=== PATIENT | male | born 1950 | race Caucasian/White ===

== ENCOUNTER 2020-12-16 10:13 | Inpatient (IN) | payer MEDICARE, SELFPAY ==
[2020-12-16] VITALS (8 sets, daily range): BP systolic 124–157; BP diastolic 62–88; PULSE 70–89; RESP 18–22; TEMP 36.6–37.2; O2SAT 87–96; BMI 29.6
--- NOTE | ~2020-12-16 | CT_ITS ---
EXAMINATION: CT CHEST WITHOUT CONTRAST CLINICAL INFORMATION: Abnormal chest x-ray. Cough and shortness of breath. COMPARISON: None TECHNIQUE: Multidetector volumetric CT imaging of the chest was done. Axial MIP volume rendering provided. Sagittal and coronal reformatted images were obtained. This CT examination was performed using dose optimization techniques as appropriate, variously including the following: *Automated exposure control *Adjustment of mA and/or kV according to patient size (this includes techniques or standardized protocols for targeted exams where dose is matched to indication/reason for exam; i.e. extremities or head) *Use of iterative reconstruction technique DLP: 4 x 4 mGy-cm FINDINGS: LUNGS: There is dense consolidation seen in the apical posterior segment of the right upper lobe with air bronchograms. There are innumerable small calcified pulmonary nodules probably representing calcified granulomas. There is a 5 mm noncalcified right upper lobe nodule axial image 288 series 4. There are several clustered noncalcified right middle lobe nodules, largest measuring 3 7 4 mm axial image 317 series 4. There are several small noncalcified left upper lobe nodules, largest measuring 2 mm. There is increased dependent and attenuation seen in both lower lobes. There also appears to be traction bronchiolectasis and diastasis small cysts. MEDIASTINUM: There are multiple calcified mediastinal and bilateral hilar lymph nodes. There are also noncalcified mediastinal lymph nodes. Largest lymph nodes are subcarinal lymph nodes which. Slightly enlarged, largest to the right of midline measuring 2 x 3 cm axial image 34 series 3. The heart is upper normal in size. There is mild coronary artery calcification. The thoracic aorta is normal in caliber. There is no pericardial effusion. The visualized thyroid gland is unremarkable. PLEURA: There is a small right pleural effusion. There is no left pleural effusion. AXILLA: There are small bilateral axillary lymph nodes. No enlarged lymph nodes are seen. UPPER ABDOMEN: There is a gallstone in the gallbladder. There is a 2 cm cyst exophytic to the upper pole of the left kidney. There is fatty infiltration of the head of the pancreas. OSSEOUS STRUCTURES: There are degenerative changes of the spine. CT/CT chest wo con IMPRESSION: Dense consolidation in the right upper lobe. This may represent a pneumonia. If there is clinical suspicion of pneumonia, imaging follow-up following treatment would be recommended. If there is no clinical suspicion of infection or radiographic abnormality fails to resolve, pulmonary consultation and bronchoscopy would be recommended. Evidence of old granulomatous disease with innumerable calcified granulomas and calcified hilar and mediastinal lymph nodes. There are some noncalcified mediastinal lymph nodes in the subcarinal region that appear enlarged and several noncalcified right pulmonary nodules in the right upper and middle lobes. Small right pleural effusion. Coronary artery calcification.
--- NOTE | ~2020-12-16 | XR_ITS ---
EXAMINATION: XR CHEST CLINICAL INFORMATION: Shortness of breath COMPARISON: Chest x-ray on 10/13/2015 TECHNIQUE: Frontal view of the chest was obtained. FINDINGS: Bilateral hazy interstitial and alveolar opacities, most predominantly in the right upper lobe. No pleural effusions. The cardiomediastinal silhouette is normal. XR/XR chest 1V IMPRESSION: Bilateral hazy opacities with right upper lobe predominance may be secondary to pneumonia in the appropriate clinical setting.
--- NOTE | 2020-12-16 11:03 | ED_ITS ---
HPI - SOB/Dyspnea General Chief Complaint: Dyspnea Stated Complaint: DIFF BREATHING WHEEZING COUGH Time Seen by Provider: 12/16/20 10:28 Source: patient Mode of arrival: ambulatory Limitations: no limitations History of Present Illness HPI Narrative: 70-year-old male with a past medical history of high cholesterol, hypertension, pulmonary nodules being followed by pulmonology at [facility] [place], [place], prostate cancer status post removal here with complaints of cough and wheezing since . Patient is also having some shortness of breath which is worsened with lying flat and with exertion. No leg swelling or pain. No chest pain, fevers or chills. Of note the patient had a bronchoscopy 1 week ago for his pulmonary nodules. He does not know the results yet. He denies any history of asthma, COPD. However he has used an inhaler in the past for wheezing. Denies smoking history. He is fully vaccinated for COVID-19 with [employer] x2 and a booster Related Data Home Medications Medication Instructions Recorded Confirmed albuterol sulfate 90 mcg/actuation 1 puff INHALATION Q4H PRN 12/16/20 12/16/20 aerosol inhaler amlodipine 10 mg tablet 1 tab PO DAILY 12/16/20 12/16/20 atorvastatin 80 mg tablet 1 tab PO DAILY 12/16/20 12/16/20 metoprolol succinate 25 mg 1 tab PO DAILY 12/16/20 12/16/20 tablet,extended release 24 hr olmesartan 40 1 tab PO DAILY 12/16/20 12/16/20 mg-hydrochlorothiazide 25 mg tablet omeprazole 40 mg capsule,delayed 1 cap PO DAILY 12/16/20 12/16/20 release tolterodine 4 mg capsule,extended 1 cap PO DAILY 12/16/20 12/16/20 release 24 hr Allergies Allergy/AdvReac Type Severity Reaction Status Date / Time ibuprofen [Ibuprofen] Allergy Intermediate HIVES/JOINT Unverified 11/04/19 17:43 SWELLING IBU Allergy Unknown Uncoded 11/15/15 00:00 Review of Systems Review of Systems: Yes all other systems are reviewed and are negative Constitutional: Constitutional: Reports no additional constitutional complaints, Denies body ache(s), Denies chills, Denies fever(s), Denies headache(s) and Denies weakness Eyes: Eyes: Reports no additional eye complaints and Denies change in vision ENT: Reports system reviewed and no additional complaints, except as documented, Denies dizziness, Denies headache(s), Denies nasal congestion, Denies nasal discharge and Denies neck pain Cardiovascular: Cardiovascular: Reports no additional cardiovascular complaints, Denies chest pain, Denies leg edema and Reports dyspnea Respiratory: Respiratory: Reports no additional respiratory complaints, Reports cough, Reports dyspnea and Reports wheezing Gastrointestinal: Gastrointestinal: Reports no additional gastrointestinal complaints, Denies abdominal pain, Denies diarrhea, Denies nausea and Denies vomiting Genitourinary: Genitourinary: Denies urinary incontinence Musculoskeletal: Musculoskeletal: Reports no additional musculoskeletal complaints, Denies back pain, Denies arthralgias, Denies joint swelling, Denies neck pain, Denies numbness and Denies tingling Integumentary/Breasts: Skin/Breast: Reports system reviewed and no additional complaints, except as docu and Denies rash Neurologic: Reports system reviewed and no additional complaints, except as documented, Denies Abnormal speech present, Denies dizziness, Denies headache(s), Denies numbness, Denies tingling and Denies weakness Allergic/Immunologic: Allergic/Immunologic: Reports wheezing PMFSH Past Medical History Attestation statement: The following information was validated with the patient. Source: old records reviewed and nursing notes reviewed Social History Social History Alcohol intake: unknown Patient Tobacco Use Status: Tobacco use Unknown Use of substances other than those prescribed or required for medical reasons: No Advance Directives: Yes Advance Directives Information Provided: Yes Advance Directives on File: No Physical Exam Vital Signs: Vital Signs: Last Vital Signs Temp 98.9 F 12/16/20 14:14 Pulse 74 12/16/20 14:14 Resp 18 12/16/20 14:14 BP 124/71 12/16/20 14:14 Pulse Ox 93 12/16/20 14:14 Body Mass Index 29.6 Const: General: cooperative, healthy appearing, comfortable and no acute distress Orientation/consciousness: patient oriented x3 Limitations: no limitations HENMT: Head: Yes normal to inspection Ears: hearing grossly normal bilaterally General nose exam: Normal external nose present Face and sinus: Yes normal facial exam Mouth: Normal oral and palatal mucosa present Throat: Yes posterior oropharynx normal Eyes: General: appearance normal, both eyes and all related structures Pupils: Equal, round and reactive pupils present Neck: Neck: Yes normal visual inspection Chest: Chest palpation & inspection: normal inspection of the chest Resp: Other: Tachypnea with a rate of 24 Inspiratory and expiratory wheezing throughout with coarse breath sounds noted Cardio: Rate: regular rate Rhythm: regular rhythm Peripheral pulses: Peripheral pulses 2+ throughout GI: Inspection: Yes normal to inspection Palpation (GI): Soft to palpation and nontender Auscultation: normal bowel sounds Back/Spine/Pelvis: Thoracic/Lumbar Spine: thoracic and lumbar spine normal to inspection Skin: General skin exam: no rashes or lesions noted Neuro: General: patient oriented x3, no focal motor deficits and normal sensation to monofilament Cranial nerves: Yes Equal, round and reactive pupils present Cognition (Neuro): normal cognition Speech: No Abnormal speech present Gait exam (Neuro): Normal gait present Motor exam (neuro): 5/5 motor strength present throughout Extrem: General: Yes normal to inspection, Yes no pedal edema and Yes no calf tenderness Course Course Course Narrative: 70-year-old male here with complaints of shortness of breath, wheezing and cough for 3 days with no chest pain, fever, leg swelling or pain. On arrival the patient has mild tachypnea with oxygen saturation on room air 87%. He has inspiratory and expiratory wheezing throughout with coarse breath sounds. Will need labs, chest x-ray, EKG, COVID screen. Will give Solu-Medrol, albuterol and reassess. 1210-chest x-ray consistent with pneumonia. At this time infection is suspected. Blood cultures and lactic acid ordered. Antibiotics ordered. CT chest eval ordered. Anticipate admission 1445-CT chest shows dense consolidation in the right upper lobe. Will admit to medicine service. Obtain records from bronchoscopy from [facility] [place]. 1454-Spoke to Dr Dc who accepted admission. MDM - SOB/Dyspnea Differential Diagnosis Differential diagnosis: Likely congestive heart failure and pneumonia Medical Records Attestation: I reviewed the patient's medical records. Lab Data Attestation: I reviewed the patient's lab results. Result diagrams: 12/16/20 11:30 12/16/20 11:30 Labs: Lab Results 12/16/20 12/16/20 12/16/20 Range/Units 11:29 11:29 11:29 WBC (4.8-10.8) X10*3/uL RBC (4.60-5.80) X10*6/uL Hgb (14.0-18.0) g/dl Hct (42.0-52.0) % MCV (80.0-98.0) fL MCH (27.0-33.0) pg MCHC (31.0-36.0) g/dl RDW (11.0-16.0) % Plt Count (160-400) X10*3/uL MPV (9.4-12.4) fL Immature Gran % (Auto) (0.0-0.4) % Neut % (Auto) (45-73) % Lymph % (Auto) (20-40) % [place] % (Auto) (2-11) % Eos % (Auto) (0-4) % Baso % (Auto) (0-2) % Lymph # (Auto) (1.2-4.9) X10*3/uL [place] # (Auto) (0.1-1.2) X10*3/uL Eos # (Auto) (0.0-0.4) X10*3/uL Baso # (Auto) (0.0-0.2) X10*3/uL Abs Immat Gran (auto) (0.00-0.03) X10*3/uL Absolute Neuts (auto) (2.0-8.3) x10*3/uL Absolute Nucleated RBC (0.0-0.012) X10*3/uL Nucleated RBC % (auto) (0.0-0.2) /100WBC PT 14.4 H (9.9-13.0) SEC INR 1.3 H (0.9-1.1) Sodium (135-145) mmol/L Potassium (3.3-5.1) mmol/L Chloride (96-108) mmol/L Carbon Dioxide (22-29) mmol/L Anion Gap (12-20) BUN (9-16) mg/dL Creatinine (0.5-1.4) mg/dL Estim Creat Clear Calc Estimated GFR Random Glucose (60-115) mg/dL Lactic Acid (0.5-2.0) mmol/L Calcium (8.4-10.2) mg/dL Magnesium (1.6-2.6) mg/dL Total Bilirubin (0.0-1.0) mg/dL Direct Bilirubin (0.0-0.5) mg/dL AST (5-37) U/L ALT (0-40) U/L Alkaline Phosphatase (39-117) U/L Troponin I High Sens 9.4 (<3.5-35.0) ng/L B-Natriuretic Peptide 43 (<100) pg/mL Total Protein (6.5-8.0) g/dL Albumin (3.5-5.0) g/dL COVID-19 (DONALD) Negative (Negative) COVID-19 Clin Com See Note 12/16/20 12/16/20 12/16/20 Range/Units 11:30 11:30 12:18 WBC 11.3 H (4.8-10.8) X10*3/uL RBC 5.64 (4.60-5.80) X10*6/uL Hgb 15.3 (14.0-18.0) g/dl Hct 45.5 (42.0-52.0) % MCV 80.7 (80.0-98.0) fL MCH 27.1 (27.0-33.0) pg MCHC 33.6 (31.0-36.0) g/dl RDW 13.8 (11.0-16.0) % Plt Count 231 (160-400) X10*3/uL MPV 9.3 L (9.4-12.4) fL Immature Gran % (Auto) 0.6 H (0.0-0.4) % Neut % (Auto) 74.7 H (45-73) % Lymph % (Auto) 9.1 L (20-40) % [place] % (Auto) 9.5 (2-11) % Eos % (Auto) 5.7 H (0-4) % Baso % (Auto) 0.4 (0-2) % Lymph # (Auto) 1.0 L (1.2-4.9) X10*3/uL [place] # (Auto) 1.1 (0.1-1.2) X10*3/uL Eos # (Auto) 0.6 H (0.0-0.4) X10*3/uL Baso # (Auto) 0.1 (0.0-0.2) X10*3/uL Abs Immat Gran (auto) 0.07 H (0.00-0.03) X10*3/uL Absolute Neuts (auto) 8.44 H (2.0-8.3) x10*3/uL Absolute Nucleated RBC 0.000 (0.0-0.012) X10*3/uL Nucleated RBC % (auto) 0.0 (0.0-0.2) /100WBC PT (9.9-13.0) SEC INR (0.9-1.1) Sodium 136 (135-145) mmol/L Potassium 3.2 L (3.3-5.1) mmol/L Chloride 103 (96-108) mmol/L Carbon Dioxide 23 (22-29) mmol/L Anion Gap 13 (12-20) BUN 13 (9-16) mg/dL Creatinine 0.75 (0.5-1.4) mg/dL Estim Creat Clear Calc 95.8 Estimated GFR > 60 Random Glucose 106 (60-115) mg/dL Lactic Acid 1.1 (0.5-2.0) mmol/L Calcium 8.7 (8.4-10.2) mg/dL Magnesium 1.7 (1.6-2.6) mg/dL Total Bilirubin 2.0 H (0.0-1.0) mg/dL Direct Bilirubin 0.6 H (0.0-0.5) mg/dL AST 29 (5-37) U/L ALT 24 (0-40) U/L Alkaline Phosphatase 92 (39-117) U/L Troponin I High Sens (<3.5-35.0) ng/L B-Natriuretic Peptide (<100) pg/mL Total Protein 6.1 L (6.5-8.0) g/dL Albumin 3.7 (3.5-5.0) g/dL COVID-19 (DONALD) (Negative) COVID-19 Clin Com Imaging Data Chest x-ray: Attestation: I personally reviewed and interpreted this imaging study as follows: Radiologist's impression: EXAMINATION: XR CHEST CLINICAL INFORMATION: Shortness of breath COMPARISON: Chest x-ray on 10/13/2015 TECHNIQUE: Frontal view of the chest was obtained. FINDINGS: Bilateral hazy interstitial and alveolar opacities, most predominantly in the right upper lobe. No pleural effusions. The cardiomediastinal silhouette is normal. XR/XR chest 1V IMPRESSION: Bilateral hazy opacities with right upper lobe predominance may be secondary to pneumonia in the appropriate clinical setting. ? CT scan - chest: Attestation: I personally reviewed and interpreted this imaging study as follows: Radiologist's impression: Dense consolidation in the right upper lobe. This may represent a pneumonia. If there is clinical suspicion of pneumonia, imaging follow-up following treatment would be recommended. If there is no clinical suspicion of infection or radiographic abnormality fails to resolve, pulmonary consultation and bronchoscopy would be recommended. Evidence of old granulomatous disease with innumerable calcified granulomas and calcified hilar and mediastinal lymph nodes. There are some noncalcified mediastinal lymph nodes in the subcarinal region that appear enlarged and several noncalcified right pulmonary nodules in the right upper and middle lobes. Small right pleural effusion. Coronary artery calcification. ECG Data Attestation: I personally reviewed and interpreted this ECG as follows: ECG interpretation date: 12/16/20 ECG interpretation time: 11:33 Interpretation: Sinus rhythm with occasional PVCs, right bundle branch block, ST depressions V3 through V5. No previous to compare Discharge Plan Discharge Clinical Impression: Pneumonia, Hypoxia, Tachypnea Patient Disposition: Admitted As Inpatient
--- NOTE | 2020-12-16 11:12 | ECG_ITS ---
Test Reason : dyspena Blood Pressure : / mmHG Vent. Rate : 077 BPM Atrial Rate : 077 BPM P-R Int : 168 ms QRS Dur : 158 ms QT Int : 428 ms P-R-T Axes : 033 -65 010 degrees QTc Int : 484 ms Sinus rhythm with occasional Premature ventricular complexes Left anterior fascicular block Right bundle branch block Abnormal ECG T wave inversion no longer evident in Lateral leads Referred By: Monica Reilly Electronically Signed By:RAYRAY BOUDREAUX MD
[2020-12-16] MEDS: Albuterol/Iprat 2.5/0.5MG 3 ML AMPUL.NEB INHALE ×3 (11:31→22:20)
[2020-12-16] MEDS: methylPREDNISolone Sod Succ 125 MG/2 ML VIAL IVPUSH (11:31)
[2020-12-16 11:38] LABS: MANUAL DIFF FLAG NO
[2020-12-16 11:45] LABS: INTERNATIONAL NORM RATIO 1.3 (0.9-1.1); Prothrombin Time 14.4 SEC (9.9-13.0)
[2020-12-16 11:54] LABS: Basophils Absolute Auto 0.1 X10*3/uL (0.0-0.2); Basophils Percent Auto 0.4 % (0-2); Eosinophils Absolute Auto 0.6 X10*3/uL (0.0-0.4); Eosinophils Percent Auto 5.7 % (0-4); Hematocrit 45.5 % (42.0-52.0); Hemoglobin 15.3 g/dl (14.0-18.0); Imm Gran Abs Auto 0.07 X10*3/uL (0.00-0.03); Imm Gran Pct Auto 0.6 % (0.0-0.4); Lymphocytes Percent Auto 9.1 % (20-40); Mean Corpuscular HGB Conc 33.6 g/dl (31.0-36.0); Mean Corpuscular Hemoglobin 27.1 pg (27.0-33.0); Mean Corpuscular Volume 80.7 fL (80.0-98.0); Mean Platelet Volume 9.3 fL (9.4-12.4); Monocytes Absolute Auto 1.1 X10*3/uL (0.1-1.2); Monocytes Percent Auto 9.5 % (2-11); Neutrophils Absolute Auto 8.44 x10*3/uL (2.0-8.3); Neutrophils Percent Auto 74.7 % (45-73); Platelet Count 231 X10*3/uL (160-400); Red Blood Count 5.64 X10*6/uL (4.60-5.80); Red Cell Distribution Width 13.8 % (11.0-16.0); White Blood Count 11.3 X10*3/uL (4.8-10.8)
[2020-12-16 11:54] LABS: COVID-19 Test Negative (Negative); IDNOW Serial# 9DD0AD1C
[2020-12-16 12:00] LABS: Alanine Aminotransferase 24 U/L (0-40); Albumin Level 3.7 g/dL (3.5-5.0); Alkaline Phosphatase 92 U/L (39-117); Anion Gap 13 (12-20); Aspartate Amino Transferase 29 U/L (5-37); Bilirubin Direct 0.6 mg/dL (0.0-0.5); Blood Urea Nitrogen 13 mg/dL (9-16); Calcium 8.7 mg/dL (8.4-10.2); Carbon Dioxide 23 mmol/L (22-29); Chloride 103 mmol/L (96-108); Creatinine Clr Calc Pharmacy 95.8; Estimated Glomerular Filt Rate > 60; Glucose Random 106 mg/dL (60-115); Magnesium 1.7 mg/dL (1.6-2.6); Potassium 3.2 mmol/L (3.3-5.1); Sodium 136 mmol/L (135-145); Total Protein 6.1 g/dL (6.5-8.0)
[2020-12-16 12:02] LABS: B Type Natriuretic Peptide 43 pg/mL (<100); Troponin-I High Sensitivity 9.4 ng/L (<3.5-35.0)
[2020-12-16] MEDS: Piperacillin Sodium/Tazobactam 4.5 GM in 0.9 % Sodium Chloride 100 ML IV (12:29)
[2020-12-16 12:35] LABS: Lactic Acid 1.1 mmol/L (0.5-2.0)
[2020-12-16] MEDS: vancomycin HCL 1,250 MG in 0.9 % Sodium Chloride 250 ML 166.67 MG IV (13:04)
--- NOTE | 2020-12-16 15:14 | P.HPHOSP_ITS ---
History of Present Illness Date of Service: 12/16/20 Attending physician on admission: Areli Dc Chief Complaint: Shortness of breath 70-year-old male with a past medical history of high cholesterol, hypertension, pulmonary nodules being followed by pulmonology at [facility] [place], GER[place], prostate cancer status post surgery came in with symptoms of shortness of breath with exertion, cough , and wheezing since yesterday patient denied associated symptoms of chest pain, fevers chills no orthopnea no PND, patient had a bronchoscopy done on 12/08/20 with a diagnosis of interstitial lung disease, sarcoidosis versus silicosis, patient was noted to have hyper dynamic airway collapse of the left mainstem bronchus, he underwent right middle lobe BAL that was sent for cell count, culture, AFB culture as well as cytology and right upper lobe biopsies were sent for histopathology . Patient denies sick contacts, no history of recent travel. Patient is fully vaccinated for COVID-19 with pfizer x2 and a booster, status post flu vaccine In the emergency room CT chest showed right upper lobe pneumonia he was noted to be hypoxic therefore being admitted to [facility] with a diagnosis of acute on chronic hypoxic respiratory failure and pneumonia likely postobstructive Review of Systems Review of Systems: General no headache no dizziness no fever chills. CVS no chest pain, no palpitation. Respiratory cough with no sputum,sob with exertion. Gastrointestinal no nausea no vomiting, no abdominal pain Musculoskeletal no deformity Yes all other systems are reviewed and are negative PMFSH Pertinent family history: No history of premature coronary artery disease Social History Alcohol intake: unknown Patient Tobacco Use Status: Tobacco use Unknown Use of substances other than those prescribed or required for medical reasons: No Advance Directives: Yes Advance Directives Information Provided: Yes Advance Directives on File: No service: No Meds Allergies Allergy/AdvReac Type Severity Reaction Status Date / Time ibuprofen [Ibuprofen] Allergy Intermediate HIVES/JOINT Verified 12/17/20 02:29 SWELLING Active Medications: Current Medications Acetaminophen (Acetaminophen 325 Mg Tablet) 650 mg PO Q6H PRN PRN Reason: Pain, Mild (Pain Scale 1-3) Vancomycin HCl 750 mg/ Sodium (Chloride) 265 mls @ 265 mls/hr IV Q12H ARNOLDO Ondansetron HCl (Ondansetron Hcl 4 Mg/2 Ml Vial) 4 mg IVPUSH Q8H PRN PRN Reason: Nausea and Vomiting Pharmacy Consult (Consult Rx Perform Med Rec) 1 each MISCELLANE ONCE PRN PRN Reason: Consult order Pharmacy Consult (Consult Rx Vancomycin Dosing) 1 each MISCELLANE DAILY PRN PRN Reason: Consult order Sodium Chloride (0.9 % Sodium Chloride Flush 3 Ml Syringe) 3 ml IVFLUSH QSHIFT [facility] Home Medications Medication Instructions Recorded Confirmed Last Taken Type albuterol sulfate 90 mcg/actuation 1 puff INHALATION Q4H PRN 12/16/20 12/16/20 Unknown History aerosol inhaler amlodipine 10 mg tablet 1 tab PO DAILY 12/16/20 12/16/20 Unknown History ascorbic acid (vitamin C) 500 mg 500 mg PO DAILY 12/16/20 12/16/20 Unknown History tablet (Vitamin C) aspirin 81 mg tablet 81 mg PO DAILY 12/16/20 12/16/20 Unknown History atorvastatin 80 mg tablet 1 tab PO DAILY 12/16/20 12/16/20 Unknown History metoprolol succinate 25 mg 1 tab PO DAILY 12/16/20 12/16/20 Unknown History tablet,extended release 24 hr olmesartan 40 1 tab PO DAILY 12/16/20 12/16/20 Unknown History mg-hydrochlorothiazide 25 mg tablet omeprazole 40 mg capsule,delayed 1 cap PO DAILY 12/16/20 12/16/20 Unknown History release tolterodine 4 mg capsule,extended 1 cap PO DAILY 12/16/20 12/16/20 Unknown History release 24 hr Physical Exam Vital Signs and Narrative: Vital Signs: Last Vital Signs Temp 98.9 F 12/16/20 14:14 Pulse 74 12/16/20 14:14 Resp 18 12/16/20 14:14 BP 124/71 12/16/20 14:14 Pulse Ox 93 12/16/20 14:14 Body Mass Index 29.6 General awake alert, no acute distress. Neck is supple no JVD. CVS regular rate rhythm, Respiratory lungs clear bilateral coarse breath sounds, initially noted to have bilateral expiratory wheeze now resolved, no respiratory distress, Gastrointestinal abdomen soft, nontender, bowel sounds audible, no guarding , no rigidity. Extremities no pitting edema. Neuro nonfocal Skin no rash Psych appropriate affect Musculoskeletal no deformity Results Labs CBC and Chem 7: 12/16/20 11:30 12/16/20 11:30 Labs: Laboratory Results - last 24 hr 12/16/20 12/16/20 12/16/20 11:29 11:29 11:29 MCV MCH MCHC RDW Plt Count MPV Immature Gran % (Auto) Neut % (Auto) Lymph % (Auto) [place] % (Auto) Eos % (Auto) Baso % (Auto) Lymph # (Auto) [place] # (Auto) Eos # (Auto) Baso # (Auto) Abs Immat Gran (auto) Absolute Neuts (auto) Absolute Nucleated RBC Nucleated RBC % (auto) PT 14.4 H INR 1.3 H Anion Gap Estim Creat Clear Calc Estimated GFR Random Glucose Lactic Acid Calcium Magnesium Total Bilirubin Direct Bilirubin AST ALT Alkaline Phosphatase Troponin I High Sens 9.4 B-Natriuretic Peptide 43 Total Protein Albumin COVID-19 (DONALD) Negative COVID-19 Clin Com See Note 12/16/20 12/16/20 12/16/20 11:30 11:30 12:18 MCV 80.7 MCH 27.1 MCHC 33.6 RDW 13.8 Plt Count 231 MPV 9.3 L Immature Gran % (Auto) 0.6 H Neut % (Auto) 74.7 H Lymph % (Auto) 9.1 L [place] % (Auto) 9.5 Eos % (Auto) 5.7 H Baso % (Auto) 0.4 Lymph # (Auto) 1.0 L [place] # (Auto) 1.1 Eos # (Auto) 0.6 H Baso # (Auto) 0.1 Abs Immat Gran (auto) 0.07 H Absolute Neuts (auto) 8.44 H Absolute Nucleated RBC 0.000 Nucleated RBC % (auto) 0.0 PT INR Anion Gap 13 Estim Creat Clear Calc 95.8 Estimated GFR > 60 Random Glucose 106 Lactic Acid 1.1 Calcium 8.7 Magnesium 1.7 Total Bilirubin 2.0 H Direct Bilirubin 0.6 H AST 29 ALT 24 Alkaline Phosphatase 92 Troponin I High Sens B-Natriuretic Peptide Total Protein 6.1 L Albumin 3.7 COVID-19 (DONALD) COVID-19 Clin Com Imaging Radiologist's Impressions: Impressions Chest X-Ray 12/16/20 11:12 IMPRESSION: Bilateral hazy opacities with right upper lobe predominance may be secondary to pneumonia in the appropriate clinical setting. Chest CT 12/16/20 12:08 IMPRESSION: Dense consolidation in the right upper lobe. This may represent a pneumonia. If there is clinical suspicion of pneumonia, imaging follow-up following treatment would be recommended. If there is no clinical suspicion of infection or radiographic abnormality fails to resolve, pulmonary consultation and bronchoscopy would be recommended. Evidence of old granulomatous disease with innumerable calcified granulomas and calcified hilar and mediastinal lymph nodes. There are some noncalcified mediastinal lymph nodes in the subcarinal region that appear enlarged and several noncalcified right pulmonary nodules in the right upper and middle lobes. Small right pleural effusion. Coronary artery calcification. Assessment and Plan (1) Pneumonia: Status: Acute (2) Hypoxia: Status: Acute (3) Obstructive sleep apnea: Status: Acute (4) Hypokalemia: Status: Acute (5) Elevated bilirubin: Status: Acute (6) Hyperlipidemia: Status: Acute (7) Hypertension: Status: Acute (8) History of prostate cancer: Status: Acute 70-year-old gentleman with past medical history of hyperlipidemia, hypertension, pulmonary nodules, history of obstructive sleep apnea on CPAP and 2 L of oxygen at home, history of prostate cancer status post resection presented to [facility] after undergoing bronchoscopy at [facility] on December 08 presented to [facility] with couple days history of cough associated with shortness of breath and since yesterday noted to have expiratory wheeze denies chest pain orthopnea patient in the ER noted to be hypoxic in CT chest showed pneumonia therefore patient is being admitted to [facility] for continued monitoring and treatment. Acute on chronic hypoxic respiratory failure due to right upper lobe pneumonia No evidence of sepsis. Will admit to medical floor patient will treat with IV Zosyn with concern for post obstructive pneumonia hx of lung mass Patient is status post bronchoscopy 12/08 at [facility] when noted to have airway collapse left main stem bronchus, transbronchial biopsies were taken from right upper lobe, and had right middle lobe BAL Gm stain, fungal, AFB cultures as well as cytology was sent. Will place on IV steroids, scheduled updraft and continue as needed albuterol inhalers Place on oxygen and keep finger oximetry greater than 94% add cough medication and supportive care with analgesics/ antiemetics. If patient does not show any improvement will consult pulmonology. Hypertension Continue home medications amlodipine, metoprolol,hold olmesartan/hydrochlorothiazide, due to soft BP, follow blood pressure closely History of obstructive sleep apnea continue CPAP and 2 L of oxygen at night. History of pulmonary nodules recommend outpatient follow-up at [facility] pulmonology History of prostate cancer. Continue Detrol LA DVT prophylaxis with Lovenox subQ Code status full code Quality Stroke Does the patient have a stroke diagnosis?: No VTE Prior VTE?: No VTE Risk Level:: Medical - moderate - high VTE Device Contraindication: Treatment Not Indicated VTE Drug Contraindication: N/A - Med Ordered
[2020-12-16] MEDS: guaiFENesin DM 100/10/5 ML 5 ML SYRUP 10 ML PO ×2 (17:16→22:52)
[2020-12-16] MEDS: Enoxaparin Sodium 40 MG/0.4 ML SYRINGE SUBCUT (17:16)
[2020-12-16] MEDS: Piperacillin Sodium/Tazobactam 3.375 GM in 0.9 % Sodium Chloride 50 ML IV (20:03)
[2020-12-16] MEDS: Atorvastatin Calcium 80 MG TABLET PO (23:33)
[2020-12-17] VITALS (11 sets, daily range): BP systolic 136–158; BP diastolic 63–81; PULSE 70–90; RESP 16–22; TEMP 36.5; O2SAT 92–96
[2020-12-17] MEDS: Piperacillin Sodium/Tazobactam 3.375 GM in 0.9 % Sodium Chloride 50 ML IV ×4 (02:01→20:48)
[2020-12-17] MEDS: vancomycin HCL 750 MG in 0.9 % Sodium Chloride 250 ML 265 MG IV ×2 (02:02→14:12)
[2020-12-17] MEDS: Melatonin 3 MG TABLET 6 MG PO ×2 (02:29→22:46)
[2020-12-17] MEDS: guaiFENesin DM 100/10/5 ML 5 ML SYRUP 10 ML PO ×4 (02:30→20:50)
[2020-12-17] MEDS: 0.9 % Sodium Chloride Flush 3 ML SYRINGE IVFLUSH (07:37)
[2020-12-17] MEDS: Albuterol/Iprat 2.5/0.5MG 3 ML AMPUL.NEB INHALE ×3 (08:09→16:17)
[2020-12-17] MEDS: Metoprolol Succinate ER 25 MG TAB.ER.24H PO (09:00)
[2020-12-17] MEDS: Aspirin Enteric Coated 81 MG TABLET.DR PO (09:00)
[2020-12-17] MEDS: Potassium Chloride ER 20 MEQ TAB.ER.PRT 40 MEQ PO (09:00)
[2020-12-17] MEDS: Ascorbic Acid 500 MG TABLET PO (09:02)
[2020-12-17] MEDS: amLODIPine Besylate 10 MG TABLET PO (09:02)
[2020-12-17] MEDS: Omeprazole 40 MG CAPSULE.DR PO (09:02)
[2020-12-17] MEDS: methylPREDNISolone Sod Succ 40 MG/ML VIAL IVPUSH ×2 (09:03→16:31)
[2020-12-17] MEDS: Tolterodine Tartrate LA 4 MG CAP.ER.24H PO (10:42)
--- NOTE | 2020-12-17 11:29 | MHC.CM.PN ---
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
--- NOTE | 2020-12-17 14:05 | P.PNIM_ITS ---
Subjective Subjective Date of Service: 12/17/20 Interval History: Being followed for right upper lobe pneumonia, complaining of shortness of breath when lying on right-sided, was up most of the night since state in the emergency room, feels better when lying on back used CPAP at night denies worsening shortness of breath or cough. Review of Systems General no headache, no dizziness, no fever chills. CVS no chest pain, no palpitation. Respiratory shortness of breath when lying on right side, cough Gastrointestinal no nausea, no vomiting, no abdominal pain Review of Systems: Yes all other systems are reviewed and are negative Physical Exam Vital Signs: Vital Signs: Last Vital Signs Temp 98.9 F 12/16/20 17:14 Pulse 87 12/17/20 11:15 Resp 20 12/17/20 09:03 BP 138/78 12/17/20 09:03 Pulse Ox 94 12/17/20 09:03 Body Mass Index 29.6 General awake alert, no acute distress.? Neck is supple no JVD. CVS? regular rate rhythm, Respiratory lungs bilateral coarse breath sounds, no wheeze, no rhonchi , no respiratory distress, Gastrointestinal abdomen soft, nontender, bowel sounds audible, no guarding , no rigidity. Extremities no pitting edema. Neuro nonfocal Skin no rash Psych appropriate affect Musculoskeletal no deformity Objective Data Active Medications Acetaminophen (Acetaminophen 325 Mg Tablet) 650 mg PO Q6H PRN PRN Reason: Pain, Mild (Pain Scale 1-3) Albuterol Sulfate (Albuterol Sulfate 90 Mcg 8 Gm Inhaler) 1 puff INHALE Q4H PRN PRN Reason: Shortness Of Breath Albuterol/Ipratropium (Albuterol/Iprat 2.5/0.5mg 3 Ml Ampul.Neb) 3 ml INHALE QID [facility] Last Admin: 12/17/20 11:14 Dose: 3 ml Documented by: KATIANA Amlodipine Besylate (Amlodipine Besylate 10 Mg Tablet) 10 mg PO DAILY [facility]; Protocol Last Admin: 12/17/20 09:02 Dose: 10 mg Documented by: BRIANNA Ascorbic Acid (Ascorbic Acid 500 Mg Tablet) 500 mg PO DAILY [facility] Last Admin: 12/17/20 09:02 Dose: 500 mg Documented by: BRIANNA Aspirin (Aspirin Enteric Coated 81 Mg Tablet.) 81 mg PO DAILY [facility] Last Admin: 12/17/20 09:00 Dose: 81 mg Documented by: BRIANNA Atorvastatin Calcium (Atorvastatin Calcium 80 Mg Tablet) 80 mg PO BEDTIME [facility] Last Admin: 12/16/20 23:33 Dose: 80 mg Documented by: LEVI Enoxaparin Sodium (Enoxaparin Sodium 40 Mg/0.4 Ml Syringe) 40 mg SUBCUT Q24H [facility] Last Admin: 12/16/20 17:16 Dose: 40 mg Documented by: GLORIA Guaifenesin/Dextromethorphan (Guaifenesin Dm 100/10/5 Ml 5 Ml Syrup) 10 ml PO Q6H [facility] Last Admin: 12/17/20 09:00 Dose: 10 ml Documented by: BRIANNA Vancomycin HCl 750 mg/ Sodium (Chloride) 265 mls @ 265 mls/hr IV Q12H [facility] Last Infusion: 12/17/20 03:11 Dose: 0 mls/hr Documented by: LEVI Piperacillin Sod/Tazobactam (Sod 3.375 gm/ Sodium Chloride) 50 mls @ 100 mls/hr IV Q6H [facility] Last Admin: 12/17/20 12:59 Dose: 100 mls/hr Documented by: WATSON Methylprednisolone Sodium Succinate (Methylprednisolone Sod Succ 40 Mg/Ml Vial) 40 mg IVPUSH Q8H [facility] Last Admin: 12/17/20 09:03 Dose: 40 mg Documented by: BRIANNA Metoprolol Succinate (Metoprolol Succinate Er 25 Mg Tab.Er.24h) 25 mg PO DAILY [facility]; Protocol Last Admin: 12/17/20 09:00 Dose: 25 mg Documented by: BRIANNA Omeprazole (Omeprazole 40 Mg Capsule.Dr) 40 mg PO DAILY [facility] Last Admin: 12/17/20 09:02 Dose: 40 mg Documented by: BRIANNA Ondansetron HCl (Ondansetron Hcl 4 Mg/2 Ml Vial) 4 mg IVPUSH Q8H PRN PRN Reason: Nausea and Vomiting Pharmacy Consult (Consult Rx Perform Med Rec) 1 each MISCELLANE ONCE PRN PRN Reason: Consult order Pharmacy Consult (Consult Rx Vancomycin Dosing) 1 each MISCELLANE DAILY PRN PRN Reason: Consult order Sodium Chloride (0.9 % Sodium Chloride Flush 3 Ml Syringe) 3 ml IVFLUSH QSHIFT [facility] Last Admin: 12/17/20 07:37 Dose: 3 ml Documented by: BRIANNA Tolterodine Tartrate (Tolterodine Tartrate La 4 Mg Cap.Er.24h) 4 mg PO DAILY [facility] Last Admin: 12/17/20 10:42 Dose: 4 mg Documented by: BRIANNA Labs CBC & Chem 7: 12/16/20 11:30 12/16/20 11:30 Assessment and Plan (1) History of prostate cancer: Status: Acute (2) Hypertension: Status: Acute (3) Hyperlipidemia: Status: Acute (4) Elevated bilirubin: Status: Acute (5) Hypokalemia: Status: Acute (6) Obstructive sleep apnea: Status: Acute (7) Hypoxia: Status: Acute (8) Pneumonia: Status: Acute (9) Tachypnea: Status: Acute Assessment and Plan: 70-year-old gentleman with past medical history of hyperlipidemia, hypertension, pulmonary nodules, history of obstructive sleep apnea on CPAP and 2 L of oxygen at home, history of prostate cancer status post resection presented to [facility] after undergoing bronchoscopy at [facility] on December 08 presented to [facility] with couple days history of cough associated with shortness of breath and since yesterday noted to have expiratory wheeze denies chest pain orthopnea patient in the ER noted to be hypoxic ,CT chest showed right upper lobe pneumonia therefore patient is being admitted to [facility] for continued monitoring and treatment. Acute on chronic hypoxic respiratory failure due to right upper lobe pneumonia No evidence of sepsis. Patient gets short of breath when lying on right side likely due to right lung mass and obstruction. Patient use 2 L of oxygen at night with CPAP, currently 2 L of oxygen with finger oximetry 94% will gradually wean oxygen Continue IV Zosyn day 2 ,with concern for post obstructive pneumonia hx of lung mass Patient is status post bronchoscopy 12/08 at [facility] noted to have airway collapse left main stem bronchus, transbronchial biopsies were taken from right upper lobe, and had right middle lobe BAL Gm stain, fungal, AFB cultures as well as cytology was sent. Continue IV steroids, scheduled updraft and continue as needed albuterol inhalers Continue cough medication and supportive care with analgesics/ antiemetics. Blood cultures x2 pending Patient making progress with above treatment will transition to by mouth steroids and antibiotics in next 24 hours if remains stable and recommend outpatient follow-up with [facility] [place] pulmonology. If patient does not show improvement will consult pulmonology. Hypertension BP stable Continue home medications amlodipine, and metoprolol, hold olmesartan/hydrochlorothiazide, for now and resume if blood pressure allows History of obstructive sleep apnea continue CPAP and 2 L of oxygen at night. History of pulmonary nodules recommend outpatient follow-up at [facility] pulmonology Elevated bilirubin will follow patient asymptomatic. History of prostate cancer.? Continue Detrol LA DVT prophylaxis with Lovenox subQ Code status full code Quality Stroke Does the patient have a stroke diagnosis?: No VTE Prior VTE?: No VTE Risk Level:: Medical - moderate - high VTE Device Contraindication: Treatment Not Indicated VTE Drug Contraindication: N/A - Med Ordered
[2020-12-17] MEDS: Enoxaparin Sodium 40 MG/0.4 ML SYRINGE SUBCUT (16:33)
--- NOTE | 2020-12-17 19:39 | PC.NURSE ---
this nurse resuming care for pt. pt is alert and oriented x4. pt denies pain at this time. pt on 2L NC, denies any SOB at this time. respirations even and unlabored on 2L NC. Vanco still infusing, will start next abx when vanco finished infusing. pt aware of plan for admission, has no questions or concerns at this time. call gracia in reach.
[2020-12-17] MEDS: Atorvastatin Calcium 80 MG TABLET PO (20:50)
--- NOTE | 2020-12-17 20:54 | PC.NURSE ---
500ml emptied from bedside urinal
--- NOTE | 2020-12-17 20:55 | PC.NURSE ---
pt states that when he receives nebulizer tx he feels anxious and his heart races, this nurse informed pt that this can sometimes be a side effect of albuterol. pt states that he looked up alternative medications to see if there was one with less of these effects and stated he would like to try xopenex. per RT, this medication is available. this nurse contacting hospitalist to see if medication can be switched to xopenex.
--- NOTE | 2020-12-17 23:55 | PC.NURSE ---
nurse to nurse report given to Alvarez MURRELL
[2020-12-18] VITALS (12 sets, daily range): BP systolic 141–170; BP diastolic 68–78; PULSE 56–87; RESP 16–20; TEMP 36–37.1; O2SAT 89–98
[2020-12-18 00:42] LABS: Vancomycin Trough 8.7 mcg/mL (10.0-20.0)
[2020-12-18] MEDS: methylPREDNISolone Sod Succ 40 MG/ML VIAL IVPUSH ×3 (00:42→16:41)
[2020-12-18] MEDS: Piperacillin Sodium/Tazobactam 3.375 GM in 0.9 % Sodium Chloride 50 ML IV ×4 (00:42→19:30)
[2020-12-18] MEDS: guaiFENesin DM 100/10/5 ML 5 ML SYRUP 10 ML PO ×4 (04:07→20:26)
[2020-12-18 05:30] LABS: Alanine Aminotransferase 21 U/L (0-40); Albumin Level 3.4 g/dL (3.5-5.0); Alkaline Phosphatase 76 U/L (39-117); Aspartate Amino Transferase 20 U/L (5-37); Bilirubin Direct 0.4 mg/dL (0.0-0.5); Bilirubin Total 0.8 mg/dL (0.0-1.0); Potassium 3.9 mmol/L (3.3-5.1); Total Protein 5.7 g/dL (6.5-8.0)
[2020-12-18] MEDS: Omeprazole 40 MG CAPSULE.DR PO (08:35)
[2020-12-18] MEDS: Tolterodine Tartrate LA 4 MG CAP.ER.24H PO (08:35)
[2020-12-18] MEDS: amLODIPine Besylate 10 MG TABLET PO (08:37)
[2020-12-18] MEDS: Metoprolol Succinate ER 25 MG TAB.ER.24H PO (08:38)
[2020-12-18] MEDS: Aspirin Enteric Coated 81 MG TABLET.DR PO (08:39)
[2020-12-18] MEDS: Ascorbic Acid 500 MG TABLET PO (08:39)
[2020-12-18] MEDS: 0.9 % Sodium Chloride Flush 3 ML SYRINGE IVFLUSH ×2 (08:39→16:42)
--- NOTE | 2020-12-18 11:20 | MHC.CM.PN ---
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 . initial discharge plan -home no services , manager case management to continue to follow for change in discharge needs,
--- NOTE | 2020-12-18 13:38 | PC.NURSE ---
Skin assessment completed. Patient has no skin issues noted at this time.
--- NOTE | 2020-12-18 13:45 | P.PNIM_ITS ---
Subjective Subjective Date of Service: 12/18/20 Interval History: Cough still bothersome; cough syrup and effective Review of Systems Denies chest pain Denies shortness of breath Denies nausea vomiting diarrhea Physical Exam Vital Signs: Vital Signs: Last Vital Signs Temp 97.8 F 12/18/20 12:00 Pulse 58 12/18/20 12:00 Resp 20 12/18/20 12:00 BP 149/70 H 12/18/20 12:00 Pulse Ox 94 12/18/20 12:00 Body Mass Index 29.6 Const: Other: No acute distress HENMT: Other: Oropharynx clear; membranes otitis Resp: Other: Diminished at bases; diffuse expiratory wheezes Cardio: Other: No S4; positive S1-S2; no S3 murmurs rubs gallops GI: Other: Soft nontender nondistended with normoactive bowel sounds all 4 quadrants Neuro: Other: Cranial nerves 2-12 grossly intact as tested motor is 5/5 all extremities sensation intact cognition appropriate Extrem: Other: No edema bilateral Objective Data Active Medications Acetaminophen (Acetaminophen 325 Mg Tablet) 650 mg PO Q6H PRN PRN Reason: Pain, Mild (Pain Scale 1-3) Amlodipine Besylate (Amlodipine Besylate 10 Mg Tablet) 10 mg PO DAILY [facility]; Protocol Last Admin: 12/18/20 08:37 Dose: 10 mg Documented by: KIRT Ascorbic Acid (Ascorbic Acid 500 Mg Tablet) 500 mg PO DAILY [facility] Last Admin: 12/18/20 08:39 Dose: 500 mg Documented by: KIRT Aspirin (Aspirin Enteric Coated 81 Mg Tablet.Dr) 81 mg PO DAILY [facility] Last Admin: 12/18/20 08:39 Dose: 81 mg Documented by: KIRT Atorvastatin Calcium (Atorvastatin Calcium 80 Mg Tablet) 80 mg PO BEDTIME [facility] Last Admin: 12/17/20 20:50 Dose: 80 mg Documented by: AURORA Enoxaparin Sodium (Enoxaparin Sodium 40 Mg/0.4 Ml Syringe) 40 mg SUBCUT Q24H [facility] Last Admin: 12/17/20 16:33 Dose: 40 mg Documented by: WATSON Guaifenesin/Dextromethorphan (Guaifenesin Dm 100/10/5 Ml 5 Ml Syrup) 10 ml PO Q6H [facility] Last Admin: 12/18/20 08:34 Dose: 10 ml Documented by: KIRT Piperacillin Sod/Tazobactam (Sod 3.375 gm/ Sodium Chloride) 50 mls @ 100 mls/hr IV Q6H [facility] Last Admin: 12/18/20 13:27 Dose: 100 mls/hr Documented by: TIMA Levalbuterol HCl (Levalbuterol Hcl 1.25 Mg/0.5 Ml Vial.Neb) 1.25 mg INHALE Q3H PRN PRN Reason: Shortness of Breath/Wheezing Last Admin: 12/17/20 21:25 Dose: 1.25 mg Documented by: CARRIE Levalbuterol HCl (Levalbuterol Hcl 1.25 Mg/0.5 Ml Vial.Neb) 1.25 mg INHALE RQ4H WHILE AWAKE [facility] Last Admin: 12/18/20 11:18 Dose: 1.25 mg Documented by: ABIGAIL Melatonin (Melatonin 3 Mg Tablet) 6 mg PO BEDTIME PRN PRN Reason: Insomnia Last Admin: 12/17/20 22:46 Dose: 6 mg Documented by: AURORA Methylprednisolone Sodium Succinate (Methylprednisolone Sod Succ 40 Mg/Ml Vial) 40 mg IVPUSH Q8H [facility] Last Admin: 12/18/20 08:35 Dose: 40 mg Documented by: KRIT Metoprolol Succinate (Metoprolol Succinate Er 25 Mg Tab.Er.24h) 25 mg PO DAILY [facility]; Protocol Last Admin: 12/18/20 08:38 Dose: 25 mg Documented by: KIRT Omeprazole (Omeprazole 40 Mg Capsule.Dr) 40 mg PO DAILY [facility] Last Admin: 12/18/20 08:35 Dose: 40 mg Documented by: KIRT Ondansetron HCl (Ondansetron Hcl 4 Mg/2 Ml Vial) 4 mg IVPUSH Q8H PRN PRN Reason: Nausea and Vomiting Pharmacy Consult (Consult Rx Perform Med Rec) 1 each MISCELLANE ONCE PRN PRN Reason: Consult order Pharmacy Consult (Consult Rx Vancomycin Dosing) 1 each MISCELLANE DAILY PRN PRN Reason: Consult order Sodium Chloride (0.9 % Sodium Chloride Flush 3 Ml Syringe) 3 ml IVFLUSH QSHIFT [facility] Last Admin: 12/18/20 08:39 Dose: 3 ml Documented by: KIRT Tolterodine Tartrate (Tolterodine Tartrate La 4 Mg Cap.Er.24h) 4 mg PO DAILY [facility] Last Admin: 12/18/20 08:35 Dose: 4 mg Documented by: KIRT Labs CBC & Chem 7: 12/16/20 11:30 12/18/20 04:57 Labs: Laboratory Results - last 24 hr 12/18/20 12/18/20 00:14 04:57 Total Bilirubin 0.8 Direct Bilirubin 0.4 AST 20 ALT 21 Alkaline Phosphatase 76 Total Protein 5.7 L Albumin 3.4 L Vancomycin Trough 8.7 L Microbiology Microbiology Results: Microbiology 12/16/20 12:18 Blood Culture - Preliminary Blood - Venous No growth after 24 hours. 12/16/20 11:57 Blood Culture - Preliminary Blood - Venous No growth after 24 hours. Assessment and Plan (1) Pneumonia: Status: Acute (2) Hypoxia: Status: Acute (3) Obstructive sleep apnea: Status: Acute (4) Hypertension: Status: Acute Assessment and Plan: 70-year-old gentleman with past medical history of hyperlipidemia, hypertension, pulmonary nodules, history of obstructive sleep apnea on CPAP and 2 L of oxygen at home, history of prostate cancer status post resection presented to [facility] after undergoing bronchoscopy at [facility] on December 08 presented to [place] [facility] with couple days history of cough associated with shortness of breath;CT chest showed right upper lobe pneumonia 1. RUL Infiltrate Bronchoscopy done on 12/08/20 with a diagnosis of interstitial lung disease, sarcoidosis versus silicosis, patient was noted to have hyper dynamic airway collapse of the left mainstem bronchus, underwent right middle lobe BAL that was sent for cell count, culture, AFB culture as well as cytology and right upper lobe biopsies were sent for histopat hology. On day2 Zosyn along with pulse dose IV steroids. Continue to attempt to titrate O2 2.HTN Continue amlodipine metoprolol follow pressure in add back other regimen as indicated 3. ESTELLA CPAP as per home 4. Hyperlipidemia Continue statin DVT: Lovenox Full code Quality Stroke Does the patient have a stroke diagnosis?: No VTE Prior VTE?: No VTE Risk Level:: Medical - moderate - high VTE Device Contraindication: Treatment Not Indicated VTE Drug Contraindication: N/A - Med Ordered
[2020-12-18] MEDS: Enoxaparin Sodium 40 MG/0.4 ML SYRINGE SUBCUT (16:41)
[2020-12-18] MEDS: Atorvastatin Calcium 80 MG TABLET PO (20:25)
[2020-12-19] MEDS: methylPREDNISolone Sod Succ 40 MG/ML VIAL IVPUSH ×2 (00:57→08:58)
[2020-12-19] MEDS: Piperacillin Sodium/Tazobactam 3.375 GM in 0.9 % Sodium Chloride 50 ML IV ×2 (00:57→07:10)
[2020-12-19] MEDS: 0.9 % Sodium Chloride Flush 3 ML SYRINGE IVFLUSH ×2 (00:57→09:03)
[2020-12-19 03:13] VITALS: BP 145/75; PULSE 55; RESP 17; TEMP 36.8; O2SAT 94
[2020-12-19 06:22] LABS: MANUAL DIFF FLAG NO
[2020-12-19 06:34] LABS: Basophils Percent Auto 0.1 % (0-2); Eosinophils Percent Auto 0.1 % (0-4); Hematocrit 42.9 % (42.0-52.0); Hemoglobin 14.2 g/dl (14.0-18.0); Imm Gran Abs Auto 0.19 X10*3/uL (0.00-0.03); Imm Gran Pct Auto 1.1 % (0.0-0.4); Lymphocytes Absolute Auto 1.6 X10*3/uL (1.2-4.9); Mean Corpuscular HGB Conc 33.1 g/dl (31.0-36.0); Mean Corpuscular Hemoglobin 27.3 pg (27.0-33.0); Mean Corpuscular Volume 82.3 fL (80.0-98.0); Mean Platelet Volume 9.6 fL (9.4-12.4); Monocytes Absolute Auto 0.6 X10*3/uL (0.1-1.2); Monocytes Percent Auto 3.5 % (2-11); Neutrophils Absolute Auto 15.43 x10*3/uL (2.0-8.3); Neutrophils Percent Auto 86.2 % (45-73); Platelet Count 344 X10*3/uL (160-400); Red Blood Count 5.21 X10*6/uL (4.60-5.80); Red Cell Distribution Width 13.9 % (11.0-16.0); White Blood Count 17.9 X10*3/uL (4.8-10.8)
[2020-12-19 06:45] LABS: Alanine Aminotransferase 27 U/L (0-40); Albumin Level 3.2 g/dL (3.5-5.0); Alkaline Phosphatase 69 U/L (39-117); Anion Gap 13 (12-20); Aspartate Amino Transferase 24 U/L (5-37); Bilirubin Total 0.6 mg/dL (0.0-1.0); Blood Urea Nitrogen 18 mg/dL (9-16); Calcium 9.2 mg/dL (8.4-10.2); Carbon Dioxide 27 mmol/L (22-29); Chloride 107 mmol/L (96-108); Creatinine Clr Calc Pharmacy 83.6; Estimated Glomerular Filt Rate > 60; Glucose Fasting 158 mg/dL (60-99); Potassium 4.6 mmol/L (3.3-5.1); Sodium 142 mmol/L (135-145); Total Protein 5.3 g/dL (6.5-8.0)
[2020-12-19 07:15] VITALS: PULSE 60; RESP 17; TEMP 36.6; O2SAT 97
[2020-12-19 07:35] VITALS: PULSE 60; O2SAT 97
[2020-12-19 07:36] VITALS: BP 136/86
[2020-12-19] MEDS: Aspirin Enteric Coated 81 MG TABLET.DR PO (08:58)
[2020-12-19] MEDS: guaiFENesin DM 100/10/5 ML 5 ML SYRUP 10 ML PO (08:58)
[2020-12-19] MEDS: Omeprazole 40 MG CAPSULE.DR PO (08:58)
[2020-12-19] MEDS: amLODIPine Besylate 10 MG TABLET PO (08:58)
[2020-12-19] MEDS: Ascorbic Acid 500 MG TABLET PO (08:59)
[2020-12-19] MEDS: Metoprolol Succinate ER 25 MG TAB.ER.24H PO (08:59)
[2020-12-19] MEDS: Tolterodine Tartrate LA 4 MG CAP.ER.24H PO (08:59)
[2020-12-19 11:18] VITALS: PULSE 59; O2SAT 94
--- NOTE | 2020-12-19 11:41 | MHC.CM.PN ---
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
--- NOTE | 2020-12-19 14:33 | PM.DS ---
DS: Providers Provider Date of Service: 12/19/20 Date of admission: 12/16/20 15:07 Primary care physician: Deisi Oakley MD DS: Diagnosis Discharge Diagnosis (1) Pneumonia: Status: Acute (2) Hypoxia: Status: Acute (3) Obstructive sleep apnea: Status: Acute (4) Hypertension: Status: Acute DS: Summary Hospital Course Hospital Course: 89-year-old gentleman with past medical history of hyperlipidemia, hypertension, pulmonary nodules, history of obstructive sleep apnea on CPAP and 2 L of oxygen at home, history of prostate cancer status post resection presented to [facility] after undergoing bronchoscopy at [facility] on December 08 presented to [facility] [facility] with couple days history of cough associated with shortness of breath;CT chest showed right upper lobe pneumonia Hospital course Admitted; started on IV Zosyn pulse dose steroids. Over the course next 72 hours patient improved and ultimately was able to ambulate without supplemental O2. At this point in time he is medically stable to be discharged home and complete a prednisone taper and 7 days of Augmentin. He has follow-up with his decision support manager, Dr. Chin, which she intends to keep. Time Spent with Patient Time attestation: Total time spent providing and/or coordinating discharge services: Discharge coordination time: Greater than 30 minutes Quality: Stroke Does the patient have a stroke diagnosis?: No Physical Exam Vital Signs: Vital Signs: Last Vital Signs Temp 97.8 F 12/19/20 07:15 Pulse 59 12/19/20 11:18 Resp 17 12/19/20 07:15 BP 136/86 12/19/20 07:36 Pulse Ox 97 12/19/20 07:15 Body Mass Index 29.6 Const: Other: No acute distress HENMT: Other: Oropharynx clear; membranes otitis Resp: Other: Diminished at bases; diffuse expiratory wheezes Cardio: Other: No S4; positive S1-S2; no S3 murmurs rubs gallops GI: Other: Soft nontender nondistended with normoactive bowel sounds all 4 quadrants Neuro: Other: Cranial nerves 2-12 grossly intact as tested motor is 5/5 all extremities sensation intact cognition appropriate Extrem: Other: No edema bilateral DS: Data Data Completed and Pending Labs on day of discharge: Laboratory Results - last 24 hr 11/02/21 11/02/21 05:59 05:59 WBC 17.9 H RBC 5.21 Hgb 14.2 Hct 42.9 MCV 82.3 MCH 27.3 MCHC 33.1 RDW 13.9 Plt Count 344 D MPV 9.6 Immature Gran % (Auto) 1.1 H Neut % (Auto) 86.2 H Lymph % (Auto) 9.0 L Stephenson % (Auto) 3.5 Eos % (Auto) 0.1 Baso % (Auto) 0.1 Lymph # (Auto) 1.6 Stephenson # (Auto) 0.6 Eos # (Auto) 0.0 Baso # (Auto) 0.0 Abs Immat Gran (auto) 0.19 H Absolute Neuts (auto) 15.43 H Absolute Nucleated RBC 0.000 Nucleated RBC % (auto) 0.0 Sodium 142 Potassium 4.6 Chloride 107 Carbon Dioxide 27 Anion Gap 13 BUN 18 H Creatinine 0.86 Estim Creat Clear Calc 83.6 Estimated GFR > 60 Fasting Glucose 158 H Calcium 9.2 Total Bilirubin 0.6 AST 24 ALT 27 Alkaline Phosphatase 69 Total Protein 5.3 L Albumin 3.2 L Preliminary micro results at discharge 12/16/20 12:18 Blood Culture - Preliminary Blood - Venous No growth after 48 hours. 12/16/20 11:57 Blood Culture - Preliminary Blood - Venous No growth after 48 hours. Discharge Plan Discharge Patient Disposition: Home, Self-Care Discharge Diagnosis: Right upper lobe pneumonia Referrals: Montrell Oakley MD [Primary Care Provider] - 1 Week Discharge Medications: New prednisone 10 mg tablet See Rx Instructions .Route .COMPLEX Qty: 45 RF: 0 amoxicillin-pot clavulanate [Augmentin] 875-125 mg tablet 1 tab PO BID Qty: 14 RF: 0 Continued atorvastatin 80 mg tablet 1 tab PO DAILY RF: 0 tolterodine 4 mg capsule,extended release 24hr 1 cap PO DAILY RF: 0 omeprazole 40 mg capsule,delayed release(DR/EC) 1 cap PO DAILY RF: 0 amlodipine 10 mg tablet 1 tab PO DAILY RF: 0 metoprolol succinate 25 mg tablet extended release 24 hr 1 tab PO DAILY RF: 0 albuterol sulfate 90 mcg/actuation HFA aerosol inhaler 1 puff inhalation Q4H PRN (Reason: Shortness Of Breath) RF: 0 olmesartan-hydrochlorothiazide 40-25 mg tablet 1 tab PO DAILY RF: 0 aspirin 81 mg Tablet 81 mg PO DAILY RF: 0 ascorbic acid (vitamin C) [Vitamin C] 500 mg Tablet 500 mg PO DAILY RF: 0 Discharge Orders: Discharge Order (Routine); Ordered 12/19/20 Ordered By: Dony Lebron Diet: advance to usual diet Activity on Discharge: As tolerated Stand Alone Forms: Patient Portal Discharge page Care Plan Goals: Follow-up with pulmonology Health Concerns: Maintain respiratory status Plan of Treatment: Complete antibiotic therapy along with prednisone taper Assessment: Improved, follow-up with pulmonology as scheduled
== END 2020-12-19 15:40 | disposition home or self-care (01) | DRG 193 ==
LOC: HO.ED 14:47 → HO.EDOVER 15:15 → HO.S3 12-17 23:27
PROVIDERS: Nurse Practitioner Family; Admitting Provider Hospitalist; Emergency Provider Emergency Medicine; PCP Internal Medicine; Visit Provider Hospitalist
DX: J18.9 Pneumonia, unspecified organism (principal); J96.21 Acute and chronic respiratory failure with hypoxia; K21.9 Gastro-esophageal reflux disease without esophagitis; Z99.81 Dependence on supplemental oxygen; I10 Essential (primary) hypertension; G47.33 Obstructive sleep apnea (adult) (pediatric); E87.6 Hypokalemia; R91.8 Other nonspecific abnormal finding of lung field; Z20.822 Contact with and (suspected) exposure to COVID-19; Z88.6 Allergy status to analgesic agent; Z79.82 Long term (current) use of aspirin; Z79.899 Other long term (current) drug therapy
CPT/HCPCS: 36415; 71045; 71250; 80048; 80053; 80076; 80202; 83605; 83735; 83880; 84132; 84484; 85025; 85610; 87040; 87635; 93005; 99285; J1650; J2543; J2920; J2930; J3370

== ENCOUNTER 2020-12-27 18:49 | Inpatient (IN) | payer MEDICARE, SELFPAY ==
--- NOTE | ~2020-12-27 | CT_ITS ---
EXAMINATION: CT ANGIOGRAM OF THE CHEST WITH AND WITHOUT CONTRAST (CT PULMONARY ANGIOGRAM FOR PE) CLINICAL INFORMATION: Reason for Exam SOB, recent dx of PNA COMPARISON: Noncontrast CT of the chest done on 12/16/2020. TECHNIQUE: Prior to contrast administration, noncontrast localization images were obtained. Subsequently, multidetector volumetric imaging was performed from the thoracic inlet to below the diaphragms following the administration of 70 mL Omnipaque 350 intravenous contrast. No contrast reaction reported Sagittal, coronal, and MIP oblique sagittal reformatted images were obtained on the CT workstation, uploaded to PACS, and reviewed. This CT examination was performed using dose optimization techniques as appropriate, variously including the following: *Automated exposure control *Adjustment of mA and/or kV according to patient size (this includes techniques or standardized protocols for targeted exams where dose is matched to indication/reason for exam; i.e. extremities or head) *Use of iterative reconstruction technique Total exam dose-length product 389 mGy-cm FINDINGS: QUALITY OF STUDY/CONTRAST BOLUS: Satisfactory. PULMONARY ARTERIES: Intraluminal filling defects are identified within the right lower lobar pulmonary arterial branches (264:7), consistent with pulmonary thromboembolism. THORACIC AORTA: No aneurysm or dissection. LUNG: Previously documented dense airspace consolidation involving the right upper lobe shows interval improvement without resolution. Mild diffuse interlobular septal thickening is present predominantly involving both upper lobes, nonspecific in appearance, may represent interstitial edema, interstitial infiltrate, interstitial fibrosis, interstitial spread of neoplasm, or combination thereof, appear similar to prior study. Multifocal bilateral sub-5 mm scattered calcified lung parenchymal nodules as well as peripheral and subpleural nodules appear stable. No evidence of any lung parenchymal abnormalities since the prior study. The tracheobronchial tree is patent. PLEURA: No pleural effusion or pneumothorax. MEDIASTINUM: Normal heart size. No pericardial effusion. Multiple calcified mediastinal and hilar lymph nodes are present, similar to prior study. Few shotty noncalcified lymph nodes are also present, unchanged. No evidence of septal bowing or right heart strain. CHEST WALL/AXILLA: No axillary or internal mammary lymphadenopathy. OSSEOUS STRUCTURES: No acute or suspicious osseous abnormality. UPPER ABDOMEN: Diffuse hepatic hypodensity, solitary calcified gallstone an exophytic hypodensity at the superior pole of the left kidney with Hounsfield value of 12, consistent with exophytic cyst. No reflux of contrast into the hepatic veins to suggest elevated right heart pressures. CT/CT angio chest PE protocol IMPRESSION: 1. Abnormal contrast enhanced CT scan of the chest showing evidence of pulmonary thromboembolism involving right lower lobe pulmonary arterial branches. 2. Previously documented dense airspace consolidation involving right upper lobe of the lung shows interval improvement without resolution. 3. No other significant change since the prior study dated 12/16/2020. This critical result was discussed with JERMAIN Alvarado at 9:41 PM on 12/27/2020 and it was ascertained that the content and urgency of the report was understood at the time of direct communication. VTE: Positive.
--- NOTE | 2020-12-27 19:00 | ED.GENADULT ---
HPI - General Adult General Chief complaint: Arrhythmia/Palpitations <JERMAIN Forbes Last Filed: 12/28/20 00:16> Stated complaint: bradycardia <JERMAIN Forbes Last Filed: 12/28/20 00:16> Time Seen by Provider: 12/27/20 18:51 <JERMAIN Forbes Last Filed: 12/28/20 00:16> Source: patient <JERMAIN Forbes Last Filed: 12/28/20 00:16> Mode of arrival: EMS <JERMAIN Forbes Last Filed: 12/28/20 00:16> Limitations: no limitations <JERMAIN Forbes Last Filed: 12/28/20 00:16> History of Present Illness HPI narrative: 70-year-old male past medical history significant for ESTELLA, prostate cancer, hypertension, hyperlipidemia and recent hospital admission for pneumonia presents to the emergency department form home he states his visiting nurse came to the house took his vitals and stated that his heart rate was low in the high 40's low 50's X1 hour. Patient states that he has also been feeling short of breath with exertion, and fatigue since he got discharged from the hospital about a week ago. He states he just finished amoxclauv and prednisone. He was hospitalized for pneumonia. He states he has been feeling much better since his discharge. He denies chest pain, fevers, chills, cough, nausea, vomiting, abdominal pain, weakness, dizzines <JERMAIN Forbes Last Filed: 12/28/20 00:16> MD complaint: Bradycardia, SOB <JERMAIN Forbes Last Filed: 12/28/20 00:16> Onset (ago): hour(s) (1 hour of bradycardia ) <JERMAIN Forbes Last Filed: 12/28/20 00:16> Radiation: non-radiation <JERMAIN Forbes Last Filed: 12/28/20 00:16> Relieving factors: none <JERMAIN Forbes Last Filed: 12/28/20 00:16> Exacerbating factors: none <JERMAIN Forbes Last Filed: 12/28/20 00:16> Associated symptoms: shortness of breath <JERMAIN Forbes Last Filed: 12/28/20 00:16> Treatments prior to arrival: other (amoxicillin and prednisone ) <JERMAIN Forbes Last Filed: 12/28/20 00:16> Related Data Home medications: Home Medications Medication Instructions Recorded Confirmed albuterol sulfate 90 mcg/actuation 1 puff INHALATION Q4H PRN 12/16/20 12/27/20 aerosol inhaler amlodipine 10 mg tablet 1 tab PO DAILY 12/16/20 12/27/20 ascorbic acid (vitamin C) 500 mg 500 mg PO DAILY 12/16/20 12/27/20 tablet (Vitamin C) atorvastatin 80 mg tablet 1 tab PO DAILY 12/16/20 12/27/20 metoprolol succinate 25 mg 1 tab PO DAILY 12/16/20 12/27/20 tablet,extended release 24 hr olmesartan 40 1 tab PO DAILY 12/16/20 12/27/20 mg-hydrochlorothiazide 25 mg tablet omeprazole 40 mg capsule,delayed 1 cap PO DAILY 12/16/20 12/27/20 release tolterodine 4 mg capsule,extended 1 cap PO DAILY 12/16/20 12/27/20 release 24 hr aspirin 81 mg tablet,delayed 81 mg PO DAILY 12/27/20 12/27/20 release cholecalciferol (vitamin D3) 50 50 mcg PO BEDTIME 12/27/20 12/27/20 mcg (2,000 unit) tablet (Vitamin D3) Previous Rx's Medication Instructions Recorded prednisone 10 mg tablet See Rx Instructions .ROUTE 12/19/20 .COMPLEX #45 tab <JERMAIN Forbes - Last Filed: 12/28/20 00:16> Allergies/adverse reactions: Allergies Allergy/AdvReac Type Severity Reaction Status Date / Time ibuprofen [Ibuprofen] Allergy Intermediate HIVES/JOINT Verified 12/27/20 19:28 SWELLING <JERMAIN Forbes Last Filed: 12/28/20 00:16> Review of Systems Review of Systems: Constitutional : No Weight loss, No Fever, No Chills, + Fatigue, No Malaise ENT/Mouth : No sore throat, No Rhinorrhea Eyes: No Eye Pain, No Swelling, No Redness Cardiovascular : No Chest Pain, + SOB, + Dyspnea on Exertion, + Orthopnea, No Edema, No Palpitations Respiratory : No Cough, No Sputum, No Wheezing Gastrointestinal : No Nausea, No Vomiting, No Diarrhea, No Constipation, No abdominal Pain, No Hematochezia, No Melena Genitourinary : No Dysuria, No Urinary Frequency, No Hematuria, Musculoskeletal : No joint pain, No Myalgias, No Joint Swelling Skin : No Skin Lesions, No rash Neuro : No Weakness, No Numbness, No Dizziness, No Headache All other systems reviewed and are negative <JERMAIN Forbes - Last Filed: 12/28/20 00:16> [facility] Past Medical History Attestation statement: The following information was validated with the patient. <JERMAIN Forbes - Last Filed: 12/28/20 00:16> Source: old records reviewed and nursing notes reviewed <JERMAIN Forbes - Last Filed: 12/28/20 00:16> Social History Social History: Social History Household Members: Spouse Housing: House Unable to assess alcohol history related to: Unknown Alcohol intake: unknown Patient Tobacco Use Status: Tobacco use Unknown Advance Directives: Yes Advance Directives Information Provided: No Advance Directives on File: No Advance Directives Date on File: 12/17/20 service: No <JERMAIN Forbes - Last Filed: 12/28/20 00:16> Physical Exam Vital Signs: Vital Signs: Last Vital Signs Temp 98.0 F 12/27/20 23:21 Pulse 50 12/27/20 23:21 Resp 14 12/27/20 23:21 BP 143/79 H 12/27/20 23:21 Pulse Ox 97 12/27/20 23:21 Body Mass Index 30.5 Upon physical examination vital signs are stable, patient noted to be slightly hypertensive. History of hypertension. <JERMAIN Forbes - Last Filed: 12/28/20 00:16> Vital Signs: Last Vital Signs Temp 98.0 F 12/27/20 23:21 Pulse 50 12/27/20 23:21 Resp 14 12/27/20 23:21 BP 143/79 H 12/27/20 23:21 Pulse Ox 97 12/27/20 23:21 Body Mass Index 30.5 <JERMAIN Choudhary Last Filed: 12/27/20 22:17> Appearance: Alert.? Oriented X3.? No acute distress.? Eyes: Pupils equal, round and reactive to light.? ENT: Pharynx normal.? Neck: Normal inspection.? Neck supple.? CVS: Normal heart rate and rhythm.? Pulses normal.? Respiratory: No respiratory distress.? + crackles to bilateral lower lobes ? Abdomen: Soft and nontender.? Skin: Skin warm and dry.? Normal skin color.? Normal skin turgor.? Extremities: No lower extremity edema.? No calf ttp, - Homans sign Neuro: Oriented X 3.? No motor deficit.? No sensory deficit. <JERMAIN Forbes Last Filed: 12/28/20 00:16> Course Course Course Narrative: I agree with Lindsey Calle PA-C history/review of systems/physical exam/order/diagnostic/evaluation treatment plan <JERMAIN Choudhary - Last Filed: 12/27/20 22:17> Reevaluation(s) Reevaluation #1: Patient is noted to have leukocytosis. At this time infection is suspected (1944) blood cultures and lactate were ordered upon arrival, 1 g of Rocephin will be given, and fluids will be administered <JERMAIN Forbes - Last Filed: 12/28/20 00:16> Time: 19:44 <JERMAIN Forbes - Last Filed: 12/28/20 00:16> Reevaluation #2: On continuous cardiac monitoring patient is noted to have bigeminies and triplets. Ddimer 1,019 CTA pending. Trop 13.4 second troponin ordered for 2219. Transaminases elevated. Lactic 1.6. <JERMAIN Forbes Last Filed: 12/28/20 00:16> Time: 19:49 <JERMAIN Forbes Last Filed: 12/28/20 00:16> Reevaluation #3: Spoke to Dr. Monteiro who states patient has a PE. Dense consolidation seen on previous CT is improving. Will anticoagulated patient and will admit to the hospital. Patient will be given 10mg PO of eliquis. <JERMAIN Forbes - Last Filed: 12/28/20 00:16> Time: 21:42 <JERMAIN Forbes - Last Filed: 12/28/20 00:16> Additional Reevaluation(s): [address] Phelps, patient will be admitted <JERMAIN Forbes - Last Filed: 12/28/20 00:16> Medical Decision Making MDM Narrative Medical decision making narrative: 1909 70-year-old male past medical history significant for prostate cancer, hypertension, ESTELLA and recent discharge from the hospital for pneumonia presents to the emergency department with concerns of bradycardia noted by his home visiting nurse, and shortness of breath has been progressively worsening. Patient fully vaccinated against COVID-19 with booster. And patient has his COVID shot. Denies CP, vission changes, weakness, dizziness. Patient takes 81 mg ASA daily. Also on metoprolol for BP control. No recent medication changes. Upon physical examination bilateral lower lobes with crackles, S1 and S2 are appreciated free murmurs. Abdomen is soft nontender nondistended. No lower extremity edema noted. Negative Homans sign bilaterally. 5/5 strength upper and lower extremities. Sensory and motor intact. No focal neuro deficits. Based off patient's history, and physical examination the plan is to obtain a full workup including basic labs, blood cultures, lactic, BNP, magnesium, troponin, D-dimer, chest x-ray, CT angiogram with PE protocol, orthostatic vital signs, continuous cardiac monitoring. VSS he is slightly hypertensive (145/62), but no fevers or tachypnea. Will rule out PNA, COVID, ACS and PE To note, patient was in the hospital from December 16 2 December 19, 2020. He initially presented with shortness of breath with exertion, cough and wheezing for a day. 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 silicosis, and he was noted to have a hyperdynamic airway collapse of the left mainstem bronchus <JERMAIN Forbes Last Filed: 12/28/20 00:16> Lab Data Result diagrams: : 12/27/20 19:18 12/27/20 19:18 <JERMAIN Forbes - Last Filed: 12/28/20 00:16> Labs: Lab Results 12/27/20 12/27/20 12/27/20 Range/Units 19:18 19:18 19:18 WBC 21.5 H (4.8-10.8) X10*3/uL RBC 5.59 (4.60-5.80) X10*6/uL Hgb 15.6 (14.0-18.0) g/dl Hct 45.3 (42.0-52.0) % MCV 81.0 (80.0-98.0) fL MCH 27.9 (27.0-33.0) pg MCHC 34.4 (31.0-36.0) g/dl RDW 14.3 (11.0-16.0) % Plt Count 280 (160-400) X10*3/uL MPV 9.4 (9.4-12.4) fL Immature Gran % (Auto) 1.3 H (0.0-0.4) % Neut % (Auto) 88.8 H (45-73) % Lymph % (Auto) 5.3 L (20-40) % [place] % (Auto) 4.1 (2-11) % Eos % (Auto) 0.3 (0-4) % Baso % (Auto) 0.2 (0-2) % Lymph # (Auto) 1.1 L (1.2-4.9) X10*3/uL [place] # (Auto) 0.9 (0.1-1.2) X10*3/uL Eos # (Auto) 0.1 (0.0-0.4) X10*3/uL Baso # (Auto) 0.0 (0.0-0.2) X10*3/uL Abs Immat Gran (auto) 0.27 H (0.00-0.03) X10*3/uL Absolute Neuts (auto) 19.1 H (2.0-8.3) x10*3/uL Absolute Nucleated RBC 0.000 (0.0-0.012) X10*3/uL Nucleated RBC % (auto) 0.0 (0.0-0.2) /100WBC PT 12.0 (9.9-13.0) SEC INR 1.1 (0.9-1.1) APTT 27.1 (24.1-38.0) SEC D-Dimer 1019 NG/ML Sodium 141 (135-145) mmol/L Potassium 3.6 D (3.3-5.1) mmol/L Chloride 106 (96-108) mmol/L Carbon Dioxide 26 (22-29) mmol/L Anion Gap 13 (12-20) BUN 21 H (9-16) mg/dL Creatinine 0.80 (0.5-1.4) mg/dL Estim Creat Clear Calc 91.1 Estimated GFR > 60 Random Glucose 128 H (60-115) mg/dL Lactic Acid (0.5-2.0) mmol/L Calcium 9.0 (8.4-10.2) mg/dL Magnesium 2.1 (1.6-2.6) mg/dL Total Bilirubin 0.9 (0.0-1.0) mg/dL AST 50 H D (5-37) U/L ALT 111 H (0-40) U/L Alkaline Phosphatase 98 D (39-117) U/L Troponin I High Sens (<3.5-35.0) ng/L B-Natriuretic Peptide (<100) pg/mL Total Protein 6.1 L (6.5-8.0) g/dL Albumin 3.6 (3.5-5.0) g/dL Urine Color Urine Appearance Urine pH (5.0-8.0) Ur Specific [place] (1.005-1.025) Urine Protein (NEG-TRACE) MG/DL Urine Glucose (UA) (NEG) MG/DL Urine Ketones (NEG) MG/DL Urine Blood (NEG) Urine Nitrite (NEG) Ur Leukocyte Esterase (NEG) COVID-19 (DONALD) (Negative) COVID-19 Clin Com 12/27/20 12/27/20 12/27/20 Range/Units 19:18 19:18 19:18 WBC (4.8-10.8) X10*3/uL RBC (4.60-5.80) X10*6/uL Hgb (14.0-18.0) g/dl Hct (42.0-52.0) % MCV (80.0-98.0) fL MCH (27.0-33.0) pg MCHC (31.0-36.0) g/dl RDW (11.0-16.0) % Plt Count (160-400) X10*3/uL MPV (9.4-12.4) fL Immature Gran % (Auto) (0.0-0.4) % Neut % (Auto) (45-73) % Lymph % (Auto) (20-40) % [place] % (Auto) (2-11) % Eos % (Auto) (0-4) % Baso % (Auto) (0-2) % Lymph # (Auto) (1.2-4.9) X10*3/uL [place] # (Auto) (0.1-1.2) X10*3/uL Eos # (Auto) (0.0-0.4) X10*3/uL Baso # (Auto) (0.0-0.2) X10*3/uL Abs Immat Gran (auto) (0.00-0.03) X10*3/uL Absolute Neuts (auto) (2.0-8.3) x10*3/uL Absolute Nucleated RBC (0.0-0.012) X10*3/uL Nucleated RBC % (auto) (0.0-0.2) /100WBC PT (9.9-13.0) SEC INR (0.9-1.1) APTT (24.1-38.0) SEC D-Dimer NG/ML Sodium (135-145) mmol/L Potassium (3.3-5.1) mmol/L Chloride (96-108) mmol/L Carbon Dioxide (22-29) mmol/L Anion Gap (12-20) BUN (9-16) mg/dL Creatinine (0.5-1.4) mg/dL Estim Creat Clear Calc Estimated GFR Random Glucose (60-115) mg/dL Lactic Acid (0.5-2.0) mmol/L Calcium (8.4-10.2) mg/dL Magnesium (1.6-2.6) mg/dL Total Bilirubin (0.0-1.0) mg/dL AST (5-37) U/L ALT (0-40) U/L Alkaline Phosphatase (39-117) U/L Troponin I High Sens 13.4 (<3.5-35.0) ng/L B-Natriuretic Peptide 113 H (<100) pg/mL Total Protein (6.5-8.0) g/dL Albumin (3.5-5.0) g/dL Urine Color Urine Appearance Urine pH (5.0-8.0) Ur Specific [place] (1.005-1.025) Urine Protein (NEG-TRACE) MG/DL Urine Glucose (UA) (NEG) MG/DL Urine Ketones (NEG) MG/DL Urine Blood (NEG) Urine Nitrite (NEG) Ur Leukocyte Esterase (NEG) COVID-19 (DONALD) Negative (Negative) COVID-19 Clin Com See Note 12/27/20 12/27/20 Range/Units 19:18 19:51 WBC (4.8-10.8) X10*3/uL RBC (4.60-5.80) X10*6/uL Hgb (14.0-18.0) g/dl Hct (42.0-52.0) % MCV (80.0-98.0) fL MCH (27.0-33.0) pg MCHC (31.0-36.0) g/dl RDW (11.0-16.0) % Plt Count (160-400) X10*3/uL MPV (9.4-12.4) fL Immature Gran % (Auto) (0.0-0.4) % Neut % (Auto) (45-73) % Lymph % (Auto) (20-40) % [place] % (Auto) (2-11) % Eos % (Auto) (0-4) % Baso % (Auto) (0-2) % Lymph # (Auto) (1.2-4.9) X10*3/uL [place] # (Auto) (0.1-1.2) X10*3/uL Eos # (Auto) (0.0-0.4) X10*3/uL Baso # (Auto) (0.0-0.2) X10*3/uL Abs Immat Gran (auto) (0.00-0.03) X10*3/uL Absolute Neuts (auto) (2.0-8.3) x10*3/uL Absolute Nucleated RBC (0.0-0.012) X10*3/uL Nucleated RBC % (auto) (0.0-0.2) /100WBC PT (9.9-13.0) SEC INR (0.9-1.1) APTT (24.1-38.0) SEC D-Dimer NG/ML Sodium (135-145) mmol/L Potassium (3.3-5.1) mmol/L Chloride (96-108) mmol/L Carbon Dioxide (22-29) mmol/L Anion Gap (12-20) BUN (9-16) mg/dL Creatinine (0.5-1.4) mg/dL Estim Creat Clear Calc Estimated GFR Random Glucose (60-115) mg/dL Lactic Acid 1.6 (0.5-2.0) mmol/L Calcium (8.4-10.2) mg/dL Magnesium (1.6-2.6) mg/dL Total Bilirubin (0.0-1.0) mg/dL AST (5-37) U/L ALT (0-40) U/L Alkaline Phosphatase (39-117) U/L Troponin I High Sens (<3.5-35.0) ng/L B-Natriuretic Peptide (<100) pg/mL Total Protein (6.5-8.0) g/dL Albumin (3.5-5.0) g/dL Urine Color YELLOW Urine Appearance CLEAR Urine pH 6.5 (5.0-8.0) Ur Specific [place] 1.015 (1.005-1.025) Urine Protein NEG (NEG-TRACE) MG/DL Urine Glucose (UA) NEG (NEG) MG/DL Urine Ketones NEG (NEG) MG/DL Urine Blood NEG (NEG) Urine Nitrite NEG (NEG) Ur Leukocyte Esterase NEG (NEG) COVID-19 (DONALD) (Negative) COVID-19 Clin Com <JERMAIN Forbes - Last Filed: 12/28/20 00:16> Lab Results 12/27/20 12/27/20 12/27/20 Range/Units 19:18 19:18 19:18 WBC 21.5 H (4.8-10.8) X10*3/uL RBC 5.59 (4.60-5.80) X10*6/uL Hgb 15.6 (14.0-18.0) g/dl Hct 45.3 (42.0-52.0) % MCV 81.0 (80.0-98.0) fL MCH 27.9 (27.0-33.0) pg MCHC 34.4 (31.0-36.0) g/dl RDW 14.3 (11.0-16.0) % Plt Count 280 (160-400) X10*3/uL MPV 9.4 (9.4-12.4) fL Immature Gran % (Auto) 1.3 H (0.0-0.4) % Neut % (Auto) 88.8 H (45-73) % Lymph % (Auto) 5.3 L (20-40) % [place] % (Auto) 4.1 (2-11) % Eos % (Auto) 0.3 (0-4) % Baso % (Auto) 0.2 (0-2) % Lymph # (Auto) 1.1 L (1.2-4.9) X10*3/uL [place] # (Auto) 0.9 (0.1-1.2) X10*3/uL Eos # (Auto) 0.1 (0.0-0.4) X10*3/uL Baso # (Auto) 0.0 (0.0-0.2) X10*3/uL Abs Immat Gran (auto) 0.27 H (0.00-0.03) X10*3/uL Absolute Neuts (auto) 19.1 H (2.0-8.3) x10*3/uL Absolute Nucleated RBC 0.000 (0.0-0.012) X10*3/uL Nucleated RBC % (auto) 0.0 (0.0-0.2) /100WBC PT 12.0 (9.9-13.0) SEC INR 1.1 (0.9-1.1) APTT 27.1 (24.1-38.0) SEC D-Dimer 1019 NG/ML Sodium 141 (135-145) mmol/L Potassium 3.6 D (3.3-5.1) mmol/L Chloride 106 (96-108) mmol/L Carbon Dioxide 26 (22-29) mmol/L Anion Gap 13 (12-20) BUN 21 H (9-16) mg/dL Creatinine 0.80 (0.5-1.4) mg/dL Estim Creat Clear Calc 91.1 Estimated GFR > 60 Random Glucose 128 H (60-115) mg/dL Lactic Acid (0.5-2.0) mmol/L Calcium 9.0 (8.4-10.2) mg/dL Magnesium 2.1 (1.6-2.6) mg/dL Total Bilirubin 0.9 (0.0-1.0) mg/dL AST 50 H D (5-37) U/L ALT 111 H (0-40) U/L Alkaline Phosphatase 98 D (39-117) U/L Troponin I High Sens (<3.5-35.0) ng/L B-Natriuretic Peptide (<100) pg/mL Total Protein 6.1 L (6.5-8.0) g/dL Albumin 3.6 (3.5-5.0) g/dL Urine Color Urine Appearance Urine pH (5.0-8.0) Ur Specific [place] (1.005-1.025) Urine Protein (NEG-TRACE) MG/DL Urine Glucose (UA) (NEG) MG/DL Urine Ketones (NEG) MG/DL Urine Blood (NEG) Urine Nitrite (NEG) Ur Leukocyte Esterase (NEG) COVID-19 (DONALD) (Negative) COVID-19 Clin Com 12/27/20 12/27/20 12/27/20 Range/Units 19:18 19:18 19:18 WBC (4.8-10.8) X10*3/uL RBC (4.60-5.80) X10*6/uL Hgb (14.0-18.0) g/dl Hct (42.0-52.0) % MCV (80.0-98.0) fL MCH (27.0-33.0) pg MCHC (31.0-36.0) g/dl RDW (11.0-16.0) % Plt Count (160-400) X10*3/uL MPV (9.4-12.4) fL Immature Gran % (Auto) (0.0-0.4) % Neut % (Auto) (45-73) % Lymph % (Auto) (20-40) % [place] % (Auto) (2-11) % Eos % (Auto) (0-4) % Baso % (Auto) (0-2) % Lymph # (Auto) (1.2-4.9) X10*3/uL [place] # (Auto) (0.1-1.2) X10*3/uL Eos # (Auto) (0.0-0.4) X10*3/uL Baso # (Auto) (0.0-0.2) X10*3/uL Abs Immat Gran (auto) (0.00-0.03) X10*3/uL Absolute Neuts (auto) (2.0-8.3) x10*3/uL Absolute Nucleated RBC (0.0-0.012) X10*3/uL Nucleated RBC % (auto) (0.0-0.2) /100WBC PT (9.9-13.0) SEC INR (0.9-1.1) APTT (24.1-38.0) SEC D-Dimer NG/ML Sodium (135-145) mmol/L Potassium (3.3-5.1) mmol/L Chloride (96-108) mmol/L Carbon Dioxide (22-29) mmol/L Anion Gap (12-20) BUN (9-16) mg/dL Creatinine (0.5-1.4) mg/dL Estim Creat Clear Calc Estimated GFR Random Glucose (60-115) mg/dL Lactic Acid (0.5-2.0) mmol/L Calcium (8.4-10.2) mg/dL Magnesium (1.6-2.6) mg/dL Total Bilirubin (0.0-1.0) mg/dL AST (5-37) U/L ALT (0-40) U/L Alkaline Phosphatase (39-117) U/L Troponin I High Sens 13.4 (<3.5-35.0) ng/L B-Natriuretic Peptide 113 H (<100) pg/mL Total Protein (6.5-8.0) g/dL Albumin (3.5-5.0) g/dL Urine Color Urine Appearance Urine pH (5.0-8.0) Ur Specific [place] (1.005-1.025) Urine Protein (NEG-TRACE) MG/DL Urine Glucose (UA) (NEG) MG/DL Urine Ketones (NEG) MG/DL Urine Blood (NEG) Urine Nitrite (NEG) Ur Leukocyte Esterase (NEG) COVID-19 (DONALD) Negative (Negative) COVID-19 Clin Com See Note 12/27/20 12/27/20 Range/Units 19:18 19:51 WBC (4.8-10.8) X10*3/uL RBC (4.60-5.80) X10*6/uL Hgb (14.0-18.0) g/dl Hct (42.0-52.0) % MCV (80.0-98.0) fL MCH (27.0-33.0) pg MCHC (31.0-36.0) g/dl RDW (11.0-16.0) % Plt Count (160-400) X10*3/uL MPV (9.4-12.4) fL Immature Gran % (Auto) (0.0-0.4) % Neut % (Auto) (45-73) % Lymph % (Auto) (20-40) % [place] % (Auto) (2-11) % Eos % (Auto) (0-4) % Baso % (Auto) (0-2) % Lymph # (Auto) (1.2-4.9) X10*3/uL [place] # (Auto) (0.1-1.2) X10*3/uL Eos # (Auto) (0.0-0.4) X10*3/uL Baso # (Auto) (0.0-0.2) X10*3/uL Abs Immat Gran (auto) (0.00-0.03) X10*3/uL Absolute Neuts (auto) (2.0-8.3) x10*3/uL Absolute Nucleated RBC (0.0-0.012) X10*3/uL Nucleated RBC % (auto) (0.0-0.2) /100WBC PT (9.9-13.0) SEC INR (0.9-1.1) APTT (24.1-38.0) SEC D-Dimer NG/ML Sodium (135-145) mmol/L Potassium (3.3-5.1) mmol/L Chloride (96-108) mmol/L Carbon Dioxide (22-29) mmol/L Anion Gap (12-20) BUN (9-16) mg/dL Creatinine (0.5-1.4) mg/dL Estim Creat Clear Calc Estimated GFR Random Glucose (60-115) mg/dL Lactic Acid 1.6 (0.5-2.0) mmol/L Calcium (8.4-10.2) mg/dL Magnesium (1.6-2.6) mg/dL Total Bilirubin (0.0-1.0) mg/dL AST (5-37) U/L ALT (0-40) U/L Alkaline Phosphatase (39-117) U/L Troponin I High Sens (<3.5-35.0) ng/L B-Natriuretic Peptide (<100) pg/mL Total Protein (6.5-8.0) g/dL Albumin (3.5-5.0) g/dL Urine Color YELLOW Urine Appearance CLEAR Urine pH 6.5 (5.0-8.0) Ur Specific [place] 1.015 (1.005-1.025) Urine Protein NEG (NEG-TRACE) MG/DL Urine Glucose (UA) NEG (NEG) MG/DL Urine Ketones NEG (NEG) MG/DL Urine Blood NEG (NEG) Urine Nitrite NEG (NEG) Ur Leukocyte Esterase NEG (NEG) COVID-19 (DONALD) (Negative) COVID-19 Clin Com <JERMAIN Choudhary - Last Filed: 12/27/20 22:17> Imaging Data CTA chest : Attestation: I personally reviewed and interpreted this imaging study as follows: <JERMAIN Forbes - Last Filed: 12/28/20 00:16> Radiologist's impression: CT/CT angio chest PE protocol IMPRESSION: ? 1. Abnormal contrast enhanced CT scan of the chest showing evidence of pulmonary thromboembolism involving right lower lobe pulmonary arterial branches. 2. Previously documented dense airspace consolidation involving right upper lobe of the lung shows interval improvement without resolution. 3. No other significant change since the prior study dated 12/16/2020. ? This critical result was discussed with JERMAIN Alvarado at 9:41 PM on 12/27/2020 and it was ascertained that the content and urgency of the report was understood at the time of direct communication. ? VTE: Positive. <JERMAIN Forbes - Last Filed: 12/28/20 00:16> ECG Data Attestation: I personally reviewed and interpreted this ECG as follows: <JERMAIN Forbes - Last Filed: 12/28/20 00:16> Prior ECG tracings: available for review <JERMAIN Forbes - Last Filed: 12/28/20 00:16> Interpretation: Ventricular rate of 72. GA normal QRS normal QTC/QTC normal. EKG shows right bundle branch block, with a left anterior fascicular block. No acute ischemia. No acute changes when compared to EKG from December 16, 2020. <JERMAIN Forbes - Last Filed: 12/28/20 00:16> Critical Care Time Critical Care Time Critical Care Time: Yes <JERMAIN Forbes - Last Filed: 12/28/20 00:16> Total Critical Care Time: 45 <JERMAIN Forbes - Last Filed: 12/28/20 00:16> Attestation: I attest to this time spent taking care of the patient and speaking to specialist. <JERMAIN Forbes - Last Filed: 12/28/20 00:16> Discharge Plan Discharge Clinical Impression: Pneumonia, Pulmonary embolism, Shortness of breath <JERMAIN Forbes - Last Filed: 12/28/20 00:16> Patient Disposition: Admitted As Inpatient <JERMAIN Forbes - Last Filed: 12/28/20 00:16>
--- NOTE | 2020-12-27 19:02 | ECG_ITS ---
Test Reason : cp Blood Pressure : / mmHG Vent. Rate : 072 BPM Atrial Rate : 041 BPM P-R Int : 156 ms QRS Dur : 144 ms QT Int : 444 ms P-R-T Axes : 053 -64 -02 degrees QTc Int : 486 ms Normal sinus rhythm with frequent Premature ventricular complexes Right bundle branch block Left anterior fascicular block Bifascicular block Abnormal ECG When compared with ECG of 16-DEC-2020 11:33, ST less depressed in Anterior leads Premature ventricular complexes are now more frequent and consecutive Referred By: Lindsey Calle Electronically Signed By:RAYRAY BOUDREAUX MD
[2020-12-27 19:04] VITALS: BP 145/62; BP 148/66; PULSE 52; PULSE 56; RESP 18; TEMP 36.8; O2SAT 92; O2SAT 96; BMI 30.5
[2020-12-27 19:27] LABS: MANUAL DIFF FLAG NO
[2020-12-27 19:31] LABS: Basophils Percent Auto 0.2 % (0-2); Eosinophils Absolute Auto 0.1 X10*3/uL (0.0-0.4); Eosinophils Percent Auto 0.3 % (0-4); Hematocrit 45.3 % (42.0-52.0); Hemoglobin 15.6 g/dl (14.0-18.0); Imm Gran Abs Auto 0.27 X10*3/uL (0.00-0.03); Imm Gran Pct Auto 1.3 % (0.0-0.4); Lymphocytes Absolute Auto 1.1 X10*3/uL (1.2-4.9); Lymphocytes Percent Auto 5.3 % (20-40); Mean Corpuscular HGB Conc 34.4 g/dl (31.0-36.0); Mean Corpuscular Hemoglobin 27.9 pg (27.0-33.0); Mean Platelet Volume 9.4 fL (9.4-12.4); Monocytes Absolute Auto 0.9 X10*3/uL (0.1-1.2); Monocytes Percent Auto 4.1 % (2-11); Neutrophils Absolute Auto 19.1 x10*3/uL (2.0-8.3); Neutrophils Percent Auto 88.8 % (45-73); Platelet Count 280 X10*3/uL (160-400); Red Blood Count 5.59 X10*6/uL (4.60-5.80); Red Cell Distribution Width 14.3 % (11.0-16.0); White Blood Count 21.5 X10*3/uL (4.8-10.8)
[2020-12-27 19:39] VITALS: BP 146/59; BP 149/101; PULSE 72; PULSE 77
[2020-12-27 19:39] LABS: D Dimer 1019 NG/ML
[2020-12-27 19:42] VITALS: BP 152/59; PULSE 77
--- NOTE | 2020-12-27 19:43 | PC.NURSE ---
While this RN and Paulino MURRELL at bedside performing lab work and orthostatic VS, pt with short episodes of bigeminy, couplets, and triplets on bedside pvc monitor. Pt denies palpitations at this time but reports that earlier in day, [employer], pt was experiencing some mild chest pain that felt like pressure. JERMAIN Reynoso is aware of pt's rhythm. Stretcher in lowest locked position, rails raised, call gracia within reach.
[2020-12-27 19:45] LABS: COVID-19 Test Negative (Negative); Lactic Acid 1.6 mmol/L (0.5-2.0)
[2020-12-27 19:48] LABS: Alanine Aminotransferase 111 U/L (0-40); Albumin Level 3.6 g/dL (3.5-5.0); Alkaline Phosphatase 98 U/L (39-117); Anion Gap 13 (12-20); Aspartate Amino Transferase 50 U/L (5-37); Bilirubin Total 0.9 mg/dL (0.0-1.0); Blood Urea Nitrogen 21 mg/dL (9-16); Carbon Dioxide 26 mmol/L (22-29); Chloride 106 mmol/L (96-108); Creatinine Clr Calc Pharmacy 91.1; Estimated Glomerular Filt Rate > 60; Glucose Random 128 mg/dL (60-115); Magnesium 2.1 mg/dL (1.6-2.6); Potassium 3.6 mmol/L (3.3-5.1); Sodium 141 mmol/L (135-145); Total Protein 6.1 g/dL (6.5-8.0)
[2020-12-27 19:49] LABS: B Type Natriuretic Peptide 113 pg/mL (<100); Troponin-I High Sensitivity 13.4 ng/L (<3.5-35.0)
[2020-12-27] MEDS: 0.9 % Sodium Chloride 1,000 ML 999 ML IV (19:54)
[2020-12-27] MEDS: cefTRIAXone sodium 1 GM in 0.9 % Sodium Chloride 50 ML IV (19:54)
--- NOTE | 2020-12-27 19:55 | PC.NURSE ---
Urine obtained. PT is waiting to have CT scan completed.
[2020-12-27 20:08] LABS: Appearance Urine CLEAR; Color Urine YELLOW; Glucose Urine UA NEG (NEG); Leukocyte Esterase Urine NEG (NEG); Nitrite Urine NEG (NEG); PH 6.5 (5.0-8.0); Specific Gravity - Urine 1.015 (1.005-1.025); Urine Blood NEG (NEG); Urine Ketones NEG (NEG); Urine Protein NEG (NEG-TRACE)
--- NOTE | 2020-12-27 20:12 | PHA.MEDREC ---
Pharmacy Consult ? Medication Reconciliation Pharmacy has completed the medication reconciliation.
[2020-12-27 20:16] LABS: INTERNATIONAL NORM RATIO 1.1 (0.9-1.1)
[2020-12-27 20:19] LABS: Partial Thromboplastin Time 27.1 SEC (24.1-38.0)
[2020-12-27] MEDS: iohexoL 350 MG/ML 100 ML INFUS..BTL IV (20:48)
[2020-12-27 21:38] VITALS: BP 135/63; PULSE 53; RESP 18; O2SAT 92
--- NOTE | 2020-12-27 21:40 | PC.NURSE ---
PT assessed for pain. Reports slight chest tightness that comes and goes. Denies SOB. PT's VSS at this time. PT is waiting for disposition.
[2020-12-27] MEDS: Apixaban 5 MG TABLET 10 MG PO (21:56)
--- NOTE | 2020-12-27 22:43 | PM.IMHP ---
History of Present Illness Date of Service: 12/27/20 Chief Complaint: SOB 70-year-old male with a past medical history of hypertension, hyperlipidemia, prostate cancer, obstructive sleep apnea, recent admission to the hospital pneumonia; presented to the hospital today with a chief complaint of shortness of breath/dyspnea on exertion. Patient reports that since that discharge is continues to have shortness of breath and dyspnea on exertion; his been continued to take his prednisone taper that was given; as symptoms were not improving decided to come to the hospital for further evaluation. Patient mentioned that after came to the hospital here chest discomfort which is currently improved. Denies any cough and sputum production. Denies any chest pain palpitations lightheadedness or dizziness at the time of my interview Mentioned that he has dyspnea with minimal exertion. Denies any numbness tingling or focal weakness. Today [facility] has went to see the patient and patient was noted to have a heart rate in 40s; subsequently EMS was called in an EMS noted his oxygen saturation 89-90%; placed on supplemental oxygen; Review of all other systems is negative except mentioned above ER course: Per ER team patient on presentation was saturating at 92%; placed on supplemental oxygen; not in respiratory distress; D-dimer was positive; the CT chest showed pulmonary embolism; EKG was nonischemic:: ProBNP slightly elevated and [id number]; Admitted to the hospital for further management patient was given Eliquis in the ER. [facility] Medical History (Updated 01/08/21 @ 00:02 by Inder Walsh) Atherosclerotic cardiovascular disease Bifascicular block Essential hypertension Pneumonia PVC (premature ventricular contraction) Family History (Updated 12/28/20 @ 10:06 by Daryl Gutierres MD) Mother No problems noted. Father No problems noted. Pertinent family history: as above Social History Household Members: Spouse Housing: House Do you presently have visiting nurse or other home services: No Unable to assess alcohol history related to: Unknown Alcohol intake: unknown Patient Tobacco Use Status: Never used Tobacco Advance Directives: Yes Advance Directives on File: Yes Advance Directives Date on File: 12/28/20 service: Yes Current occupational status: retired Meds Allergies Allergy/AdvReac Type Severity Reaction Status Date / Time ibuprofen [Ibuprofen] Allergy Intermediate HIVES/JOINT Verified 12/27/20 19:28 SWELLING Active Medications: Current Medications Albuterol/Ipratropium (Albuterol/Iprat 2.5/0.5mg 3 Ml Ampul.Neb) 3 ml INHALE RQ4H PRN PRN Reason: Shortness of Breath/Wheezing Apixaban (Apixaban 5 Mg Tablet) 10 mg PO BID [facility] Stop: 01/03/21 21:01 Ceftriaxone Sodium 1 gm/ (Sodium Chloride) 50 mls @ 100 mls/hr IV Q24H [facility] Pharmacy Consult (Consult Rx Perform Med Rec) 1 each MISCELLANE ONCE PRN PRN Reason: Consult order Home Medications Medication Instructions Recorded Confirmed Last Taken Type amlodipine 10 mg tablet 1 tab PO DAILY 12/16/20 01/04/21 01/04/21 History ascorbic acid (vitamin C) 500 mg 500 mg PO DAILY 12/16/20 01/04/21 01/04/21 History tablet (Vitamin C) atorvastatin 80 mg tablet 1 tab PO BEDTIME 12/16/20 01/04/21 01/04/21 History metoprolol succinate 25 mg 1 tab PO DAILY 12/16/20 01/04/21 01/04/21 History tablet,extended release 24 hr olmesartan 40 1 tab PO DAILY 12/16/20 01/04/21 01/04/21 History mg-hydrochlorothiazide 25 mg tablet omeprazole 40 mg capsule,delayed 1 cap PO DAILY 12/16/20 01/04/21 01/04/21 History release tolterodine 4 mg capsule,extended 1 cap PO DAILY 12/16/20 01/04/21 01/04/21 History release 24 hr aspirin 81 mg tablet,delayed 81 mg PO DAILY 12/27/20 01/04/21 01/04/21 History release cholecalciferol (vitamin D3) 50 50 mcg PO BEDTIME 12/27/20 01/04/21 01/04/21 History mcg (2,000 unit) tablet (Vitamin D3) apixaban 5 mg tablet (Eliquis) 5 mg PO BID 01/04/21 01/04/21 01/04/21 History prednisone 10 mg tablet 10 mg PO DAILY 01/04/21 01/04/21 01/04/21 History Physical Exam Vital Signs and Narrative: Vital Signs: Last Vital Signs Temp 98.2 F 12/27/20 19:04 Pulse 53 12/27/20 21:38 Resp 18 12/27/20 21:38 BP 135/63 12/27/20 21:38 Pulse Ox 92 12/27/20 21:38 Body Mass Index 30.5 Gen: Appears be in no acute distress HEENT: NCAT, Moist mucosa. Pulmonary: Vesicular breath sounds, fair air entry CVS: Normal S1-S2 Abdomen: BS+, Soft, Nontender Extremities: Warm well perfused Neuro: Alert and awake. Results Labs CBC and Chem 7: 12/31/20 06:11 12/31/20 06:11 Labs: Laboratory Results - last 24 hr 12/27/20 12/27/20 12/27/20 19:18 19:18 19:18 MCV 81.0 MCH 27.9 MCHC 34.4 RDW 14.3 Plt Count 280 MPV 9.4 Immature Gran % (Auto) 1.3 H Neut % (Auto) 88.8 H Lymph % (Auto) 5.3 L [place] % (Auto) 4.1 Eos % (Auto) 0.3 Baso % (Auto) 0.2 Lymph # (Auto) 1.1 L [place] # (Auto) 0.9 Eos # (Auto) 0.1 Baso # (Auto) 0.0 Abs Immat Gran (auto) 0.27 H Absolute Neuts (auto) 19.1 H Absolute Nucleated RBC 0.000 Nucleated RBC % (auto) 0.0 PT 12.0 INR 1.1 APTT 27.1 D-Dimer 1019 Anion Gap 13 Estim Creat Clear Calc 91.1 Estimated GFR > 60 Random Glucose 128 H Lactic Acid Calcium 9.0 Magnesium 2.1 Total Bilirubin 0.9 AST 50 H D ALT 111 H Alkaline Phosphatase 98 D Troponin I High Sens B-Natriuretic Peptide Total Protein 6.1 L Albumin 3.6 Urine Color Urine Appearance Urine pH Ur Specific [place] Urine Protein Urine Glucose (UA) Urine Ketones Urine Blood Urine Nitrite Ur Leukocyte Esterase COVID-19 ([facility]) COVID-19 Clin Com 12/27/20 12/27/20 12/27/20 19:18 19:18 19:18 MCV MCH MCHC RDW Plt Count MPV Immature Gran % (Auto) Neut % (Auto) Lymph % (Auto) [place] % (Auto) Eos % (Auto) Baso % (Auto) Lymph # (Auto) [place] # (Auto) Eos # (Auto) Baso # (Auto) Abs Immat Gran (auto) Absolute Neuts (auto) Absolute Nucleated RBC Nucleated RBC % (auto) PT INR APTT D-Dimer Anion Gap Estim Creat Clear Calc Estimated GFR Random Glucose Lactic Acid Calcium Magnesium Total Bilirubin AST ALT Alkaline Phosphatase Troponin I High Sens 13.4 B-Natriuretic Peptide 113 H Total Protein Albumin Urine Color Urine Appearance Urine pH Ur Specific [place] Urine Protein Urine Glucose (UA) Urine Ketones Urine Blood Urine Nitrite Ur Leukocyte Esterase COVID-19 ([facility]) Negative COVID-19 Clin Com See Note 12/27/20 12/27/20 19:18 19:51 MCV MCH MCHC RDW Plt Count MPV Immature Gran % (Auto) Neut % (Auto) Lymph % (Auto) [place] % (Auto) Eos % (Auto) Baso % (Auto) Lymph # (Auto) [place] # (Auto) Eos # (Auto) Baso # (Auto) Abs Immat Gran (auto) Absolute Neuts (auto) Absolute Nucleated RBC Nucleated RBC % (auto) PT INR APTT D-Dimer Anion Gap Estim Creat Clear Calc Estimated GFR Random Glucose Lactic Acid 1.6 Calcium Magnesium Total Bilirubin AST ALT Alkaline Phosphatase Troponin I High Sens B-Natriuretic Peptide Total Protein Albumin Urine Color YELLOW Urine Appearance CLEAR Urine pH 6.5 Ur Specific [place] 1.015 Urine Protein NEG Urine Glucose (UA) NEG Urine Ketones NEG Urine Blood NEG Urine Nitrite NEG Ur Leukocyte Esterase NEG COVID-19 ([facility]) COVID-19 Clin Com Imaging Radiologist's Impressions: Impressions Chest CTA 12/27/20 19:14 IMPRESSION: 1. Abnormal contrast enhanced CT scan of the chest showing evidence of pulmonary thromboembolism involving right lower lobe pulmonary arterial branches. 2. Previously documented dense airspace consolidation involving right upper lobe of the lung shows interval improvement without resolution. 3. No other significant change since the prior study dated 12/16/2020. This critical result was discussed with JERMAIN Alvarado at 9:41 PM on 12/27/2020 and it was ascertained that the content and urgency of the report was understood at the time of direct communication. VTE: Positive. Assessment and Plan (1) Pulmonary embolism: Status: Acute (2) Shortness of breath: Status: Resolved 70-year-old male with a past medical history of hypertension, hyperlipidemia, prostate cancer, obstructive sleep apnea, recent admission to the hospital pneumonia; presented to the hospital today with a chief complaint of shortness of breath/dyspnea on exertion. Noted to have pulmonary embolism. Admitted for further management. Pulmonary embolism: Continue Eliquis 10 mg twice daily for 7 days followed by 5 mg b.i.d.. Echocardiogram. Telemetry. Cycle cardiac enzymes. Hx Pulm Nodules: s/p Biopsy; pt has Follow up appointment with Dr Lamar at [facility]. Recent pneumonia/worsening leukocytosis: Likely in the setting of steroid use. On CT chest showed improving pneumonia. Patient was empirically given ceftriaxone in the ER. Will continue for now. pt on steroid taper- will constinue. Bradycardia: Drops while sleeping; pt asymptomatic. Cardiology follow up. Mild tranaminitis: monitor Liver enzymes. History of hypertension/hyperlipidemia: Continue home medications. DVT prophylaxis: Patient on systemic anticoagulation Code status: Full code Quality Stroke Does the patient have a stroke diagnosis?: No VTE Prior VTE?: No VTE Risk Level:: Medical - low VTE Device Contraindication: N/A - Device Ordered VTE Drug Contraindication: Treatment Not Indicated
[2020-12-27 23:21] VITALS: BP 143/79; PULSE 50; RESP 14; TEMP 36.7; O2SAT 97
[2020-12-28] VITALS (10 sets, daily range): BP systolic 122–147; BP diastolic 56–72; PULSE 50–67; RESP 13–20; TEMP 37–37.2; O2SAT 93–98
--- NOTE | 2020-12-28 | ECG_ITS ---
Test Reason : CHEST PAIN Blood Pressure : / mmHG Vent. Rate : 064 BPM Atrial Rate : 064 BPM P-R Int : 152 ms QRS Dur : 148 ms QT Int : 462 ms P-R-T Axes : 030 -69 006 degrees QTc Int : 476 ms Sinus rhythm with occasional Premature ventricular complexes Right bundle branch block Nonspecific T wave abnormality Left anterior fascicular block Bifascicular block Abnormal ECG Premature ventricular complexes are now less frequent Referred By: Michele Phelps Electronically Signed By:RAYRAY BOUDREAUX MD
[2020-12-28 02:31] LABS: Troponin-I High Sensitivity 17.3 ng/L (<3.5-35.0)
--- NOTE | 2020-12-28 04:25 | PC.NURSE ---
This RN went into PT room to check on the PT as HR on the monitor reading 40 BPM. When this RN reached the bed side, PT awoke and HR immediately increased to 60 BPM. PT is resting comfortably in bed, denies SOB or CP. Pt is awaiting for a bed to become avaiable.
--- NOTE | 2020-12-28 04:34 | PC.NURSE ---
Paulino MURRELL TT Dr Phelps regarding pt's HR while asleep. Pauilno attempted to call Lenin x 2, unsuccessful. aPulino awaiting reply at this time.
--- NOTE | 2020-12-28 05:26 | PC.NURSE ---
Dr. Pinzon alerted of asymptomatic decreased HR. Provider advised to monitor PT. Provider will put in consult for cardiology later this morning.
[2020-12-28] MEDS: Omeprazole 40 MG CAPSULE.DR PO (06:02)
[2020-12-28 07:15] LABS: MANUAL DIFF FLAG NO
[2020-12-28 07:24] LABS: Basophils Percent Auto 0.2 % (0-2); Eosinophils Absolute Auto 0.2 X10*3/uL (0.0-0.4); Hematocrit 41.9 % (42.0-52.0); Hemoglobin 14.1 g/dl (14.0-18.0); Imm Gran Abs Auto 0.21 X10*3/uL (0.00-0.03); Imm Gran Pct Auto 1.1 % (0.0-0.4); Mean Corpuscular HGB Conc 33.7 g/dl (31.0-36.0); Mean Corpuscular Hemoglobin 27.5 pg (27.0-33.0); Mean Corpuscular Volume 81.7 fL (80.0-98.0); Mean Platelet Volume 9.6 fL (9.4-12.4); Monocytes Absolute Auto 1.2 X10*3/uL (0.1-1.2); Monocytes Percent Auto 6.5 % (2-11); Neutrophils Absolute Auto 14.2 x10*3/uL (2.0-8.3); Neutrophils Percent Auto 75.2 % (45-73); Platelet Count 255 X10*3/uL (160-400); Red Blood Count 5.13 X10*6/uL (4.60-5.80); Red Cell Distribution Width 14.2 % (11.0-16.0); White Blood Count 18.8 X10*3/uL (4.8-10.8)
[2020-12-28 07:49] LABS: Anion Gap 13 (12-20); Blood Urea Nitrogen 16 mg/dL (9-16); Calcium 8.6 mg/dL (8.4-10.2); Carbon Dioxide 28 mmol/L (22-29); Chloride 104 mmol/L (96-108); Creatinine Clr Calc Pharmacy 95.9; Estimated Glomerular Filt Rate > 60; Glucose Random 83 mg/dL (60-115); Potassium 4.2 mmol/L (3.3-5.1); Sodium 141 mmol/L (135-145)
[2020-12-28] MEDS: amLODIPine Besylate 10 MG TABLET PO (08:48)
[2020-12-28] MEDS: Apixaban 5 MG TABLET 10 MG PO ×2 (08:48→21:17)
[2020-12-28] MEDS: predniSONE 10 MG TABLET 20 MG PO (08:48)
[2020-12-28] MEDS: Ascorbic Acid 500 MG TABLET PO (08:48)
[2020-12-28] MEDS: Metoprolol Succinate ER 25 MG TAB.ER.24H PO (08:49)
[2020-12-28] MEDS: Tolterodine Tartrate LA 4 MG CAP.ER.24H PO (08:49)
--- NOTE | 2020-12-28 10:02 | PM.CNCAR ---
History of Present Illness History of Present Illness Date of Service: 12/28/20 Chief complaint: SOB/MERRITT Narrative: Physical consultation for concern of bradycardia. Patient apparently had a lung biopsy recently. This was because of concern for possible cancer but he was told that it is not malignant. This was apparently followed by admission for pneumonia. Current admission is for generalized weakness and shortness of breath in the context workup at shown pulmonary embolism. From a cardiac standpoint, there was a concern for bradycardia leading to this consultation. Patient himself does not have any specific complaints like angina or palpitations. In the past, he has seen Dr. chung several years ago. At that time, cardiac catheterization was performed-2015 but showed no significant disease. He states that he has been doing okay from cardiac standpoint since. No specific concerns at this time. Review of Systems Review of Systems: Yes all other systems are reviewed and are negative Cardiovascular: Cardiovascular: Reports as per HPI, Reports no additional cardiovascular complaints, Denies acrocyanosis, Denies cool extremities, Denies painful fingertips, Denies chest pain, Denies chest pain at rest, Denies diaphoresis, Denies syncope, Denies irregular heart rhythm, Denies claudication, Denies leg edema, Denies lightheadedness, Denies palpitations and Reports dyspnea Respiratory: Respiratory: Reports dyspnea Neurologic: Denies syncope Endocrine: Endocrine: Denies palpitations PMF Family History Family History Mother No problems noted. Father No problems noted. Social History Social History Household Members: Spouse Housing: House Unable to assess alcohol history related to: Unknown Alcohol intake: unknown Patient Tobacco Use Status: Tobacco use Unknown Advance Directives: Yes Advance Directives on File: Yes Advance Directives Date on File: 12/28/20 service: No Meds Allergies Allergy/AdvReac Type Severity Reaction Status Date / Time ibuprofen [Ibuprofen] Allergy Intermediate HIVES/JOINT Verified 12/27/20 19:28 SWELLING Active Medications: Current Medications Acetaminophen (Acetaminophen 325 Mg Tablet) 650 mg PO Q6H PRN PRN Reason: Pain, Mild (Pain Scale 1-3) Albuterol Sulfate (Albuterol Sulfate 90 Mcg 8 Gm Inhaler) 1 puff INHALE Q4H PRN PRN Reason: Shortness Of Breath Albuterol/Ipratropium (Albuterol/Iprat 2.5/0.5mg 3 Ml Ampul.Neb) 3 ml INHALE RQ4H PRN PRN Reason: Shortness of Breath/Wheezing Amlodipine Besylate (Amlodipine Besylate 10 Mg Tablet) 10 mg PO DAILY [facility]; Protocol Last Admin: 12/28/20 08:48 Dose: 10 mg Documented by: Apixaban (Apixaban 5 Mg Tablet) 10 mg PO BID [facility] Stop: 01/03/21 21:01 Last Admin: 12/28/20 08:48 Dose: 10 mg Documented by: Ascorbic Acid (Ascorbic Acid 500 Mg Tablet) 500 mg PO DAILY [facility] Last Admin: 12/28/20 08:48 Dose: 500 mg Documented by: Atorvastatin Calcium (Atorvastatin Calcium 80 Mg Tablet) 80 mg PO BEDTIME [facility] Ceftriaxone Sodium 1 gm/ (Sodium Chloride) 50 mls @ 100 mls/hr IV Q24H [facility] Melatonin (Melatonin 3 Mg Tablet) 6 mg PO BEDTIME PRN PRN Reason: Insomnia Metoprolol Succinate (Metoprolol Succinate Er 25 Mg Tab.Er.24h) 25 mg PO DAILY [facility]; Protocol Last Admin: 12/28/20 08:49 Dose: 25 mg Documented by: Omeprazole (Omeprazole 40 Mg Capsule.Dr) 40 mg PO DAILY@0630 [facility] Last Admin: 12/28/20 06:02 Dose: 40 mg Documented by: Pharmacy Consult (Consult Rx Perform Med Rec) 1 each MISCELLANE ONCE PRN PRN Reason: Consult order Prednisone (Prednisone 10 Mg Tablet) 30 mg PO DAILY [facility]; Taper Stop: 01/06/21 08:59 Last Admin: 12/28/20 08:48 Dose: 30 mg Documented by: Senna (Sennosides 8.6 Mg Tablet) 17.2 mg PO BEDTIME PRN PRN Reason: Constipation Sodium Chloride (0.9 % Sodium Chloride Flush 3 Ml Syringe) 3 ml IVFLUSH QSHIFT [facility] Tolterodine Tartrate (Tolterodine Tartrate La 4 Mg Cap.Er.24h) 4 mg PO DAILY [facility] Last Admin: 12/28/20 08:49 Dose: 4 mg Documented by: Vitamin D (Cholecalciferol (Vitamin D3) 25 Mcg Tablet) 50 mcg PO BEDTIME [facility] Home Medications Medication Instructions Recorded Confirmed Last Taken Type albuterol sulfate 90 mcg/actuation 1 puff INHALATION Q4H PRN 12/16/20 12/27/20 Unknown History aerosol inhaler amlodipine 10 mg tablet 1 tab PO DAILY 12/16/20 12/27/20 12/27/20 History ascorbic acid (vitamin C) 500 mg 500 mg PO DAILY 12/16/20 12/27/20 Unknown History tablet (Vitamin C) atorvastatin 80 mg tablet 1 tab PO DAILY 12/16/20 12/27/20 12/27/20 History metoprolol succinate 25 mg 1 tab PO DAILY 12/16/20 12/27/20 12/27/20 History tablet,extended release 24 hr olmesartan 40 1 tab PO DAILY 12/16/20 12/27/20 12/27/20 History mg-hydrochlorothiazide 25 mg tablet omeprazole 40 mg capsule,delayed 1 cap PO DAILY 12/16/20 12/27/20 12/27/20 History release tolterodine 4 mg capsule,extended 1 cap PO DAILY 12/16/20 12/27/20 12/27/20 History release 24 hr aspirin 81 mg tablet,delayed 81 mg PO DAILY 12/27/20 12/27/20 12/27/20 History release cholecalciferol (vitamin D3) 50 50 mcg PO BEDTIME 12/27/20 12/27/20 12/26/20 History mcg (2,000 unit) tablet (Vitamin D3) Physical Exam Vital Signs: Vital Signs: Last Vital Signs Temp 98.0 F 12/27/20 23:21 Pulse 50 12/28/20 08:49 Resp 13 12/28/20 07:59 BP 147/70 H 12/28/20 08:49 Pulse Ox 98 12/28/20 07:59 Body Mass Index 30.5 Const: General: cooperative and no acute distress HENMT: Other: Unremarkable Neck: Neck: Yes normal visual inspection Chest: Chest palpation & inspection: normal inspection of the chest Resp: Auscultation: clear to auscultation bilaterally, no crackles and no wheezes Cardio: Jugular venous distension: no JVD Palpation: normal PMI Heart sounds: S1 normal heart sound present, S2 normal heart sound present, no gallops, no murmurs and no rubs GI: Palpation (GI): Soft to palpation Back/Spine/Pelvis: Other: unremarkable Skin: General skin exam: no rashes or lesions noted Neuro: Cranial nerves: Yes Other cranial nerve findings present Extrem: General: Yes no clubbing, cyanosis or edema Psych: Mental Status: other Results Labs and Meds Result diagrams: 12/28/20 06:50 12/28/20 06:50 Lab results: Laboratory Results - last 24 hr 12/27/20 12/27/20 12/27/20 19:18 19:18 19:18 WBC 21.5 H RBC 5.59 Hgb 15.6 Hct 45.3 MCV 81.0 MCH 27.9 MCHC 34.4 RDW 14.3 Plt Count 280 MPV 9.4 Immature Gran % (Auto) 1.3 H Neut % (Auto) 88.8 H Lymph % (Auto) 5.3 L Mclennan % (Auto) 4.1 Eos % (Auto) 0.3 Baso % (Auto) 0.2 Lymph # (Auto) 1.1 L Mclennan # (Auto) 0.9 Eos # (Auto) 0.1 Baso # (Auto) 0.0 Abs Immat Gran (auto) 0.27 H Absolute Neuts (auto) 19.1 H Absolute Nucleated RBC 0.000 Nucleated RBC % (auto) 0.0 PT 12.0 INR 1.1 APTT 27.1 D-Dimer 1019 Sodium 141 Potassium 3.6 D Chloride 106 Carbon Dioxide 26 Anion Gap 13 BUN 21 H Creatinine 0.80 Estim Creat Clear Calc 91.1 Estimated GFR > 60 Random Glucose 128 H Lactic Acid Calcium 9.0 Magnesium 2.1 Total Bilirubin 0.9 AST 50 H D ALT 111 H Alkaline Phosphatase 98 D Troponin I High Sens B-Natriuretic Peptide Total Protein 6.1 L Albumin 3.6 Urine Color Urine Appearance Urine pH Ur Specific [place] Urine Protein Urine Glucose (UA) Urine Ketones Urine Blood Urine Nitrite Ur Leukocyte Esterase COVID-19 (DONALD) COVID-19 Clin Com 12/27/20 12/27/20 12/27/20 19:18 19:18 19:18 WBC RBC Hgb Hct MCV MCH MCHC RDW Plt Count MPV Immature Gran % (Auto) Neut % (Auto) Lymph % (Auto) Mclennan % (Auto) Eos % (Auto) Baso % (Auto) Lymph # (Auto) Mclennan # (Auto) Eos # (Auto) Baso # (Auto) Abs Immat Gran (auto) Absolute Neuts (auto) Absolute Nucleated RBC Nucleated RBC % (auto) PT INR APTT D-Dimer Sodium Potassium Chloride Carbon Dioxide Anion Gap BUN Creatinine Estim Creat Clear Calc Estimated GFR Random Glucose Lactic Acid Calcium Magnesium Total Bilirubin AST ALT Alkaline Phosphatase Troponin I High Sens 13.4 B-Natriuretic Peptide 113 H Total Protein Albumin Urine Color Urine Appearance Urine pH Ur Specific [place] Urine Protein Urine Glucose (UA) Urine Ketones Urine Blood Urine Nitrite Ur Leukocyte Esterase COVID-19 (DONALD) Negative COVID-19 Clin Com See Note 12/27/20 12/27/20 12/28/20 19:18 19:51 01:42 WBC RBC Hgb Hct MCV MCH MCHC RDW Plt Count MPV Immature Gran % (Auto) Neut % (Auto) Lymph % (Auto) Mclennan % (Auto) Eos % (Auto) Baso % (Auto) Lymph # (Auto) Mclennan # (Auto) Eos # (Auto) Baso # (Auto) Abs Immat Gran (auto) Absolute Neuts (auto) Absolute Nucleated RBC Nucleated RBC % (auto) PT INR APTT D-Dimer Sodium Potassium Chloride Carbon Dioxide Anion Gap BUN Creatinine Estim Creat Clear Calc Estimated GFR Random Glucose Lactic Acid 1.6 Calcium Magnesium Total Bilirubin AST ALT Alkaline Phosphatase Troponin I High Sens 17.3 B-Natriuretic Peptide Total Protein Albumin Urine Color YELLOW Urine Appearance CLEAR Urine pH 6.5 Ur Specific [place] 1.015 Urine Protein NEG Urine Glucose (UA) NEG Urine Ketones NEG Urine Blood NEG Urine Nitrite NEG Ur Leukocyte Esterase NEG COVID-19 (DONALD) COVID-19 Clin Com 12/28/20 12/28/20 06:50 06:50 WBC 18.8 H RBC 5.13 Hgb 14.1 Hct 41.9 L MCV 81.7 MCH 27.5 MCHC 33.7 RDW 14.2 Plt Count 255 MPV 9.6 Immature Gran % (Auto) 1.1 H Neut % (Auto) 75.2 H Lymph % (Auto) 16.0 L Mclennan % (Auto) 6.5 Eos % (Auto) 1.0 Baso % (Auto) 0.2 Lymph # (Auto) 3.0 Mclennan # (Auto) 1.2 Eos # (Auto) 0.2 Baso # (Auto) 0.0 Abs Immat Gran (auto) 0.21 H Absolute Neuts (auto) 14.2 H Absolute Nucleated RBC 0.000 Nucleated RBC % (auto) 0.0 PT INR APTT D-Dimer Sodium 141 Potassium 4.2 Chloride 104 Carbon Dioxide 28 Anion Gap 13 BUN 16 Creatinine 0.76 Estim Creat Clear Calc 95.9 Estimated GFR > 60 Random Glucose 83 D Lactic Acid Calcium 8.6 Magnesium Total Bilirubin AST ALT Alkaline Phosphatase Troponin I High Sens B-Natriuretic Peptide Total Protein Albumin Urine Color Urine Appearance Urine pH Ur Specific [place] Urine Protein Urine Glucose (UA) Urine Ketones Urine Blood Urine Nitrite Ur Leukocyte Esterase COVID-19 (DONALD) COVID-19 Clin Com ECG Interpretation: EKG with sinus rhythm and right bundle-branch block, left anterior fascicular block and frequent PVCs. Rate 72/Min. Imaging Radiologist's impression: Impressions Chest CTA 12/27/20 19:14 IMPRESSION: 1. Abnormal contrast enhanced CT scan of the chest showing evidence of pulmonary thromboembolism involving right lower lobe pulmonary arterial branches. 2. Previously documented dense airspace consolidation involving right upper lobe of the lung shows interval improvement without resolution. 3. No other significant change since the prior study dated 12/16/2020. This critical result was discussed with JERMAIN Alvarado at 9:41 PM on 12/27/2020 and it was ascertained that the content and urgency of the report was understood at the time of direct communication. VTE: Positive. Assessment and Plan (1) Pulmonary embolism: Status: Acute (2) PVC (premature ventricular contraction): Status: Acute (3) Bifascicular block: Status: Acute (4) Essential hypertension: Status: Acute (5) Atherosclerotic cardiovascular disease: Status: Acute But in cardiac data reviewed. Cardiac catheterization from 2016 shows nonobstructive disease only. Nothing hemodynamically significant. Last echocardiogram from [facility] from May this year shows LVEF 55-60% no clear wall motion abnormalities apart from abdominal septal motion suspected to be from frequent ectopy. Telemetry self today does not show any clear bradycardia. Based on the last consult note from Dr. Aiken, EKG findings seem chronic including the ectopy as mentioned in the echocardiographic report. Hence, no specific cardiac management for these at this time. With regard to the pulmonary embolism itself, we can get echocardiogram to assess for right ventricular strain/pulmonary hypertension. He is already on anticoagulation with Eliquis which can be continued. High sensitive troponins 13.4 and 17.3. CTA chest-right lower lobe pulmonary embolism. Interval improvement of right upper lobe consolidation. No description of right heart strain. Procedures Date of Service Date of Service: 12/28/20
--- NOTE | 2020-12-28 11:57 | MHC.CM.PN ---
PT REPORTS HE LIVES AT HOME WITH HIS AND IS INDEPENDENT WITH CARE PT DENIES USE OF DME OR HOME SERVICES PT CONFIRMS HIS PCP IS BALDOMERO HERNANDEZ PT STATES HE HAS A HCP COMPLETED NAMING HIS , FRANK, HIS AGENT PT REPORTS HE IS A AND VISITS THEM FOR YEARLY CHECKUPS AND HEARING AIDS CURRENT DC PLAN IS HOME WITH NO SERVICES TO TRANSPORT
--- NOTE | 2020-12-28 12:30 | HO.PM.IMPN ---
Subjective Subjective Date of Service: 12/28/20 Interval History: seen and examined this morning Follow-up for PE Reports shortness of breath with exertion Review of Systems Review of Systems: Yes all other systems are reviewed and are negative Constitutional Constitutional: Denies chills and Denies fever(s) Cardiovascular Cardiovascular: Denies chest pain Respiratory Respiratory: Denies cough Gastrointestinal Gastrointestinal: Denies abdominal pain Physical Exam Vital Signs: Vital Signs: Last Vital Signs Temp 98.0 F 12/27/20 23:21 Pulse 58 12/28/20 11:58 Resp 18 12/28/20 11:58 BP 124/62 12/28/20 11:58 Pulse Ox 95 12/28/20 11:58 Body Mass Index 30.5 Const: Nutritional Appearance: well nourished Orientation/consciousness: patient oriented x3 HENMT: Head: Yes normocephalic and Yes atraumatic Eyes: Sclerae: sclerae normal Resp: Effort & Inspection: normal respiratory effort and no respiratory distress Cardio: Rate: regular rate Rhythm: regular rhythm GI: Palpation (GI): Soft to palpation and nontender Neuro: General: patient oriented x3 Cranial nerves: Yes CN's II-XII intact bilaterally and Yes Bilaterally intact EOM present Objective Data Active Medications Acetaminophen (Acetaminophen 325 Mg Tablet) 650 mg PO Q6H PRN PRN Reason: Pain, Mild (Pain Scale 1-3) Albuterol Sulfate (Albuterol Sulfate 90 Mcg 8 Gm Inhaler) 1 puff INHALE Q4H PRN PRN Reason: Shortness Of Breath Albuterol/Ipratropium (Albuterol/Iprat 2.5/0.5mg 3 Ml Ampul.Neb) 3 ml INHALE RQ4H PRN PRN Reason: Shortness of Breath/Wheezing Amlodipine Besylate (Amlodipine Besylate 10 Mg Tablet) 10 mg PO DAILY [facility]; Protocol Last Admin: 12/28/20 08:48 Dose: 10 mg Documented by: RENEE Apixaban (Apixaban 5 Mg Tablet) 10 mg PO BID [facility] Stop: 01/03/21 21:01 Last Admin: 12/28/20 08:48 Dose: 10 mg Documented by: RENEE Ascorbic Acid (Ascorbic Acid 500 Mg Tablet) 500 mg PO DAILY [facility] Last Admin: 12/28/20 08:48 Dose: 500 mg Documented by: RENEE Atorvastatin Calcium (Atorvastatin Calcium 80 Mg Tablet) 80 mg PO BEDTIME [facility] Ceftriaxone Sodium 1 gm/ (Sodium Chloride) 50 mls @ 100 mls/hr IV Q24H [facility] Melatonin (Melatonin 3 Mg Tablet) 6 mg PO BEDTIME PRN PRN Reason: Insomnia Metoprolol Succinate (Metoprolol Succinate Er 25 Mg Tab.Er.24h) 25 mg PO DAILY [facility]; Protocol Last Admin: 12/28/20 08:49 Dose: 25 mg Documented by: RENEE Comments: held for HR <50 Omeprazole (Omeprazole 40 Mg Capsule.Dr) 40 mg PO DAILY@0630 [facility] Last Admin: 12/28/20 06:02 Dose: 40 mg Documented by: DOMENIC Pharmacy Consult (Consult Rx Perform Med Rec) 1 each MISCELLANE ONCE PRN PRN Reason: Consult order Prednisone (Prednisone 10 Mg Tablet) 30 mg PO DAILY [facility]; Taper Stop: 01/06/21 08:59 Last Admin: 12/28/20 08:48 Dose: 30 mg Documented by: RENEE Senna (Sennosides 8.6 Mg Tablet) 17.2 mg PO BEDTIME PRN PRN Reason: Constipation Sodium Chloride (0.9 % Sodium Chloride Flush 3 Ml Syringe) 3 ml IVFLUSH QSHIFT [facility] Last Admin: 12/28/20 11:17 Dose: Not Given Documented by: GLORIA Non-Admin Reason: Med Not Available Tolterodine Tartrate (Tolterodine Tartrate La 4 Mg Cap.Er.24h) 4 mg PO DAILY [facility] Last Admin: 12/28/20 08:49 Dose: 4 mg Documented by: RENEE Vitamin D (Cholecalciferol (Vitamin D3) 25 Mcg Tablet) 50 mcg PO BEDTIME [facility] Labs CBC & Chem 7: 12/28/20 06:50 12/28/20 06:50 Labs: Laboratory Results - last 24 hr 12/27/20 12/27/20 12/27/20 19:18 19:18 19:18 MCV 81.0 MCH 27.9 MCHC 34.4 RDW 14.3 Plt Count 280 MPV 9.4 Immature Gran % (Auto) 1.3 H Neut % (Auto) 88.8 H Lymph % (Auto) 5.3 L [place] % (Auto) 4.1 Eos % (Auto) 0.3 Baso % (Auto) 0.2 Lymph # (Auto) 1.1 L [place] # (Auto) 0.9 Eos # (Auto) 0.1 Baso # (Auto) 0.0 Abs Immat Gran (auto) 0.27 H Absolute Neuts (auto) 19.1 H Absolute Nucleated RBC 0.000 Nucleated RBC % (auto) 0.0 PT 12.0 INR 1.1 APTT 27.1 D-Dimer 1019 Anion Gap 13 Estim Creat Clear Calc 91.1 Estimated GFR > 60 Random Glucose 128 H Lactic Acid Calcium 9.0 Magnesium 2.1 Total Bilirubin 0.9 AST 50 H D ALT 111 H Alkaline Phosphatase 98 D Troponin I High Sens B-Natriuretic Peptide Total Protein 6.1 L Albumin 3.6 Urine Color Urine Appearance Urine pH Ur Specific [place] Urine Protein Urine Glucose (UA) Urine Ketones Urine Blood Urine Nitrite Ur Leukocyte Esterase COVID-19 ([facility]) COVID-19 [employer] [employer] 12/27/20 12/27/20 12/27/20 19:18 19:18 19:18 MCV MCH MCHC RDW Plt Count MPV Immature Gran % (Auto) Neut % (Auto) Lymph % (Auto) Kim[place] % (Auto) Eos % (Auto) Baso % (Auto) Lymph # (Auto) [place] # (Auto) Eos # (Auto) Baso # (Auto) Abs Immat Gran (auto) Absolute Neuts (auto) Absolute Nucleated RBC Nucleated RBC % (auto) PT INR APTT D-Dimer Anion Gap Estim Creat Clear Calc Estimated GFR Random Glucose Lactic Acid Calcium Magnesium Total Bilirubin AST ALT Alkaline Phosphatase Troponin I High Sens 13.4 B-Natriuretic Peptide 113 H Total Protein Albumin Urine Color Urine Appearance Urine pH Ur Specific [place] Urine Protein Urine Glucose (UA) Urine Ketones Urine Blood Urine Nitrite Ur Leukocyte Esterase COVID-19 (DONALD) Negative COVID-19 [employer] [employer] See Note 12/27/20 12/27/20 12/28/20 19:18 19:51 01:42 MCV MCH MCHC RDW Plt Count MPV Immature Gran % (Auto) Neut % (Auto) Lymph % (Auto) [place] % (Auto) Eos % (Auto) Baso % (Auto) Lymph # (Auto) [place] # (Auto) Eos # (Auto) Baso # (Auto) Abs Immat Gran (auto) Absolute Neuts (auto) Absolute Nucleated RBC Nucleated RBC % (auto) PT INR APTT D-Dimer Anion Gap Estim Creat Clear Calc Estimated GFR Random Glucose Lactic Acid 1.6 Calcium Magnesium Total Bilirubin AST ALT Alkaline Phosphatase Troponin I High Sens 17.3 B-Natriuretic Peptide Total Protein Albumin Urine Color YELLOW Urine Appearance CLEAR Urine pH 6.5 Ur Specific [place] 1.015 Urine Protein NEG Urine Glucose (UA) NEG Urine Ketones NEG Urine Blood NEG Urine Nitrite NEG Ur Leukocyte Esterase NEG COVID-19 ([facility]) COVID-19 Clin Com 12/28/20 12/28/20 06:50 06:50 MCV 81.7 MCH 27.5 MCHC 33.7 RDW 14.2 Plt Count 255 MPV 9.6 Immature Gran % (Auto) 1.1 H Neut % (Auto) 75.2 H Lymph % (Auto) 16.0 L Kim[place] % (Auto) 6.5 Eos % (Auto) 1.0 Baso % (Auto) 0.2 Lymph # (Auto) 3.0 Kimble # (Auto) 1.2 Eos # (Auto) 0.2 Baso # (Auto) 0.0 Abs Immat Gran (auto) 0.21 H Absolute Neuts (auto) 14.2 H Absolute Nucleated RBC 0.000 Nucleated RBC % (auto) 0.0 PT INR APTT D-Dimer Anion Gap 13 Estim Creat Clear Calc 95.9 Estimated GFR > 60 Random Glucose 83 D Lactic Acid Calcium 8.6 Magnesium Total Bilirubin AST ALT Alkaline Phosphatase Troponin I High Sens B-Natriuretic Peptide Total Protein Albumin Urine Color Urine Appearance Urine pH Ur Specific [place] Urine Protein Urine Glucose (UA) Urine Ketones Urine Blood Urine Nitrite Ur Leukocyte Esterase COVID-19 (DONALD) COVID-19 Clin Com Microbiology Microbiology Results: Microbiology 12/27/20 19:18 Blood Culture - Preliminary Blood - Venous Assessment and Plan (1) Respiratory failure with hypoxia: Status: Acute (2) Pulmonary embolism: Status: Acute Assessment and Plan: This is a 70 year male with a history of hypertension, hyperlipidemia prostate cancer, ESTELLA on recent admission presented with shortness of breath and dyspnea acute Acute respiratory with hypoxia Secondary to underlying pulmonary embolism Continue supplemental oxygen, wean as tolerated Pulmonary embolism Continue Eliquis 10 mg b.i.d. x7 days, followed by 5 mg b.i.d. Echocardiogram pending Pneumonia Recent hospitalization for. CTA shows improvement of pneumonia No further antibiotics indicated at this time Bradycardia Asymptomatic Seen by Cardiology, no further workup required at this time Leukocytosis Reactive versus related to recent steroid use Trend CBC Pulmonary nodule s/p biopsy Continue outpatient follow-up HTn BP controlled Continue amlodipine, metoprolol Olmesartan-hydrochlorothiazide on hold HLD Continue statin DVT prophylaxis-Devin Attending-dr paris Quality Stroke Does the patient have a stroke diagnosis?: No VTE Prior VTE?: No VTE Risk Level:: Medical - moderate - high VTE Device Contraindication: Treatment Not Indicated VTE Drug Contraindication: N/A - Med Ordered
[2020-12-28] MEDS: Atorvastatin Calcium 80 MG TABLET PO (21:17)
[2020-12-28] MEDS: Cholecalciferol (Vitamin D3) 25 MCG TABLET 50 MCG PO (21:17)
[2020-12-28] MEDS: Melatonin 3 MG TABLET 6 MG PO (21:17)
[2020-12-28] MEDS: 0.9 % Sodium Chloride Flush 3 ML SYRINGE IVFLUSH (21:19)
[2020-12-28 22:34] LABS: Troponin-I High Sensitivity 10.3 ng/L (<3.5-35.0)
[2020-12-29] VITALS (10 sets, daily range): BP systolic 135–150; BP diastolic 65–75; PULSE 50–78; RESP 16–20; TEMP 36.5–36.8; O2SAT 94–97
[2020-12-29] MEDS: Omeprazole 40 MG CAPSULE.DR PO (06:22)
[2020-12-29 06:53] LABS: Hematocrit 42.3 % (42.0-52.0); Hemoglobin 13.9 g/dl (14.0-18.0); Mean Corpuscular HGB Conc 32.9 g/dl (31.0-36.0); Mean Corpuscular Hemoglobin 26.9 pg (27.0-33.0); Mean Platelet Volume 9.9 fL (9.4-12.4); Platelet Count 277 X10*3/uL (160-400); Red Blood Count 5.16 X10*6/uL (4.60-5.80); Red Cell Distribution Width 14.1 % (11.0-16.0); White Blood Count 15.8 X10*3/uL (4.8-10.8)
[2020-12-29 07:20] LABS: Alanine Aminotransferase 82 U/L (0-40); Alkaline Phosphatase 85 U/L (39-117); Anion Gap 13 (12-20); Aspartate Amino Transferase 29 U/L (5-37); Bilirubin Direct 0.3 mg/dL (0.0-0.5); Bilirubin Total 0.6 mg/dL (0.0-1.0); Blood Urea Nitrogen 21 mg/dL (9-16); Calcium 8.4 mg/dL (8.4-10.2); Carbon Dioxide 31 mmol/L (22-29); Chloride 103 mmol/L (96-108); Creatinine Clr Calc Pharmacy 88.9; Estimated Glomerular Filt Rate > 60; Glucose Random 100 mg/dL (60-115); Potassium 3.5 mmol/L (3.3-5.1); Sodium 140 mmol/L (135-145)
[2020-12-29 07:56] LABS: HBS Num1 1.65 mIU/mL (0-7.99); HBsAGNum1 0.16 S/CO (0.00-0.99); Hepatitis B Surface Antigen Negative (Negative); ~HepC Num1 0.06 S/CO (0.00-0.79); ~Hepatitis A Antibody IgM Nonreactive (Nonreactive); ~Hepatitis B Surface Antibody NONREACTIVE (Nonreactive); ~Hepatitis C Antibody Nonreactive (Nonreactive)
[2020-12-29 08:18] LABS: HBc Num1 0.14 S/CO (0.00-0.79); Hepatitis B Core Antibody Nonreactive (Nonreactive)
[2020-12-29 08:48] LABS: INTERNATIONAL NORM RATIO 1.3 (0.9-1.1); Prothrombin Time 14.4 SEC (9.9-13.0)
[2020-12-29 08:50] LABS: Partial Thromboplastin Time 28.1 SEC (24.1-38.0)
[2020-12-29] MEDS: predniSONE 10 MG TABLET 20 MG PO (09:01)
[2020-12-29] MEDS: Ascorbic Acid 500 MG TABLET PO (09:02)
[2020-12-29] MEDS: amLODIPine Besylate 10 MG TABLET PO (09:02)
[2020-12-29] MEDS: Metoprolol Succinate ER 25 MG TAB.ER.24H PO (09:03)
[2020-12-29] MEDS: Apixaban 5 MG TABLET 10 MG PO ×2 (09:03→19:52)
[2020-12-29] MEDS: 0.9 % Sodium Chloride Flush 3 ML SYRINGE IVFLUSH ×3 (09:03→19:53)
[2020-12-29] MEDS: Tolterodine Tartrate LA 4 MG CAP.ER.24H PO (09:06)
--- NOTE | 2020-12-29 10:30 | CA_ITS ---
Transthoracic Echocardiogram Patient (Last, First, Middle): Jesús Feliciano, Gender: Male Date of : 1950 Age: 70 Procedure Date: 12/29/2020 Procedure Type: Transthoracic Echocardiogram Location: [facility] [place] Height: 170.18 cm Weight: 88.45 kg BSA: 2.00 m2 Heart Rate: bpm BP: 138 / 72 mmHg Outer Diameter Grinder: TIMMY Palma MD: Michele Phelps MD Symptoms: PE Study Quality: Fair ECG Rhythm: Sinus with PVCs Conclusions: - The left ventricular systolic function is normal. The calculated ejection fraction is 65% by biplane method. - Mildly increased right ventricular cavity size. - There is mild mitral annular calcification. Findings Left Ventricle Normal left ventricular cavity size. There is mildly increased left ventricular wall thickness. The left ventricular systolic function is normal. The calculated ejection fraction is 65% by biplane method. There is no evidence of regional wall motion abnormalities. Right Ventricle Mildly increased right ventricular cavity size. There is normal right ventricular systolic function. Atria The left atrium is mildly dilated. The right atrium is normal in size. Aortic Valve There is a normal trileaflet aortic valve. There is no aortic valve stenosis. There is trace (trivial) aortic valve regurgitation. Mitral Valve There is mild mitral annular calcification. There is trace mitral valve regurgitation. There is no mitral valve stenosis. Pulmonic Valve The pulmonic valve was not well visualized. Tricuspid Valve Normal tricuspid valve structure. There is trace tricuspid valve regurgitation. The pulmonary artery systolic pressure is normal. Great Vessels The asc aorta is normal in size. Venous The inferior vena cava was not well visualized. The inferior vena cava is normal in size. Pericardium/Pleural There is no evidence of pericardial effusion. Prior Study Comparison No significant change compared to prior study dated: 10/25/2015. Measurements 2D Linear Measurements IVSd: 1.27 0.6-0.9/0.6-1.0 cm LVIDd: 5.09 3.9-5.3/4.2-5.9 cm LVIDd Index: 2.55 2.4-3.2/2.2-3.1 cm/m2 LVIDs: 3.21 2.0-3.6 cm LVPWd: 1.15 0.7-1.1 cm Ao Root: 3.40 2.1-3.5 cm LA Diam: 4.50 2.7-3.8/3.0-4.0 cm LAIDs Index: 2.25 1.5-2.3 cm/m2 LV Mass: 303.36 67-162/88-224 g LV Mass Index: 151.68 43-95/49-115 g/m2 LVOT Diam: 2.20 3.0+(-)1.3 cm 2D Systolic Function EF 4C: 69.70 >55% EF 2C: 61.10 >55% EF BiP: 64.90 >55% Mitral Valve MV Pk E: 0.92 MV PK A: 0.60 MV Decel Time: 237.00 E/A: 1.50 E'Lateral: 3.48 E'Medial: 6.85 E/E' Med: 13.40 E/E' Lat: 26.30 PHT: 70.00 MVA PHT: 3.14 Decel Stonewall: 3.85 Aortic Valve AoV Pk Damon: 1.46 AoV Mn Damon: 1.03 AoV VTI: 0.36 AoV Pk Grad: 9.00 Aov Mn Grad: 5.00 FACUNDO Cont.VTI: 2.70 LVOT LVOT Pk Damon: 1.06 LVOT Mn Damon: 0.65 LVOT VTI: 0.25 LVOT Pk Grad: 4.00 LVOT Mn Grad: 2.00 LVOT Diam: 2.20 LVOT Area: 3.80 Diastolic Function MV Pk E: 0.92 MV Pk A: 0.60 E/A: 1.50 E'Medial: 6.85 E/E' Med: 13.40 E' Laterial: 3.48 E/E' Lat: 26.30 Right Ventricle TAPSE (mm): 2.40 TVS' Damon: 13.10 Tricuspid Valve TR Pk Damon: 2.57 TR Pk Grad: 26.00 RA Press: 3.00 RVSP: 29.00 Great Vessels Aorta Ao Root-2D: 3.40 2.0-3.7 cm Ao Asc: 3.50 2.1-3.4 cm Updated in Other Vendor System with Status of Final Daryl Gutierres MD electronically signed on 12/29/2020 3:19:13 PM with status of Final
--- NOTE | 2020-12-29 12:53 | P.PNIM_ITS ---
Subjective Subjective Date of Service: 12/29/20 <JERMAIN Jewell - Last Filed: 12/29/20 12:58> 01/01/21 <Linden Paris MD - Last Filed: 01/01/21 07:33> Interval History: seen and examined this morning follow up for PE episode of chest pain overnight breathing inproving <JERMAIN Jewell - Last Filed: 12/29/20 12:58> Review of Systems Review of Systems: Yes all other systems are reviewed and are negative <JERMAIN Jewell - Last Filed: 12/29/20 12:58> Constitutional Constitutional: Denies chills and Denies fever(s) <JERMAIN Jewell - Last Filed: 12/29/20 12:58> Cardiovascular Cardiovascular: Denies chest pain <JERMAIN Jewell - Last Filed: 12/29/20 12:58> Respiratory Respiratory: Denies cough <JERMAIN Jewell - Last Filed: 12/29/20 12:58> Gastrointestinal Gastrointestinal: Denies abdominal pain <JERMAIN Jewell - Last Filed: 12/29/20 12:58> Physical Exam Vital Signs: Vital Signs: Last Vital Signs Temp 98.2 F 12/29/20 11:41 Pulse 53 12/29/20 11:41 Resp 18 12/29/20 11:41 BP 142/71 H 12/29/20 11:41 Pulse Ox 97 12/29/20 11:41 Body Mass Index 30.5 <JERMAIN Jewell - Last Filed: 12/29/20 12:58> Const: Nutritional Appearance: well nourished <JERMAIN Jewell - Last Filed: 12/29/20 12:58> Orientation/consciousness: patient oriented x3 <JERMAIN Jewell - Last Filed: 12/29/20 12:58> HENMT: Head: Yes normocephalic and Yes atraumatic <JERMAIN Jewell - Last Filed: 12/29/20 12:58> Eyes: Sclerae: sclerae normal <JERMAIN Jewell - Last Filed: 12/29/20 12:58> Resp: Effort & Inspection: normal respiratory effort and no respiratory distress <JERMAIN Jewell - Last Filed: 12/29/20 12:58> Cardio: Rate: regular rate <JERMAIN Jewell Last Filed: 12/29/20 12:58> Rhythm: regular rhythm <JERMAIN Jewell Last Filed: 12/29/20 12:58> GI: Palpation (GI): Soft to palpation and nontender <JERMAIN Jewell - Last Filed: 12/29/20 12:58> Neuro: General: patient oriented x3 <JERMAIN Jewell Last Filed: 12/29/20 12:58> Cranial nerves: Yes CN's II-XII intact bilaterally and Yes Bilaterally intact EOM present <JERMAIN Jewell Last Filed: 12/29/20 12:58> Objective Data Active Medications Acetaminophen (Acetaminophen 325 Mg Tablet) 650 mg PO Q6H PRN PRN Reason: Pain, Mild (Pain Scale 1-3) Albuterol Sulfate (Albuterol Sulfate 90 Mcg 8 Gm Inhaler) 1 puff INHALE Q4H PRN PRN Reason: Shortness Of Breath Albuterol/Ipratropium (Albuterol/Iprat 2.5/0.5mg 3 Ml Ampul.Neb) 3 ml INHALE RQ4H PRN PRN Reason: Shortness of Breath/Wheezing Amlodipine Besylate (Amlodipine Besylate 10 Mg Tablet) 10 mg PO DAILY [facility]; Protocol Last Admin: 12/29/20 09:02 Dose: 10 mg Documented by: TALIA Apixaban (Apixaban 5 Mg Tablet) 10 mg PO BID [facility] Stop: 01/03/21 21:01 Last Admin: 12/29/20 09:03 Dose: 10 mg Documented by: TALIA Ascorbic Acid (Ascorbic Acid 500 Mg Tablet) 500 mg PO DAILY [facility] Last Admin: 12/29/20 09:02 Dose: 500 mg Documented by: TALIA Atorvastatin Calcium (Atorvastatin Calcium 80 Mg Tablet) 80 mg PO BEDTIME [facility] Last Admin: 12/28/20 21:17 Dose: 80 mg Documented by: CHANI Melatonin (Melatonin 3 Mg Tablet) 6 mg PO BEDTIME PRN PRN Reason: Insomnia Last Admin: 12/28/20 21:17 Dose: 6 mg Documented by: CHANI Metoprolol Succinate (Metoprolol Succinate Er 25 Mg Tab.Er.24h) 25 mg PO DAILY [facility]; Protocol Last Admin: 12/29/20 09:03 Dose: 25 mg Documented by: TALIA Omeprazole (Omeprazole 40 Mg Capsule.Dr) 40 mg PO DAILY@0630 [facility] Last Admin: 12/29/20 06:22 Dose: 40 mg Documented by: CHANI Pharmacy Consult (Consult Rx Perform Med Rec) 1 each MISCELLANE ONCE PRN PRN Reason: Consult order Prednisone (Prednisone 10 Mg Tablet) 30 mg PO DAILY [facility]; Taper Stop: 01/06/21 08:59 Last Admin: 12/29/20 09:01 Dose: 30 mg Documented by: TALIA Senna (Sennosides 8.6 Mg Tablet) 17.2 mg PO BEDTIME PRN PRN Reason: Constipation Sodium Chloride (0.9 % Sodium Chloride Flush 3 Ml Syringe) 3 ml IVFLUSH QSHIFT [facility] Last Admin: 12/29/20 09:03 Dose: 3 ml Documented by: TALIA Tolterodine Tartrate (Tolterodine Tartrate La 4 Mg Cap.Er.24h) 4 mg PO DAILY [facility] Last Admin: 12/29/20 09:06 Dose: 4 mg Documented by: TALIA Vitamin D (Cholecalciferol (Vitamin D3) 25 Mcg Tablet) 50 mcg PO BEDTIME [facility] Last Admin: 12/28/20 21:17 Dose: 50 mcg Documented by: CHANI <JERMAIN Jewell - Last Filed: 12/29/20 12:58> Labs CBC & Chem 7: : 12/31/20 06:11 12/31/20 06:11 <JERMAIN Jewell - Last Filed: 12/29/20 12:58> Labs: Laboratory Results - last 24 hr 12/28/20 12/28/20 12/29/20 06:50 22:08 05:47 MCV 82.0 MCH 26.9 L MCHC 32.9 RDW 14.1 Plt Count 277 MPV 9.9 Absolute Nucleated RBC 0.000 Nucleated RBC % (auto) 0.0 PT INR APTT Anion Gap Estim Creat Clear Calc Estimated GFR Random Glucose Calcium Total Bilirubin Direct Bilirubin AST ALT Alkaline Phosphatase Troponin I High Sens 10.3 Total Protein Albumin Hepatitis A IgM Ab Nonreactive Hep Bs Antigen Negative Hep Bs Antibody NONREACTIVE Hep B Core Total Ab Nonreactive Hepatitis C Ab (EIA) Nonreactive 12/29/20 12/29/20 05:47 08:30 MCV MCH MCHC RDW Plt Count MPV Absolute Nucleated RBC Nucleated RBC % (auto) PT 14.4 H INR 1.3 H APTT 28.1 Anion Gap 13 Estim Creat Clear Calc 88.9 Estimated GFR > 60 Random Glucose 100 Calcium 8.4 Total Bilirubin 0.6 Direct Bilirubin 0.3 AST 29 D ALT 82 H Alkaline Phosphatase 85 Troponin I High Sens Total Protein 5.0 L Albumin 3.0 L Hepatitis A IgM Ab Hep Bs Antigen Hep Bs Antibody Hep B Core Total Ab Hepatitis C Ab (EIA) <JERMAIN Jewell - Last Filed: 12/29/20 12:58> Microbiology Microbiology Results: Microbiology 12/27/20 19:18 Blood Culture - Preliminary Blood - Venous No growth after 24 hours. 12/27/20 19:18 Blood Culture - Preliminary Blood - Venous No growth after 24 hours. <JERMAIN Jewell - Last Filed: 12/29/20 12:58> Assessment and Plan (1) Respiratory failure with hypoxia: Status: Acute <JERMAIN Jewell - Last Filed: 12/29/20 12:58> (2) Pulmonary embolism: Status: Acute <JERMAIN Jewell - Last Filed: 12/29/20 12:58> Assessment and Plan: This is a 70 year male with a history of hypertension, hyperlipidemia prostate cancer, ESTELLA on recent admission presented with shortness of breath and dyspnea acute Acute respiratory failure with hypoxia Secondary to underlying pulmonary embolism Continue supplemental oxygen, wean as tolerated Pulmonary embolism Continue Eliquis 10 mg b.i.d. x7 days, followed by 5 mg b.i.d. Echocardiogram pending chest pain episode of chest pain overnight trops flat Bradycardia HR 40s-50s overnight Seen by Cardiology Pneumonia Recent hospitalization for. CTA shows improvement of pneumonia No further antibiotics indicated at this time Leukocytosis Reactive versus related to recent steroid use Trend CBC Pulmonary nodule s/p biopsy Continue outpatient follow-up HTn BP controlled Continue amlodipine, metoprolol resume formulary equivalent for Olmesartan-hydrochlorothiazide HLD Continue statin DVT prophylaxis-Devin Attending-dr paris <JERMAIN Jewell - Last Filed: 12/29/20 12:58> This is a 70 year male with a history of hypertension, hyperlipidemia prostate cancer, ESTELLA on recent admission presented with shortness of breath and dyspnea acute Acute respiratory failure with hypoxia Secondary to underlying pulmonary embolism Continue supplemental oxygen, wean as tolerated Pulmonary embolism Continue Eliquis 10 mg b.i.d. x7 days, followed by 5 mg b.i.d. Echocardiogram pending chest pain episode of chest pain overnight trops flat Bradycardia HR 40s-50s overnight Seen by Cardiology Pneumonia Recent hospitalization for. CTA shows improvement of pneumonia No further antibiotics indicated at this time Leukocytosis Reactive versus related to recent steroid use Trend CBC Pulmonary nodule s/p biopsy Continue outpatient follow-up HTn BP controlled Continue amlodipine, metoprolol resume formulary equivalent for Olmesartan-hydrochlorothiazide HLD Continue statin DVT prophylaxis-Devin Attending-dr paris Attending Attestation: Late Entry 12/29/20 I have personally seen and examined the patient independently, reviewed the NPP history, exam and?MDM and agree with the assessment and plan as?written. <Linden Paris MD - Last Filed: 01/01/21 07:33> Quality Stroke Does the patient have a stroke diagnosis?: No <JERMAIN Jewell - Last Filed: 12/29/20 12:58> VTE Prior VTE?: No <JERMAIN Jewell - Last Filed: 12/29/20 12:58> VTE Risk Level:: Medical - moderate - high <JERMAIN Jewell - Last Filed: 12/29/20 12:58> VTE Device Contraindication: Treatment Not Indicated <JERMAIN Jewell - Last Filed: 12/29/20 12:58> VTE Drug Contraindication: N/A - Med Ordered <JERMAIN Jewell - Last Filed: 12/29/20 12:58>
--- NOTE | 2020-12-29 14:12 | ECG_ITS ---
Test Reason : CHEST PAIN Blood Pressure : / mmHG Vent. Rate : 061 BPM Atrial Rate : 061 BPM P-R Int : 154 ms QRS Dur : 148 ms QT Int : 450 ms P-R-T Axes : 033 -67 -09 degrees QTc Int : 453 ms Normal sinus rhythm Right bundle branch block Left anterior fascicular block Bifascicular block Abnormal ECG When compared with ECG of 28-DEC-2020 22:29, Premature ventricular complexes are no longer Present Referred By: Trinh Lin Electronically Signed By:RAYRAY BOUDREAUX MD
[2020-12-29] MEDS: Morphine Sulfate 2 MG/ML CARTRIDGE IVPUSH (14:28)
[2020-12-29 15:38] LABS: Troponin-I High Sensitivity 11.3 ng/L (<3.5-35.0)
--- NOTE | 2020-12-29 18:38 | PC.NURSE ---
~1400 Pt was complaining of 1-2/10 chest pressure/pain -Patient assessed and PA notified VSS at this time. HR 50-60s Pt states comes and goes, at first stating nothing really making it better or worse - later stating that more on exhale. Trop 11.3 EKG obtained PT states will notify RN if any changes to any signs or symtoms
[2020-12-29] MEDS: Cholecalciferol (Vitamin D3) 25 MCG TABLET 50 MCG PO (19:52)
[2020-12-29] MEDS: Atorvastatin Calcium 80 MG TABLET PO (19:52)
[2020-12-29] MEDS: Melatonin 3 MG TABLET 6 MG PO (22:20)
[2020-12-30] VITALS (9 sets, daily range): BP systolic 125–176; BP diastolic 63–88; PULSE 52–64; RESP 16–18; TEMP 36.4–37; O2SAT 93–98
[2020-12-30] MEDS: Omeprazole 40 MG CAPSULE.DR PO (05:54)
[2020-12-30 06:26] LABS: MANUAL DIFF FLAG NO
[2020-12-30 06:32] LABS: Basophils Percent Auto 0.2 % (0-2); Eosinophils Absolute Auto 0.5 X10*3/uL (0.0-0.4); Hematocrit 39.2 % (42.0-52.0); Imm Gran Abs Auto 0.27 X10*3/uL (0.00-0.03); Imm Gran Pct Auto 1.8 % (0.0-0.4); Lymphocytes Absolute Auto 2.8 X10*3/uL (1.2-4.9); Lymphocytes Percent Auto 18.6 % (20-40); Mean Corpuscular HGB Conc 33.2 g/dl (31.0-36.0); Mean Corpuscular Hemoglobin 27.3 pg (27.0-33.0); Mean Corpuscular Volume 82.2 fL (80.0-98.0); Mean Platelet Volume 9.6 fL (9.4-12.4); Monocytes Absolute Auto 1.1 X10*3/uL (0.1-1.2); Neutrophils Absolute Auto 10.3 x10*3/uL (2.0-8.3); Neutrophils Percent Auto 69.4 % (45-73); Platelet Count 262 X10*3/uL (160-400); Red Blood Count 4.77 X10*6/uL (4.60-5.80); White Blood Count 14.9 X10*3/uL (4.8-10.8)
[2020-12-30] MEDS: Metoprolol Succinate ER 25 MG TAB.ER.24H PO (09:07)
[2020-12-30] MEDS: predniSONE 10 MG TABLET 20 MG PO (09:07)
[2020-12-30] MEDS: Ascorbic Acid 500 MG TABLET PO (09:07)
[2020-12-30] MEDS: Apixaban 5 MG TABLET 10 MG PO ×2 (09:08→20:02)
[2020-12-30] MEDS: Tolterodine Tartrate LA 4 MG CAP.ER.24H PO (09:08)
[2020-12-30] MEDS: 0.9 % Sodium Chloride Flush 3 ML SYRINGE IVFLUSH ×2 (09:09→20:04)
[2020-12-30] MEDS: Valsartan 160 MG TABLET PO (09:09)
[2020-12-30] MEDS: hydroCHLOROthiazide 25 MG TABLET PO (09:09)
[2020-12-30] MEDS: amLODIPine Besylate 10 MG TABLET PO (09:10)
--- NOTE | 2020-12-30 10:30 | HO.PM.IMPN ---
Subjective Subjective Date of Service: 12/30/20 Interval History: Still feels ?out of sorts . Denies shortness of breath however has pain when lays on the right side Review of Systems Denies chest pain Denies shortness of breath Denies nausea vomiting diarrhea Physical Exam Vital Signs: Vital Signs: Last Vital Signs Temp 97.8 F 12/30/20 07:33 Pulse 60 12/30/20 09:10 Resp 18 12/30/20 07:33 BP 131/70 12/30/20 09:10 Pulse Ox 95 12/30/20 07:33 Body Mass Index 30.5 Const: Other: Awake alert no acute distress HENMT: Other: Membranes moist. Oropharynx clear Resp: Other: Clear to auscultation bilaterally; no rales rhonchi or wheeze Cardio: Other: No S4; positive S1-S2 ; no S3s murmurs or gallops GI: Other: Soft nontender nondistended with normoactive bowel sounds. No peritoneal signs appreciated Neuro: Other: Cranial nerves 2-12 grossly intact as tested. Motor is 5/5 all extremities. Sensation is intact. Cognition is appropriate Extrem: Other: No edema bilaterally Objective Data Active Medications Acetaminophen (Acetaminophen 325 Mg Tablet) 650 mg PO Q6H PRN PRN Reason: Pain, Mild (Pain Scale 1-3) Albuterol Sulfate (Albuterol Sulfate 90 Mcg 8 Gm Inhaler) 1 puff INHALE Q4H PRN PRN Reason: Shortness Of Breath Albuterol/Ipratropium (Albuterol/Iprat 2.5/0.5mg 3 Ml Ampul.Neb) 3 ml INHALE RQ4H PRN PRN Reason: Shortness of Breath/Wheezing Amlodipine Besylate (Amlodipine Besylate 10 Mg Tablet) 10 mg PO DAILY [facility]; Protocol Last Admin: 12/30/20 09:10 Dose: 10 mg Documented by: DANIEL Apixaban (Apixaban 5 Mg Tablet) 10 mg PO BID [facility] Stop: 01/03/21 21:01 Last Admin: 12/30/20 09:08 Dose: 10 mg Documented by: DANIEL Ascorbic Acid (Ascorbic Acid 500 Mg Tablet) 500 mg PO DAILY [facility] Last Admin: 12/30/20 09:07 Dose: 500 mg Documented by: DANIEL Atorvastatin Calcium (Atorvastatin Calcium 80 Mg Tablet) 80 mg PO BEDTIME [facility] Last Admin: 12/29/20 19:52 Dose: 80 mg Documented by: COLIN Hydrochlorothiazide (Hydrochlorothiazide 25 Mg Tablet) 25 mg PO DAILY [facility] Last Admin: 12/30/20 09:09 Dose: 25 mg Documented by: DANIEL Melatonin (Melatonin 3 Mg Tablet) 6 mg PO BEDTIME PRN PRN Reason: Insomnia Last Admin: 12/29/20 22:20 Dose: 6 mg Documented by: COLIN Metoprolol Succinate (Metoprolol Succinate Er 25 Mg Tab.Er.24h) 25 mg PO DAILY [facility]; Protocol Last Admin: 12/30/20 09:07 Dose: 25 mg Documented by: DANIEL Omeprazole (Omeprazole 40 Mg Capsule.Dr) 40 mg PO DAILY@0630 [facility] Last Admin: 12/30/20 05:54 Dose: 40 mg Documented by: COLIN Pharmacy Consult (Consult Rx Perform Med Rec) 1 each MISCELLANE ONCE PRN PRN Reason: Consult order Prednisone (Prednisone 10 Mg Tablet) 30 mg PO DAILY [facility]; Taper Stop: 01/06/21 08:59 Last Admin: 12/30/20 09:07 Dose: 30 mg Documented by: DANIEL Senna (Sennosides 8.6 Mg Tablet) 17.2 mg PO BEDTIME PRN PRN Reason: Constipation Sodium Chloride (0.9 % Sodium Chloride Flush 3 Ml Syringe) 3 ml IVFLUSH QSHIFT [facility] Last Admin: 12/30/20 09:09 Dose: 3 ml Documented by: DANIEL Tolterodine Tartrate (Tolterodine Tartrate La 4 Mg Cap.Er.24h) 4 mg PO DAILY [facility] [place] Last Admin: 12/30/20 09:08 Dose: 4 mg Documented by: DANIEL Valsartan (Valsartan 160 Mg Tablet) 160 mg PO DAILY [facility] [place] Last Admin: 12/30/20 09:09 Dose: 160 mg Documented by: DANIEL Vitamin D (Cholecalciferol (Vitamin D3) 25 Mcg Tablet) 50 mcg PO BEDTIME [facility] Last Admin: 12/29/20 19:52 Dose: 50 mcg Documented by: COLIN Labs CBC & Chem 7: 12/30/20 05:53 12/29/20 05:47 Labs: Laboratory Results - last 24 hr 12/27/20 12/28/20 12/29/20 19:18 06:50 05:47 WBC 21.5 H 18.8 H 15.8 H MCV MCH MCHC RDW Plt Count MPV Immature Gran % (Auto) Neut % (Auto) Lymph % (Auto) [place] % (Auto) Eos % (Auto) Baso % (Auto) Lymph # (Auto) [place] # (Auto) Eos # (Auto) Baso # (Auto) Abs Immat Gran (auto) Absolute Neuts (auto) Absolute Nucleated RBC Nucleated RBC % (auto) Troponin I High Sens 12/29/20 12/30/20 15:08 05:53 WBC 14.9 H MCV 82.2 MCH 27.3 MCHC 33.2 RDW 14.0 Plt Count 262 MPV 9.6 Immature Gran % (Auto) 1.8 H Neut % (Auto) 69.4 Lymph % (Auto) 18.6 L [place] % (Auto) 7.0 Eos % (Auto) 3.0 Baso % (Auto) 0.2 Lymph # (Auto) 2.8 [place] # (Auto) 1.1 Eos # (Auto) 0.5 H Baso # (Auto) 0.0 Abs Immat Gran (auto) 0.27 H Absolute Neuts (auto) 10.3 H Absolute Nucleated RBC 0.000 Nucleated RBC % (auto) 0.0 Troponin I High Sens 11.3 Microbiology Microbiology Results: Microbiology 12/27/20 19:18 Blood Culture - Preliminary Blood - Venous 12/27/20 19:18 Blood Culture - Preliminary Blood - Venous No growth after 48 hours. Assessment and Plan (1) Respiratory failure with hypoxia: Status: Acute (2) Pulmonary embolism: Status: Acute (3) Pneumonia: Status: Acute (4) Essential hypertension: Status: Acute Assessment and Plan: 70 -year-old gentleman with past medical history of hyperlipidemia, hypertension, pulmonary nodules, history of obstructive sleep apnea on CPAP and 2 L of oxygen at home, history of prostate cancer status post resection recently admitted to [facility] 12/16/20 after undergoing bronchoscopy at [facility] on December 08 presented to [facility] with couple days history of cough associated with shortness of breath;CT chest showed right upper lobe pneumonia. Treated with IV Zosyn followed by a course of Augmentin p.o. and sent home with prednisone taper. On 12/27, he developed worsening shortness of breath and some chest pain and was told to be evaluated the emergency room. CT at that time demonstrates right lower lobe pulmonary emboli 1. Right lower lobe pulmonary emboli with hypoxic respiratory failure Started on Eliquis 10 mg p.o. b.i.d. for 7 days to be followed by 5 mg b.i.d.. Transthoracic echo failed to demonstrate right ventricular strain pattern/pulmonary hypertension. Patient will be weaned to room air and if successful like to be discharged in am 2.Pulmonary embolism Continue Eliquis 10 mg b.i.d. x7 days, followed by 5 mg b.i.d. Echocardiogram pending 3. Asymptomatic bradycardia overnight Seen by cardiology; no acute issues 4. RUL Pneumonia Improved by CT. Complete prednisone taper. No further antibiotics 5.HTN BP well controlled Continue amlodipine, metoprolol;resume formulary equivalent for Olmesartan-hydrochlorothiazide DVT prophylaxis-Eliquis Full code Quality Stroke Does the patient have a stroke diagnosis?: No VTE Prior VTE?: No VTE Risk Level:: Medical - moderate - high VTE Device Contraindication: Treatment Not Indicated VTE Drug Contraindication: N/A - Med Ordered
[2020-12-30] MEDS: Cholecalciferol (Vitamin D3) 25 MCG TABLET 50 MCG PO (20:02)
[2020-12-30] MEDS: Atorvastatin Calcium 80 MG TABLET PO (20:02)
[2020-12-30] MEDS: Acetaminophen 325 MG TABLET 650 MG PO (20:02)
[2020-12-30] MEDS: Melatonin 3 MG TABLET 6 MG PO (23:09)
[2020-12-31 03:12] VITALS: BP 139/65; PULSE 50; RESP 19; TEMP 36.4; O2SAT 97
[2020-12-31] MEDS: Omeprazole 40 MG CAPSULE.DR PO (06:27)
[2020-12-31 06:46] LABS: MANUAL DIFF FLAG NO
[2020-12-31 07:11] LABS: Basophils Percent Auto 0.2 % (0-2); Eosinophils Absolute Auto 0.3 X10*3/uL (0.0-0.4); Eosinophils Percent Auto 1.9 % (0-4); Hematocrit 39.5 % (42.0-52.0); Hemoglobin 13.6 g/dl (14.0-18.0); Imm Gran Abs Auto 0.22 X10*3/uL (0.00-0.03); Imm Gran Pct Auto 1.4 % (0.0-0.4); Lymphocytes Absolute Auto 2.7 X10*3/uL (1.2-4.9); Mean Corpuscular HGB Conc 34.4 g/dl (31.0-36.0); Mean Corpuscular Volume 81.3 fL (80.0-98.0); Mean Platelet Volume 9.5 fL (9.4-12.4); Monocytes Percent Auto 6.3 % (2-11); Neutrophils Absolute Auto 11.6 x10*3/uL (2.0-8.3); Neutrophils Percent Auto 73.2 % (45-73); Platelet Count 253 X10*3/uL (160-400); Red Blood Count 4.86 X10*6/uL (4.60-5.80); Red Cell Distribution Width 14.1 % (11.0-16.0); White Blood Count 15.8 X10*3/uL (4.8-10.8)
[2020-12-31 07:44] VITALS: BP 140/74; PULSE 55; RESP 18; TEMP 36.7; O2SAT 96
[2020-12-31 08:31] LABS: Alanine Aminotransferase 75 U/L (0-40); Albumin Level 2.9 g/dL (3.5-5.0); Alkaline Phosphatase 76 U/L (39-117); Anion Gap 12 (12-20); Aspartate Amino Transferase 23 U/L (5-37); Bilirubin Total 0.8 mg/dL (0.0-1.0); Blood Urea Nitrogen 17 mg/dL (9-16); Calcium 8.2 mg/dL (8.4-10.2); Carbon Dioxide 28 mmol/L (22-29); Chloride 103 mmol/L (96-108); Creatinine Clr Calc Pharmacy 98.5; Estimated Glomerular Filt Rate > 60; Glucose Fasting 95 mg/dL (60-99); Potassium 3.3 mmol/L (3.3-5.1); Sodium 140 mmol/L (135-145); Total Protein 4.8 g/dL (6.5-8.0)
[2020-12-31 09:48] VITALS: BP 140/74; PULSE 75
[2020-12-31] MEDS: Ascorbic Acid 500 MG TABLET PO (09:48)
[2020-12-31] MEDS: Valsartan 160 MG TABLET PO (09:48)
[2020-12-31] MEDS: Apixaban 5 MG TABLET 10 MG PO (09:48)
[2020-12-31] MEDS: predniSONE 10 MG TABLET 20 MG PO (09:50)
[2020-12-31 09:51] VITALS: BP 140/74; PULSE 75
[2020-12-31] MEDS: hydroCHLOROthiazide 25 MG TABLET PO (09:51)
[2020-12-31] MEDS: Metoprolol Succinate ER 25 MG TAB.ER.24H PO (09:51)
[2020-12-31] MEDS: 0.9 % Sodium Chloride Flush 3 ML SYRINGE IVFLUSH (09:51)
[2020-12-31] MEDS: Tolterodine Tartrate LA 4 MG CAP.ER.24H PO (09:51)
[2020-12-31] MEDS: amLODIPine Besylate 10 MG TABLET PO (09:51)
[2020-12-31 11:14] VITALS: BP 126/68; PULSE 60; RESP 18; TEMP 36.9; O2SAT 94
--- NOTE | 2020-12-31 12:58 | P.F2F_ITS ---
Service Date Service Date: 12/31/20 Encounter Date of encounter: 12/31/20 Reasons for Services Reason for nursing home: medication management, medication treatment and teach disease management Reason for physical therapy: home safety and mobility, therapeutic exercises, gait/transfer training, assess need for DME, ADL training and energy conservation MD Overseeing Care: Montrell Oakley Homebound: Leaving the home is medically contraindicated at this time without the asist of a device and/or another person due th the listed conditions above and below. Reason homebound: shortness of breath with minimal effort and weakness related to hospital stay Certification: Based on the above findings, I certify that this patient is confined to the home and needs intermittent nursing home care, physical therapy and/or speech therapy, or continues to need occupational therapy. The patient is under my care, and I have initiated the establishment of the plan of care. The patient will be followed by a physician who will periodically review the plan of care.
--- NOTE | 2020-12-31 13:11 | P.DS_ITS ---
DS: Providers Provider Date of Service: 12/31/20 Date of admission: 12/27/20 23:30 Date of discharge: 12/31/20 Primary care physician: Deisi Oakley MD Consults: 12/28/20 05:25 Consult to Cardiology Routine Consulting Provider: Daryl Gutierres Reason for consultation: Bradycardia DS: Diagnosis Discharge Diagnosis (1) Respiratory failure with hypoxia: Status: Acute (2) Pulmonary embolism: Status: Acute (3) Pneumonia: Status: Acute (4) ILD (interstitial lung disease): Status: Acute DS: Summary Hospital Course Hospital Course: from admission history and physical by hospitalist Michele Phelps, 12/27/20: 70-year-old male with a past medical history of hypertension, hyperlipidemia, prostate cancer, obstructive sleep apnea, recent admission to the hospital pneumonia; presented to the hospital today with a chief complaint of shortness of breath/dyspnea on exertion. Patient reports that since that discharge is continues to have shortness of breath and dyspnea on exertion; his been continued to take his prednisone taper that was given; as symptoms were not improving decided to come to the hospital for further evaluation.? Patient mentioned that after came to the hospital here chest discomfort which is currently improved. Denies any cough and sputum production. Denies any chest pain palpitations lightheadedness or dizziness at the time of my interview Mentioned that he has dyspnea with minimal exertion. Denies any numbness tingling or focal weakness. Today [facility] has went to see the patient and patient was noted to have a heart rate in 40s; subsequently EMS was called in an EMS noted his oxygen saturation 89- 90%; placed on supplemental oxygen; Review of all other systems is negative except mentioned above ER course:? Per ER team patient on presentation was saturating at 92%; placed on supplemental oxygen; not in respiratory distress; D-dimer was positive; the CT chest showed pulmonary embolism; EKG was nonischemic::? ProBNP slightly elevated and [id number]; Admitted to the hospital for further management patient was given Eliquis in the ER. This 70 -year-old gentleman with past medical history of hyperlipidemia, hypertension, pulmonary nodules, history of obstructive sleep apnea on CPAP and 2 L of oxygen at home, history of prostate cancer status post resection was recently admitted to [facility] 12/16/20 after undergoing bronchoscopy at [facility] on 12/08/20. He had presented to [facility] with couple days history of cough associated with shortness of breath;CT chest showed right upper lobe pneumonia.? He was treated with IV Zosyn followed by a course of Augmentin p.o. and sent home with prednisone taper on 12/19/20.? On 12/1020, he developed worsening shortness of breath and some chest pain and was told to be evaluated the emergency room.? CT at that time demonstrates right lower lobe pulmonary emboli and he was admitted to the [facility]. He was started on apixaban. TTE did not demonstrate right ventricular strain or pulmonary hypertension. He was weaned off oxygen to room air and was discharged home with VNA services. He will complete the previously prescribed prednisone taper; 6 more days remain. He has already completed antibiotics. He should follow up with his primary care doctor in 1 week and with his drug abuse social worker in 1-2 weeks. [facility] services will be arranged for medication management, respiratory assessment, and physical therapy. Time Spent with Patient Time attestation: Total time spent providing and/or coordinating discharge services: 40 Discharge coordination time: Greater than 30 minutes Quality: Stroke Does the patient have a stroke diagnosis?: No Physical Exam Vital Signs: Vital Signs: Last Vital Signs Temp 98.5 F 12/31/20 11:14 Pulse 60 12/31/20 11:14 Resp 18 12/31/20 11:14 BP 126/68 12/31/20 11:14 Pulse Ox 94 12/31/20 11:14 Body Mass Index 30.5 DS: Data Data Completed and Pending Labs on day of discharge: Laboratory Results - last 24 hr 12/31/20 12/31/20 06:11 06:11 WBC 15.8 H RBC 4.86 Hgb 13.6 L Hct 39.5 L MCV 81.3 MCH 28.0 MCHC 34.4 RDW 14.1 Plt Count 253 MPV 9.5 Immature Gran % (Auto) 1.4 H Neut % (Auto) 73.2 H Lymph % (Auto) 17.0 L Woods % (Auto) 6.3 Eos % (Auto) 1.9 Baso % (Auto) 0.2 Lymph # (Auto) 2.7 Woods # (Auto) 1.0 Eos # (Auto) 0.3 Baso # (Auto) 0.0 Abs Immat Gran (auto) 0.22 H Absolute Neuts (auto) 11.6 H Absolute Nucleated RBC 0.000 Nucleated RBC % (auto) 0.0 Sodium 140 Potassium 3.3 Chloride 103 Carbon Dioxide 28 Anion Gap 12 BUN 17 H Creatinine 0.74 Estim Creat Clear Calc 98.5 Estimated GFR > 60 Fasting Glucose 95 D Calcium 8.2 L Total Bilirubin 0.8 AST 23 ALT 75 H Alkaline Phosphatase 76 Total Protein 4.8 L Albumin 2.9 L Preliminary micro results at discharge 12/27/20 19:18 Blood Culture - Preliminary Blood - Venous 12/27/20 19:18 Blood Culture - Preliminary Blood - Venous No growth after 48 hours. Discharge Plan Discharge Patient Disposition: Home Health Service Discharge Diagnosis: pulmonary embolism Referrals: Montrell Oakley MD [Primary Care Provider] - 1 Week Rojas Goode MD [Physician] - 1 Week Discharge Medications: New Eliquis 5 mg tablet See Rx Instructions .ROUTE .COMPLEX Qty: 68 RF: 2 Continued atorvastatin 80 mg tablet 1 tab PO DAILY RF: 0 tolterodine 4 mg capsule,extended release 24hr 1 cap PO DAILY RF: 0 omeprazole 40 mg capsule,delayed release(DR/EC) 1 cap PO DAILY RF: 0 amlodipine 10 mg tablet 1 tab PO DAILY RF: 0 metoprolol succinate 25 mg tablet extended release 24 hr 1 tab PO DAILY RF: 0 albuterol sulfate 90 mcg/actuation HFA aerosol inhaler 1 puff inhalation Q4H PRN (Reason: Shortness Of Breath) RF: 0 olmesartan-hydrochlorothiazide 40-25 mg tablet 1 tab PO DAILY RF: 0 ascorbic acid (vitamin C) [Vitamin C] 500 mg Tablet 500 mg PO DAILY RF: 0 prednisone 10 mg tablet See Rx Instructions .Route .COMPLEX Qty: 45 RF: 0 aspirin 81 mg Tablet,Delayed Release (Dr/Ec) 81 mg PO DAILY RF: 0 cholecalciferol (vitamin D3) [Vitamin D3] 50 mcg (2,000 unit) Tablet 50 mcg PO BEDTIME RF: 0 Discharge Orders: Discharge Order (Routine); Ordered 12/31/20 Ordered By: Maura Reyes Diet: advance to usual diet Activity on Discharge: As tolerated Stand Alone Forms: Patient Portal Discharge page Care Plan Goals: relief of respiratory symptoms treatment of lung clot Health Concerns: pulmonary embolism interstitial lung disease Plan of Treatment: take apixaban 10 mg twice daily [two 5 mg tabs] for the next 4 days, then change to 5 mg twice daily complete steroid taper as previously prescribed- 20 mg daily x 3 days, then 10 mg daily x 3 days see your primary care doctor in 1 week and your drug abuse social worker in 1-2 weeks Assessment: See Discharge Summary Patient Instructions: Pulmonary Embolism (DC)
--- NOTE | 2020-12-31 14:19 | MHC.CM.PN ---
Addendum entered by Coreen Cuba 12/31/20 15:53: [facility] ACCEPTING REFERRAL AND WILL CONTACT PT TOMORROW WITH SOC DATE DC PAPERWORK AND FACE TO FACE FAXED TO [facility] AT [phone] Original Note: CM met with pt and who was at bedside to discuss DC plans. Pt made aware VNA services were recommended, he is agreeable. Referrals made and [facility] now reviewing. Pt is aware he will go on new Eliquis. An Eliquis coupon was provided and pt was informed this would be a tier 2 medication. Pt will [facility] home today with [facility]
[2020-12-31 20:21] LABS: Protein C Activity 159 % (70-180); Protein S Activity rflx Tot&Fr 61 % (70-150)
[2021-01-01 13:26] LABS: Protein S Free Antigen 68 % normal (57-171); Protein S Total (Antigenic) 113 % normal (70-140)
[2021-01-01 14:02] LABS: DRVVT Confirmation NEGATIVE (NEGATIVE); PTT (LAC) Screen 37 sec (< OR = 40)
[2021-01-01 21:27] LABS: Anti-Thrombin III Antigen 92 % (80-120)
[2021-01-01 23:17] LABS: Factor V Leiden NEGATIVE
[2021-01-03 23:12] LABS: Prothrombin 20210A NEGATIVE
[2021-01-05 07:57] LABS: Cardiolipin IgG Ab <2.0 GPL-U/mL; Cardiolipin IgM Ab <2.0 MPL-U/mL
== END 2020-12-31 15:15 | disposition home health service (06) | DRG 175 ==
LOC: HO.ED 22:26 → HO.EDOVER 12-28 01:24 → HO.IMC 12-28 17:10
PROVIDERS: Hospitalist; Physician Assistant; Physician Assistant Medical; Admitting Provider Hospitalist; Emergency Provider Internal Medicine; PCP Internal Medicine; Visit Provider Family Medicine
DX: I26.99 Other pulmonary embolism without acute cor pulmonale (principal); J18.9 Pneumonia, unspecified organism; J96.01 Acute respiratory failure with hypoxia; I45.2 Bifascicular block; I49.3 Ventricular premature depolarization; I25.10 Atherosclerotic heart disease of native coronary artery without angina pectoris; R91.1 Solitary pulmonary nodule; D72.829 Elevated white blood cell count, unspecified; I10 Essential (primary) hypertension; G47.33 Obstructive sleep apnea (adult) (pediatric); Z99.89 Dependence on other enabling machines and devices; Z99.81 Dependence on supplemental oxygen; Z20.822 Contact with and (suspected) exposure to COVID-19; Z85.46 Personal history of malignant neoplasm of prostate; Z88.6 Allergy status to analgesic agent; Z79.01 Long term (current) use of anticoagulants; Z79.82 Long term (current) use of aspirin; Z79.899 Other long term (current) drug therapy
CPT/HCPCS: 36415; 71275; 80048; 80053; 80076; 81003; 81240; 81241; 83090; 83605; 83735; 83880; 84484; 85025; 85027; 85301; 85302; 85303; 85305; 85306; 85379; 85597; 85610; 85613; 85730; 86147; 86704; 86706; 86709; 86803; 87040; 87340; 87635; 93005; 93306; 96365; 99285; 99291; J0696; J2270; Q9967

== ENCOUNTER 2021-01-04 12:39 | Emergency (ER) | payer MEDICARE, SELFPAY ==
--- NOTE | 2021-01-04 | ECG_ITS ---
Test Reason : CP Blood Pressure : / mmHG Vent. Rate : 068 BPM Atrial Rate : 068 BPM P-R Int : 156 ms QRS Dur : 144 ms QT Int : 426 ms P-R-T Axes : 039 -65 010 degrees QTc Int : 452 ms Sinus rhythm with occasional Premature ventricular complexes Right bundle branch block Left anterior fascicular block Bifascicular block Abnormal ECG When compared with ECG of 29-DEC-2020 15:27, Premature ventricular complexes are now Present Referred By: Generic ED Physician Electronically Signed By:RAYRAY BOUDREAUX MD
--- NOTE | ~2021-01-04 | CT_ITS ---
EXAMINATION: CT ANGIOGRAM OF THE CHEST WITH AND WITHOUT CONTRAST (CT PULMONARY ANGIOGRAM FOR PE) CLINICAL INFORMATION: Reason for Exam Known PE. Worsening SOB/dyspnea on exertion. COMPARISON: CTA chest 12/27/2020. TECHNIQUE: Prior to contrast administration, noncontrast localization images were obtained. Subsequently, multidetector volumetric imaging was performed from the thoracic inlet to below the diaphragms following the administration of 80 mL Omnipaque 350 intravenous contrast. No contrast reaction reported Sagittal, coronal, and MIP oblique sagittal reformatted images were obtained on the CT workstation, uploaded to PACS, and reviewed. This CT examination was performed using dose optimization techniques as appropriate, variously including the following: *Automated exposure control *Adjustment of mA and/or kV according to patient size (this includes techniques or standardized protocols for targeted exams where dose is matched to indication/reason for exam; i.e. extremities or head) *Use of iterative reconstruction technique Total exam dose-length product 336 mGy-cm FINDINGS: QUALITY OF STUDY/CONTRAST BOLUS: Satisfactory. PULMONARY ARTERIES: Filling defects visualized in the right lower lobe pulmonary artery branches show improvement with no filling defects seen on the present exam. THORACIC AORTA: No aneurysm or dissection. LUNG: The lungs are well-expanded with patchy infiltrative process involving both lung apices and right upper lobe. Mild interstitial thickening involving both upper lobes and superior segment lower lobes is noted. There is dependent atelectatic changes in both lower lobes. Few scattered small pulmonary nodules in the right upper lobe PLEURA: No pleural effusion or pneumothorax. MEDIASTINUM: The heart size and the great vessels are normal caliber. There are coronary artery calcifications present. The several para-aortic and subcarinal lymph nodes with calcification in some of the mediastinal and bilateral hilar lymph nodes.. The largest subcarinal lymph node measures 3.2 x 1.8 cm on the axial image 29/5. Largest calcified lymph node measures 1.7 seen image 17/5. No evidence of septal bowing or right heart strain. CHEST WALL/AXILLA: No axillary or internal mammary lymphadenopathy. OSSEOUS STRUCTURES: No lytic or sclerotic process seen. There is moderate ventral spondylosis. UPPER ABDOMEN: Visualized liver and spleen is unremarkable. There is solitary mobile gallstone. Bilateral adrenal glands unremarkable. No reflux of contrast into the hepatic veins to suggest elevated right heart pressures. CT/CT angio chest PE protocol IMPRESSION: No evidence of PE or aortic dissection. Bilateral upper lobe infiltrates. The right upper lobe infiltrate is stable and unchanged. There is bilateral dependent atelectasis in both lower lobes. Abnormal mediastinal adenopathy with some of the lymph nodes in the mediastinum and bilateral hilar regions containing calcification. These can be seen with treated TB, pneumoconiosis. The largest calcified lymph node measures 1.7 cm. Largest noncalcified lymph node measures 3.2 cm. Scattered pulmonary small nodules in the right upper lobe and right middle lobe with interstitial thickening in both upper lobes likely interstitial pneumonitis, lymphangitic spread of neoplasm or interstitial infiltrate. VTE: Resolved filling defects in the right lower lobe pulmonary artery branches. No acute PE seen at this time.
--- NOTE | ~2021-01-04 | US_ITS ---
EXAMINATION: US VENOUS ULTRASOUND WITH DOPPLER LOWER EXTREMITY, BILATERAL CLINICAL INFORMATION: Lower extremity pain. Recent history PE. Assess for lower extremity DVT. COMPARISON: CTA chest 11/27/2020 TECHNIQUE: Ultrasound of the deep veins is performed from the hip to the calf with compression sonography and color and pulse Doppler assessment. Spectral analysis with color-flow imaging is performed. FINDINGS: RIGHT: There is normal venous compression and respiratory variation and augmented flow. The visualized common femoral vein, superficial femoral vein, profunda femoral vein, popliteal vein, and the trifurcation region shows no evidence of deep venous thrombosis. There is no significant popliteal fossa cyst. LEFT: There is normal venous compression and respiratory variation and augmented flow. The visualized common femoral vein, superficial femoral vein, profunda femoral vein, popliteal vein, and the trifurcation region shows no evidence of deep venous thrombosis. There is no significant popliteal fossa cyst. US/US venous duplex LE BI IMPRESSION: No DVT demonstrated in the bilateral lower extremity.
--- NOTE | ~2021-01-04 | XR_ITS ---
EXAMINATION: XR CHEST CLINICAL INFORMATION: Shortness of breath, chest pain COMPARISON: Chest radiographs 12/16/2020, 10/09/2015, CT chest noncontrast 12/16/2020. TECHNIQUE: Portable upright AP view of the chest was obtained. FINDINGS: Airspace opacity apical right upper lobe has largely resolved since prior exam 12/16/2020. There are reticulonodular densities bilateral upper zones similar to remote exam 2016. There is no lobar or segmental airspace consolidation or groundglass opacity or effusion. No pneumothorax or pleural reaction. Heart size normal. There are degenerative changes thoracic spine. XR/XR chest 1V IMPRESSION: Interval clearing right upper lobe infiltrate since 12/16/2020. No pneumothorax, infiltrate, or effusion.
[2021-01-04 12:46] VITALS: BP 125/59; PULSE 56; RESP 20; TEMP 36.3; O2SAT 93; BMI 30.8
[2021-01-04 12:55] VITALS: BP 121/83; PULSE 71; O2SAT 95
[2021-01-04 14:15] VITALS: BP 140/72; PULSE 53; RESP 18; O2SAT 93
[2021-01-04 14:30] LABS: MANUAL DIFF FLAG NO
[2021-01-04 14:34] LABS: Basophils Percent Auto 0.3 % (0-2); Eosinophils Absolute Auto 0.1 X10*3/uL (0.0-0.4); Eosinophils Percent Auto 0.4 % (0-4); Hematocrit 46.7 % (42.0-52.0); Hemoglobin 15.3 g/dl (14.0-18.0); Imm Gran Pct Auto 1.5 % (0.0-0.4); Lymphocytes Absolute Auto 0.8 X10*3/uL (1.2-4.9); Lymphocytes Percent Auto 5.7 % (20-40); Mean Corpuscular HGB Conc 32.8 g/dl (31.0-36.0); Mean Corpuscular Volume 82.4 fL (80.0-98.0); Mean Platelet Volume 9.1 fL (9.4-12.4); Monocytes Absolute Auto 0.4 X10*3/uL (0.1-1.2); Monocytes Percent Auto 3.1 % (2-11); Neutrophils Absolute Auto 12.2 x10*3/uL (2.0-8.3); Platelet Count 262 X10*3/uL (160-400); Red Blood Count 5.67 X10*6/uL (4.60-5.80); Red Cell Distribution Width 14.6 % (11.0-16.0); White Blood Count 13.8 X10*3/uL (4.8-10.8)
[2021-01-04 14:50] LABS: Alanine Aminotransferase 76 U/L (0-40); Albumin Level 3.7 g/dL (3.5-5.0); Alkaline Phosphatase 94 U/L (39-117); Anion Gap 11 (12-20); Aspartate Amino Transferase 29 U/L (5-37); Bilirubin Direct 0.4 mg/dL (0.0-0.5); Bilirubin Total 1.1 mg/dL (0.0-1.0); Blood Urea Nitrogen 15 mg/dL (9-16); Calcium 9.2 mg/dL (8.4-10.2); Carbon Dioxide 32 mmol/L (22-29); Chloride 102 mmol/L (96-108); Creatinine Clr Calc Pharmacy 88.3; Estimated Glomerular Filt Rate > 60; Glucose Random 106 mg/dL (60-115); Magnesium 2.2 mg/dL (1.6-2.6); Potassium 4.1 mmol/L (3.3-5.1); Sodium 141 mmol/L (135-145); Total Protein 5.9 g/dL (6.5-8.0)
[2021-01-04 14:52] LABS: COVID-19 Test Negative (Negative); IDNOW Serial# 9DD0AD1C
[2021-01-04 14:55] LABS: B Type Natriuretic Peptide 29 pg/mL (<100); Troponin-I High Sensitivity 11.8 ng/L (<3.5-35.0)
--- NOTE | 2021-01-04 15:19 | ED_ITS ---
HPI - Chest Pain General Chief Complaint: Chest Pain <JERMAIN Hannon - Last Filed: 01/04/21 18:15> Stated Complaint: CP <JERMAIN Hannon - Last Filed: 01/04/21 18:15> Time Seen by Provider: 01/04/21 14:02 <JERMAIN Hannon - Last Filed: 01/04/21 18:15> Source: patient <JERMAIN Hannon - Last Filed: 01/04/21 18:15> Mode of arrival: ambulatory <JERMAIN Hannon - Last Filed: 01/04/21 18:15> History of Present Illness HPI narrative: 70-year-old male with PMHx HTN, HLD, prostate CA, ESTELLA, on CPAP and 2L O2 at night, recent pneumonia, and recent admission for PE started on Eliquis, discharged on 12/31, presenting back to ED complaining of chest discomfort/tightness x a couple days with worsening SOB and exertional dyspnea. Also reports LE edema >LLE. Reports compliance with Eliquis. Denies fever, chills, cough, abdominal pain, nausea/vomiting <JERMAIN Hannon - Last Filed: 01/04/21 18:15> MD complaint: chest discomfort <JERMAIN Hannon - Last Filed: 01/04/21 18:15> Related Data Home Medications: Home Medications Medication Instructions Recorded Confirmed amlodipine 10 mg tablet 1 tab PO DAILY 12/16/20 01/04/21 ascorbic acid (vitamin C) 500 mg 500 mg PO DAILY 12/16/20 01/04/21 tablet (Vitamin C) atorvastatin 80 mg tablet 1 tab PO BEDTIME 12/16/20 01/04/21 metoprolol succinate 25 mg 1 tab PO DAILY 12/16/20 01/04/21 tablet,extended release 24 hr olmesartan 40 1 tab PO DAILY 12/16/20 01/04/21 mg-hydrochlorothiazide 25 mg tablet omeprazole 40 mg capsule,delayed 1 cap PO DAILY 12/16/20 01/04/21 release tolterodine 4 mg capsule,extended 1 cap PO DAILY 12/16/20 01/04/21 release 24 hr aspirin 81 mg tablet,delayed 81 mg PO DAILY 12/27/20 01/04/21 release cholecalciferol (vitamin D3) 50 50 mcg PO BEDTIME 12/27/20 01/04/21 mcg (2,000 unit) tablet (Vitamin D3) apixaban 5 mg tablet (Eliquis) 5 mg PO BID 01/04/21 01/04/21 prednisone 10 mg tablet 10 mg PO DAILY 01/04/21 01/04/21 <JERMAIN Hannon - Last Filed: 01/04/21 18:15> Allergies/Adverse Reactions: Allergies Allergy/AdvReac Type Severity Reaction Status Date / Time ibuprofen [Ibuprofen] Allergy Intermediate HIVES/JOINT Verified 12/27/20 19:28 SWELLING <JERMAIN Hannon Last Filed: 01/04/21 18:15> Review of Systems Review of Systems: Constitutional:No Fever, No Chills, No Fatigue, No Malaise ENT/Mouth: No Ear Pain, No Nasal Congestion, No sore throat, No Rhinorrhea, No Swallowing Difficulty Eyes: No Eye Pain, No Swelling, No Redness, No Discharge Cardiovascular: + Chest Pain, + SOB, + Dyspnea on Exertion, No Orthopnea, + Edema, No Palpitations Respiratory: No Cough, No Sputum, No Wheezing, + Dyspnea Gastrointestinal: No Nausea, No Vomiting, No Diarrhea, No Constipation, No Abdominal pain Genitourinary: No Dysuria, No Urinary Frequency, No Urgency, No Flank Pain, No Urinary Flow Changes, No Hesitancy Musculoskeletal: No joint pain, No Myalgias, No Joint Swelling Skin: No Skin Lesions, No rash Neuro: No Weakness, No Numbness, No Paresthesias, No Dizziness, No Headache <JERMAIN Hannon Last Filed: 01/04/21 18:15> Yes all other systems are reviewed and are negative <JERMAIN Hannon Last Filed: 01/04/21 18:15> FOR[facility], LATER [facility] Past Medical History Attestation statement: The following information was validated with the patient. <JERMAIN Hannon Last Filed: 01/04/21 18:15> Family History Family History: Family History (Updated 12/28/20 @ 10:06 by Daryl Gutierres MD) Mother No problems noted. Father No problems noted. <JERMAIN Hannon Last Filed: 01/04/21 18:15> Social History Social History: Social History Household Members: Spouse Housing: House Do you presently have visiting nurse or other home services: No Unable to assess alcohol history related to: Unknown Alcohol intake: unknown Patient Tobacco Use Status: Never used Tobacco Advance Directives: Yes Advance Directives on File: Yes Advance Directives Date on File: 12/28/20 service: Yes Current occupational status: retired <JERMAIN Hannon - Last Filed: 01/04/21 18:15> Physical Exam 2 Vital Signs: Vital Signs: Last Vital Signs Temp 97.3 F 01/04/21 12:46 Pulse 53 01/04/21 14:15 Resp 18 01/04/21 14:15 BP 140/72 H 01/04/21 14:15 Pulse Ox 93 01/04/21 14:15 Body Mass Index 30.8 <JERMAIN Hannon - Last Filed: 01/04/21 18:15> Vital Signs: Last Vital Signs Temp 97.3 F 01/04/21 12:46 Pulse 53 01/04/21 14:15 Resp 18 01/04/21 14:15 BP 140/72 H 01/04/21 14:15 Pulse Ox 93 01/04/21 14:15 Body Mass Index 30.8 <JERMAIN Martin - Last Filed: 01/04/21 20:02> Const: General: cooperative, healthy appearing and no acute distress <JERMAIN Hannon - Last Filed: 01/04/21 18:15> Orientation/consciousness: patient oriented x3 <JERMAIN Hannon - Last Filed: 01/04/21 18:15> Limitations: no limitations <JERMAIN Hannon - Last Filed: 01/04/21 18:15> HENMT: Head: Yes normal to inspection <JERMAIN Hannon - Last Filed: 01/04/21 18:15> Ears: hearing grossly normal bilaterally <JERMAIN Hannon - Last Filed: 01/04/21 18:15> General nose exam: Normal external nose present <JERMAIN Hannon - Last Filed: 01/04/21 18:15> Face and sinus: Yes normal facial exam <JERMAIN Hannon - Last Filed: 01/04/21 18:15> Eyes: General: appearance normal, both eyes and all related structures <Keyana Moody [place] - Last Filed: 01/04/21 18:15> EOM: EOMs intact bilaterally <Keyana Moody [place] - Last Filed: 01/04/21 18:15> Neck: Neck: Yes normal visual inspection and Yes no meningeal signs <Keyana Moody [place] - Last Filed: 01/04/21 18:15> Resp: Effort & Inspection: normal respiratory effort <Keyana Moody [place] - Last Filed: 01/04/21 18:15> Auscultation: clear to auscultation bilaterally, no rales, no rhonchi and no wheezes <Keyana Moody [place] - Last Filed: 01/04/21 18:15> Cardio: Rate: regular rate <Keyana Moody [place] - Last Filed: 01/04/21 18:15> Heart sounds: S1 normal heart sound present and S2 normal heart sound present <Keyana Moody [place] - Last Filed: 01/04/21 18:15> GI: Inspection: Yes normal to inspection <Keyana Moody [place] - Last Filed: 01/04/21 18:15> Palpation (GI): Soft to palpation, nontender, no guarding and not rigid <Keyana Moody [place] - Last Filed: 01/04/21 18:15> Skin: Rashes: no rashes <Keyana Moody [place] - Last Filed: 01/04/21 18:15> Wounds: no wounds <Keyana Moody [place] - Last Filed: 01/04/21 18:15> Neuro: General: patient oriented x3 and no meningeal signs <Keyana Moody [place] - Last Filed: 01/04/21 18:15> Gait exam (Neuro): Normal gait present <Keyana Moody [place] - Last Filed: 01/04/21 18:15> Extrem: Other: 1+ bilateral LE edema >L <Keyana Moody [place] - Last Filed: 01/04/21 18:15> Course Course Course Narrative: -1721--leukocytosis of 13.8 (appears chronic), labs otherwise unremarkable, Initial troponin 11.8 > will obtain 3hr repeat XR chest 1V IMPRESSION: Interval clearing right upper lobe infiltrate since 12/16/2020. No pneumothorax, infiltrate, or effusion. US venous duplex LE BI IMPRESSION: No DVT demonstrated in the bilateral lower extremity. 1721--CT angio chest PE protocol IMPRESSION: No evidence of PE or aortic dissection. ? Bilateral upper lobe infiltrates. The right upper lobe infiltrate is stable and unchanged. There is bilateral dependent atelectasis in both lower lobes. ? Abnormal mediastinal adenopathy with some of the lymph nodes in the mediastinum and bilateral hilar regions containing calcification. These can be seen with treated TB, pneumoconiosis. The largest calcified lymph node measures 1.7 cm. Largest noncalcified lymph node measures 3.2 cm. ? Scattered pulmonary small nodules in the right upper lobe and right middle lobe with interstitial thickening in both upper lobes likely interstitial pneumonitis, lymphangitic spread of neoplasm or interstitial infiltrate. ? VTE: Resolved filling defects in the right lower lobe pulmonary artery branches. No acute PE? seen at this time. >> spoke to [facility] radiologist about CT findings for clarification, reports PE looks improved, nodules look similar to prior CT on 12/27, and prior pneumonia appears improved from CT on December 16 --1800--ED care transferred to JERMAIN Serrato pending repeat troponin and ambulation trial with pulse ox <JERMAIN Hannon - Last Filed: 01/04/21 18:15> Reevaluation(s) Reevaluation #1: Repeat troponin shows no delta change. Patient did not desaturate with ambulation <JERMAIN Martin - Last Filed: 01/04/21 20:02> MDM - Chest Pain MDM Narrative Medical decision making narrative: 70-year-old male with PMHx HTN, HLD, prostate CA, ESTELLA, on CPAP and 2L O2 at night, recent pneumonia, and recent admission for PE started on Eliquis, discharged on 12/31, presenting back to ED complaining of chest discomfort/tightness x a couple days with worsening SOB and exertional dyspnea. Also reports LE edema >LLE. On exam vital signs stable, satting 93% on RA, lungs CTA, bilateral 1+ LE edema greater on the left. Concern for ACS vs worsening clot burden or right heart strain vs new DVT/PE vs ? CHF. Plan: EKG, labs, COVID-19 testing, CTA, Venous duplex ultrasound, re-evaluate <JERMAIN Hannon - Last Filed: 01/04/21 18:15> Medical Records Data Attestation: I reviewed the patient's medical records. <JERMAIN Hannon - Last Filed: 01/04/21 18:15> Lab Data Attestation: I reviewed the patient's lab results. <JERMAIN Hannon - Last Filed: 01/04/21 18:15> Result diagrams: : 01/04/21 14:26 01/04/21 14:26 <JERMAIN Hannon - Last Filed: 01/04/21 18:15> Labs: Lab Results 01/04/21 01/04/21 01/04/21 Range/Units 14:26 14:26 14:26 WBC 13.8 H (4.8-10.8) X10*3/uL RBC 5.67 (4.60-5.80) X10*6/uL Hgb 15.3 (14.0-18.0) g/dl Hct 46.7 (42.0-52.0) % MCV 82.4 (80.0-98.0) fL MCH 27.0 (27.0-33.0) pg MCHC 32.8 (31.0-36.0) g/dl RDW 14.6 (11.0-16.0) % Plt Count 262 (160-400) X10*3/uL MPV 9.1 L (9.4-12.4) fL Immature Gran % (Auto) 1.5 H (0.0-0.4) % Neut % (Auto) 89.0 H (45-73) % Lymph % (Auto) 5.7 L (20-40) % Towns % (Auto) 3.1 (2-11) % Eos % (Auto) 0.4 (0-4) % Baso % (Auto) 0.3 (0-2) % Lymph # (Auto) 0.8 L (1.2-4.9) X10*3/uL Towns # (Auto) 0.4 (0.1-1.2) X10*3/uL Eos # (Auto) 0.1 (0.0-0.4) X10*3/uL Baso # (Auto) 0.0 (0.0-0.2) X10*3/uL Abs Immat Gran (auto) 0.20 H (0.00-0.03) X10*3/uL Absolute Neuts (auto) 12.2 H (2.0-8.3) x10*3/uL Absolute Nucleated RBC 0.000 (0.0-0.012) X10*3/uL Nucleated RBC % (auto) 0.0 (0.0-0.2) /100WBC Sodium 141 (135-145) mmol/L Potassium 4.1 D (3.3-5.1) mmol/L Chloride 102 (96-108) mmol/L Carbon Dioxide 32 H (22-29) mmol/L Anion Gap 11 L (12-20) BUN 15 (9-16) mg/dL Creatinine 0.83 (0.5-1.4) mg/dL Estim Creat Clear Calc 88.3 Estimated GFR > 60 Random Glucose 106 (60-115) mg/dL Calcium 9.2 D (8.4-10.2) mg/dL Magnesium 2.2 (1.6-2.6) mg/dL Total Bilirubin 1.1 H (0.0-1.0) mg/dL Direct Bilirubin 0.4 (0.0-0.5) mg/dL AST 29 (5-37) U/L ALT 76 H (0-40) U/L Alkaline Phosphatase 94 D (39-117) U/L Troponin I High Sens 11.8 (<3.5-35.0) ng/L B-Natriuretic Peptide 29 (<100) pg/mL Total Protein 5.9 L D (6.5-8.0) g/dL Albumin 3.7 D (3.5-5.0) g/dL COVID-19 (DONALD) (Negative) COVID-19 Clin Com 01/04/21 01/04/21 Range/Units 14:26 18:45 WBC (4.8-10.8) X10*3/uL RBC (4.60-5.80) X10*6/uL Hgb (14.0-18.0) g/dl Hct (42.0-52.0) % MCV (80.0-98.0) fL MCH (27.0-33.0) pg MCHC (31.0-36.0) g/dl RDW (11.0-16.0) % Plt Count (160-400) X10*3/uL MPV (9.4-12.4) fL Immature Gran % (Auto) (0.0-0.4) % Neut % (Auto) (45-73) % Lymph % (Auto) (20-40) % Towns % (Auto) (2-11) % Eos % (Auto) (0-4) % Baso % (Auto) (0-2) % Lymph # (Auto) (1.2-4.9) X10*3/uL Towns # (Auto) (0.1-1.2) X10*3/uL Eos # (Auto) (0.0-0.4) X10*3/uL Baso # (Auto) (0.0-0.2) X10*3/uL Abs Immat Gran (auto) (0.00-0.03) X10*3/uL Absolute Neuts (auto) (2.0-8.3) x10*3/uL Absolute Nucleated RBC (0.0-0.012) X10*3/uL Nucleated RBC % (auto) (0.0-0.2) /100WBC Sodium (135-145) mmol/L Potassium (3.3-5.1) mmol/L Chloride (96-108) mmol/L Carbon Dioxide (22-29) mmol/L Anion Gap (12-20) BUN (9-16) mg/dL Creatinine (0.5-1.4) mg/dL Estim Creat Clear Calc Estimated GFR Random Glucose (60-115) mg/dL Calcium (8.4-10.2) mg/dL Magnesium (1.6-2.6) mg/dL Total Bilirubin (0.0-1.0) mg/dL Direct Bilirubin (0.0-0.5) mg/dL AST (5-37) U/L ALT (0-40) U/L Alkaline Phosphatase (39-117) U/L Troponin I High Sens 11.0 (<3.5-35.0) ng/L B-Natriuretic Peptide (<100) pg/mL Total Protein (6.5-8.0) g/dL Albumin (3.5-5.0) g/dL COVID-19 (DONALD) Negative (Negative) COVID-19 Clin Com See Note <Keyana Moody PA - Last Filed: 01/04/21 18:15> Lab Results 01/04/21 01/04/21 01/04/21 Range/Units 14:26 14:26 14:26 WBC 13.8 H (4.8-10.8) X10*3/uL RBC 5.67 (4.60-5.80) X10*6/uL Hgb 15.3 (14.0-18.0) g/dl Hct 46.7 (42.0-52.0) % MCV 82.4 (80.0-98.0) fL MCH 27.0 (27.0-33.0) pg MCHC 32.8 (31.0-36.0) g/dl RDW 14.6 (11.0-16.0) % Plt Count 262 (160-400) X10*3/uL MPV 9.1 L (9.4-12.4) fL Immature Gran % (Auto) 1.5 H (0.0-0.4) % Neut % (Auto) 89.0 H (45-73) % Lymph % (Auto) 5.7 L (20-40) % Towns % (Auto) 3.1 (2-11) % Eos % (Auto) 0.4 (0-4) % Baso % (Auto) 0.3 (0-2) % Lymph # (Auto) 0.8 L (1.2-4.9) X10*3/uL Towns # (Auto) 0.4 (0.1-1.2) X10*3/uL Eos # (Auto) 0.1 (0.0-0.4) X10*3/uL Baso # (Auto) 0.0 (0.0-0.2) X10*3/uL Abs Immat Gran (auto) 0.20 H (0.00-0.03) X10*3/uL Absolute Neuts (auto) 12.2 H (2.0-8.3) x10*3/uL Absolute Nucleated RBC 0.000 (0.0-0.012) X10*3/uL Nucleated RBC % (auto) 0.0 (0.0-0.2) /100WBC Sodium 141 (135-145) mmol/L Potassium 4.1 D (3.3-5.1) mmol/L Chloride 102 (96-108) mmol/L Carbon Dioxide 32 H (22-29) mmol/L Anion Gap 11 L (12-20) BUN 15 (9-16) mg/dL Creatinine 0.83 (0.5-1.4) mg/dL Estim Creat Clear Calc 88.3 Estimated GFR > 60 Random Glucose 106 (60-115) mg/dL Calcium 9.2 D (8.4-10.2) mg/dL Magnesium 2.2 (1.6-2.6) mg/dL Total Bilirubin 1.1 H (0.0-1.0) mg/dL Direct Bilirubin 0.4 (0.0-0.5) mg/dL AST 29 (5-37) U/L ALT 76 H (0-40) U/L Alkaline Phosphatase 94 D (39-117) U/L Troponin I High Sens 11.8 (<3.5-35.0) ng/L B-Natriuretic Peptide 29 (<100) pg/mL Total Protein 5.9 L D (6.5-8.0) g/dL Albumin 3.7 D (3.5-5.0) g/dL COVID-19 (DONALD) (Negative) COVID-19 Clin Com 01/04/21 01/04/21 Range/Units 14:26 18:45 WBC (4.8-10.8) X10*3/uL RBC (4.60-5.80) X10*6/uL Hgb (14.0-18.0) g/dl Hct (42.0-52.0) % MCV (80.0-98.0) fL MCH (27.0-33.0) pg MCHC (31.0-36.0) g/dl RDW (11.0-16.0) % Plt Count (160-400) X10*3/uL MPV (9.4-12.4) fL Immature Gran % (Auto) (0.0-0.4) % Neut % (Auto) (45-73) % Lymph % (Auto) (20-40) % Towns % (Auto) (2-11) % Eos % (Auto) (0-4) % Baso % (Auto) (0-2) % Lymph # (Auto) (1.2-4.9) X10*3/uL Towns # (Auto) (0.1-1.2) X10*3/uL Eos # (Auto) (0.0-0.4) X10*3/uL Baso # (Auto) (0.0-0.2) X10*3/uL Abs Immat Gran (auto) (0.00-0.03) X10*3/uL Absolute Neuts (auto) (2.0-8.3) x10*3/uL Absolute Nucleated RBC (0.0-0.012) X10*3/uL Nucleated RBC % (auto) (0.0-0.2) /100WBC Sodium (135-145) mmol/L Potassium (3.3-5.1) mmol/L Chloride (96-108) mmol/L Carbon Dioxide (22-29) mmol/L Anion Gap (12-20) BUN (9-16) mg/dL Creatinine (0.5-1.4) mg/dL Estim Creat Clear Calc Estimated GFR Random Glucose (60-115) mg/dL Calcium (8.4-10.2) mg/dL Magnesium (1.6-2.6) mg/dL Total Bilirubin (0.0-1.0) mg/dL Direct Bilirubin (0.0-0.5) mg/dL AST (5-37) U/L ALT (0-40) U/L Alkaline Phosphatase (39-117) U/L Troponin I High Sens 11.0 (<3.5-35.0) ng/L B-Natriuretic Peptide (<100) pg/mL Total Protein (6.5-8.0) g/dL Albumin (3.5-5.0) g/dL COVID-19 (DONALD) Negative (Negative) COVID-19 Clin Com See Note <JERMAIN Martin - Last Filed: 01/04/21 20:02> Discharge Plan Discharge Clinical Impression: Chest pain, Shortness of breath <JERMAIN Hannon - Last Filed: 01/04/21 18:15> Patient Disposition: Still a Patient <JERMAIN Hannon - Last Filed: 01/04/21 18:15> Instructions: Chest Pain (ED) <JERMAIN Hannon - Last Filed: 01/04/21 18:15> Additional Instructions: Your blood work was reassuring Your CT scan shows that your blood clot in the lungs is improved, you do have multiple pulmonary nodules however they look unchanged, you need to follow-up with her primary care doctor for further testing If her symptoms persist/worsen, if constant worsening shortness of breath or chest pain please return to the ED <JERMAIN Hannon - Last Filed: 01/04/21 18:15> Prescriptions: No Action atorvastatin 80 mg tablet 1 tab PO BEDTIME RF: 0 tolterodine 4 mg capsule,extended release 24hr 1 cap PO DAILY RF: 0 omeprazole 40 mg capsule,delayed release(DR/EC) 1 cap PO DAILY RF: 0 amlodipine 10 mg tablet 1 tab PO DAILY RF: 0 metoprolol succinate 25 mg tablet extended release 24 hr 1 tab PO DAILY RF: 0 olmesartan-hydrochlorothiazide 40-25 mg tablet 1 tab PO DAILY RF: 0 ascorbic acid (vitamin C) [Vitamin C] 500 mg Tablet 500 mg PO DAILY RF: 0 prednisone 10 mg tablet 10 mg PO DAILY RF: 0 Eliquis 5 mg tablet 5 mg PO BID RF: 0 aspirin 81 mg Tablet,Delayed Release (Dr/Ec) 81 mg PO DAILY RF: 0 cholecalciferol (vitamin D3) [Vitamin D3] 50 mcg (2,000 unit) Tablet 50 mcg PO BEDTIME RF: 0 <JERMAIN Hannon - Last Filed: 01/04/21 18:15> Referrals: Montrell Oakley MD [Primary Care Provider] - 2 days <JERMAIN Hannon - Last Filed: 01/04/21 18:15>
[2021-01-04] MEDS: iohexoL 350 MG/ML 100 ML INFUS..BTL IV (16:17)
--- NOTE | 2021-01-04 16:34 | PHA.MEDREC ---
Pharmacy Consult ? Medication Reconciliation Pharmacy has completed the medication reconciliation. Patient has 3 days of prednisone 10mg left
[2021-01-04 20:35] VITALS: BP 118/73; PULSE 62; RESP 21; TEMP 36.7; O2SAT 93
[2021-01-04 20:41] VITALS: BP 118/73; PULSE 59; RESP 16; O2SAT 94
== END 2021-01-04 20:54 | disposition home or self-care (01) ==
PROVIDERS: Physician Assistant; Emergency Provider Emergency Medicine; PCP Internal Medicine
DX: R07.9 Chest pain, unspecified (principal); R06.02 Shortness of breath; R60.0 Localized edema; D72.829 Elevated white blood cell count, unspecified; I10 Essential (primary) hypertension; E78.5 Hyperlipidemia, unspecified; Z20.822 Contact with and (suspected) exposure to COVID-19; Z86.711 Personal history of pulmonary embolism; Z79.01 Long term (current) use of anticoagulants; Z79.82 Long term (current) use of aspirin; Z79.899 Other long term (current) drug therapy; Z79.02 Long term (current) use of antithrombotics/antiplatelets; Z85.46 Personal history of malignant neoplasm of prostate
CPT/HCPCS: 36415; 71045; 71275; 80048; 80076; 83735; 83880; 84484; 85025; 87635; 93005; 93970; 99284; Q9967

== ENCOUNTER 2021-01-12 11:06 | Inpatient (IN) | payer MEDICARE, SELFPAY ==
[2021-01-12] VITALS (7 sets, daily range): BP systolic 117–150; BP diastolic 55–68; PULSE 66–96; RESP 17–23; TEMP 37.1–37.2; O2SAT 88–97; BMI 30.8
--- NOTE | ~2021-01-12 | XR_ITS ---
EXAMINATION: XR CHEST CLINICAL INFORMATION: Shortness of breath COMPARISON: Chest radiographs 01/04/2021, 12/16/2020, 10/09/2015; CT chest 01/04/2021 TECHNIQUE: 2 views of the chest were obtained. FINDINGS: There are fine reticulonodular opacities in bilateral upper zones, greater on right similar to prior exams. Airspace consolidation central medial right upper lobe is decreased since 12/16/2020. There is no interval new airspace consolidation or effusion. The vascularity is normal. The heart is normal in size. The costophrenic sulci are well-defined. XR/XR chest 2V IMPRESSION: Chronic bilateral upper zone reticulonodular changes. Airspace opacity apical right upper lobe decreased since 12/16/2020.
--- NOTE | ~2021-01-12 | CT_ITS ---
EXAMINATION: CT CHEST WITHOUT CONTRAST CLINICAL INFORMATION: Shortness of breath and fever. History of pneumonia. COMPARISON: Chest x-ray earlier today and CTA chest 01/04/2021 TECHNIQUE: Multidetector volumetric CT imaging of the chest was done. Axial MIP volume rendering provided. Sagittal and coronal reformatted images were obtained. This CT examination was performed using dose optimization techniques as appropriate, variously including the following: *Automated exposure control *Adjustment of mA and/or kV according to patient size (this includes techniques or standardized protocols for targeted exams where dose is matched to indication/reason for exam; i.e. extremities or head) *Use of iterative reconstruction technique DLP: 345 mGy-cm FINDINGS: The heart is mildly enlarged. Coronary artery calcifications are present. There is no pericardial effusion. Several calcified and noncalcified dominant/enlarged mediastinal and hilar lymph nodes are again demonstrated. Normal caliber thoracic aorta. Central airways are patent although some peripheral mucous plugging is noted. Patchy bilateral airspace disease appears similar in prominence. Interstitial thickening again noted, predominantly within the right upper lobe. There are numerous scattered small calcified and noncalcified pulmonary nodules, however, evaluation is very nodules is suboptimal given background of airspace disease. Dependent atelectasis is again noted. No gross lobar consolidation identified. No pleural effusion or pneumothorax. Visualized portion of the upper abdomen demonstrate a gallstone within an otherwise unremarkable appearing gallbladder. A left renal cyst is partially visualized. Moderate diffuse degenerative changes of the spine. CT/CT chest wo con IMPRESSION: Diffuse bilateral airspace disease is relatively similar in prominence. Fleischner guidelines were followed.
[2021-01-12 12:16] LABS: COVID-19 Test Negative (Negative); IDNOW Serial# 9DD0AD1C
--- NOTE | 2021-01-12 15:14 | ED_ITS ---
HPI - General Adult General Chief complaint: Dyspnea Stated complaint: fever, sob, cough Time Seen by Provider: 01/12/21 11:57 Source: patient Mode of arrival: ambulatory Limitations: no limitations History of Present Illness HPI narrative: 70-year-old male with past medical history of hypercholesteremia, hypertension, pulmonary nodules removal and followed by pulmonology at [facility], GERD, prostate CA status post surgical removal, PE currently on Eliquis is here today for shortness of breath and tachypnea and low-grade fever. Patient seen at [facility] for lung nodules and removal. Patient had bronchoscopy, history of pneumonia right upper lobe. Admitted on the in found to have PE was started on Eliquis. Patient returns to ED on the for complaints of chest pain and shortness of breath. Sent home with negative CT of the chest for PE. Patient reports that he has been doing well until this morning when his home health aide came in and was checking on him. Patient had increased respiratory rate low-grade fever and short of breath when he was walking from the kitchen to the bathroom. Patient does use CPAP with oxygen during the night. Reports that he woke up during the night coughing with no productive sputum. Onset (ago): hour(s) Location: chest Radiation: non-radiation Severity: mild Related Data Home Medications Medication Instructions Recorded Confirmed amlodipine 10 mg tablet 1 tab PO DAILY 12/16/20 01/04/21 ascorbic acid (vitamin C) 500 mg 500 mg PO DAILY 12/16/20 01/04/21 tablet (Vitamin C) atorvastatin 80 mg tablet 1 tab PO BEDTIME 12/16/20 01/04/21 metoprolol succinate 25 mg 1 tab PO DAILY 12/16/20 01/04/21 tablet,extended release 24 hr olmesartan 40 1 tab PO DAILY 12/16/20 01/04/21 mg-hydrochlorothiazide 25 mg tablet omeprazole 40 mg capsule,delayed 1 cap PO DAILY 12/16/20 01/04/21 release tolterodine 4 mg capsule,extended 1 cap PO DAILY 12/16/20 01/04/21 release 24 hr aspirin 81 mg tablet,delayed 81 mg PO DAILY 12/27/20 01/04/21 release cholecalciferol (vitamin D3) 50 50 mcg PO BEDTIME 12/27/20 01/04/21 mcg (2,000 unit) tablet (Vitamin D3) apixaban 5 mg tablet (Eliquis) 5 mg PO BID 01/04/21 01/04/21 prednisone 10 mg tablet 10 mg PO DAILY 01/04/21 01/04/21 Previous Rx's Medication Instructions Recorded amoxicillin 875 mg-potassium 1 tab PO BID 10 Days #20 tab 01/12/21 clavulanate 125 mg tablet (Augmentin) prednisone 20 mg tablet 40 mg PO DAILY 5 Days #10 tab 01/12/21 Allergies Allergy/AdvReac Type Severity Reaction Status Date / Time ibuprofen [Ibuprofen] Allergy Intermediate HIVES/JOINT Verified 01/12/21 11:32 SWELLING Review of Systems Review of Systems: Constitutional : No Weight loss, No Fever, No Chills, No Night Sweats, No Fatigue, No Malaise ENT/Mouth : No Hearing loss, No Ear Pain, No Nasal Congestion, No Sinus Pain, No Hoarseness, No sore throat, No Rhinorrhea, No Swallowing Difficulty Eyes: No Eye Pain, No Swelling, No Redness, No Foreign Body, No Discharge, No Vision Changes Cardiovascular : No Chest Pain, SOB, Dyspnea on Exertion, No Orthopnea, No Edema, No Palpitations Respiratory : Cough, No Sputum, No Wheezing, No Smoke Exposure, Dyspnea Gastrointestinal : No Nausea, No Vomiting, No Diarrhea, No Constipation, No abdominal Pain, No Hematochezia, No Melena Genitourinary : no irregular bleeding, No Dysuria, No Urinary Frequency, No Hematuria, No Urinary Incontinence, No Urgency, No Flank Pain, No Urinary Flow Changes, No Hesitancy Musculoskeletal : No joint pain, No Myalgias, No Joint Swelling Skin : No Skin Lesions, No rash Neuro : No Weakness, No Numbness, No Paresthesias, No Loss of Consciousness, No Dizziness, No Headache Psych : No Anxiety/Panic, No Depression, No SI/HI/AH/VH, No Social Issues, Yes all other systems are reviewed and are negative [facility] Past Medical History Medical History (Updated 01/12/21 @ 21:33 by [facility] Atherosclerotic cardiovascular disease Bifascicular block Essential hypertension Pneumonia PVC (premature ventricular contraction) Family History Family History (Updated 12/28/20 @ 10:06 by Daryl Gutierres MD) Mother No problems noted. Father No problems noted. Social History Social History Household Members: Spouse Housing: House Do you presently have visiting nurse or other home services: No Unable to assess alcohol history related to: Unknown Alcohol intake: unknown Patient Tobacco Use Status: Never used Tobacco Use of substances other than those prescribed or required for medical reasons: No Advance Directives: No Advance Directives Date on File: 12/28/20 service: Yes Current occupational status: retired Physical Exam Vital Signs: Vital Signs: Last Vital Signs Temp 98.7 F 01/12/21 16:17 Pulse 96 01/12/21 21:40 Resp 23 H 01/12/21 16:17 BP 150/68 H 01/12/21 21:40 Pulse Ox 90 L 01/12/21 18:30 Body Mass Index 30.8 Const: General: healthy appearing, no acute distress and well developed Nutritional Appearance: well nourished Orientation/consciousness: patient oriented x3 HENMT: Head: Yes normal to inspection, Yes normocephalic and Yes atraumatic Face and sinus: Yes normal facial exam Mouth: Normal oral and palatal mucosa present Throat: Yes posterior oropharynx normal, Yes tonsils normal and Yes uvula midline Eyes: General: appearance normal, both eyes and all related structures Neck: Neck: Yes normal visual inspection, Yes full ROM and Yes trachea midline Thyroid: Thyroid normal Resp: Effort & Inspection: normal respiratory effort, able to speak in complete sentences, no tracheal deviation and symmetric chest movement Auscultation: clear to auscultation bilaterally Cardio: Jugular venous distension: no JVD Rate: regular rate Rhythm: regular rhythm Heart sounds: S1 normal heart sound present, S2 normal heart sound present, no gallops and no murmurs GI: Inspection: Yes normal to inspection and No distended Palpation (GI): Soft to palpation, not firm, nontender and No hepatosplenomegaly present Auscultation: normal bowel sounds : General: Yes no CVA tenderness Back/Spine/Pelvis: Back: no CVA tenderness Skin: General skin exam: elasticity normal, turgor normal and dry skin Neuro: General: patient oriented x3 Psych: Appearance: grossly normal Mental Status: mental status grossly normal Speech and movement: Normal speech and movement present Affect: normal affect Attitude: cooperative Thought process: Normal thought process present Thought content: Normal thought content present Insight: Good insight present (Psych) Judgement: Good judgement present (Psych) Course Course Course Narrative: 70 y.o. male with past medical history of ILD, PE, prostate CA, hyperlipidemia, ESTELLA, hypertension here today for symptoms of shortness of breath, low-grade fever, we will order chest x-ray two view, CBC, BMP, EKG, troponin patient had pneumonia post bronchoscopy right upper lobe, most likely from aspiration. Reevaluation(s) Reevaluation #1: Chest x-rays does not show any acute processes, clinically barney ent is short of breath his O2 sat is 93 on room air dry cough. We will do CT scan without contrast. I do not believe that this is PE as patient is been taking Eliquis twice a day and his last CT a on the showed no PE Reevaluation #2: Patient is all to set continues to be 95, lung sounds are clear, I will give him Augmentin and prednisone. Ambulation trial without oxygen and his O2 sat is 91 after ambulation. Lung sounds reassessed, right u pper lungs wheezing, will order albuterol updraft and reassess Reevaluation #3: Lung sounds clear, his oxygen level up to 94% on room air. Patient reports that he is coughing more no sputum. Will give him Tessalon Perles Additional Reevaluation(s): Heart rate 90-144 after treatment. His 2nd troponin is 17.8 down from 18.1. Will medicate patient with metoprolol IV, patient continues to be hypoxic O2 sat 94 with oxygen. Will try to admit patient. Report given to Dr. Rodriguez who will admit patient Medical Decision Making Lab Data Result diagrams: 01/12/21 16:27 01/12/21 16:27 Labs: Lab Results 01/12/21 01/12/21 01/12/21 Range/Units 11:44 16:27 16:27 WBC 8.5 (4.8-10.8) X10*3/uL RBC 5.06 (4.60-5.80) X10*6/uL Hgb 13.8 L (14.0-18.0) g/dl Hct 40.9 L (42.0-52.0) % MCV 80.8 (80.0-98.0) fL MCH 27.3 (27.0-33.0) pg MCHC 33.7 (31.0-36.0) g/dl RDW 14.7 (11.0-16.0) % Plt Count 222 (160-400) X10*3/uL MPV 9.3 L (9.4-12.4) fL Immature Gran % (Auto) 0.7 H (0.0-0.4) % Neut % (Auto) 66.1 (45-73) % Lymph % (Auto) 13.9 L (20-40) % Mayes % (Auto) 10.4 (2-11) % Eos % (Auto) 8.4 H (0-4) % Baso % (Auto) 0.5 (0-2) % Lymph # (Auto) 1.2 (1.2-4.9) X10*3/uL Mayes # (Auto) 0.9 (0.1-1.2) X10*3/uL Eos # (Auto) 0.7 H (0.0-0.4) X10*3/uL Baso # (Auto) 0.0 (0.0-0.2) X10*3/uL Abs Immat Gran (auto) 0.06 H (0.00-0.03) X10*3/uL Absolute Neuts (auto) 5.6 (2.0-8.3) x10*3/uL Absolute Nucleated RBC 0.000 (0.0-0.012) X10*3/uL Nucleated RBC % (auto) 0.0 (0.0-0.2) /100WBC Sodium 138 (135-145) mmol/L Potassium 3.8 (3.3-5.1) mmol/L Chloride 102 (96-108) mmol/L Carbon Dioxide 24 (22-29) mmol/L Anion Gap 16 (12-20) BUN 14 (9-16) mg/dL Creatinine 0.77 (0.5-1.4) mg/dL Estim Creat Clear Calc 95.2 Estimated GFR > 60 Random Glucose 84 (60-115) mg/dL Calcium 8.8 (8.4-10.2) mg/dL Troponin I High Sens (<3.5-35.0) ng/L COVID-19 (DONALD) Negative (Negative) COVID-19 Clin Com See Note 01/12/21 01/12/21 Range/Units 16:27 20:00 WBC (4.8-10.8) X10*3/uL RBC (4.60-5.80) X10*6/uL Hgb (14.0-18.0) g/dl Hct (42.0-52.0) % MCV (80.0-98.0) fL MCH (27.0-33.0) pg MCHC (31.0-36.0) g/dl RDW (11.0-16.0) % Plt Count (160-400) X10*3/uL MPV (9.4-12.4) fL Immature Gran % (Auto) (0.0-0.4) % Neut % (Auto) (45-73) % Lymph % (Auto) (20-40) % Mayes % (Auto) (2-11) % Eos % (Auto) (0-4) % Baso % (Auto) (0-2) % Lymph # (Auto) (1.2-4.9) X10*3/uL Mayes # (Auto) (0.1-1.2) X10*3/uL Eos # (Auto) (0.0-0.4) X10*3/uL Baso # (Auto) (0.0-0.2) X10*3/uL Abs Immat Gran (auto) (0.00-0.03) X10*3/uL Absolute Neuts (auto) (2.0-8.3) x10*3/uL Absolute Nucleated RBC (0.0-0.012) X10*3/uL Nucleated RBC % (auto) (0.0-0.2) /100WBC Sodium (135-145) mmol/L Potassium (3.3-5.1) mmol/L Chloride (96-108) mmol/L Carbon Dioxide (22-29) mmol/L Anion Gap (12-20) BUN (9-16) mg/dL Creatinine (0.5-1.4) mg/dL Estim Creat Clear Calc Estimated GFR Random Glucose (60-115) mg/dL Calcium (8.4-10.2) mg/dL Troponin I High Sens 18.1 D 17.8 (<3.5-35.0) ng/L COVID-19 (DONALD) (Negative) COVID-19 Clin Com Discharge Plan Discharge Instructions: Pneumonia (ED), Tachycardia (ED) Additional Instructions: You were seen here today for shortness of breath, increased rate of breathing and low-grade fever. Your x-ray shows no change from the last studies. You do have interstitial lung disease and you might need to be on long-term steroid therapy. Please follow-up with your radiographer cardiac catheterization Dr. Goode for possible pulmonary functions test. You were given updraft treatment for right upper lung wheeze and your heart rate increased to 144. You were given lorazepam to help with the anxiety as well as metoprolol IV to help to decrease the rate. Please follow-up with your chemical weigher Dr Leyva. You will be sent home with antibiotic and prednisone Prescriptions: New amoxicillin-pot clavulanate [Augmentin] 875-125 mg tablet 1 tab PO BID 10 Days Qty: 20 RF: 0 prednisone 20 mg tablet 40 mg PO DAILY 5 Days Qty: 10 RF: 0 No Action atorvastatin 80 mg tablet 1 tab PO BEDTIME RF: 0 tolterodine 4 mg capsule,extended release 24hr 1 cap PO DAILY RF: 0 omeprazole 40 mg capsule,delayed release(DR/EC) 1 cap PO DAILY RF: 0 amlodipine 10 mg tablet 1 tab PO DAILY RF: 0 metoprolol succinate 25 mg tablet extended release 24 hr 1 tab PO DAILY RF: 0 olmesartan-hydrochlorothiazide 40-25 mg tablet 1 tab PO DAILY RF: 0 ascorbic acid (vitamin C) [Vitamin C] 500 mg Tablet 500 mg PO DAILY RF: 0 prednisone 10 mg tablet 10 mg PO DAILY RF: 0 Eliquis 5 mg tablet 5 mg PO BID RF: 0 aspirin 81 mg Tablet,Delayed Release (Dr/Ec) 81 mg PO DAILY RF: 0 cholecalciferol (vitamin D3) [Vitamin D3] 50 mcg (2,000 unit) Tablet 50 mcg PO BEDTIME RF: 0 Referrals: Montrell Oakley MD [Primary Care Provider] - 2 days Mica Aiken MD [Physician] - 5 days (Tachycardia, RBBB, PVC, Pac) Rojas Goode MD [Physician] - 5 days (Low O2 sats, dyspnea ILD)
--- NOTE | 2021-01-12 15:39 | ECG_ITS ---
Test Reason : Dyspnea Blood Pressure : / mmHG Vent. Rate : 070 BPM Atrial Rate : 070 BPM P-R Int : 160 ms QRS Dur : 156 ms QT Int : 448 ms P-R-T Axes : 026 -44 003 degrees QTc Int : 483 ms Sinus rhythm with marked sinus arrhythmia with frequent Premature ventricular complexes Left axis deviation Right bundle branch block Abnormal ECG When compared with ECG of 04-JAN-2021 12:45, No significant change was found Referred By: Cherry Cuevas Electronically Signed By:RAYRAY BOUDREAUX MD
[2021-01-12 16:31] LABS: Basophils Percent Auto 0.5 % (0-2); Eosinophils Absolute Auto 0.7 X10*3/uL (0.0-0.4); Eosinophils Percent Auto 8.4 % (0-4); Hematocrit 40.9 % (42.0-52.0); Hemoglobin 13.8 g/dl (14.0-18.0); Imm Gran Abs Auto 0.06 X10*3/uL (0.00-0.03); Imm Gran Pct Auto 0.7 % (0.0-0.4); Lymphocytes Absolute Auto 1.2 X10*3/uL (1.2-4.9); Lymphocytes Percent Auto 13.9 % (20-40); MANUAL DIFF FLAG NO; Mean Corpuscular HGB Conc 33.7 g/dl (31.0-36.0); Mean Corpuscular Hemoglobin 27.3 pg (27.0-33.0); Mean Corpuscular Volume 80.8 fL (80.0-98.0); Mean Platelet Volume 9.3 fL (9.4-12.4); Monocytes Absolute Auto 0.9 X10*3/uL (0.1-1.2); Monocytes Percent Auto 10.4 % (2-11); Neutrophils Absolute Auto 5.6 x10*3/uL (2.0-8.3); Neutrophils Percent Auto 66.1 % (45-73); Platelet Count 222 X10*3/uL (160-400); Red Blood Count 5.06 X10*6/uL (4.60-5.80); Red Cell Distribution Width 14.7 % (11.0-16.0); White Blood Count 8.5 X10*3/uL (4.8-10.8)
[2021-01-12 16:44] LABS: Anion Gap 16 (12-20); Blood Urea Nitrogen 14 mg/dL (9-16); Calcium 8.8 mg/dL (8.4-10.2); Carbon Dioxide 24 mmol/L (22-29); Chloride 102 mmol/L (96-108); Creatinine Clr Calc Pharmacy 95.2; Estimated Glomerular Filt Rate > 60; Glucose Random 84 mg/dL (60-115); Potassium 3.8 mmol/L (3.3-5.1); Sodium 138 mmol/L (135-145)
[2021-01-12 16:51] LABS: Troponin-I High Sensitivity 18.1 ng/L (<3.5-35.0)
[2021-01-12] MEDS: predniSONE 20 MG TABLET 60 MG PO (18:03)
[2021-01-12] MEDS: Amoxicillin/Potassium Clav 875 MG TABLET PO (18:03)
[2021-01-12] MEDS: Albuterol Sulfate (0.083%) 2.5 MG/3 ML VIAL.NEB 5 MG INHALE (19:06)
[2021-01-12] MEDS: Benzonatate 100 MG CAPSULE PO (19:50)
[2021-01-12 20:26] LABS: Troponin-I High Sensitivity 17.8 ng/L (<3.5-35.0)
[2021-01-12] MEDS: LORazepam 1 MG TABLET PO (20:28)
[2021-01-12] MEDS: Apixaban 5 MG TABLET PO (21:40)
[2021-01-12] MEDS: Metoprolol Tartrate 5 MG/5 ML VIAL IVPUSH (21:40)
--- NOTE | 2021-01-12 22:54 | P.HPHOSP_ITS ---
History of Present Illness Date of Service: 01/12/21 Chief Complaint: Shortness of breath 70-year-old male with a past medical history of hypertension, hyperlipidemia, interstitial lung disease, AFib on Eliquis, chronic respiratory failure on home oxygen at night, ESTELLA on CPAP; recently discharged from the hospital for acute on chronic respiratory failure, currently on prednisone taper presented to the hospital today with a chief complaint of shortness of breath/hypoxia. Patient reported that he continued to have shortness of breath after the discharge; denied any cough or shortness of breath; mentions dyspnea on exertion with desaturation to 87% on room air; denies any chest pain palpitations lightheadedness or dizziness. Denies any GI or symptoms. Review of all other systems is negative except mentioned above ER course: Per ER team patient noted to be hypoxic to 88% on room air, placed on mendieta pplemental oxygen at 2 L saturating to 92%; EKG was nonischemic, troponin negative, CT chest showed chronic lung findings similar to prior CT scans; given prednisone. Admitted to the hospital for further management. [facility] Medical History (Updated 01/12/21 @ 22:45 by Cherry Cuevas [facility]) Atherosclerotic cardiovascular disease Bifascicular block Essential hypertension Pneumonia PVC (premature ventricular contraction) Family History (Updated 12/28/20 @ 10:06 by Daryl Gutierres MD) Mother No problems noted. Father No problems noted. Social History Household Members: Spouse Housing: House Do you presently have visiting nurse or other home services: No Unable to assess alcohol history related to: Unknown Alcohol intake: unknown Patient Tobacco Use Status: Never used Tobacco Use of substances other than those prescribed or required for medical reasons: No Advance Directives: No Advance Directives Date on File: 12/28/20 service: Yes Current occupational status: retired Meds Allergies Allergy/AdvReac Type Severity Reaction Status Date / Time ibuprofen [Ibuprofen] Allergy Intermediate HIVES/JOINT Verified 01/12/21 11:32 SWELLING Home Medications Medication Instructions Recorded Confirmed Last Taken Type amlodipine 10 mg tablet 1 tab PO DAILY 12/16/20 01/04/21 01/04/21 History ascorbic acid (vitamin C) 500 mg 500 mg PO DAILY 12/16/20 01/04/21 01/04/21 History tablet (Vitamin C) atorvastatin 80 mg tablet 1 tab PO BEDTIME 12/16/20 01/04/21 01/04/21 History metoprolol succinate 25 mg 1 tab PO DAILY 12/16/20 01/04/21 01/04/21 History tablet,extended release 24 hr olmesartan 40 1 tab PO DAILY 12/16/20 01/04/21 01/04/21 History mg-hydrochlorothiazide 25 mg tablet omeprazole 40 mg capsule,delayed 1 cap PO DAILY 12/16/20 01/04/21 01/04/21 History release tolterodine 4 mg capsule,extended 1 cap PO DAILY 12/16/20 01/04/21 01/04/21 History release 24 hr aspirin 81 mg tablet,delayed 81 mg PO DAILY 12/27/20 01/04/21 01/04/21 History release cholecalciferol (vitamin D3) 50 50 mcg PO BEDTIME 12/27/20 01/04/21 01/04/21 History mcg (2,000 unit) tablet (Vitamin D3) apixaban 5 mg tablet (Eliquis) 5 mg PO BID 01/04/21 01/04/21 01/04/21 History prednisone 10 mg tablet 10 mg PO DAILY 01/04/21 01/04/21 01/04/21 History Physical Exam Vital Signs and Narrative: Vital Signs: Last Vital Signs Temp 98.7 F 01/12/21 16:17 Pulse 96 01/12/21 21:40 Resp 23 H 01/12/21 16:17 BP 150/68 H 01/12/21 21:40 Pulse Ox 90 L 01/12/21 18:30 Body Mass Index 30.8 Gen: Appears be in no acute distress. On supplemental oxygen. Speaks in full sentences. HEENT: NCAT, Moist mucosa. Pulmonary: Coarse breath sounds, fair air entry CVS: Normal S1-S2 Abdomen: BS+, Soft, Nontender Extremities: Warm well perfused Neuro: Alert and awake. Results Labs CBC and Chem 7: 01/12/21 16:27 01/12/21 16:27 Labs: Laboratory Results - last 24 hr 01/12/21 01/12/21 01/12/21 11:44 16:27 16:27 MCV 80.8 MCH 27.3 MCHC 33.7 RDW 14.7 Plt Count 222 MPV 9.3 L Immature Gran % (Auto) 0.7 H Neut % (Auto) 66.1 Lymph % (Auto) 13.9 L Towns % (Auto) 10.4 Eos % (Auto) 8.4 H Baso % (Auto) 0.5 Lymph # (Auto) 1.2 Towns # (Auto) 0.9 Eos # (Auto) 0.7 H Baso # (Auto) 0.0 Abs Immat Gran (auto) 0.06 H Absolute Neuts (auto) 5.6 Absolute Nucleated RBC 0.000 Nucleated RBC % (auto) 0.0 Anion Gap 16 Estim Creat Clear Calc 95.2 Estimated GFR > 60 Random Glucose 84 Calcium 8.8 Troponin I High Sens COVID-19 (DONALD) Negative COVID-19 Clin Com See Note 01/12/21 01/12/21 16:27 20:00 MCV MCH MCHC RDW Plt Count MPV Immature Gran % (Auto) Neut % (Auto) Lymph % (Auto) Towns % (Auto) Eos % (Auto) Baso % (Auto) Lymph # (Auto) Towns # (Auto) Eos # (Auto) Baso # (Auto) Abs Immat Gran (auto) Absolute Neuts (auto) Absolute Nucleated RBC Nucleated RBC % (auto) Anion Gap Estim Creat Clear Calc Estimated GFR Random Glucose Calcium Troponin I High Sens 18.1 D 17.8 COVID-19 (DONALD) COVID-19 Clin Com Imaging Radiologist's Impressions: Impressions Chest X-Ray 01/12/21 15:41 IMPRESSION: Chronic bilateral upper zone reticulonodular changes. Airspace opacity apical right upper lobe decreased since 12/16/2020. Chest CT 01/12/21 16:17 IMPRESSION: Diffuse bilateral airspace disease is relatively similar in prominence. Fleischner guidelines were followed. Assessment and Plan (1) Hypoxia: Status: Acute (2) ILD (interstitial lung disease): Status: Acute 70-year-old male with a past medical history of hypertension, hyperlipidemia, interstitial lung disease, AFib on Eliquis, chronic respiratory failure on home oxygen at night, ESTELLA on CPAP; recently discharged from the hospital for acute on chronic respiratory failure, currently on prednisone taper presented to the hospital today with a chief complaint of shortness of breath/hypoxia. Acute on chronic respiratory failure: Patient has known history of interstitial lung disease. On prednisone taper. Patient currently requiring increased oxygen supplementation. Likely needs it24/7. Will keep the patient on Solu-Medrol IV. Nebulizations standing and p.r.n. Pulmonology consult given recurrent admissions. Patient would probably benefit pulmonary rehab Azithromycin History of AFib: Patient on Eliquis. Rate controlled. History of hypertension/hyperlipidemia: Continue home amlodipine/statin. DVT prophylaxis: Patient on Eliquis Code status: Full code Quality Stroke Does the patient have a stroke diagnosis?: No VTE Prior VTE?: No VTE Risk Level:: Medical - moderate - high VTE Device Contraindication: Treatment Not Indicated VTE Drug Contraindication: N/A - Med Ordered
[2021-01-12 23:31] LABS: Lactic Acid 3.1 mmol/L (0.5-2.0)
[2021-01-12] MEDS: methylPREDNISolone Sod Succ 40 MG/ML VIAL IVPUSH (23:54)
[2021-01-12] MEDS: Azithromycin 500 MG TABLET PO (23:54)
[2021-01-12] MEDS: Piperacillin Sodium/Tazobactam 3.375 GM in 0.9 % Sodium Chloride 50 ML IV (23:54)
[2021-01-12] MEDS: 0.9 % Sodium Chloride Flush 3 ML SYRINGE IVFLUSH (23:55)
[2021-01-13] VITALS (9 sets, daily range): BP systolic 134–162; BP diastolic 64–78; PULSE 60–84; RESP 18–21; TEMP 36.4–36.9; O2SAT 95–98
--- NOTE | 2021-01-13 00:13 | PC.NURSE ---
Pt alert and oriented x4, calm and cooperative. Pt denies pain. Pt states SOB has improved, remains on nasal canula O2 sat at 97%. Pt lactic acid 3.1, MD Phelps made aware and stated encourage PO fluids .
[2021-01-13 00:14] LABS: Appearance Urine CLEAR; Color Urine YELLOW; Glucose Urine UA NEG (NEG); Leukocyte Esterase Urine NEG (NEG); Nitrite Urine NEG (NEG); Urine Blood NEG (NEG); Urine Ketones NEG (NEG); Urine Protein NEG (NEG-TRACE)
[2021-01-13 01:19] LABS: Reflex Lactate? Lactic Acid Added
[2021-01-13 01:57] LABS: ~Lactic Acid-LAB USE ONLY 4.5 mmol/L (0.5-2.0)
[2021-01-13 03:34] LABS: Reflex Lactate? 2 Y
[2021-01-13 03:55] LABS: Basophils Percent Auto 0.2 % (0-2); Eosinophils Percent Auto 0.2 % (0-4); Hematocrit 38.1 % (42.0-52.0); Hemoglobin 13.1 g/dl (14.0-18.0); Imm Gran Abs Auto 0.05 X10*3/uL (0.00-0.03); Imm Gran Pct Auto 0.8 % (0.0-0.4); Lymphocytes Absolute Auto 0.4 X10*3/uL (1.2-4.9); Lymphocytes Percent Auto 6.2 % (20-40); MANUAL DIFF FLAG SCAN; Mean Corpuscular HGB Conc 34.4 g/dl (31.0-36.0); Mean Corpuscular Hemoglobin 27.8 pg (27.0-33.0); Mean Corpuscular Volume 80.9 fL (80.0-98.0); Mean Platelet Volume 8.9 fL (9.4-12.4); Monocytes Absolute Auto 0.1 X10*3/uL (0.1-1.2); Monocytes Percent Auto 1.6 % (2-11); Neutrophils Absolute Auto 5.6 x10*3/uL (2.0-8.3); Platelet Count 237 X10*3/uL (160-400); Red Blood Count 4.71 X10*6/uL (4.60-5.80); Red Cell Distribution Width 14.2 % (11.0-16.0); SCAN SMEAR FLAG 1; White Blood Count 6.2 X10*3/uL (4.8-10.8)
[2021-01-13 04:05] LABS: SLIDE REVIEW VERIFIED
[2021-01-13 04:13] LABS: Anion Gap 17 (12-20); Blood Urea Nitrogen 14 mg/dL (9-16); Calcium 8.6 mg/dL (8.4-10.2); Carbon Dioxide 21 mmol/L (22-29); Chloride 101 mmol/L (96-108); Creatinine Clr Calc Pharmacy 78.8; Estimated Glomerular Filt Rate > 60; Glucose Random 226 mg/dL (60-115); Potassium 3.2 mmol/L (3.3-5.1); Sodium 136 mmol/L (135-145)
[2021-01-13 04:14] LABS: ~Lactic Acid-LAB USE ONLY 4.1 mmol/L (0.5-2.0)
[2021-01-13] MEDS: 0.9 % Sodium Chloride Flush 3 ML SYRINGE IVFLUSH ×2 (07:45→20:57)
[2021-01-13] MEDS: methylPREDNISolone Sod Succ 40 MG/ML VIAL IVPUSH ×3 (07:45→22:50)
[2021-01-13] MEDS: Tolterodine Tartrate LA 4 MG CAP.ER.24H PO (09:55)
[2021-01-13] MEDS: Omeprazole 40 MG CAPSULE.DR PO (09:55)
[2021-01-13] MEDS: amLODIPine Besylate 10 MG TABLET PO (09:55)
[2021-01-13] MEDS: Metoprolol Succinate ER 25 MG TAB.ER.24H PO (09:55)
[2021-01-13] MEDS: Apixaban 5 MG TABLET PO ×2 (09:56→20:57)
[2021-01-13] MEDS: Aspirin Enteric Coated 81 MG TABLET.DR PO (09:56)
--- NOTE | 2021-01-13 11:06 | P.PNIM_ITS ---
Subjective Subjective Date of Service: 01/13/21 Interval History: F/u on hypoxia, feels better Review of Systems +Sob, +cough no fever Physical Exam Vital Signs: Vital Signs: Last Vital Signs Temp 97.6 F 01/13/21 09:26 Pulse 73 01/13/21 09:55 Resp 20 01/13/21 09:26 BP 151/73 H 01/13/21 09:55 Pulse Ox 95 01/13/21 09:26 Body Mass Index 30.8 Const: Other: General: AO X 3, no acute distress Resp: scattered rales CVS: S1,S2,RRR GI: +BS, NT, no distention Skin: No rash Neuro: motor grossly intact Psych: appropriate affect Objective Data Active Medications Acetaminophen (Acetaminophen 325 Mg Tablet) 650 mg PO Q6H PRN PRN Reason: Pain, Mild (Pain Scale 1-3) Amlodipine Besylate (Amlodipine Besylate 10 Mg Tablet) 10 mg PO DAILY [facility]; Protocol Last Admin: 01/13/21 09:55 Dose: 10 mg Documented by: ZEE Apixaban (Apixaban 5 Mg Tablet) 5 mg PO BID [facility] Last Admin: 01/13/21 09:56 Dose: 5 mg Documented by: ZEE Aspirin (Aspirin Enteric Coated 81 Mg Tablet.) 81 mg PO DAILY [facility] Last Admin: 01/13/21 09:56 Dose: 81 mg Documented by: ZEE Atorvastatin Calcium (Atorvastatin Calcium 80 Mg Tablet) 80 mg PO BEDTIME [facility] Azithromycin (Azithromycin 500 Mg Tablet) 500 mg PO Q24H [facility] Last Admin: 01/12/21 23:54 Dose: 500 mg Documented by: FREDY Melatonin (Melatonin 3 Mg Tablet) 6 mg PO BEDTIME PRN PRN Reason: Insomnia Methylprednisolone Sodium Succinate (Methylprednisolone Sod Succ 40 Mg/Ml Vial) 40 mg IVPUSH Q8H [facility] Last Admin: 01/13/21 07:45 Dose: 40 mg Documented by: ZEE Metoprolol Succinate (Metoprolol Succinate Er 25 Mg Tab.Er.24h) 25 mg PO DAILY [facility]; Protocol Last Admin: 01/13/21 09:55 Dose: 25 mg Documented by: ZEE Omeprazole (Omeprazole 40 Mg Capsule.) 40 mg PO DAILY [facility] Last Admin: 01/13/21 09:55 Dose: 40 mg Documented by: ZEE Senna (Sennosides 8.6 Mg Tablet) 17.2 mg PO BEDTIME PRN PRN Reason: Constipation Sodium Chloride (0.9 % Sodium Chloride Flush 3 Ml Syringe) 3 ml IVFLUSH QSHIFT [facility] Last Admin: 01/13/21 07:45 Dose: 3 ml Documented by: ZEE Tolterodine Tartrate (Tolterodine Tartrate La 4 Mg Cap.Er.24h) 4 mg PO DAILY [facility] Last Admin: 01/13/21 09:55 Dose: 4 mg Documented by: ZEE Vitamin D (Cholecalciferol (Vitamin D3) 25 Mcg Tablet) 50 mcg PO BEDTIME [facility] Labs CBC & Chem 7: 01/13/21 03:48 01/13/21 03:48 Labs: Laboratory Results - last 24 hr 01/12/21 01/12/21 01/12/21 11:44 16:27 16:27 MCV 80.8 MCH 27.3 MCHC 33.7 RDW 14.7 Plt Count 222 MPV 9.3 L Immature Gran % (Auto) 0.7 H Neut % (Auto) 66.1 Lymph % (Auto) 13.9 L Burke % (Auto) 10.4 Eos % (Auto) 8.4 H Baso % (Auto) 0.5 Lymph # (Auto) 1.2 Burke # (Auto) 0.9 Eos # (Auto) 0.7 H Baso # (Auto) 0.0 Abs Immat Gran (auto) 0.06 H Absolute Neuts (auto) 5.6 Absolute Nucleated RBC 0.000 Nucleated RBC % (auto) 0.0 Smear Tech's Comments Anion Gap 16 Estim Creat Clear Calc 95.2 Estimated GFR > 60 Random Glucose 84 Lactic Acid Lactic Acid Fup @ 2Hr Lactic Acid Fup @ 4Hr Calcium 8.8 Troponin I High Sens Urine Color Urine Appearance Urine pH Ur Specific Fleming Urine Protein Urine Glucose (UA) Urine Ketones Urine Blood Urine Nitrite Ur Leukocyte Esterase COVID-19 (DONALD) Negative COVID-19 Clin Com See Note 01/12/21 01/12/21 01/12/21 16:27 20:00 23:11 MCV MCH MCHC RDW Plt Count MPV Immature Gran % (Auto) Neut % (Auto) Lymph % (Auto) Burke % (Auto) Eos % (Auto) Baso % (Auto) Lymph # (Auto) Burke # (Auto) Eos # (Auto) Baso # (Auto) Abs Immat Gran (auto) Absolute Neuts (auto) Absolute Nucleated RBC Nucleated RBC % (auto) Smear Tech's Comments Anion Gap Estim Creat Clear Calc Estimated GFR Random Glucose Lactic Acid 3.1 H* Lactic Acid Fup @ 2Hr Lactic Acid Fup @ 4Hr Calcium Troponin I High Sens 18.1 D 17.8 Urine Color Urine Appearance Urine pH Ur Specific Fleming Urine Protein Urine Glucose (UA) Urine Ketones Urine Blood Urine Nitrite Ur Leukocyte Esterase COVID-19 (DONALD) COVID-19 [employer] 01/12/21 01/13/21 01/13/21 23:53 01:31 03:48 MCV 80.9 MCH 27.8 MCHC 34.4 RDW 14.2 Plt Count 237 MPV 8.9 L Immature Gran % (Auto) 0.8 H Neut % (Auto) 91.0 H Lymph % (Auto) 6.2 L Burke % (Auto) 1.6 L Eos % (Auto) 0.2 Baso % (Auto) 0.2 Lymph # (Auto) 0.4 L Burke # (Auto) 0.1 Eos # (Auto) 0.0 Baso # (Auto) 0.0 Abs Immat Gran (auto) 0.05 H Absolute Neuts (auto) 5.6 Absolute Nucleated RBC 0.000 Nucleated RBC % (auto) 0.0 Smear Tech's Comments VERIFIED Anion Gap Estim Creat Clear Calc Estimated GFR Random Glucose Lactic Acid Lactic Acid Fup @ 2Hr 4.5 H* Lactic Acid Fup @ 4Hr Calcium Troponin I High Sens Urine Color YELLOW Urine Appearance CLEAR Urine pH 6.0 Ur Specific Fleming 1.010 Urine Protein NEG Urine Glucose (UA) NEG Urine Ketones NEG Urine Blood NEG Urine Nitrite NEG Ur Leukocyte Esterase NEG COVID-19 (DONALD) COVID-19 [employer] Com 01/13/21 01/13/21 03:48 03:48 MCV MCH MCHC RDW Plt Count MPV Immature Gran % (Auto) Neut % (Auto) Lymph % (Auto) Burke % (Auto) Eos % (Auto) Baso % (Auto) Lymph # (Auto) Burke # (Auto) Eos # (Auto) Baso # (Auto) Abs Immat Gran (auto) Absolute Neuts (auto) Absolute Nucleated RBC Nucleated RBC % (auto) Smear Tech's Comments Anion Gap 17 Estim Creat Clear Calc 78.8 Estimated GFR > 60 Random Glucose 226 H D Lactic Acid Lactic Acid Fup @ 2Hr Lactic Acid Fup @ 4Hr 4.1 H* Calcium 8.6 Troponin I High Sens Urine Color Urine Appearance Urine pH Ur Specific Fleming Urine Protein Urine Glucose (UA) Urine Ketones Urine Blood Urine Nitrite Ur Leukocyte Esterase COVID-19 (DONALD) COVID-19 Clin Com Assessment and Plan (1) Pneumonia: Status: Acute Assessment and Plan: ? 70-year-old male with a past medical history of hypertension, hyperlipidemia, interstitial lung disease, AFib on Eliquis, chronic respiratory failure on home oxygen at night, ESTELLA on CPAP; recently discharged from the hospital for acute on chronic respiratory failure, currently on prednisone taper presented to the hospital with shortness of breath/hypoxia--likely exacerbstion of ILD Acute on chronic respiratory failure d/t interstitial lung disease -Continue IV steroid -Bronchodilators by NEB -Will assess for home O2 during day at discharge, presently on O2 at night -Pulmonology evaluation -[facility] for possible bronchtisis Chronic afib--rate controlled, Eliquis HTN--continue Metoprolol and Norvasdc HLD--Statin Quality Stroke Does the patient have a stroke diagnosis?: No VTE Prior VTE?: No VTE Risk Level:: Medical - moderate - high VTE Device Contraindication: Treatment Not Indicated VTE Drug Contraindication: N/A - Med Ordered
--- NOTE | 2021-01-13 13:26 | MHC.CM.PN ---
Met with pt to discuss d/c planning: Demographic info verified: COVID booster recently: HCP on file pt resides with spouse, has [facility] skilled RN visits and uses [employer] for O2/CPAP equipment. No other barriers to care identified: pt is requesting a return to home with existing services: spouse to transport. Referral made to [place] [facility] to follow for changes in d/c plan
--- NOTE | 2021-01-13 16:03 | PC.NURSE ---
REPORT GIVEN TO NYASIA MCCABE FOR ADMISSION TO [facility]
[2021-01-13] MEDS: Atorvastatin Calcium 80 MG TABLET PO (20:58)
[2021-01-13] MEDS: Cholecalciferol (Vitamin D3) 25 MCG TABLET 50 MCG PO (20:59)
[2021-01-13] MEDS: Azithromycin 500 MG TABLET PO (22:50)
[2021-01-13] MEDS: Melatonin 3 MG TABLET 6 MG PO (22:50)
[2021-01-14] VITALS (11 sets, daily range): BP systolic 109–142; BP diastolic 62–93; PULSE 53–81; RESP 18–20; TEMP 36.1–36.4; O2SAT 92–98; BMI 32.5
[2021-01-14] MEDS: amLODIPine Besylate 10 MG TABLET PO (08:38)
[2021-01-14] MEDS: Aspirin Enteric Coated 81 MG TABLET.DR PO (08:38)
[2021-01-14] MEDS: Tolterodine Tartrate LA 4 MG CAP.ER.24H PO (08:38)
[2021-01-14] MEDS: Apixaban 5 MG TABLET PO ×2 (08:38→19:52)
[2021-01-14] MEDS: Metoprolol Succinate ER 25 MG TAB.ER.24H PO (08:39)
[2021-01-14] MEDS: Omeprazole 40 MG CAPSULE.DR PO (08:39)
[2021-01-14] MEDS: methylPREDNISolone Sod Succ 40 MG/ML VIAL IVPUSH ×3 (08:42→22:53)
--- NOTE | 2021-01-14 10:54 | P.PNIM_ITS ---
Subjective Subjective Date of Service: 01/14/21 Interval History: F/u on hypoxia, he says he feels very sob with minimal activity or effort, oxygenation is better, clear lungs Review of Systems +Sob, -cough no fever Physical Exam Vital Signs: Vital Signs: Last Vital Signs Temp 97.5 F 01/14/21 08:00 Pulse 63 01/14/21 08:39 Resp 18 01/14/21 08:17 BP 127/64 01/14/21 08:39 Pulse Ox 95 01/14/21 08:00 Body Mass Index 32.5 Const: Other: General: AO X 3, no acute distress Resp: clear lungs, no wheeze, no rales CVS: S1,S2,RRR GI: +BS, NT, no distention Skin: No rash Neuro: motor grossly intact Psych: appropriate affect Objective Data Active Medications Acetaminophen (Acetaminophen 325 Mg Tablet) 650 mg PO Q6H PRN PRN Reason: Pain, Mild (Pain Scale 1-3) Amlodipine Besylate (Amlodipine Besylate 10 Mg Tablet) 10 mg PO DAILY [facility]; Protocol Last Admin: 01/14/21 08:38 Dose: 10 mg Documented by: DANIEL Apixaban (Apixaban 5 Mg Tablet) 5 mg PO BID [facility] Last Admin: 01/14/21 08:38 Dose: 5 mg Documented by: DANIEL Aspirin (Aspirin Enteric Coated 81 Mg Tablet.) 81 mg PO DAILY [facility] Last Admin: 01/14/21 08:38 Dose: 81 mg Documented by: DANIEL Atorvastatin Calcium (Atorvastatin Calcium 80 Mg Tablet) 80 mg PO BEDTIME [facility] Last Admin: 01/13/21 20:58 Dose: 80 mg Documented by: JOSEMANUEL Azithromycin (Azithromycin 500 Mg Tablet) 500 mg PO Q24H [facility] Last Admin: 01/13/21 22:50 Dose: 500 mg Documented by: JOSEMANUEL Melatonin (Melatonin 3 Mg Tablet) 6 mg PO BEDTIME PRN PRN Reason: Insomnia Last Admin: 01/13/21 22:50 Dose: 6 mg Documented by: JOSEMANUEL Methylprednisolone Sodium Succinate (Methylprednisolone Sod Succ 40 Mg/Ml Vial) 40 mg IVPUSH Q8H [facility] Last Admin: 01/14/21 08:42 Dose: 40 mg Documented by: DANIEL Metoprolol Succinate (Metoprolol Succinate Er 25 Mg Tab.Er.24h) 25 mg PO DAILY [facility]; Protocol Last Admin: 01/14/21 08:39 Dose: 25 mg Documented by: DANIEL Omeprazole (Omeprazole 40 Mg Capsule.Dr) 40 mg PO DAILY [facility] Last Admin: 01/14/21 08:39 Dose: 40 mg Documented by: DANIEL Senna (Sennosides 8.6 Mg Tablet) 17.2 mg PO BEDTIME PRN PRN Reason: Constipation Sodium Chloride (0.9 % Sodium Chloride Flush 3 Ml Syringe) 3 ml IVFLUSH QSHIFT [facility] Last Admin: 01/13/21 20:57 Dose: 3 ml Documented by: JOSEMANUEL Tolterodine Tartrate (Tolterodine Tartrate La 4 Mg Cap.Er.24h) 4 mg PO DAILY [facility] Last Admin: 01/14/21 08:38 Dose: 4 mg Documented by: DANIEL Vitamin D (Cholecalciferol (Vitamin D3) 25 Mcg Tablet) 50 mcg PO BEDTIME [facility] Last Admin: 01/13/21 20:59 Dose: 50 mcg Documented by: JOSEMANUEL Labs CBC & Chem 7: 01/13/21 03:48 01/13/21 03:48 Microbiology Microbiology Results: Microbiology 01/12/21 23:11 Blood Culture - Preliminary Blood - Venous No growth after 24 hours. 01/12/21 23:10 Blood Culture - Preliminary Blood - Venous No growth after 24 hours. Assessment and Plan (1) ILD (interstitial lung disease): Status: Acute (2) Hypoxia: Status: Acute Assessment and Plan: ? 70-year-old male with a past medical history of hypertension, hyperlipidemia, interstitial lung disease, AFib on Eliquis, chronic respiratory failure on home oxygen at night, ESTELLA on CPAP; recently discharged from the hospital for acute on chronic respiratory failure, currently on prednisone taper presented to the hospital with shortness of breath/hypoxia--likely exacerbstion of ILD Acute on chronic respiratory failure d/t interstitial lung disease -Continue IV steroid for 1 more day then change to oral Prednisone -Bronchodilators by NEB -Will assess for home O2 during day at discharge, presently on O2 at night -Pulmonology evaluation -[facility] for possible bronchtisis Chronic afib--rate controlled, Eliquis HTN--continue Metoprolol and Norvasc HLD--Statin (Lipitor) DVT--Eliquis Quality Stroke Does the patient have a stroke diagnosis?: No VTE Prior VTE?: No VTE Risk Level:: Medical - moderate - high VTE Device Contraindication: Treatment Not Indicated VTE Drug Contraindication: N/A - Med Ordered
--- NOTE | 2021-01-14 14:16 | PM.CNPUL ---
History of Present Illness History of Present Illness Consult date: 01/14/21 Chief complaint: SOB Narrative: This is an inpatient pulmonary consultation. The patient is a 70-year-old male with a past medical history of hypertension, hyperlipidemia, interstitial lung disease, AFib on Eliquis, chronic respiratory failure on home oxygen at night, ESTELLA on CPAP; recently discharged from the hospital for acute on chronic respiratory failure, currently on prednisone taper presented to the hospital today with a chief complaint of shortness of breath/hypoxia. The patient reported that he continued to have shortness of breath after the discharge; denied any cough or shortness of breath; mentions dyspnea on exertion with desaturation to 87% on room air; denies any chest pain palpitations lightheadedness or dizziness.? In the ED the patient noted to be hypoxic to 88% on room air, placed on supplemental oxygen at 2 L saturating to 92%; EKG was nonischemic, troponin negative. I personally reviewed the CT scan of the chest demonstrating areas of ground-glass opacities and interstitial changes primarily in the upper lung zones. The picture is more consistent with pneumonitis picture. Hypersensitivity pneumonitis should be in differential. Review of Systems Review of Systems: Constitutional : No Weight loss, No Fever, No Chills, No Night Sweats, No Fatigue, No Malaise ENT/Mouth : No Hearing loss, No Ear Pain, No Nasal Congestion, No Sinus Pain, No Hoarseness, No sore throat, No Rhinorrhea, No Swallowing Difficulty Eyes: No Eye Pain, No Swelling, No Redness, No Foreign Body, No Discharge, No Vision Changes Cardiovascular : No Chest Pain, SOB, Dyspnea on Exertion, No Orthopnea, No Edema, No Palpitations Respiratory : Cough, No Sputum, No Wheezing, No Smoke Exposure, Dyspnea Gastrointestinal : No Nausea, No Vomiting, No Diarrhea, No Constipation, No abdominal Pain, No Hematochezia, No Melena Genitourinary : no irregular bleeding, No Dysuria, No Urinary Frequency, No Hematuria, No Urinary Incontinence, No Urgency, No Flank Pain, No Urinary Flow Changes, No Hesitancy Musculoskeletal : No joint pain, No Myalgias, No Joint Swelling Skin : No Skin Lesions, No rash Neuro : No Weakness, No Numbness, No Paresthesias, No Loss of Consciousness, No Dizziness, No Headache Psych : No Anxiety/Panic, No Depression, No SI/HI/AH/VH, No Social Issues, Yes all other systems are reviewed and are negative [facility] Past Medical History Medical History (Updated 01/14/21 @ 14:18 by Chan Vasquez MD) Atherosclerotic cardiovascular disease Bifascicular block Essential hypertension Pneumonia PVC (premature ventricular contraction) Family History Family History (Updated 12/28/20 @ 10:06 by Daryl Gutierres MD) Mother No problems noted. Father No problems noted. Social History Social History Household Members: Spouse Housing: House Do you presently have visiting nurse or other home services: Yes ([facility], physical therapist) Unable to assess alcohol history related to: Unknown Alcohol intake: unknown Patient Tobacco Use Status: Never used Tobacco Advance Directives Date on File: 12/28/20 service: No Current occupational status: retired [employer] Allergies Allergy/AdvReac Type Severity Reaction Status Date / Time ibuprofen [Ibuprofen] Allergy Intermediate HIVES/JOINT Verified 01/12/21 11:32 SWELLING Active Medications: Current Medications Acetaminophen (Acetaminophen 325 Mg Tablet) 650 mg PO Q6H PRN PRN Reason: Pain, Mild (Pain Scale 1-3) Amlodipine Besylate (Amlodipine Besylate 10 Mg Tablet) 10 mg PO DAILY [facility]; Protocol Last Admin: 01/14/21 08:38 Dose: 10 mg Documented by: Apixaban (Apixaban 5 Mg Tablet) 5 mg PO BID [facility] Last Admin: 01/14/21 08:38 Dose: 5 mg Documented by: Aspirin (Aspirin Enteric Coated 81 Mg Tablet.) 81 mg PO DAILY [facility] Last Admin: 01/14/21 08:38 Dose: 81 mg Documented by: Atorvastatin Calcium (Atorvastatin Calcium 80 Mg Tablet) 80 mg PO BEDTIME [facility] Last Admin: 01/13/21 20:58 Dose: 80 mg Documented by: Azithromycin (Azithromycin 500 Mg Tablet) 500 mg PO Q24H [facility] Last Admin: 01/13/21 22:50 Dose: 500 mg Documented by: Melatonin (Melatonin 3 Mg Tablet) 6 mg PO BEDTIME PRN PRN Reason: Insomnia Last Admin: 01/13/21 22:50 Dose: 6 mg Documented by: Methylprednisolone Sodium Succinate (Methylprednisolone Sod Succ 40 Mg/Ml Vial) 40 mg IVPUSH Q8H [facility] Last Admin: 01/14/21 08:42 Dose: 40 mg Documented by: Metoprolol Succinate (Metoprolol Succinate Er 25 Mg Tab.Er.24h) 25 mg PO DAILY [facility]; Protocol Last Admin: 01/14/21 08:39 Dose: 25 mg Documented by: Omeprazole (Omeprazole 40 Mg Capsule.Dr) 40 mg PO DAILY [facility] Last Admin: 01/14/21 08:39 Dose: 40 mg Documented by: Senna (Sennosides 8.6 Mg Tablet) 17.2 mg PO BEDTIME PRN PRN Reason: Constipation Sodium Chloride (0.9 % Sodium Chloride Flush 3 Ml Syringe) 3 ml IVFLUSH QSHIFT [facility] Last Admin: 01/13/21 20:57 Dose: 3 ml Documented by: Tolterodine Tartrate (Tolterodine Tartrate La 4 Mg Cap.Er.24h) 4 mg PO DAILY [facility] Last Admin: 01/14/21 08:38 Dose: 4 mg Documented by: Vitamin D (Cholecalciferol (Vitamin D3) 25 Mcg Tablet) 50 mcg PO BEDTIME [facility] Last Admin: 01/13/21 20:59 Dose: 50 mcg Documented by: Home Medications Medication Instructions Recorded Confirmed Last Taken Type amlodipine 10 mg tablet 1 tab PO DAILY 12/16/20 01/13/21 01/12/21 09:00 History ascorbic acid (vitamin C) 500 mg 500 mg PO DAILY 12/16/20 01/13/21 01/12/21 09:00 History tablet (Vitamin C) atorvastatin 80 mg tablet 1 tab PO BEDTIME 12/16/20 01/13/21 01/11/21 21:00 History metoprolol succinate 25 mg 1 tab PO DAILY 12/16/20 01/13/21 01/12/21 21:00 History tablet,extended release 24 hr olmesartan 40 1 tab PO DAILY 12/16/20 01/13/21 01/12/21 09:00 History mg-hydrochlorothiazide 25 mg tablet omeprazole 40 mg capsule,delayed 1 cap PO DAILY 12/16/20 01/13/21 01/12/21 09:00 History release tolterodine 4 mg capsule,extended 1 cap PO DAILY 12/16/20 01/13/21 01/12/21 09:00 History release 24 hr aspirin 81 mg tablet,delayed 81 mg PO DAILY 12/27/20 01/13/21 01/12/21 09:00 History release cholecalciferol (vitamin D3) 50 50 mcg PO BEDTIME 12/27/20 01/13/21 01/11/21 21:00 History mcg (2,000 unit) tablet (Vitamin D3) apixaban 5 mg tablet (Eliquis) 5 mg PO BID 01/04/21 01/13/21 01/12/21 18:00 History prednisone 10 mg tablet 10 mg PO DAILY 01/04/21 01/13/21 01/04/21 History Physical Exam Vital Signs: Vital Signs: Last Vital Signs Temp 97.2 F 01/14/21 12:00 Pulse 61 01/14/21 12:00 Resp 18 01/14/21 12:00 BP 136/62 01/14/21 12:00 Pulse Ox 97 01/14/21 12:00 Body Mass Index 32.5 Const: General: alert Neck: Neck: Yes normal visual inspection, Yes full ROM and Yes no lymphadenopathy Chest: Chest palpation & inspection: normal inspection of the chest Resp: Auscultation: diminished lung sounds Cardio: Rate: regular rate Rhythm: regular rhythm Heart sounds: S1 normal heart sound present and S2 normal heart sound present GI: Palpation (GI): Soft to palpation and nontender Auscultation: normal bowel sounds Skin: General skin exam: rashes and/or lesions noted Results Laboratory Findings CBC and BMP: 01/13/21 03:48 01/13/21 03:48 Abnormal lab findings: Abnormal Labs 01/12/21 01/12/21 01/13/21 16:27 23:11 01:31 Hgb 13.8 L Hct 40.9 L MPV 9.3 L Immature Gran % (Auto) 0.7 H Neut % (Auto) Lymph % (Auto) 13.9 L Cl[place] % (Auto) Eos % (Auto) 8.4 H Lymph # (Auto) Eos # (Auto) 0.7 H Abs Immat Gran (auto) 0.06 H Potassium Carbon Dioxide Random Glucose Lactic Acid 3.1 H* Lactic Acid Fup @ 2Hr 4.5 H* Lactic Acid Fup @ 4Hr 01/13/21 01/13/21 01/13/21 03:48 03:48 03:48 Hgb 13.1 L Hct 38.1 L MPV 8.9 L Immature Gran % (Auto) 0.8 H Neut % (Auto) 91.0 H Lymph % (Auto) 6.2 L Clinch % (Auto) 1.6 L Eos % (Auto) Lymph # (Auto) 0.4 L Eos # (Auto) Abs Immat Gran (auto) 0.05 H Potassium 3.2 L Carbon Dioxide 21 L Random Glucose 226 H D Lactic Acid Lactic Acid Fup @ 2Hr Lactic Acid Fup @ 4Hr 4.1 H* Microbiology: Microbiology 01/12/21 23:11 Blood - Venous Blood Culture - Preliminary No growth after 24 hours. 01/12/21 23:10 Blood - Venous Blood Culture - Preliminary No growth after 24 hours. Assessment and Plan (1) ILD (interstitial lung disease): Status: Acute (2) Pulmonary embolism: Status: Acute (3) Hypersensitivity pneumonitis: Status: Acute Continue Solumedrol IV Bloodwork requested Oxygen to keep pox >90% Will need outpt follow up in our pulmonary clinic Procedures Date of Service Date of Service: 01/14/21
[2021-01-14] MEDS: 0.9 % Sodium Chloride Flush 3 ML SYRINGE IVFLUSH ×2 (15:44→16:09)
[2021-01-14 15:46] LABS: Erythrocyte Sedimentation Rate 12 MM/HR (0-15)
[2021-01-14] MEDS: Atorvastatin Calcium 80 MG TABLET PO (19:51)
[2021-01-14] MEDS: Cholecalciferol (Vitamin D3) 25 MCG TABLET 50 MCG PO (19:51)
[2021-01-14] MEDS: Azithromycin 500 MG TABLET PO (22:53)
[2021-01-14] MEDS: Melatonin 3 MG TABLET 6 MG PO (22:53)
[2021-01-15] MEDS: 0.9 % Sodium Chloride Flush 3 ML SYRINGE IVFLUSH ×2 (00:17→08:54)
[2021-01-15 04:00] VITALS: BP 116/65; PULSE 54; RESP 20; TEMP 35.9; O2SAT 94
[2021-01-15] MEDS: methylPREDNISolone Sod Succ 40 MG/ML VIAL IVPUSH (06:00)
[2021-01-15 06:53] VITALS: BP 154/77; PULSE 58; RESP 20; TEMP 36.1; O2SAT 98
[2021-01-15] MEDS: Metoprolol Succinate ER 25 MG TAB.ER.24H PO (08:53)
[2021-01-15] MEDS: Aspirin Enteric Coated 81 MG TABLET.DR PO (08:53)
[2021-01-15] MEDS: Omeprazole 40 MG CAPSULE.DR PO (08:53)
[2021-01-15] MEDS: Apixaban 5 MG TABLET PO (08:53)
[2021-01-15] MEDS: Tolterodine Tartrate LA 4 MG CAP.ER.24H PO (08:53)
[2021-01-15] MEDS: amLODIPine Besylate 10 MG TABLET PO (08:53)
[2021-01-15 10:53] VITALS: BP 129/74; PULSE 63; RESP 19; TEMP 36; O2SAT 98
--- NOTE | 2021-01-15 12:19 | MHC.CM.PN ---
Patient has been medically cleared for dc to home today, no services.
--- NOTE | 2021-01-15 12:21 | PM.DS ---
DS: Providers Provider Date of Service: 01/15/21 Date of admission: 01/12/21 22:52 Primary care physician: Deisi Oakley MD Consults: 01/12/21 22:14 Consult to Pulmonology Routine Consulting Provider: Kati Castillo Reason for consultation: Hypoxia; rec admissions; hx ILD DS: Diagnosis Discharge Diagnosis (1) ILD (interstitial lung disease): Status: Acute (2) Pulmonary embolism: Status: Acute (3) Hypersensitivity pneumonitis: Status: Acute DS: Summary Hospital Course Hospital Course: Chief Complaint: Shortness of breath 70-year-old male with a past medical history of hypertension, hyperlipidemia, interstitial lung disease, AFib on Eliquis, chronic respiratory failure on home oxygen at night, ESTELLA on CPAP; recently discharged from the hospital for acute on chronic respiratory failure, currently on prednisone taper presented to the hospital today with a chief complaint of shortness of breath/hypoxia. Patient reported that he continued to have shortness of breath after the discharge; denied any cough or shortness of breath; mentions dyspnea on exertion with desaturation to 87% on room air; denies any chest pain palpitations lightheadedness or dizziness.? Denies any GI or symptoms.? Review of all other systems is negative except mentioned above ER course: Per ER team patient noted to be hypoxic to 88% on room air, placed on supplemental oxygen at 2 L saturating to 92%; EKG was nonischemic, troponin negative, CT chest showed chronic lung findings similar to prior CT scans; given prednisone.? Admitted to the hospital for further management. Hospital course: Acute on chronic respiratory failure d/t interstitial lung disease and probably interstitial pneumonitis. Treated with IV steroid, bronchodilators by Neb and is doing much better now, breathing is now easy, she was evaluated by Dr. Chan Crespo and given high eosinophil count that patient likely has hypersensitivity pneumonitis which is steroid responsive. He uses oxygen at night and was assess for home O2 durign the day and didn't qualify for this. He was treated empirically with Azithromycin but don't think he needs it at this point. He should follow up with Dr. Vasquez Chronic afib--rate controlled, Eliquis HTN--continue Metoprolol and Norvasc HLD--Statin (Lipitor) DVT--Eliquis Time Spent with Patient Time attestation: Total time spent providing and/or coordinating discharge services: Discharge coordination time: Greater than 30 minutes Quality: Stroke Does the patient have a stroke diagnosis?: No Physical Exam Vital Signs: Vital Signs: Last Vital Signs Temp 96.8 F 01/15/21 10:53 Pulse 63 01/15/21 10:53 Resp 19 01/15/21 10:53 BP 129/74 01/15/21 10:53 Pulse Ox 98 01/15/21 10:53 Body Mass Index 32.5 DS: Data Data Completed and Pending Completed studies during hospitalization [Text1]: Procedures Assistance with Respiratory Ventilation, Less than 24 Consecutive Hours, Continuous Positive Airway Pressure (12/27/20) Labs on day of discharge: Laboratory Results - last 24 hr 01/14/21 14:03 ESR 12 Preliminary micro results at discharge 01/12/21 23:11 Blood Culture - Preliminary Blood - Venous No growth after 48 hours. 01/12/21 23:10 Blood Culture - Preliminary Blood - Venous No growth after 48 hours. Discharge Plan Discharge Anticipated Discharge Date/Time: 01/15/21 12:13 Patient Disposition: Home, Self-Care Discharge Diagnosis: Hypersensitivity pneumonitis Referrals: [facility] [Outside] - 1 Week Montrell Oakley MD [Primary Care Provider] - 2 days (Your doctor's office should call you to schedule a follow up appointment. ) Mica Aiken MD [Physician] - 5 days (Tachycardia, RBBB, PVC, Pac) Rojas Goode MD [Physician] - 5 days (Low O2 sats, dyspnea ILD) Discharge Medications: No Action atorvastatin 80 mg tablet 1 tab PO BEDTIME RF: 0 tolterodine 4 mg capsule,extended release 24hr 1 cap PO DAILY RF: 0 omeprazole 40 mg capsule,delayed release(DR/EC) 1 cap PO DAILY RF: 0 amlodipine 10 mg tablet 1 tab PO DAILY RF: 0 metoprolol succinate 25 mg tablet extended release 24 hr 1 tab PO DAILY RF: 0 olmesartan-hydrochlorothiazide 40-25 mg tablet 1 tab PO DAILY RF: 0 ascorbic acid (vitamin C) [Vitamin C] 500 mg Tablet 500 mg PO DAILY RF: 0 prednisone 10 mg tablet 10 mg PO DAILY RF: 0 Eliquis 5 mg tablet 5 mg PO BID RF: 0 aspirin 81 mg Tablet,Delayed Release (Dr/Ec) 81 mg PO DAILY RF: 0 cholecalciferol (vitamin D3) [Vitamin D3] 50 mcg (2,000 unit) Tablet 50 mcg PO BEDTIME RF: 0 Discharge Orders: Discharge Order (Routine); Ordered 01/15/21 Ordered By: Patricio Wilson Diet: advance to usual diet Activity on Discharge: As tolerated Stand Alone Forms: Patient Portal Discharge page Care Plan Goals: Full recovery from penumonia Health Concerns: Hypersensititivty pneumonitis Plan of Treatment: Take Prednisone as recommended and follow up with Dr. Chan Vasquez, emergency communications dispatcher Assessment: As above Patient Instructions: Pneumonia (ED), Tachycardia (ED)
--- NOTE | 2021-01-15 14:45 | MHC.CM.PN ---
CORRECTION- Patient was active with [facility], who has been notified of today's dc.
[2021-01-15 15:16] LABS: Cyclic Citrullinated Peptide <16 UNITS
[2021-01-15 18:37] LABS: Anti Nuclear Antibody Screen NEGATIVE (NEGATIVE)
[2021-01-15 21:56] LABS: Immunoglobulin G Subclass 1 365 mg/dL (382-929); Immunoglobulin G Subclass 2 211 mg/dL (241-700); Immunoglobulin G Subclass 3 14 mg/dL (22-178); Immunoglobulin G Subclass 4 37.4 mg/dL (4-86); Immunoglobulin G Total 728 mg/dL (600-1540)
[2021-01-16 08:52] LABS: Immunoglobulin E 5 kU/L (<OR=114)
[2021-01-19 15:41] LABS: Asperg fumigatus Precip Abs NEGATIVE (NEGATIVE); Micropoly faeni Abs NEGATIVE (NEGATIVE); Pigeon serum Abs NEGATIVE (NEGATIVE); Saccharo pora viridis Abs NEGATIVE (NEGATIVE); Thermo candidus Abs NEGATIVE (NEGATIVE); Thermoa vulgaris #1 NEGATIVE (NEGATIVE)
== END 2021-01-15 15:21 | disposition home health service (06) | DRG 197 ==
LOC: HO.ED 22:45 → HO.EDOVER 22:58 → HO.IMC 01-13 15:50
PROVIDERS: Hospitalist; Internal Medicine; Nurse Practitioner Family; Admitting Provider Hospitalist; Emergency Provider Emergency Medicine; PCP Internal Medicine; Visit Provider Internal Medicine
DX: J67.9 Hypersensitivity pneumonitis due to unspecified organic dust (principal); I48.20 Chronic atrial fibrillation, unspecified; I10 Essential (primary) hypertension; I25.10 Atherosclerotic heart disease of native coronary artery without angina pectoris; Z20.822 Contact with and (suspected) exposure to COVID-19; E78.5 Hyperlipidemia, unspecified; Z99.81 Dependence on supplemental oxygen; Z88.6 Allergy status to analgesic agent; Z79.01 Long term (current) use of anticoagulants; Z79.82 Long term (current) use of aspirin; Z79.899 Other long term (current) drug therapy
CPT/HCPCS: 36415; 71046; 71250; 80048; 81003; 82784; 82785; 83605; 84484; 85025; 85652; 86038; 86039; 86200; 86331; 86606; 86609; 87040; 87635; 93005; 94640; 99285; J2543; J2920

== ENCOUNTER 2021-01-26 12:07 | Emergency (ER) | payer MEDICARE, SELFPAY ==
--- NOTE | ~2021-01-26 | XR_ITS ---
EXAMINATION: XR CHEST CLINICAL INFORMATION: Chest pain. COMPARISON: Chest 01/12/2021 TECHNIQUE: 2 views of the chest were obtained. FINDINGS: The lungs are well-expanded without acute consolidation. There is bilateral reticular nodular opacities seen in both lungs similar to previous study likely chronic changes. The heart size and pulmonary vascularity is normal. No gross bony abnormality. XR/XR chest 2V IMPRESSION: Prominent bilateral reticular nodular changes likely chronic and unchanged to 01/12/2021
[2021-01-26 12:16] VITALS: BP 131/64; PULSE 67; RESP 16; TEMP 36.5; O2SAT 95; BMI 31.1
--- NOTE | 2021-01-26 15:35 | ECG_ITS ---
Test Reason : chest pain Blood Pressure : / mmHG Vent. Rate : 068 BPM Atrial Rate : 068 BPM P-R Int : 156 ms QRS Dur : 156 ms QT Int : 444 ms P-R-T Axes : 016 -50 -06 degrees QTc Int : 472 ms Sinus rhythm with frequent Premature ventricular complexes Right bundle branch block Left anterior fascicular block Bifascicular block Abnormal ECG When compared with ECG of 12-JAN-2021 16:35, No significant change was found Referred By: Keyana Moody Electronically Signed By:Suraj Alva
[2021-01-26 15:58] VITALS: BP 115/61; PULSE 69; RESP 16; O2SAT 95
[2021-01-26 16:12] LABS: MANUAL DIFF FLAG NO
[2021-01-26 16:14] LABS: Basophils Absolute Auto 0.1 X10*3/uL (0.0-0.2); Basophils Percent Auto 0.3 % (0-2); Eosinophils Absolute Auto 0.2 X10*3/uL (0.0-0.4); Eosinophils Percent Auto 1.2 % (0-4); Hematocrit 40.6 % (42.0-52.0); Hemoglobin 13.7 g/dl (14.0-18.0); Imm Gran Abs Auto 0.16 X10*3/uL (0.00-0.03); Imm Gran Pct Auto 1.1 % (0.0-0.4); Lymphocytes Absolute Auto 1.8 X10*3/uL (1.2-4.9); Lymphocytes Percent Auto 12.5 % (20-40); Mean Corpuscular HGB Conc 33.7 g/dl (31.0-36.0); Mean Corpuscular Hemoglobin 27.6 pg (27.0-33.0); Mean Corpuscular Volume 81.9 fL (80.0-98.0); Mean Platelet Volume 9.6 fL (9.4-12.4); Monocytes Absolute Auto 1.5 X10*3/uL (0.1-1.2); Monocytes Percent Auto 9.9 % (2-11); Neutrophils Absolute Auto 11.1 x10*3/uL (2.0-8.3); Platelet Count 224 X10*3/uL (160-400); Red Blood Count 4.96 X10*6/uL (4.60-5.80); Red Cell Distribution Width 15.5 % (11.0-16.0); White Blood Count 14.8 X10*3/uL (4.8-10.8)
[2021-01-26 16:28] LABS: COVID-19 Test Negative (Negative)
[2021-01-26 16:33] LABS: Alanine Aminotransferase 32 U/L (0-40); Albumin Level 3.1 g/dL (3.5-5.0); Alkaline Phosphatase 82 U/L (39-117); Anion Gap 13 (12-20); Aspartate Amino Transferase 29 U/L (5-37); Bilirubin Direct 0.5 mg/dL (0.0-0.5); Bilirubin Total 1.9 mg/dL (0.0-1.0); Blood Urea Nitrogen 15 mg/dL (9-16); Calcium 8.8 mg/dL (8.4-10.2); Carbon Dioxide 25 mmol/L (22-29); Chloride 104 mmol/L (96-108); Creatinine Clr Calc Pharmacy 93.2; Estimated Glomerular Filt Rate > 60; Glucose Random 76 mg/dL (60-115); Potassium 3.7 mmol/L (3.3-5.1); Sodium 138 mmol/L (135-145); Total Protein 5.4 g/dL (6.5-8.0)
[2021-01-26 16:38] LABS: B Type Natriuretic Peptide 38 pg/mL (<100); Troponin-I High Sensitivity 11.8 ng/L (<3.5-35.0)
--- NOTE | 2021-01-26 17:03 | ED.CHESTPAIN ---
HPI - Chest Pain General Chief Complaint: Chest Pain <JERMAIN Hannon - Last Filed: 01/26/21 17:51> Stated Complaint: Coughing, chest wall pain <JERMAIN Hannon - Last Filed: 01/26/21 17:51> Time Seen by Provider: 01/26/21 14:58 <JERMAIN Hannon - Last Filed: 01/26/21 17:51> Source: patient <JERMAIN Hannon - Last Filed: 01/26/21 17:51> History of Present Illness HPI narrative: 70-year-old male with a past medical history of HTN, HLD, interstitial lung disease, AFib on Eliquis, chronic respiratory failure on home oxygen at night, ESTELLA on CPAP, recently discharged from our facility on 01/15/21 for acute on chronic respiratory failure due to interstitial lung disease and likely hypersensitivity pneumonitis treated with IV steroids presenting to the ED complaining of left upper chest wall pain beginning last night worse with deep breathing coughing. Reports nonproductive cough, chills, mild SOB, and chronic LE edema. Admits to similar symptoms in the past. Denies fever, abdominal pain, nausea/vomiting, recent travel Reports compliance with Eliquis, denies missing doses <JERMAIN Hannon - Last Filed: 01/26/21 17:51> MD complaint: chest pain <JERMAIN Hannon - Last Filed: 01/26/21 17:51> Related Data Home Medications: Home Medications Medication Instructions Recorded Confirmed amlodipine 10 mg tablet 1 tab PO DAILY 12/16/20 01/13/21 ascorbic acid (vitamin C) 500 mg 500 mg PO DAILY 12/16/20 01/13/21 tablet (Vitamin C) atorvastatin 80 mg tablet 1 tab PO BEDTIME 12/16/20 01/13/21 metoprolol succinate 25 mg 1 tab PO DAILY 12/16/20 01/13/21 tablet,extended release 24 hr olmesartan 40 1 tab PO DAILY 12/16/20 01/13/21 mg-hydrochlorothiazide 25 mg tablet omeprazole 40 mg capsule,delayed 1 cap PO DAILY 12/16/20 01/13/21 release tolterodine 4 mg capsule,extended 1 cap PO DAILY 12/16/20 01/13/21 release 24 hr aspirin 81 mg tablet,delayed 81 mg PO DAILY 12/27/20 01/13/21 release cholecalciferol (vitamin D3) 50 50 mcg PO BEDTIME 12/27/20 01/13/21 mcg (2,000 unit) tablet (Vitamin D3) apixaban 5 mg tablet (Eliquis) 5 mg PO BID 01/04/21 01/13/21 prednisone 10 mg tablet 10 mg PO DAILY 01/04/21 01/13/21 Previous Rx's Medication Instructions Recorded prednisone 10 mg tablet See Taper PO DAILY #30 tab 01/15/21 dexamethasone 6 mg tablet 6 mg PO DAILY #7 tab 01/26/21 (Decadron) <JERMAIN Hannon - Last Filed: 01/26/21 17:51> Allergies/Adverse Reactions: Allergies Allergy/AdvReac Type Severity Reaction Status Date / Time ibuprofen [Ibuprofen] Allergy Intermediate HIVES/JOINT Verified 01/12/21 11:32 SWELLING <JERMAIN Hannon - Last Filed: 01/26/21 17:51> Review of Systems Review of Systems: Constitutional: No Fever, No Chills, No Fatigue, No Malaise ENT/Mouth: No Ear Pain, No Nasal Congestion, No Hoarseness, No sore throat, No Rhinorrhea, No Swallowing Difficulty Eyes: No Eye Pain, No Swelling, No Redness, No Discharge Cardiovascular: + Chest Pain, + SOB, No Dyspnea on Exertion, No Orthopnea, + Edema, No Palpitations Respiratory: + Cough, No Sputum, No Wheezing, No Smoke Exposure, No Dyspnea Gastrointestinal: No Nausea, No Vomiting, No Diarrhea, No Constipation, No Abdominal pain Genitourinary: No Dysuria, No Urinary Frequency, No Flank Pain Musculoskeletal: No joint pain, No Myalgias, No Joint Swelling Skin: No Skin Lesions, No rash Neuro: No Weakness, NNo Dizziness, No Headache <JERMAIN Hannon - Last Filed: 01/26/21 17:51> Yes all other systems are reviewed and are negative <JERMAIN Hannon - Last Filed: 01/26/21 17:51> PMFSH Past Medical History Attestation statement: The following information was validated with the patient. <JERMAIN Hannon Last Filed: 01/26/21 17:51> Medical History: Medical History Atherosclerotic cardiovascular disease Bifascicular block Essential hypertension ILD (interstitial lung disease) Pneumonia Pulmonary embolism PVC (premature ventricular contraction) <JERMAIN Hannon - Last Filed: 01/26/21 17:51> Family History Family History: Family History Mother No problems noted. Father No problems noted. <JERMAIN Hannon - Last Filed: 01/26/21 17:51> Social History Social History: Social History Household Members: Spouse Housing: House Do you presently have visiting nurse or other home services: Yes ([facility], physical therapist) Unable to assess alcohol history related to: Unknown Alcohol intake: unknown Patient Tobacco Use Status: Never used Tobacco Use of substances other than those prescribed or required for medical reasons: No Advance Directives: Yes Advance Directives on File: Yes Advance Directives Date on File: 12/28/20 service: No Current occupational status: retired <JERMAIN Hannon - Last Filed: 01/26/21 17:51> Physical Exam Vital Signs: Vital Signs: Last Vital Signs Temp 97.7 F 01/26/21 12:16 Pulse 67 01/26/21 19:12 Resp 20 01/26/21 19:12 BP 118/59 L 01/26/21 19:12 Pulse Ox 94 01/26/21 19:12 BMI result Body Mass Index 31.1 <JERMAIN Hannon - Last Filed: 01/26/21 17:51> Vital Signs: Last Vital Signs Temp 97.7 F 01/26/21 12:16 Pulse 67 01/26/21 19:12 Resp 20 01/26/21 19:12 BP 118/59 L 01/26/21 19:12 Pulse Ox 94 01/26/21 19:12 BMI result Body Mass Index 31.1 <Tomy Jay MD - Last Filed: 01/26/21 20:38> Const: General: cooperative, healthy appearing and no acute distress <JERMAIN Hannon - Last Filed: 01/26/21 17:51> Orientation/consciousness: patient oriented x3 <JERMAIN Hannon - Last Filed: 01/26/21 17:51> Limitations: no limitations <Keyana Moody [facility] Last Filed: 01/26/21 17:51> HENMT: Head: Yes normal to inspection <Keyana Moody [facility] Last Filed: 01/26/21 17:51> Ears: hearing grossly normal bilaterally <Keyana Moody [facility] Last Filed: 01/26/21 17:51> General nose exam: Normal external nose present <Keyana Moody [facility] Last Filed: 01/26/21 17:51> Face and sinus: Yes normal facial exam <Keyana Moody [facility] Last Filed: 01/26/21 17:51> Eyes: General: appearance normal, both eyes and all related structures <Keyana Moody [facility] Last Filed: 01/26/21 17:51> EOM: EOMs intact bilaterally <Keyana Moody [facility] Last Filed: 01/26/21 17:51> Neck: Neck: Yes normal visual inspection, Yes no meningeal signs and Yes supple <Keyana Moody [place] - Last Filed: 01/26/21 17:51> Chest: Chest palpation & inspection: normal inspection of the chest, no crepitus and no tenderness <Keyana Moody [facility] Last Filed: 01/26/21 17:51> Resp: Effort & Inspection: normal respiratory effort and no respiratory distress <Keyana Moody [facility] Last Filed: 01/26/21 17:51> Auscultation: clear to auscultation bilaterally, no crackles, no rales, no rhonchi and no wheezes <Keyana Moody [facility] Last Filed: 01/26/21 17:51> Cardio: Rate: regular rate <Keyana Moody [facility] Last Filed: 01/26/21 17:51> Heart sounds: S1 normal heart sound present and S2 normal heart sound present <Keyana Moody [facility] Last Filed: 01/26/21 17:51> GI: Inspection: Yes normal to inspection <Keyana Moody [facility] Last Filed: 01/26/21 17:51> Palpation (GI): Soft to palpation, nontender, no guarding and not rigid <Keyana Moody [facility] Last Filed: 01/26/21 17:51> Skin: Rashes: no rashes <JERMAIN Hannon - Last Filed: 01/26/21 17:51> Wounds: no wounds <JERMAIN Hannon - Last Filed: 01/26/21 17:51> Neuro: General: patient oriented x3 and no meningeal signs <JERMAIN Hannon - Last Filed: 01/26/21 17:51> Gait exam (Neuro): Normal gait present <JERMAIN Hannon - Last Filed: 01/26/21 17:51> Extrem: Other: 1+ bilateral LE pitting edema <JERMAIN Hannon - Last Filed: 01/26/21 17:51> Course Course Course Narrative: -1718--leukocytosis of 14.8 likely from recent prednisone which was completed yesterday. H&H at patient's baseline -initial troponin 11.8 > will obtain 3 hour repeat. -COVID-19 negative XR chest 2V IMPRESSION: Prominent bilateral reticular nodular changes likely chronic and unchanged to 01/12/2021 -patient maintain O2 sat 95% during ambulation on RA -1800--ED care transferred to Dr. Jay pending repeat troponin at 7:00 p.m. <JERMAIN Hannon - Last Filed: 01/26/21 17:51> Reevaluation(s) Reevaluation #1: Be saturating 92% at room air has oxygen at home chest x-ray negative repeat troponin negative patient just admitted with eosinophilic pneumonitis was on prednisone will restart him on Decadron for 7 days Radha continue albuterol treatment and continue oxygen as needed during daytime also <Tomy Jay MD - Last Filed: 01/26/21 20:38> Time: 20:27 <Tomy Jay MD - Last Filed: 01/26/21 20:38> MDM - Chest Pain MDM Narrative Medical decision making narrative: 70-year-old male with a past medical history of HTN, HLD, interstitial lung disease, AFib on Eliquis, chronic respiratory failure on home oxygen at night, ESTELLA on CPAP, recently discharged from our facility on 01/15/21 for acute on chronic respiratory failure due to interstitial lung disease and likely hypersensitivity pneumonitis treated with IV steroids presenting to the ED complaining of left upper chest wall pain beginning last night worse with deep breathing coughing. Reports nonproductive cough, chills, mild SOB, and chronic LE edema. On exam vital signs stable, NAD, nontoxic, lungs CTA, 1+ bilateral pitting edema. Low concern for PE as patient is anticoagulated and compliant with meds. R/o Covid-19/viral syndrome vs pneumonia vs hypersensitivity pneumonitis Plan: EKG, labs, CXR, COVID-19 testing <JERMAIN Hannon - Last Filed: 01/26/21 17:51> 70-year-old male with a past medical history of HTN, HLD, interstitial lung disease, AFib on Eliquis, chronic respiratory failure on home oxygen at night, ESTELLA on CPAP, recently discharged from our facility on 01/15/21 for acute on chronic respiratory failure due to interstitial lung disease and likely hypersensitivity pneumonitis treated with IV steroids presenting to the ED complaining of left upper chest wall pain beginning last night worse with deep breathing coughing. Reports nonproductive cough, chills, mild SOB, and chronic LE edema. On exam vital signs stable, NAD, nontoxic, lungs CTA, 1+ bilateral pitting edema. Low concern for PE as patient is anticoagulated and compliant with meds. R/o Covid-19/viral syndrome vs pneumonia vs hypersensitivity pneumonitis Plan: EKG, labs, CXR, COVID-19 testing <Tomy Jay MD - Last Filed: 01/26/21 20:38> Medical Records Data Attestation: I reviewed the patient's medical records. <JERMAIN Hannon - Last Filed: 01/26/21 17:51> Lab Data Attestation: I reviewed the patient's lab results. <JERMAIN Hannon - Last Filed: 01/26/21 17:51> Result diagrams: : 01/26/21 16:09 01/26/21 16:09 <JERMAIN Hannon - Last Filed: 01/26/21 17:51> Labs: Lab Results 01/26/21 01/26/21 01/26/21 Range/Units 16:04 16:09 16:09 WBC 14.8 H (4.8-10.8) X10*3/uL RBC 4.96 (4.60-5.80) X10*6/uL Hgb 13.7 L (14.0-18.0) g/dl Hct 40.6 L (42.0-52.0) % MCV 81.9 (80.0-98.0) fL MCH 27.6 (27.0-33.0) pg MCHC 33.7 (31.0-36.0) g/dl RDW 15.5 (11.0-16.0) % Plt Count 224 (160-400) X10*3/uL MPV 9.6 (9.4-12.4) fL Immature Gran % (Auto) 1.1 H (0.0-0.4) % Neut % (Auto) 75.0 H (45-73) % Lymph % (Auto) 12.5 L (20-40) % [place] % (Auto) 9.9 (2-11) % Eos % (Auto) 1.2 (0-4) % Baso % (Auto) 0.3 (0-2) % Lymph # (Auto) 1.8 (1.2-4.9) X10*3/uL [place] # (Auto) 1.5 H (0.1-1.2) X10*3/uL Eos # (Auto) 0.2 (0.0-0.4) X10*3/uL Baso # (Auto) 0.1 (0.0-0.2) X10*3/uL Abs Immat Gran (auto) 0.16 H (0.00-0.03) X10*3/uL Absolute Neuts (auto) 11.1 H (2.0-8.3) x10*3/uL Absolute Nucleated RBC 0.000 (0.0-0.012) X10*3/uL Nucleated RBC % (auto) 0.0 (0.0-0.2) /100WBC Sodium 138 (135-145) mmol/L Potassium 3.7 (3.3-5.1) mmol/L Chloride 104 (96-108) mmol/L Carbon Dioxide 25 (22-29) mmol/L Anion Gap 13 (12-20) BUN 15 (9-16) mg/dL Creatinine 0.79 (0.5-1.4) mg/dL Estim Creat Clear Calc 93.2 Estimated GFR > 60 Random Glucose 76 D (60-115) mg/dL Calcium 8.8 (8.4-10.2) mg/dL Magnesium 2.0 (1.6-2.6) mg/dL Total Bilirubin 1.9 H (0.0-1.0) mg/dL Direct Bilirubin 0.5 (0.0-0.5) mg/dL AST 29 (5-37) U/L ALT 32 (0-40) U/L Alkaline Phosphatase 82 (39-117) U/L Troponin I High Sens (<3.5-35.0) ng/L B-Natriuretic Peptide (<100) pg/mL Total Protein 5.4 L (6.5-8.0) g/dL Albumin 3.1 L (3.5-5.0) g/dL COVID-19 (DONALD) Negative (Negative) COVID-19 Clin Com See Note 01/26/21 01/26/21 Range/Units 16:09 19:16 WBC (4.8-10.8) X10*3/uL RBC (4.60-5.80) X10*6/uL Hgb (14.0-18.0) g/dl Hct (42.0-52.0) % MCV (80.0-98.0) fL MCH (27.0-33.0) pg MCHC (31.0-36.0) g/dl RDW (11.0-16.0) % Plt Count (160-400) X10*3/uL MPV (9.4-12.4) fL Immature Gran % (Auto) (0.0-0.4) % Neut % (Auto) (45-73) % Lymph % (Auto) (20-40) % [place] % (Auto) (2-11) % Eos % (Auto) (0-4) % Baso % (Auto) (0-2) % Lymph # (Auto) (1.2-4.9) X10*3/uL [place] # (Auto) (0.1-1.2) X10*3/uL Eos # (Auto) (0.0-0.4) X10*3/uL Baso # (Auto) (0.0-0.2) X10*3/uL Abs Immat Gran (auto) (0.00-0.03) X10*3/uL Absolute Neuts (auto) (2.0-8.3) x10*3/uL Absolute Nucleated RBC (0.0-0.012) X10*3/uL Nucleated RBC % (auto) (0.0-0.2) /100WBC Sodium (135-145) mmol/L Potassium (3.3-5.1) mmol/L Chloride (96-108) mmol/L Carbon Dioxide (22-29) mmol/L Anion Gap (12-20) BUN (9-16) mg/dL Creatinine (0.5-1.4) mg/dL Estim Creat Clear Calc Estimated GFR Random Glucose (60-115) mg/dL Calcium (8.4-10.2) mg/dL Magnesium (1.6-2.6) mg/dL Total Bilirubin (0.0-1.0) mg/dL Direct Bilirubin (0.0-0.5) mg/dL AST (5-37) U/L ALT (0-40) U/L Alkaline Phosphatase (39-117) U/L Troponin I High Sens 11.8 12.9 (<3.5-35.0) ng/L B-Natriuretic Peptide 38 (<100) pg/mL Total Protein (6.5-8.0) g/dL Albumin (3.5-5.0) g/dL COVID-19 (DONALD) (Negative) COVID-19 Clin Com <JERMAIN Hannon - Last Filed: 01/26/21 17:51> Lab Results 01/26/21 01/26/21 01/26/21 Range/Units 16:04 16:09 16:09 WBC 14.8 H (4.8-10.8) X10*3/uL RBC 4.96 (4.60-5.80) X10*6/uL Hgb 13.7 L (14.0-18.0) g/dl Hct 40.6 L (42.0-52.0) % MCV 81.9 (80.0-98.0) fL MCH 27.6 (27.0-33.0) pg MCHC 33.7 (31.0-36.0) g/dl RDW 15.5 (11.0-16.0) % Plt Count 224 (160-400) X10*3/uL MPV 9.6 (9.4-12.4) fL Immature Gran % (Auto) 1.1 H (0.0-0.4) % Neut % (Auto) 75.0 H (45-73) % Lymph % (Auto) 12.5 L (20-40) % [place] % (Auto) 9.9 (2-11) % Eos % (Auto) 1.2 (0-4) % Baso % (Auto) 0.3 (0-2) % Lymph # (Auto) 1.8 (1.2-4.9) X10*3/uL [place] # (Auto) 1.5 H (0.1-1.2) X10*3/uL Eos # (Auto) 0.2 (0.0-0.4) X10*3/uL Baso # (Auto) 0.1 (0.0-0.2) X10*3/uL Abs Immat Gran (auto) 0.16 H (0.00-0.03) X10*3/uL Absolute Neuts (auto) 11.1 H (2.0-8.3) x10*3/uL Absolute Nucleated RBC 0.000 (0.0-0.012) X10*3/uL Nucleated RBC % (auto) 0.0 (0.0-0.2) /100WBC Sodium 138 (135-145) mmol/L Potassium 3.7 (3.3-5.1) mmol/L Chloride 104 (96-108) mmol/L Carbon Dioxide 25 (22-29) mmol/L Anion Gap 13 (12-20) BUN 15 (9-16) mg/dL Creatinine 0.79 (0.5-1.4) mg/dL Estim Creat Clear Calc 93.2 Estimated GFR > 60 Random Glucose 76 D (60-115) mg/dL Calcium 8.8 (8.4-10.2) mg/dL Magnesium 2.0 (1.6-2.6) mg/dL Total Bilirubin 1.9 H (0.0-1.0) mg/dL Direct Bilirubin 0.5 (0.0-0.5) mg/dL AST 29 (5-37) U/L ALT 32 (0-40) U/L Alkaline Phosphatase 82 (39-117) U/L Troponin I High Sens (<3.5-35.0) ng/L B-Natriuretic Peptide (<100) pg/mL Total Protein 5.4 L (6.5-8.0) g/dL Albumin 3.1 L (3.5-5.0) g/dL COVID-19 (DONALD) Negative (Negative) COVID-19 Clin Com See Note 01/26/21 01/26/21 Range/Units 16:09 19:16 WBC (4.8-10.8) X10*3/uL RBC (4.60-5.80) X10*6/uL Hgb (14.0-18.0) g/dl Hct (42.0-52.0) % MCV (80.0-98.0) fL MCH (27.0-33.0) pg MCHC (31.0-36.0) g/dl RDW (11.0-16.0) % Plt Count (160-400) X10*3/uL MPV (9.4-12.4) fL Immature Gran % (Auto) (0.0-0.4) % Neut % (Auto) (45-73) % Lymph % (Auto) (20-40) % [place] % (Auto) (2-11) % Eos % (Auto) (0-4) % Baso % (Auto) (0-2) % Lymph # (Auto) (1.2-4.9) X10*3/uL [place] # (Auto) (0.1-1.2) X10*3/uL Eos # (Auto) (0.0-0.4) X10*3/uL Baso # (Auto) (0.0-0.2) X10*3/uL Abs Immat Gran (auto) (0.00-0.03) X10*3/uL Absolute Neuts (auto) (2.0-8.3) x10*3/uL Absolute Nucleated RBC (0.0-0.012) X10*3/uL Nucleated RBC % (auto) (0.0-0.2) /100WBC Sodium (135-145) mmol/L Potassium (3.3-5.1) mmol/L Chloride (96-108) mmol/L Carbon Dioxide (22-29) mmol/L Anion Gap (12-20) BUN (9-16) mg/dL Creatinine (0.5-1.4) mg/dL Estim Creat Clear Calc Estimated GFR Random Glucose (60-115) mg/dL Calcium (8.4-10.2) mg/dL Magnesium (1.6-2.6) mg/dL Total Bilirubin (0.0-1.0) mg/dL Direct Bilirubin (0.0-0.5) mg/dL AST (5-37) U/L ALT (0-40) U/L Alkaline Phosphatase (39-117) U/L Troponin I High Sens 11.8 12.9 (<3.5-35.0) ng/L B-Natriuretic Peptide 38 (<100) pg/mL Total Protein (6.5-8.0) g/dL Albumin (3.5-5.0) g/dL COVID-19 (DONALD) (Negative) COVID-19 Clin Com <Tomy Jay MD - Last Filed: 01/26/21 20:38> Discharge Plan Discharge Clinical Impression: Atypical chest pain, Bronchitis <JERMAIN Hannon - Last Filed: 01/26/21 17:51> Patient Disposition: Home, Self-Care <JERMAIN Hannon - Last Filed: 01/26/21 17:51> Instructions: Chest Pain (ED) <JERMAIN Hannon - Last Filed: 01/26/21 17:51> Additional Instructions: Your blood work and chest x-ray are reassuring today in the ED You maintained good saturation while ambulating It is important that you continue taking previously prescribed medications and you follow-up with pulmonology Use oxygen at home as advised Use albuterol inhaler as needed for shortness of breath, start taking Decadron daily for next 7 days If symptoms persist or worsen you have constant or worsening chest pain, shortness breath, or fever, or worsening swelling in her legs please return to the ED <JERMAIN Hannon - Last Filed: 01/26/21 17:51> Prescriptions: New dexamethasone [Decadron] 6 mg tablet 6 mg PO DAILY Qty: 7 RF: 0 No Action atorvastatin 80 mg tablet 1 tab PO BEDTIME RF: 0 tolterodine 4 mg capsule,extended release 24hr 1 cap PO DAILY RF: 0 omeprazole 40 mg capsule,delayed release(DR/EC) 1 cap PO DAILY RF: 0 amlodipine 10 mg tablet 1 tab PO DAILY RF: 0 metoprolol succinate 25 mg tablet extended release 24 hr 1 tab PO DAILY RF: 0 olmesartan-hydrochlorothiazide 40-25 mg tablet 1 tab PO DAILY RF: 0 ascorbic acid (vitamin C) [Vitamin C] 500 mg Tablet 500 mg PO DAILY RF: 0 prednisone 10 mg tablet 10 mg PO DAILY RF: 0 Eliquis 5 mg tablet 5 mg PO BID RF: 0 prednisone 10 mg tablet See Taper mg PO DAILY Qty: 30 RF: 0 aspirin 81 mg Tablet,Delayed Release (Dr/Ec) 81 mg PO DAILY RF: 0 cholecalciferol (vitamin D3) [Vitamin D3] 50 mcg (2,000 unit) Tablet 50 mcg PO BEDTIME RF: 0 <JERMAIN Hannon - Last Filed: 01/26/21 17:51> Referrals: Chan Vasquez MD [Physician] - 2 days <JERMAIN Hannon - Last Filed: 01/26/21 17:51> Interventions: ED Discharge Assessment Last Done: 01/26/21 20:28 <JERMAIN Hannon - Last Filed: 01/26/21 17:51> Discharge Date/Time: 01/26/21 20:37 <JERMAIN Hannon - Last Filed: 01/26/21 17:51>
[2021-01-26 19:12] VITALS: BP 118/59; PULSE 67; RESP 20; O2SAT 94
[2021-01-26 19:46] LABS: Troponin-I High Sensitivity 12.9 ng/L (<3.5-35.0)
[2021-01-26] MEDS: methylPREDNISolone Sod Succ 125 MG/2 ML VIAL IVPUSH (20:24)
== END 2021-01-26 20:37 | disposition home or self-care (01) ==
PROVIDERS: Physician Assistant; Emergency Provider Internal Medicine
DX: J40 Bronchitis, not specified as acute or chronic (principal); R07.9 Chest pain, unspecified; R06.02 Shortness of breath; I10 Essential (primary) hypertension; I48.91 Unspecified atrial fibrillation; Z20.822 Contact with and (suspected) exposure to COVID-19; Z79.01 Long term (current) use of anticoagulants; Z79.899 Other long term (current) drug therapy
CPT/HCPCS: 36415; 71046; 80048; 80076; 83735; 83880; 84484; 85025; 87635; 93005; 96374; 99284; 99285; J2930

== ENCOUNTER 2021-04-12 18:44 | Observation (INO) | payer OTHER, SELFPAY ==
--- NOTE | ~2021-04-12 | XR_ITS ---
EXAMINATION: PORTABLE CHEST 1 VIEW CLINICAL INFORMATION: chest pain . COMPARISON: 01/26/2021. TECHNIQUE: Portable frontal view of the chest was obtained. FINDINGS: Lungs are well expanded. There is coarsened chronic appearing reticular markings again seen bilaterally with a distribution similar to the 01/26/2021 exam. I do not appreciate any new dense consolidation, effusion, edema, or pneumothorax. Cardiac and mediastinal silhouettes within normal limits for size. Degenerative changes in the spine and shoulders. XR/XR chest 1V IMPRESSION: Chronic appearing changes similar to the 01/26/2021 study.
[2021-04-12 18:47] VITALS: PULSE 61; RESP 16; TEMP 37.3; O2SAT 98; BMI 31.1
--- NOTE | 2021-04-12 18:52 | ECG_ITS ---
Test Reason : CHEST PAIN Blood Pressure : / mmHG Vent. Rate : 076 BPM Atrial Rate : 076 BPM P-R Int : 164 ms QRS Dur : 156 ms QT Int : 000 ms P-R-T Axes : 079 -61 -05 degrees QTc Int : 000 ms Sinus rhythm with frequent Premature ventricular complexes and Premature atrial complexes Right bundle branch block Left anterior fascicular block Bifascicular block Abnormal ECG When compared with ECG of 26-JAN-2021 16:05, Premature atrial complexes are now Present (QT calculation not accuarte due to frequent ectopy) Referred By: Generic ED Physician Electronically Signed By:VASHTI MEJIAS
[2021-04-12 19:02] VITALS: BP 166/58
--- NOTE | 2021-04-12 19:17 | ED.CHESTPAIN ---
HPI - Chest Pain General Chief Complaint: Chest Pain Stated Complaint: Chest pain Time Seen by Provider: 04/12/21 19:17 Source: patient Mode of arrival: ambulatory Limitations: no limitations History of Present Illness HPI narrative: Patient with history of hypertension no known coronary artery disease had nuclear stress test 02/14/2022 for routine checkup which was negative had PE on 12/07 secondary to lung biopsy on Eliquis was doing usual chores today around 15:00 notice heaviness in the mid chest radiating to bilateral chest, took 5 Tums without much response patient is on Prilosec every day which he has been taking no shortness of breath no diaphoresis Related Data Home Medications Medication Instructions Recorded Confirmed amlodipine 10 mg tablet 1 tab PO DAILY 12/16/20 01/13/21 ascorbic acid (vitamin C) 500 mg 500 mg PO DAILY 12/16/20 01/13/21 tablet (Vitamin C) atorvastatin 80 mg tablet 1 tab PO BEDTIME 12/16/20 01/13/21 metoprolol succinate 25 mg 1 tab PO DAILY 12/16/20 01/13/21 tablet,extended release 24 hr olmesartan 40 1 tab PO DAILY 12/16/20 01/13/21 mg-hydrochlorothiazide 25 mg tablet omeprazole 40 mg capsule,delayed 1 cap PO DAILY 12/16/20 01/13/21 release tolterodine 4 mg capsule,extended 1 cap PO DAILY 12/16/20 01/13/21 release 24 hr aspirin 81 mg tablet,delayed 81 mg PO DAILY 12/27/20 01/13/21 release cholecalciferol (vitamin D3) 50 50 mcg PO BEDTIME 12/27/20 01/13/21 mcg (2,000 unit) tablet (Vitamin D3) apixaban 5 mg tablet (Eliquis) 5 mg PO BID 01/04/21 01/13/21 prednisone 10 mg tablet 10 mg PO DAILY 01/04/21 01/13/21 Previous Rx's Medication Instructions Recorded prednisone 10 mg tablet See Taper PO DAILY #30 tab 01/15/21 dexamethasone 6 mg tablet 6 mg PO DAILY #7 tab 01/26/21 (Decadron) Allergies Allergy/AdvReac Type Severity Reaction Status Date / Time ibuprofen [Ibuprofen] Allergy Intermediate HIVES/JOINT Verified 04/12/21 18:46 SWELLING Review of Systems Review of Systems: Yes all other systems are reviewed and are negative PMFSH Past Medical History Medical History Atherosclerotic cardiovascular disease Bifascicular block Essential hypertension ILD (interstitial lung disease) Pneumonia Pulmonary embolism PVC (premature ventricular contraction) Family History Family History Mother No problems noted. Father No problems noted. Social History Social History Household Members: Spouse Housing: House Do you presently have visiting nurse or other home services: Yes ([facility], physical therapist) Unable to assess alcohol history related to: Unknown Alcohol intake: unknown Patient Tobacco Use Status: Never used Tobacco Advance Directives: Yes Advance Directives on File: Yes Advance Directives Date on File: 12/28/20 service: No Current occupational status: retired Physical Exam Vital Signs: Vital Signs: Last Vital Signs Temp 98.4 F 04/13/21 00:53 Pulse 63 04/13/21 00:53 Resp 20 04/13/21 00:53 BP 133/70 04/13/21 00:53 Pulse Ox 92 04/13/21 00:53 BMI result Body Mass Index 31.1 Appearance: Alert. Oriented X3. No acute distress. Eyes: No pallor or icterus ENT: Pharynx normal. Oral Mucosa moist Neck: Normal inspection. Neck supple. CVS: Normal heart rate and rhythm. Pulses normal. Respiratory: No respiratory distress. Equal air entry bilateral, no wheezing/rales/rhonchi Abdomen: Soft and nontender. Bowel sounds are present, no mass palpable, no CVA tenderness Skin: Skin warm and dry. Normal skin color. Normal skin turgor. Extremities: No lower extremity edema. No calf tenderness Neuro: Oriented X 3. No motor deficit. No sensory deficit.No cerebellar signs , cranial nerves II-XII intact MDM - Chest Pain MDM Narrative Medical decision making narrative: Patient with chest pain feels heaviness started at 14:00 today lasted for 3 hours EKG without any acute ischemic changes showed bifascicular block patient already on aspirin Eliquis with check the troponin Initial troponin 14.4 patient has recent nuclear stress test less than 3 months ago has a high heart score will repeat troponin plan to admit Repeat open same without any delta change case discussed Dr. Gutierres advised to admit the pain for chest pain rule out ACS Medical Records Data Attestation: I reviewed the patient's medical records. Lab Data Attestation: I reviewed the patient's lab results. Result diagrams: 04/12/21 20:06 04/12/21 20:06 Labs: Lab Results 04/12/21 04/12/21 04/12/21 Range/Units 20:06 20:06 20:06 WBC 9.3 (4.8-10.8) X10*3/uL RBC 5.90 H (4.60-5.80) X10*6/uL Hgb 15.6 (14.0-18.0) g/dl Hct 47.1 (42.0-52.0) % MCV 79.8 L (80.0-98.0) fL MCH 26.4 L (27.0-33.0) pg MCHC 33.1 (31.0-36.0) g/dl RDW 14.0 (11.0-16.0) % Plt Count 292 D (160-400) X10*3/uL MPV 9.2 L (9.4-12.4) fL Immature Gran % (Auto) 0.3 (0.0-0.4) % Neut % (Auto) 67.5 (45-73) % Lymph % (Auto) 19.8 L (20-40) % [place] % (Auto) 8.7 (2-11) % Eos % (Auto) 2.8 (0-4) % Baso % (Auto) 0.9 (0-2) % Lymph # (Auto) 1.8 (1.2-4.9) X10*3/uL [place] # (Auto) 0.8 (0.1-1.2) X10*3/uL Eos # (Auto) 0.3 (0.0-0.4) X10*3/uL Baso # (Auto) 0.1 (0.0-0.2) X10*3/uL Abs Immat Gran (auto) 0.03 (0.00-0.03) X10*3/uL Absolute Neuts (auto) 6.3 (2.0-8.3) x10*3/uL Absolute Nucleated RBC 0.000 (0.0-0.012) X10*3/uL Nucleated RBC % (auto) 0.0 (0.0-0.2) /100WBC PT (9.9-13.0) SEC INR (0.9-1.1) APTT (24.1-38.0) SEC Sodium 141 (135-145) mmol/L Potassium 3.6 (3.3-5.1) mmol/L Chloride 103 (96-108) mmol/L Carbon Dioxide 30 H (22-29) mmol/L Anion Gap 12 (12-20) BUN 13 (9-16) mg/dL Creatinine 0.88 (0.5-1.4) mg/dL Estim Creat Clear Calc 86.4 Estimated GFR > 60 Random Glucose 107 D (60-115) mg/dL Calcium 9.8 D (8.4-10.2) mg/dL Troponin I High Sens 14.4 (<3.5-35.0) ng/L COVID-19 (DONALD) (Negative) COVID-19 Clin Com 04/12/21 04/12/21 04/12/21 Range/Units 20:06 20:06 23:48 WBC (4.8-10.8) X10*3/uL RBC (4.60-5.80) X10*6/uL Hgb (14.0-18.0) g/dl Hct (42.0-52.0) % MCV (80.0-98.0) fL MCH (27.0-33.0) pg MCHC (31.0-36.0) g/dl RDW (11.0-16.0) % Plt Count (160-400) X10*3/uL MPV (9.4-12.4) fL Immature Gran % (Auto) (0.0-0.4) % Neut % (Auto) (45-73) % Lymph % (Auto) (20-40) % [place] % (Auto) (2-11) % Eos % (Auto) (0-4) % Baso % (Auto) (0-2) % Lymph # (Auto) (1.2-4.9) X10*3/uL [place] # (Auto) (0.1-1.2) X10*3/uL Eos # (Auto) (0.0-0.4) X10*3/uL Baso # (Auto) (0.0-0.2) X10*3/uL Abs Immat Gran (auto) (0.00-0.03) X10*3/uL Absolute Neuts (auto) (2.0-8.3) x10*3/uL Absolute Nucleated RBC (0.0-0.012) X10*3/uL Nucleated RBC % (auto) (0.0-0.2) /100WBC PT 14.0 H (9.9-13.0) SEC INR 1.2 H (0.9-1.1) APTT 37.4 (24.1-38.0) SEC Sodium (135-145) mmol/L Potassium (3.3-5.1) mmol/L Chloride (96-108) mmol/L Carbon Dioxide (22-29) mmol/L Anion Gap (12-20) BUN (9-16) mg/dL Creatinine (0.5-1.4) mg/dL Estim Creat Clear Calc Estimated GFR Random Glucose (60-115) mg/dL Calcium (8.4-10.2) mg/dL Troponin I High Sens 14.4 (<3.5-35.0) ng/L COVID-19 (DONALD) Negative (Negative) COVID-19 Clin Com See Note Discharge Plan Discharge Clinical Impression: Chest pain Patient Disposition: Admitted As Inpatient
[2021-04-12 20:00] VITALS: BP 158/68; PULSE 71; RESP 20; O2SAT 96
[2021-04-12 20:13] LABS: MANUAL DIFF FLAG NO
[2021-04-12 20:15] LABS: Basophils Absolute Auto 0.1 X10*3/uL (0.0-0.2); Basophils Percent Auto 0.9 % (0-2); Eosinophils Absolute Auto 0.3 X10*3/uL (0.0-0.4); Eosinophils Percent Auto 2.8 % (0-4); Hematocrit 47.1 % (42.0-52.0); Hemoglobin 15.6 g/dl (14.0-18.0); Imm Gran Abs Auto 0.03 X10*3/uL (0.00-0.03); Imm Gran Pct Auto 0.3 % (0.0-0.4); Lymphocytes Absolute Auto 1.8 X10*3/uL (1.2-4.9); Lymphocytes Percent Auto 19.8 % (20-40); Mean Corpuscular HGB Conc 33.1 g/dl (31.0-36.0); Mean Corpuscular Hemoglobin 26.4 pg (27.0-33.0); Mean Corpuscular Volume 79.8 fL (80.0-98.0); Mean Platelet Volume 9.2 fL (9.4-12.4); Monocytes Absolute Auto 0.8 X10*3/uL (0.1-1.2); Monocytes Percent Auto 8.7 % (2-11); Neutrophils Absolute Auto 6.3 x10*3/uL (2.0-8.3); Neutrophils Percent Auto 67.5 % (45-73); Platelet Count 292 X10*3/uL (160-400); White Blood Count 9.3 X10*3/uL (4.8-10.8)
[2021-04-12 20:20] LABS: INTERNATIONAL NORM RATIO 1.2 (0.9-1.1)
[2021-04-12 20:22] LABS: Partial Thromboplastin Time 37.4 SEC (24.1-38.0)
[2021-04-12 20:28] LABS: COVID-19 Test Negative (Negative)
[2021-04-12 20:29] LABS: Anion Gap 12 (12-20); Blood Urea Nitrogen 13 mg/dL (9-16); Calcium 9.8 mg/dL (8.4-10.2); Carbon Dioxide 30 mmol/L (22-29); Chloride 103 mmol/L (96-108); Creatinine Clr Calc Pharmacy 86.4; Estimated Glomerular Filt Rate > 60; Glucose Random 107 mg/dL (60-115); Potassium 3.6 mmol/L (3.3-5.1); Sodium 141 mmol/L (135-145)
[2021-04-12 20:34] LABS: Troponin-I High Sensitivity 14.4 ng/L (<3.5-35.0)
[2021-04-12 20:40] VITALS: BP 157/77; PULSE 67
[2021-04-12] MEDS: Nitroglycerin 2 % Oint 1 GM Packet 1 INCH TRANSDERMA (20:40)
[2021-04-12 22:00] VITALS: BP 144/68; PULSE 69; RESP 16; O2SAT 91
[2021-04-13] VITALS (7 sets, daily range): BP systolic 121–133; BP diastolic 61–70; PULSE 57–68; RESP 12–20; TEMP 36.7–36.9; O2SAT 92–94
--- NOTE | 2021-04-13 | ECG_ITS ---
Test Reason : chest pain Blood Pressure : / mmHG Vent. Rate : 049 BPM Atrial Rate : 049 BPM P-R Int : 182 ms QRS Dur : 160 ms QT Int : 470 ms P-R-T Axes : 027 -58 -33 degrees QTc Int : 424 ms Sinus bradycardia Right bundle branch block Left anterior fascicular block Bifascicular block Abnormal ECG When compared with ECG of 12-APR-2021 19:02, Premature ventricular complexes are no longer Present Vent. rate has decreased BY 27 BPM Referred By: Patricio Wilson Electronically Signed By:VASHTI MEJIAS
[2021-04-13 00:17] LABS: Troponin-I High Sensitivity 14.4 ng/L (<3.5-35.0)
--- NOTE | 2021-04-13 01:12 | P.HPHOSP_ITS ---
History of Present Illness Date of Service: 04/13/21 Chief Complaint: Chest pain This is a 70-year-old male with past medical history of hypertension, interstitial lung disease, PE, PVC, who presents to the hospital with complaints of chest pain. Patient describes the pain as occurring across his chest, lasting 5-6 hours, not associated with any strenuous exercise, describes as with squeezing pain. Nonradiating, no alleviating or exacerbating factors. This occurred while he was driving and running errands. No associated palpitations. Reports chronic shortness of breath that has not changed. No lower extremity edema. No PND orthopnea. No abdominal pain nausea or vomiting, no diarrhea constipation, no urinary symptoms. No headache or change in vision. No numbness tingling. Patient reports similar episodes in the past lasting shorter periods. He reports that he underwent nuclear stress test at outside hospital but was negative. On arrival to the ED patient hemodynamically stable with no significant abnormal vitals Labs are significant for the BC count of 9.3, hemoglobin of 15.6, hematocrit 47.1 PT of 14, INR of 1.2, BMP otherwise unremarkable EKG shows sinus rhythm with frequent PVCs, and PACs, bifascicular block. QT of 524. Chest x-ray shows chronic appearing changes, Review of Systems Review of Systems: Yes all other systems are reviewed and are negative [facility] Medical History (Updated 04/13/21 @ 06:15 by Rama Gan MD) Atherosclerotic cardiovascular disease Bifascicular block Essential hypertension History of prostate cancer ILD (interstitial lung disease) Pneumonia Pulmonary embolism PVC (premature ventricular contraction) Family History Mother No problems noted. Father No problems noted. Surgical History (Updated 04/13/21 @ 06:15 by Rama Gan MD) H/O prostatectomy Social History Household Members: Spouse Housing: House Do you presently have visiting nurse or other home services: Yes (VNA, physical therapist) Unable to assess alcohol history related to: Unknown Alcohol intake: current Alcohol intake frequency: a few times a week Alcohol type: beer Patient Tobacco Use Status: Never used Tobacco Use of substances other than those prescribed or required for medical reasons: No Advance Directives: Yes Advance Directives on File: Yes Advance Directives Date on File: 12/28/20 service: No Current occupational status: retired Meds Allergies Allergy/AdvReac Type Severity Reaction Status Date / Time ibuprofen [Ibuprofen] Allergy Intermediate HIVES/JOINT Verified 04/12/21 18:46 SWELLING Home Medications Medication Instructions Recorded Confirmed Last Taken Type amlodipine 10 mg tablet 1 tab PO DAILY 12/16/20 01/13/21 04/12/21 History ascorbic acid (vitamin C) 500 mg 500 mg PO DAILY 12/16/20 01/13/21 01/12/21 09:00 History tablet (Vitamin C) atorvastatin 80 mg tablet 1 tab PO BEDTIME 12/16/20 01/13/21 04/12/21 History metoprolol succinate 25 mg 1 tab PO DAILY 12/16/20 01/13/21 04/12/21 History tablet,extended release 24 hr 1 omeprazole 40 mg capsule,delayed 1 cap PO DAILY 12/16/20 01/13/21 04/12/21 History release 1 tolterodine 4 mg capsule,extended 1 cap PO DAILY 12/16/20 01/13/21 04/12/21 History release 24 hr aspirin 81 mg tablet,delayed 81 mg PO DAILY 12/27/20 01/13/21 04/12/21 History release 1 cholecalciferol (vitamin D3) 50 50 mcg PO BEDTIME 12/27/20 01/13/21 04/12/21 History mcg (2,000 unit) tablet (Vitamin 1 D3) apixaban 5 mg tablet (Eliquis) 5 mg PO BID 01/04/21 01/13/21 04/12/21 History 1 prednisone 10 mg tablet 10 mg PO DAILY 01/04/21 01/13/21 01/04/21 History lorazepam 0.5 mg tablet 0.5 - 1 tab PO BID PRN 04/13/21 04/13/21 04/12/21 History 1 olmesartan 40 1 tab DAILY 04/13/21 04/13/21 04/12/21 History mg-hydrochlorothiazide 25 mg tablet 1 Physical Exam Vital Signs and Narrative: Vital Signs: Last Vital Signs Temp 98.4 F 04/13/21 00:53 Pulse 63 04/13/21 00:53 Resp 20 04/13/21 00:53 BP 133/70 04/13/21 00:53 Pulse Ox 92 04/13/21 00:53 BMI result Body Mass Index 31.1 Const: General: cooperative and no acute distress Orientation/consciousness: patient oriented x3 Eyes: General: appearance normal, both eyes and all related structures Pupils: Equal, round and reactive pupils present Resp: Effort & Inspection: normal respiratory effort and able to speak in complete sentences Auscultation: clear to auscultation bilaterally Cardio: Rate: regular rate Rhythm: regular rhythm GI: Palpation (GI): Soft to palpation Auscultation: normal bowel sounds Skin: General skin exam: no rashes or lesions noted Neuro: General: patient oriented x3 Cranial nerves: Yes Equal, round and reactive pupils present Cognition (Neuro): normal cognition Extrem: General: Yes normal to inspection and Yes no pedal edema Results Labs CBC and Chem 7: 04/12/21 20:06 04/12/21 20:06 Labs: Laboratory Results - last 24 hr 04/12/21 04/12/21 04/12/21 20:06 20:06 20:06 MCV 79.8 L MCH 26.4 L MCHC 33.1 RDW 14.0 Plt Count 292 D MPV 9.2 L Immature Gran % (Auto) 0.3 Neut % (Auto) 67.5 Lymph % (Auto) 19.8 L [place] % (Auto) 8.7 Eos % (Auto) 2.8 Baso % (Auto) 0.9 Lymph # (Auto) 1.8 [place] # (Auto) 0.8 Eos # (Auto) 0.3 Baso # (Auto) 0.1 Abs Immat Gran (auto) 0.03 Absolute Neuts (auto) 6.3 Absolute Nucleated RBC 0.000 Nucleated RBC % (auto) 0.0 PT 14.0 H INR 1.2 H APTT 37.4 Anion Gap 12 Estim Creat Clear Calc 86.4 Estimated GFR > 60 Random Glucose 107 D Calcium 9.8 D COVID-19 (DONALD) COVID-19 Clin Com 04/12/21 20:06 MCV MCH MCHC RDW Plt Count MPV Immature Gran % (Auto) Neut % (Auto) Lymph % (Auto) [place] % (Auto) Eos % (Auto) Baso % (Auto) Lymph # (Auto) [place] # (Auto) Eos # (Auto) Baso # (Auto) Abs Immat Gran (auto) Absolute Neuts (auto) Absolute Nucleated RBC Nucleated RBC % (auto) PT INR APTT Anion Gap Estim Creat Clear Calc Estimated GFR Random Glucose Calcium COVID-19 (DONALD) Negative COVID-19 Clin Com See Note Imaging Radiologist's Impressions: Impressions Chest X-Ray 04/12/21 19:23 IMPRESSION: Chronic appearing changes similar to the 01/26/2021 study. Assessment and Plan (1) Chest pain: Status: Acute Plan This is a 70-year-old male with past medical history of hypertension who presents to the hospital with complaints of chest pain being admitted to rule out ACS # chest pain -unlikely to be CAD - troponin negative x2, EKG shows no changes suggestive of ACS - has a heart score of 4 placing him at a slightly higher risk - will obtain a cardiology consult - supportive measures # hypertension - stable - will continue home medications once medications have been reconciled by pharmacy # PE - continue Eliquis DVT prophylaxis: Eliquis Quality Stroke Does the patient have a stroke diagnosis?: No VTE Prior VTE?: No VTE Risk Level:: Medical - moderate - high VTE Device Contraindication: Treatment Not Indicated VTE Drug Contraindication: N/A - Med Ordered
[2021-04-13 06:36] LABS: MANUAL DIFF FLAG NO
[2021-04-13 06:47] LABS: Basophils Absolute Auto 0.1 X10*3/uL (0.0-0.2); Basophils Percent Auto 1.1 % (0-2); Eosinophils Absolute Auto 0.3 X10*3/uL (0.0-0.4); Eosinophils Percent Auto 3.8 % (0-4); Hemoglobin 14.4 g/dl (14.0-18.0); Imm Gran Abs Auto 0.04 X10*3/uL (0.00-0.03); Imm Gran Pct Auto 0.5 % (0.0-0.4); Lymphocytes Absolute Auto 2.2 X10*3/uL (1.2-4.9); Lymphocytes Percent Auto 26.7 % (20-40); Mean Corpuscular HGB Conc 32.7 g/dl (31.0-36.0); Mean Corpuscular Hemoglobin 26.5 pg (27.0-33.0); Mean Platelet Volume 9.7 fL (9.4-12.4); Monocytes Absolute Auto 0.9 X10*3/uL (0.1-1.2); Monocytes Percent Auto 10.6 % (2-11); Neutrophils Absolute Auto 4.8 x10*3/uL (2.0-8.3); Neutrophils Percent Auto 57.3 % (45-73); Platelet Count 294 X10*3/uL (160-400); Red Blood Count 5.43 X10*6/uL (4.60-5.80); White Blood Count 8.4 X10*3/uL (4.8-10.8)
[2021-04-13 06:53] LABS: Magnesium 1.9 mg/dL (1.6-2.6)
[2021-04-13 06:55] LABS: Anion Gap 12 (12-20); Blood Urea Nitrogen 11 mg/dL (9-16); Calcium 9.5 mg/dL (8.4-10.2); Carbon Dioxide 29 mmol/L (22-29); Chloride 103 mmol/L (96-108); Creatinine Clr Calc Pharmacy 89.4; Estimated Glomerular Filt Rate > 60; Glucose Random 100 mg/dL (60-115); Potassium 3.7 mmol/L (3.3-5.1); Sodium 140 mmol/L (135-145)
--- NOTE | 2021-04-13 07:41 | HO.PM.IMPN ---
Subjective Subjective Date of Service: 04/13/21 Interval History: F/u on chest pain Physical Exam Vital Signs: Vital Signs: Last Vital Signs Temp 98.1 F 04/13/21 05:50 Pulse 57 04/13/21 06:00 Resp 20 04/13/21 06:55 BP 121/61 04/13/21 06:00 Pulse Ox 93 04/13/21 06:00 BMI result Body Mass Index 31.1 Const: Other: General: AO X 3, no acute distress Resp: CTA bilateral CVS: S1,S2,RRR GI: +BS, NT, no distention Skin: No rash Neuro: motor grossly intact Psych: appropriate affect Objective Data Active Medications Acetaminophen (Acetaminophen 325 Mg Tablet) 650 mg PO Q6H PRN PRN Reason: Pain, Mild (Pain Scale 1-3) Docusate Sodium (Docusate Sodium 100 Mg Capsule) 100 mg PO DAILY PRN PRN Reason: Constipation Lorazepam (Lorazepam 0.5 Mg Tablet) 0.25 - 0.5 mg PO BID PRN PRN Reason: anxiety Melatonin (Melatonin 3 Mg Tablet) 6 mg PO BEDTIME PRN PRN Reason: Insomnia Non-Formulary Medication (Olmesartan-Hydrochlorothiazide) 1 tab PO DAILY COUNTS INCLUDE 234 BEDS AT THE [facility] Ondansetron HCl (Ondansetron Hcl 4 Mg/2 Ml Vial) 4 mg IVPUSH Q8H PRN PRN Reason: Nausea and Vomiting Pharmacy Consult (Consult Rx Perform Med Rec) 1 each MISCELLANE ONCE PRN PRN Reason: Consult order Sodium Chloride (0.9 % Sodium Chloride Flush 3 Ml Syringe) [address] [facility] Labs CBC & Chem 7: 04/13/21 06:23 04/13/21 06:23 Labs: Laboratory Results - last 24 hr 04/12/21 04/12/21 04/12/21 20:06 20:06 20:06 MCV 79.8 L MCH 26.4 L MCHC 33.1 RDW 14.0 Plt Count 292 D MPV 9.2 L Immature Gran % (Auto) 0.3 Neut % (Auto) 67.5 Lymph % (Auto) 19.8 L [place] % (Auto) 8.7 Eos % (Auto) 2.8 Baso % (Auto) 0.9 Lymph # (Auto) 1.8 [place] # (Auto) 0.8 Eos # (Auto) 0.3 Baso # (Auto) 0.1 Abs Immat Gran (auto) 0.03 Absolute Neuts (auto) 6.3 Absolute Nucleated RBC 0.000 Nucleated RBC % (auto) 0.0 PT 14.0 H INR 1.2 H APTT 37.4 Anion Gap 12 Estim Creat Clear Calc 86.4 Estimated GFR > 60 Random Glucose 107 D Calcium 9.8 D Magnesium COVID-19 (DONALD) COVID-19 Clin Com 04/12/21 04/13/21 04/13/21 20:06 06:23 06:23 MCV 81.0 MCH 26.5 L MCHC 32.7 RDW 14.0 Plt Count 294 MPV 9.7 Immature Gran % (Auto) 0.5 H Neut % (Auto) 57.3 Lymph % (Auto) 26.7 [place] % (Auto) 10.6 Eos % (Auto) 3.8 Baso % (Auto) 1.1 Lymph # (Auto) 2.2 [place] # (Auto) 0.9 Eos # (Auto) 0.3 Baso # (Auto) 0.1 Abs Immat Gran (auto) 0.04 H Absolute Neuts (auto) 4.8 Absolute Nucleated RBC 0.000 Nucleated RBC % (auto) 0.0 PT INR APTT Anion Gap 12 Estim Creat Clear Calc 89.4 Estimated GFR > 60 Random Glucose 100 Calcium 9.5 Magnesium COVID-19 (DONALD) Negative COVID-19 Clin Com See Note 04/13/21 06:23 MCV MCH MCHC RDW Plt Count MPV Immature Gran % (Auto) Neut % (Auto) Lymph % (Auto) [place] % (Auto) Eos % (Auto) Baso % (Auto) Lymph # (Auto) [place] # (Auto) Eos # (Auto) Baso # (Auto) Abs Immat Gran (auto) Absolute Neuts (auto) Absolute Nucleated RBC Nucleated RBC % (auto) PT INR APTT Anion Gap Estim Creat Clear Calc Estimated GFR Random Glucose Calcium Magnesium 1.9 COVID-19 (DONALD) COVID-19 Clin Com Assessment and Plan (1) Chest pain: Status: Acute Plan 70-year-old male with past medical history of hypertension who presents to the hospital with complaints of chest pain being admitted to rule out ACS # chest pain -unlikely to be CAD - troponin negative x2, EKG shows no changes suggestive of ACS - has a heart score of 4 placing him at a slightly higher risk - will obtain a cardiology consult - supportive measures # hypertension - stable - will continue home medications once medications have been reconciled by pharmacy #h/o PE - continue Eliquis DVT prophylaxis: Eliquis Quality Stroke Does the patient have a stroke diagnosis?: No VTE Prior VTE?: No VTE Risk Level:: Medical - moderate - high VTE Device Contraindication: Treatment Not Indicated VTE Drug Contraindication: N/A - Med Ordered
--- NOTE | 2021-04-13 07:47 | P.DS_ITS ---
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 at [facility] Time Spent with Patient Time attestation: Total time spent providing and/or coordinating discharge services: Discharge coordination time: Greater than 30 minutes Quality: Stroke Does the patient have a stroke diagnosis?: No Physical Exam Vital Signs: Vital Signs: Last Vital Signs Temp 98.1 F 04/13/21 05:50 Pulse 57 04/13/21 06:00 Resp 20 04/13/21 06:55 BP 121/61 04/13/21 06:00 Pulse Ox 93 04/13/21 06:00 BMI result Body Mass Index 31.1 Const: Other: General: AO X 3, no acute distress Resp: CTA bilateral CVS: S1,S2,RRR GI: +BS, NT, no distention Skin: No rash Neuro: motor grossly intact Psych: appropriate affect DS: Data Data Completed and Pending Completed studies during hospitalization [Text1]: Procedures Assistance with Respiratory Ventilation, Less than 24 Consecutive Hours, Continuous Positive Airway Pressure (01/12/21) Labs on day of discharge: Laboratory Results - last 24 hr 04/12/21 04/12/21 04/12/21 20:06 20:06 20:06 WBC 9.3 RBC 5.90 H Hgb 15.6 Hct 47.1 MCV 79.8 L MCH 26.4 L MCHC 33.1 RDW 14.0 Plt Count 292 D MPV 9.2 L Immature Gran % (Auto) 0.3 Neut % (Auto) 67.5 Lymph % (Auto) 19.8 L [place] % (Auto) 8.7 Eos % (Auto) 2.8 Baso % (Auto) 0.9 Lymph # (Auto) 1.8 [place] # (Auto) 0.8 Eos # (Auto) 0.3 Baso # (Auto) 0.1 Abs Immat Gran (auto) 0.03 Absolute Neuts (auto) 6.3 Absolute Nucleated RBC 0.000 Nucleated RBC % (auto) 0.0 PT INR APTT Sodium 141 Potassium 3.6 Chloride 103 Carbon Dioxide 30 H Anion Gap 12 BUN 13 Creatinine 0.88 Estim Creat Clear Calc 86.4 Estimated GFR > 60 Random Glucose 107 D Calcium 9.8 D Magnesium Troponin I High Sens 14.4 COVID-19 (DONALD) COVID-19 Clin Com 04/12/21 04/12/21 04/12/21 20:06 20:06 23:48 WBC RBC Hgb Hct MCV MCH MCHC RDW Plt Count MPV Immature Gran % (Auto) Neut % (Auto) Lymph % (Auto) [place] % (Auto) Eos % (Auto) Baso % (Auto) Lymph # (Auto) [place] # (Auto) Eos # (Auto) Baso # (Auto) Abs Immat Gran (auto) Absolute Neuts (auto) Absolute Nucleated RBC Nucleated RBC % (auto) PT 14.0 H INR 1.2 H APTT 37.4 Sodium Potassium Chloride Carbon Dioxide Anion Gap BUN Creatinine Estim Creat Clear Calc Estimated GFR Random Glucose Calcium Magnesium Troponin I High Sens 14.4 COVID-19 (DONALD) Negative COVID-19 Clin Com See Note 04/13/21 04/13/21 04/13/21 06:23 06:23 06:23 WBC 8.4 RBC 5.43 Hgb 14.4 Hct 44.0 MCV 81.0 MCH 26.5 L MCHC 32.7 RDW 14.0 Plt Count 294 MPV 9.7 Immature Gran % (Auto) 0.5 H Neut % (Auto) 57.3 Lymph % (Auto) 26.7 [place] % (Auto) 10.6 Eos % (Auto) 3.8 Baso % (Auto) 1.1 Lymph # (Auto) 2.2 [place] # (Auto) 0.9 Eos # (Auto) 0.3 Baso # (Auto) 0.1 Abs Immat Gran (auto) 0.04 H Absolute Neuts (auto) 4.8 Absolute Nucleated RBC 0.000 Nucleated RBC % (auto) 0.0 PT INR APTT Sodium 140 Potassium 3.7 Chloride 103 Carbon Dioxide 29 Anion Gap 12 BUN 11 Creatinine 0.85 Estim Creat Clear Calc 89.4 Estimated GFR > 60 Random Glucose 100 Calcium 9.5 Magnesium 1.9 Troponin I High Sens COVID-19 (DONALD) COVID-19 Clin Com Discharge Plan Discharge Anticipated Discharge Date/Time: 04/13/21 07:44 Patient Disposition: Home, Self-Care Discharge Diagnosis: chest pain Referrals: Physician,Unknown J [Primary Care Provider] - 1 Week Discharge Medications: Continued atorvastatin 80 mg tablet 1 tab PO BEDTIME 0RF tolterodine 4 mg capsule,extended release 24hr 1 cap PO DAILY 0RF omeprazole 40 mg capsule,delayed release(DR/EC) 1 cap PO DAILY 0RF amlodipine 10 mg tablet 1 tab PO DAILY 0RF metoprolol succinate 25 mg tablet extended release 24 hr 1 tab PO DAILY 0RF ascorbic acid (vitamin C) [Vitamin C] 500 mg Tablet 500 mg PO DAILY 0RF Eliquis 5 mg tablet 5 mg PO BID 0RF olmesartan-hydrochlorothiazide 40-25 mg tablet 1 tab DAILY 0RF lorazepam 0.5 mg tablet 0.5 - 1 tab PO BID PRN (Reason: anxiety) 0RF aspirin 81 mg Tablet,Delayed Release (Dr/Ec) 81 mg PO DAILY 0RF cholecalciferol (vitamin D3) [Vitamin D3] 50 mcg (2,000 unit) Tablet 50 mcg PO BEDTIME 0RF Discharge Orders: Discharge Order (Routine); Ordered 04/13/21 Ordered By: Patricio Wilson Diet: advance to usual diet Activity on Discharge: As tolerated Stand Alone Forms: Patient Portal Discharge page Care Plan Goals: full work up of chest pain Health Concerns: chest pain Plan of Treatment: Follow up with PCP, follow up with cardiology at [facility] Dr. Aiken Assessment: as above
--- NOTE | 2021-04-13 08:13 | PHA.MEDREC ---
Pharmacy Consult ? Medication Reconciliation Pharmacy has completed the medication reconciliation. List brought in match claim history. Patient gets Gunjan from the [place]. Emmanuel CagleD
[2021-04-13] MEDS: hydroCHLOROthiazide 25 MG TABLET PO (08:37)
[2021-04-13] MEDS: Valsartan 160 MG TABLET PO (08:37)
--- NOTE | 2021-04-13 11:19 | P.CONCA_ITS ---
History of Present Illness History of Present Illness Date of Service: 04/13/21 Chief complaint: Chest pain Narrative: This is a cardiology consultation regarding chest pain. Patient generally sees Dr. Aiken at [facility]. Current admission is because of chest pain. He states that his today, he had a discomfort across the front of the chest lasting for many hours. Not exertional pain. No clear aggravating or relieving factors. He has some chronic shortness of breath. Otherwise, he has nonobstructive CAD based on previous cardiac studies but no stenting or other interventions at any point. He also has a history of pulmonary embolism for which she is on anticoagulation with Eliquis. High sensitivity troponins have been performed after arrival and they are all negative. Review of Systems Review of Systems: Yes all other systems are reviewed and are negative Cardiovascular: Cardiovascular: Reports as per HPI, Reports no additional cardiovascular complaints, Denies acrocyanosis, Denies cool extremities, Reports chest pain, Denies diaphoresis, Denies syncope, Denies claudication, Denies leg edema, Denies lightheadedness, Denies palpitations and Denies dyspnea Respiratory: Respiratory: Denies dyspnea Neurologic: Denies syncope Endocrine: Endocrine: Denies palpitations PMFSH Past Medical History Medical History (Updated 04/13/21 @ 11:23 by Daryl Gutierres MD) Atherosclerotic cardiovascular disease Bifascicular block Essential hypertension History of prostate cancer ILD (interstitial lung disease) Pneumonia Pulmonary embolism PVC (premature ventricular contraction) Family History Family History Mother No problems noted. Father No problems noted. Surgical History Surgical History (Updated 04/13/21 @ 06:15 by Rama Gan MD) H/O prostatectomy Social History Social History Household Members: Spouse Housing: House Do you presently have visiting nurse or other home services: Yes (VNA, physical therapist) Unable to assess alcohol history related to: Unknown Alcohol intake: current Alcohol intake frequency: a few times a week Alcohol type: beer Patient Tobacco Use Status: Never used Tobacco Use of substances other than those prescribed or required for medical reasons: No Advance Directives: Yes Advance Directives on File: Yes Advance Directives Date on File: 12/28/20 service: No Current occupational status: retired Meds Allergies Allergy/AdvReac Type Severity Reaction Status Date / Time ibuprofen [Ibuprofen] Allergy Intermediate HIVES/JOINT Verified 04/12/21 18:46 SWELLING Active Medications: Current Medications Acetaminophen (Acetaminophen 325 Mg Tablet) 650 mg PO Q6H PRN PRN Reason: Pain, Mild (Pain Scale 1-3) Docusate Sodium (Docusate Sodium 100 Mg Capsule) 100 mg PO DAILY PRN PRN Reason: Constipation Hydrochlorothiazide (Hydrochlorothiazide 25 Mg Tablet) 25 mg PO DAILY [facility] Last Admin: 04/13/21 08:37 Dose: 25 mg Documented by: Lorazepam (Lorazepam 0.5 Mg Tablet) 0.25 - 0.5 mg PO BID PRN PRN Reason: anxiety Melatonin (Melatonin 3 Mg Tablet) 6 mg PO BEDTIME PRN PRN Reason: Insomnia Ondansetron HCl (Ondansetron Hcl 4 Mg/2 Ml Vial) 4 mg IVPUSH Q8H PRN PRN Reason: Nausea and Vomiting Pharmacy Consult (Consult Rx Perform Med Rec) 1 each MISCELLANE ONCE PRN PRN Reason: Consult order Sodium Chloride (0.9 % Sodium Chloride Flush 3 Ml Syringe) 3 ml IVFLUSH QSHIFT [facility] Last Admin: 04/13/21 08:27 Dose: Not Given Documented by: Valsartan (Valsartan 160 Mg Tablet) 160 mg PO DAILY [facility] Last Admin: 04/13/21 08:37 Dose: 160 mg Documented by: Home Medications Medication Instructions Recorded Confirmed Last Taken Type amlodipine 10 mg tablet 1 tab PO DAILY 12/16/20 04/13/21 04/12/21 History ascorbic acid (vitamin C) 500 mg 500 mg PO DAILY 12/16/20 04/13/21 04/12/21 History tablet (Vitamin C) atorvastatin 80 mg tablet 1 tab PO BEDTIME 12/16/20 04/13/21 04/12/21 History metoprolol succinate 25 mg 1 tab PO DAILY 12/16/20 04/13/21 04/12/21 History tablet,extended release 24 hr 1 omeprazole 40 mg capsule,delayed 1 cap PO DAILY 12/16/20 04/13/21 04/12/21 History release 1 tolterodine 4 mg capsule,extended 1 cap PO DAILY 12/16/20 04/13/21 04/12/21 History release 24 hr aspirin 81 mg tablet,delayed 81 mg PO DAILY 12/27/20 04/13/21 04/12/21 History release 1 cholecalciferol (vitamin D3) 50 50 mcg PO BEDTIME 12/27/20 04/13/21 04/12/21 History mcg (2,000 unit) tablet (Vitamin 1 D3) apixaban 5 mg tablet (Eliquis) 5 mg PO BID 01/04/21 04/13/21 04/12/21 History 1 lorazepam 0.5 mg tablet 0.5 - 1 tab PO BID PRN 04/13/21 04/13/21 04/12/21 History 1 olmesartan 40 1 tab DAILY 04/13/21 04/13/21 04/12/21 History mg-hydrochlorothiazide 25 mg tablet 1 Physical Exam Vital Signs: Vital Signs: Last Vital Signs Temp 98.1 F 04/13/21 05:50 Pulse 59 04/13/21 08:00 Resp 12 04/13/21 08:00 BP 132/67 04/13/21 08:00 Pulse Ox 94 04/13/21 08:00 BMI result Body Mass Index 31.1 Const: General: comfortable HENMT: Other: Unremarkable Neck: Neck: Yes normal visual inspection Chest: Chest palpation & inspection: normal inspection of the chest Resp: Auscultation: clear to auscultation bilaterally Cardio: Palpation: normal PMI Heart sounds: S1 normal heart sound present, S2 normal heart sound present, no gallops, no murmurs and no rubs GI: Palpation (GI): Soft to palpation Back/Spine/Pelvis: Other: unremarkable Skin: Lesions: other Neuro: General: other Extrem: General: Yes other Psych: Mental Status: other Objective Labs and Meds Result diagrams: 04/13/21 06:23 04/13/21 06:23 Lab results: Laboratory Results - last 24 hr 04/12/21 04/12/21 04/12/21 20:06 20:06 20:06 WBC 9.3 RBC 5.90 H Hgb 15.6 Hct 47.1 MCV 79.8 L MCH 26.4 L MCHC 33.1 RDW 14.0 Plt Count 292 D MPV 9.2 L Immature Gran % (Auto) 0.3 Neut % (Auto) 67.5 Lymph % (Auto) 19.8 L Dixon % (Auto) 8.7 Eos % (Auto) 2.8 Baso % (Auto) 0.9 Lymph # (Auto) 1.8 Dixon # (Auto) 0.8 Eos # (Auto) 0.3 Baso # (Auto) 0.1 Abs Immat Gran (auto) 0.03 Absolute Neuts (auto) 6.3 Absolute Nucleated RBC 0.000 Nucleated RBC % (auto) 0.0 PT INR APTT Sodium 141 Potassium 3.6 Chloride 103 Carbon Dioxide 30 H Anion Gap 12 BUN 13 Creatinine 0.88 Estim Creat Clear Calc 86.4 Estimated GFR > 60 Random Glucose 107 D Calcium 9.8 D Magnesium Troponin I High Sens 14.4 COVID-19 (DONALD) COVID-[facility]quarisPL[facility] Int 04/12/21 04/12/21 04/12/21 20:06 20:06 23:48 WBC RBC Hgb Hct MCV MCH MCHC RDW Plt Count MPV Immature Gran % (Auto) Neut % (Auto) Lymph % (Auto) Dixon % (Auto) Eos % (Auto) Baso % (Auto) Lymph # (Auto) Dixon # (Auto) Eos # (Auto) Baso # (Auto) Abs Immat Gran (auto) Absolute Neuts (auto) Absolute Nucleated RBC Nucleated RBC % (auto) PT 14.0 H INR 1.2 H APTT 37.4 Sodium Potassium Chloride Carbon Dioxide Anion Gap BUN Creatinine Estim Creat Clear Calc Estimated GFR Random Glucose Calcium Magnesium Troponin I High Sens 14.4 COVID-19 (DONALD) Negative COVID-AquarisPLUS Int See Note 04/13/21 04/13/21 04/13/21 06:23 06:23 06:23 WBC 8.4 RBC 5.43 Hgb 14.4 Hct 44.0 MCV 81.0 MCH 26.5 L MCHC 32.7 RDW 14.0 Plt Count 294 MPV 9.7 Immature Gran % (Auto) 0.5 H Neut % (Auto) 57.3 Lymph % (Auto) 26.7 Dixon % (Auto) 10.6 Eos % (Auto) 3.8 Baso % (Auto) 1.1 Lymph # (Auto) 2.2 Dixon # (Auto) 0.9 Eos # (Auto) 0.3 Baso # (Auto) 0.1 Abs Immat Gran (auto) 0.04 H Absolute Neuts (auto) 4.8 Absolute Nucleated RBC 0.000 Nucleated RBC % (auto) 0.0 PT INR APTT Sodium 140 Potassium 3.7 Chloride 103 Carbon Dioxide 29 Anion Gap 12 BUN 11 Creatinine 0.85 Estim Creat Clear Calc 89.4 Estimated GFR > 60 Random Glucose 100 Calcium 9.5 Magnesium 1.9 Troponin I High Sens COVID-19 (DONALD) COVID-19 Clin Com ECG Interpretation: EKG with sinus bradycardia; 49/Min; left anterior fascicular block and right bundle-branch block pattern. One of the EKGs also shows PVCs. Imaging Radiologist's impression: Impressions Chest X-Ray 04/12/21 19:23 IMPRESSION: Chronic appearing changes similar to the 01/26/2021 study. Assessment and Plan (1) Precordial chest pain: Status: Acute (2) Bifascicular block: Status: Acute (3) Atherosclerotic cardiovascular disease: Status: Acute (4) PVC (premature ventricular contraction): Status: Acute Plan High sensitivity troponins are unremarkable at 14.4 and 14.4. EKG without any clear-cut ischemic changes. With several hours of chest pain and unremarkable high sensitivity troponins, do not believe this is acute coronary syndrome. Otherwise, it seems that he also had a stress perfusion imaging study 2 months ago that did not show any clear evidence of perfusion abnormalities. Also a prior catheterization from few years ago had shown only nonobstructive disease. Hence overall unclear etiology for his chest pain. Discussed with his own vehicle monitor technician Dr. Aiken by [facility]. We will discharge him at this time. To follow up with his own vehicle monitor technician for further care. If the pains continue, then possibly a repeat diagnostic catheterization can be considered as an outpatient. Procedures Date of Service Date of Service: 04/13/21
--- NOTE | 2021-04-13 12:16 | PC.NURSE ---
Pt is a/o, provided with DC paperwork and verbalized understanding of teachings. Pt DCd home at this time with his driving him home.
== END 2021-04-13 12:00 | disposition home or self-care (01) ==
LOC: HO.ED 04-13 00:40 → HO.EDOVER 04-13 01:15
PROVIDERS: Admitting Provider Internal Medicine; Emergency Provider Internal Medicine; PCP Internal Medicine; Visit Provider Internal Medicine
DX: R07.9 Chest pain, unspecified (principal); R07.2 Precordial pain; I45.2 Bifascicular block; I25.10 Atherosclerotic heart disease of native coronary artery without angina pectoris; I49.3 Ventricular premature depolarization; R06.02 Shortness of breath; I10 Essential (primary) hypertension; J84.9 Interstitial pulmonary disease, unspecified; I26.99 Other pulmonary embolism without acute cor pulmonale; Z20.822 Contact with and (suspected) exposure to COVID-19; Z90.79 Acquired absence of other genital organ(s); Z88.8 Allergy status to other drugs, medicaments and biological substances; Z79.01 Long term (current) use of anticoagulants; Z79.899 Other long term (current) drug therapy
CPT/HCPCS: 36415; 71045; 80048; 83735; 84484; 85025; 85610; 85730; 87635; 93005; 99205; 99219; 99285

== ENCOUNTER 2021-07-09 10:10 | Inpatient (IN) | payer OTHER, MEDICARE, SELFPAY ==
[2021-07-09 10:21] VITALS: BP 153/62; PULSE 57; RESP 18; TEMP 36.9; O2SAT 98; BMI 32.1
[2021-07-09 10:36] LABS: MANUAL DIFF FLAG NO
[2021-07-09 10:40] LABS: Basophils Absolute Auto 0.1 X10*3/uL (0.0-0.2); Basophils Percent Auto 0.7 % (0-2); Eosinophils Absolute Auto 0.2 X10*3/uL (0.0-0.4); Eosinophils Percent Auto 3.2 % (0-4); Hematocrit 41.7 % (42.0-52.0); Hemoglobin 13.7 g/dl (14.0-18.0); Imm Gran Abs Auto 0.02 X10*3/uL (0.00-0.03); Imm Gran Pct Auto 0.3 % (0.0-0.4); Lymphocytes Absolute Auto 1.5 X10*3/uL (1.2-4.9); Lymphocytes Percent Auto 22.1 % (20-40); Mean Corpuscular HGB Conc 32.9 g/dl (31.0-36.0); Mean Corpuscular Hemoglobin 25.4 pg (27.0-33.0); Mean Corpuscular Volume 77.2 fL (80.0-98.0); Mean Platelet Volume 9.1 fL (9.4-12.4); Monocytes Absolute Auto 0.6 X10*3/uL (0.1-1.2); Monocytes Percent Auto 9.1 % (2-11); Neutrophils Absolute Auto 4.4 x10*3/uL (2.0-8.3); Neutrophils Percent Auto 64.6 % (45-73); Platelet Count 247 X10*3/uL (160-400); Red Cell Distribution Width 15.5 % (11.0-16.0); White Blood Count 6.8 X10*3/uL (4.8-10.8)
[2021-07-09 10:51] LABS: Partial Thromboplastin Time 36.1 SEC (24.1-38.0)
[2021-07-09 10:53] LABS: Anion Gap 12 (12-20); Blood Urea Nitrogen 16 mg/dL (9-16); Calcium 9.4 mg/dL (8.4-10.2); Carbon Dioxide 23 mmol/L (22-29); Chloride 107 mmol/L (96-108); Creatinine Clr Calc Pharmacy 92.2; Estimated Glomerular Filt Rate > 60; Glucose Random 133 mg/dL (60-115); Potassium 3.4 mmol/L (3.3-5.1); Sodium 139 mmol/L (135-145)
--- NOTE | 2021-07-09 14:36 | ED.GIBLEED ---
HPI - GI Bleed General Chief complaint: GI Bleed Stated complaint: bloody black stool Time Seen by Provider: 07/09/21 14:33 Source: patient Mode of arrival: ambulatory Limitations: no limitations History of Present Illness HPI Narrative: 70-year-old male came in for evaluation of bloody stool. Patient with history of PE is taking Eliquis, for the past 7 days noticed black stool with blood in the stool. Patient declined any abdominal pain, no dizziness, no chest pain, no shortness of breath. Patient also declined using iron or Maalox. Related Data Home Medications Medication Instructions Recorded Confirmed amlodipine 10 mg tablet 1 tab PO DAILY 12/16/20 04/13/21 ascorbic acid (vitamin C) 500 mg 500 mg PO DAILY 12/16/20 04/13/21 tablet (Vitamin C) atorvastatin 80 mg tablet 1 tab PO BEDTIME 12/16/20 04/13/21 metoprolol succinate 25 mg 1 tab PO DAILY 12/16/20 04/13/21 tablet,extended release 24 hr omeprazole 40 mg capsule,delayed 1 cap PO DAILY 12/16/20 04/13/21 release tolterodine 4 mg capsule,extended 1 cap PO DAILY 12/16/20 04/13/21 release 24 hr aspirin 81 mg tablet,delayed 81 mg PO DAILY 12/27/20 04/13/21 release cholecalciferol (vitamin D3) 50 50 mcg PO BEDTIME 12/27/20 04/13/21 mcg (2,000 unit) tablet (Vitamin D3) apixaban 5 mg tablet (Eliquis) 5 mg PO BID 01/04/21 04/13/21 lorazepam 0.5 mg tablet 0.5 - 1 tab PO BID PRN 04/13/21 04/13/21 olmesartan 40 1 tab DAILY 04/13/21 04/13/21 mg-hydrochlorothiazide 25 mg tablet Allergies Allergy/AdvReac Type Severity Reaction Status Date / Time ibuprofen [Ibuprofen] Allergy Intermediate HIVES/JOINT Verified 04/12/21 18:46 SWELLING Review of Systems Review of Systems: All other systems are reviewed and are negative Constitutional: Reports as per HPI and Reports no additional constitutional complaints Eyes: Reports as per HPI and Reports no additional eye complaints Reports system reviewed and no additional complaints, except as documented Cardiovascular: Reports as per HPI and Reports no additional cardiovascular complaints Respiratory: Reports as per HPI and Reports no additional respiratory complaints Gastrointestinal: Reports as per HPI and Reports no additional gastrointestinal complaints Genitourinary: Reports no additional female genitourinary complaints Musculoskeletal: Reports no additional musculoskeletal complaints Skin/Breast: Reports system reviewed and no additional complaints, except as docu Psychiatric: Reports no additional psychiatric complaints Endocrine: Reports no additional endocrine complaints Hematologic/Lymphatic: Reports no additional hematologic/lymphatic complaints Allergic/Immunologic: Reports no additional allergic/immunologic complaints Reports system reviewed and no additional complaints, except as documented and Reports Abnormal speech present [facility] Past Medical History Medical History Atherosclerotic cardiovascular disease Bifascicular block Essential hypertension History of prostate cancer ILD (interstitial lung disease) Pneumonia Pulmonary embolism PVC (premature ventricular contraction) Surgical History H/O prostatectomy Family History Family History Mother No problems noted. Father No problems noted. Social History Social History Household Members: Spouse Housing: House Do you presently have visiting nurse or other home services: Yes (VNA, physical therapist) Unable to assess alcohol history related to: Unknown Alcohol intake: current Alcohol intake frequency: a few times a week Alcohol type: beer Patient Tobacco Use Status: Never used Tobacco Advance Directives: Yes Advance Directives on File: Yes Advance Directives Date on File: 12/28/20 service: No Current occupational status: retired Physical Exam Vital Signs: Vital Signs: Last Vital Signs Temp 98.1 F 07/09/21 14:40 Pulse 51 07/09/21 14:40 Resp 18 07/09/21 14:40 BP 148/74 H 07/09/21 14:40 Pulse Ox 94 07/09/21 14:40 BMI result Body Mass Index 32.1 Vital signs have been reviewed as appeared to be correct. Blood pressure normal. Heart rate normal. Respiration rate normal. Temperature normal. Oxygen saturation normal. Appearance: Alert. Oriented X3. No acute distress. Head: Normal external exam. Normocephalic. Atraumatic. No Mendes signs noted. No raccoon eyes noted Eyes: PERRLA. EOMI. Conjunctiva and sclera normal. Eyelids normal. ENT: TM's Normal. Pharynx normal. Uvula midline. Moist mucous membranes. No trismus noted. No drooling noted. No muffled voice noted. Neck: Normal inspection. Neck supple. FROM. No adenopathy. Thyroid Normal. No meningeal signs. No neck mass noted. CVS: Normal heart rate and rhythm. Heart sound normal. No murmurs noted. Pulses normal throughout. Respiratory: No respiratory distress. Painless inspiration. Breath sounds normal. No wheezes/rales/rhonchi noted. Chest nontender. No accessory muscle usage noted or decreased air movement noted. Abdomen: Soft and nontender. Bowel sounds normal in all 4 quadrants. No distention noted. No organomegaly noted. No visible injury noted. Rectal exam: Hematochezia and bloody stool. Back: No CVA tenderness. Full range of motion noted. Skin: Skin warm and dry. Normal skin color. Normal skin turgor. No rashes/lesions/lacerations noted. Extremities: No lower extremity edema. Extremities exhibit normal range of motion. Extremities nontender. Neuro: Oriented X 3. Cranial nerve exam: II-XII are grossly intact No motor deficit. No sensory deficit. Reflexes normal. Course Course Course Narrative: Assessment and plan. 70 year-old male came in for evaluation of rectal bleed patient is on Eliquis, patient hemodynamically stable, will admit the patient for serial CBC and GI evaluation. MDM - GI Bleed Medical Records Attestation: I reviewed the patient's medical records. Lab Data Attestation: I reviewed the patient's lab results. Result diagrams: 07/09/21 10:29 07/09/21 10:29 Labs: Lab Results 07/09/21 07/09/21 07/09/21 Range/Units 10:29 10:29 10:29 WBC 6.8 (4.8-10.8) X10*3/uL RBC 5.40 (4.60-5.80) X10*6/uL Hgb 13.7 L (14.0-18.0) g/dl Hct 41.7 L (42.0-52.0) % MCV 77.2 L (80.0-98.0) fL MCH 25.4 L (27.0-33.0) pg MCHC 32.9 (31.0-36.0) g/dl RDW 15.5 (11.0-16.0) % Plt Count 247 (160-400) X10*3/uL MPV 9.1 L (9.4-12.4) fL Immature Gran % (Auto) 0.3 (0.0-0.4) % Neut % (Auto) 64.6 (45-73) % Lymph % (Auto) 22.1 (20-40) % Weld % (Auto) 9.1 (2-11) % Eos % (Auto) 3.2 (0-4) % Baso % (Auto) 0.7 (0-2) % Lymph # (Auto) 1.5 (1.2-4.9) X10*3/uL Weld # (Auto) 0.6 (0.1-1.2) X10*3/uL Eos # (Auto) 0.2 (0.0-0.4) X10*3/uL Baso # (Auto) 0.1 (0.0-0.2) X10*3/uL Abs Immat Gran (auto) 0.02 (0.00-0.03) X10*3/uL Absolute Neuts (auto) 4.4 (2.0-8.3) x10*3/uL Absolute Nucleated RBC 0.000 (0.0-0.012) X10*3/uL Nucleated RBC % (auto) 0.0 (0.0-0.2) /100WBC APTT 36.1 (24.1-38.0) SEC Sodium 139 (135-145) mmol/L Potassium 3.4 (3.3-5.1) mmol/L Chloride 107 (96-108) mmol/L Carbon Dioxide 23 (22-29) mmol/L Anion Gap 12 (12-20) BUN 16 (9-16) mg/dL Creatinine 0.81 (0.5-1.4) mg/dL Estim Creat Clear Calc 92.2 Estimated GFR > 60 Random Glucose 133 H (60-115) mg/dL Calcium 9.4 (8.4-10.2) mg/dL Discharge Plan Discharge Clinical Impression: Rectal bleed Patient Disposition: Admitted As Inpatient Prescriptions: No Action atorvastatin 80 mg tablet 1 tab PO BEDTIME 0RF tolterodine 4 mg capsule,extended release 24hr 1 cap PO DAILY 0RF omeprazole 40 mg capsule,delayed release(DR/EC) 1 cap PO DAILY 0RF amlodipine 10 mg tablet 1 tab PO DAILY 0RF metoprolol succinate 25 mg tablet extended release 24 hr 1 tab PO DAILY 0RF ascorbic acid (vitamin C) [Vitamin C] 500 mg Tablet 500 mg PO DAILY 0RF Eliquis 5 mg tablet 5 mg PO BID 0RF olmesartan-hydrochlorothiazide 40-25 mg tablet 1 tab DAILY 0RF lorazepam 0.5 mg tablet 0.5 - 1 tab PO BID PRN (Reason: anxiety) 0RF aspirin 81 mg Tablet,Delayed Release (Dr/Ec) 81 mg PO DAILY 0RF cholecalciferol (vitamin D3) [Vitamin D3] 50 mcg (2,000 unit) Tablet 50 mcg PO BEDTIME 0RF
[2021-07-09 14:40] VITALS: BP 148/74; PULSE 51; RESP 18; TEMP 36.7; O2SAT 94
--- NOTE | 2021-07-09 14:51 | PM.IMHP ---
History of Present Illness Date of Service: 07/09/21 Attending physician on admission: Patricio Cooley [facility] Chief Complaint: GI Bleed 70 year old man presenting to the [facility]. He stated that this started about 3 days ago. He noted black stools and red blood in the toilet water. He denied abdominal pain, nausea, vomiting, diarrhea , fever, chills, recent travel. He reports that this happened about 10 years ago we had several episodes and was told that this was related to colon polyps. He denied any dizziness, shortness of breath, chest pain. He has not had any other episodes of bleeding. Hemoglobin was noted to be 13.9, hematocrit 42.5, stool occult positive, hemodynamically stable. He was given zofran, tylenol. He will be admitted for further management and treatment of GI bleeding. Review of Systems Review of Systems: Denies any recent fever chills or decrease in appetite respiratory denies any shortness of breath coverage production cardiovascular denies chest pain gastrointestinal denies any dysphagia abdominal pain nausea vomiting or diarrhea genitourinary denies any dysuria frequency or hematuria musculoskeletal denies any joint pain or swelling neuropsych denies any weakness or seizures all other systems reviewed are negative [facility] Medical History Atherosclerotic cardiovascular disease Bifascicular block Essential hypertension History of prostate cancer ILD (interstitial lung disease) Pneumonia Pulmonary embolism PVC (premature ventricular contraction) Family History Mother No problems noted. Father No problems noted. Surgical History H/O prostatectomy Social History Household Members: Spouse Housing: House Do you presently have visiting nurse or other home services: Yes (VNA, physical therapist) Unable to assess alcohol history related to: Unknown Alcohol intake: current Alcohol intake frequency: a few times a week Alcohol type: beer Patient Tobacco Use Status: Never used Tobacco Advance Directives: Yes Advance Directives on File: Yes Advance Directives Date on File: 12/28/20 service: No Current occupational status: retired Meds Allergies Allergy/AdvReac Type Severity Reaction Status Date / Time ibuprofen [Ibuprofen] Allergy Intermediate HIVES/JOINT Verified 04/12/21 18:46 SWELLING Home Medications Medication Instructions Recorded Confirmed Last Taken Type amlodipine 10 mg tablet 1 tab PO DAILY 12/16/20 07/09/21 07/09/21 History ascorbic acid (vitamin C) 500 mg 500 mg PO DAILY 12/16/20 07/09/21 07/09/21 History tablet (Vitamin C) atorvastatin 80 mg tablet 1 tab PO BEDTIME 12/16/20 07/09/21 07/08/21 History omeprazole 40 mg capsule,delayed 1 cap PO DAILY 12/16/20 07/09/21 07/09/21 History release tolterodine 4 mg capsule,extended 1 cap PO DAILY 12/16/20 07/09/21 07/09/21 History release 24 hr aspirin 81 mg tablet,delayed 81 mg PO DAILY 12/27/20 07/09/21 07/09/21 History release cholecalciferol (vitamin D3) 50 50 mcg PO BEDTIME 12/27/20 07/09/21 07/08/21 History mcg (2,000 unit) tablet (Vitamin D3) apixaban 5 mg tablet (Eliquis) 5 mg PO BID 01/04/21 07/09/21 07/09/21 History lorazepam 0.5 mg tablet 0.5 - 1 tab PO BID PRN 04/13/21 07/09/21 04/12/21 History 1 olmesartan 40 1 tab DAILY 04/13/21 07/09/21 07/09/21 History mg-hydrochlorothiazide 25 mg tablet isosorbide mononitrate 30 mg 1 tab PO QAM 07/09/21 07/09/21 07/09/21 History tablet,extended release 24 hr metoprolol succinate 50 mg 1 tab PO DAILY 07/09/21 07/09/21 07/09/21 History tablet,extended release 24 hr Physical Exam Vital Signs and Narrative: Vital Signs: Last Vital Signs Temp 98.1 F 07/09/21 14:40 Pulse 51 07/09/21 14:40 Resp 18 07/09/21 14:40 BP 148/74 H 07/09/21 14:40 Pulse Ox 94 07/09/21 14:40 BMI result Body Mass Index 32.1 Appearing in no acute distress head is normocephalic atraumatic eyes pupils are PERRLA sclera is anicteric mouth throat mucous membranes are intact and moist neck is supple no lymphadenopathy, no JVD noted lung sounds are clear to auscultation heart regular rate rhythm, clear S1, S2 positive bowel sounds, abdomen is soft, nontender neuro patient is alert x3, no focal deficits Results Labs CBC and Chem 7: 07/09/21 15:40 07/09/21 10:29 Labs: Laboratory Results - last 24 hr 07/09/21 07/09/21 07/09/21 10:29 10:29 10:29 MCV 77.2 L MCH 25.4 L MCHC 32.9 RDW 15.5 Plt Count 247 MPV 9.1 L Immature Gran % (Auto) 0.3 Neut % (Auto) 64.6 Lymph % (Auto) 22.1 [place]y % (Auto) 9.1 Eos % (Auto) 3.2 Baso % (Auto) 0.7 Lymph # (Auto) 1.5 [place] # (Auto) 0.6 Eos # (Auto) 0.2 Baso # (Auto) 0.1 Abs Immat Gran (auto) 0.02 Absolute Neuts (auto) 4.4 Absolute Nucleated RBC 0.000 Nucleated RBC % (auto) 0.0 APTT 36.1 Anion Gap 12 Estim Creat Clear Calc 92.2 Estimated GFR > 60 Random Glucose 133 H Calcium 9.4 Assessment and Plan (1) Rectal bleed: Status: Acute Plan 70 year old man admitted with GI bleed GI Bleed black stool noted HH stable so far repeat this evening and transfuse as needed PPI GI consult will likely need EGD/colo NPO after midnight Hold Eliquis and asa PAfib Hold eliquis due to GI Bleed continue BB Hypertension Stable BP Continue home medications and monitor for hypotension ESTELLA can bring CPAP from home HLD statin mental health continue home medications DVT prophylaxis with SCD boots due to GI Bleed Attending Dr. Wilson Full code Patient likely requires 2 midnights in the hospital for treatment of GI Bleeding likely requiring EGD/colonoscopy Quality Stroke Does the patient have a stroke diagnosis?: No VTE Prior VTE?: No VTE Risk Level:: Medical - moderate - high VTE Device Contraindication: N/A - Device Ordered VTE Drug Contraindication: Treatment Not Indicated
[2021-07-09 15:06] LABS: OBS Int Ctl Valid YES; OBS1 POSITIVE (NEGATIVE)
[2021-07-09 15:45] LABS: Hematocrit 42.5 % (42.0-52.0); Hemoglobin 13.9 g/dl (14.0-18.0)
--- NOTE | 2021-07-09 16:12 | PHA.MEDREC ---
Pharmacy Consult ? Medication Reconciliation Pharmacy has completed the medication reconciliation. Pt endorses increases in doses of both metoprolol and benicar hct. Thanks Michael
[2021-07-09 16:37] VITALS: BP 143/70; PULSE 50; RESP 16; TEMP 36.6; O2SAT 98
[2021-07-09 17:15] LABS: COVID-19 Test Negative (Negative); IDNOW Serial# 16C4AD1C
[2021-07-09] MEDS: LORazepam 0.5 MG TABLET PO (20:51)
[2021-07-09] MEDS: Atorvastatin Calcium 80 MG TABLET PO (20:51)
[2021-07-09] MEDS: Cholecalciferol (Vitamin D3) 25 MCG TABLET 50 MCG PO (20:52)
--- NOTE | 2021-07-09 22:14 | PM.EVENT ---
Event Note Date of Service: 07/09/21 Event Note: GI-Consult received. Full consult will be done on 07/10/2021. In the meantime, I will change him to clear liquids for tomorrow to allow for possible colonoscopy later in the week. Continue to follow Hgb, continue PPI, check PT/INR. Thanks
[2021-07-10] VITALS (10 sets, daily range): BP systolic 99–153; BP diastolic 36–83; PULSE 50–64; RESP 14–18; TEMP 36.2–37.1; O2SAT 91–98
[2021-07-10] MEDS: Omeprazole 40 MG CAPSULE.DR PO (05:33)
[2021-07-10 06:20] LABS: MANUAL DIFF FLAG NO
[2021-07-10 06:29] LABS: Basophils Absolute Auto 0.1 X10*3/uL (0.0-0.2); Basophils Percent Auto 0.9 % (0-2); Eosinophils Absolute Auto 0.3 X10*3/uL (0.0-0.4); Eosinophils Percent Auto 3.6 % (0-4); Hematocrit 40.4 % (42.0-52.0); Hemoglobin 13.1 g/dl (14.0-18.0); Imm Gran Abs Auto 0.04 X10*3/uL (0.00-0.03); Imm Gran Pct Auto 0.5 % (0.0-0.4); Lymphocytes Absolute Auto 2.1 X10*3/uL (1.2-4.9); Lymphocytes Percent Auto 26.3 % (20-40); Mean Corpuscular HGB Conc 32.4 g/dl (31.0-36.0); Mean Corpuscular Hemoglobin 25.4 pg (27.0-33.0); Mean Corpuscular Volume 78.4 fL (80.0-98.0); Mean Platelet Volume 9.9 fL (9.4-12.4); Monocytes Absolute Auto 0.8 X10*3/uL (0.1-1.2); Monocytes Percent Auto 10.1 % (2-11); Neutrophils Absolute Auto 4.8 x10*3/uL (2.0-8.3); Neutrophils Percent Auto 58.6 % (45-73); Platelet Count 265 X10*3/uL (160-400); Red Blood Count 5.15 X10*6/uL (4.60-5.80); Red Cell Distribution Width 15.4 % (11.0-16.0); White Blood Count 8.1 X10*3/uL (4.8-10.8)
[2021-07-10 06:50] LABS: Anion Gap 12 (12-20); Blood Urea Nitrogen 15 mg/dL (9-16); Carbon Dioxide 29 mmol/L (22-29); Chloride 104 mmol/L (96-108); Creatinine Clr Calc Pharmacy 86.8; Estimated Glomerular Filt Rate > 60; Glucose Random 87 mg/dL (60-115); Potassium 3.9 mmol/L (3.3-5.1); Sodium 141 mmol/L (135-145)
[2021-07-10 06:56] LABS: INTERNATIONAL NORM RATIO 1.3 (0.9-1.1); Prothrombin Time 14.8 SEC (9.9-13.0)
--- NOTE | 2021-07-10 08:37 | HO.PM.IMPN ---
Subjective Subjective Date of Service: 07/10/21 Review of Systems Follow GI bleed one episode of black stool last night no abd pain, nausea or vomiting Physical Exam Vital Signs: Vital Signs: Last Vital Signs Temp 98.5 F 07/10/21 07:50 Pulse 55 07/10/21 07:50 Resp 18 07/10/21 07:50 BP 138/83 07/10/21 07:50 Pulse Ox 96 07/10/21 07:50 BMI result Body Mass Index 32.1 Appearing in no acute distress lung sounds are clear to auscultation heart regular rate rhythm, clear S1, S2 positive bowel sounds, abdomen is soft, nontender neuro patient is alert x3, no focal deficits Objective Data Active Medications Acetaminophen (Acetaminophen 325 Mg Tablet) 650 mg PO Q6H PRN PRN Reason: Pain, Mild (Pain Scale 1-3) Amlodipine Besylate (Amlodipine Besylate 10 Mg Tablet) 10 mg PO DAILY [facility]; Protocol Ascorbic Acid (Ascorbic Acid 500 Mg Tablet) 500 mg PO DAILY [facility] Atorvastatin Calcium (Atorvastatin Calcium 80 Mg Tablet) 80 mg PO BEDTIME [facility] Last Admin: 07/09/21 20:51 Dose: 80 mg Documented by: DAVID Hydrochlorothiazide (Hydrochlorothiazide 25 Mg Tablet) 25 mg PO DAILY [facility]; Protocol Isosorbide Mononitrate (Isosorbide Mononitrate 30 Mg Tab.Er.24h) 30 mg PO DAILY [facility]; Protocol Lorazepam (Lorazepam 0.5 Mg Tablet) 0.5 mg PO BID PRN PRN Reason: anxiety Last Admin: 07/09/21 20:51 Dose: 0.5 mg Documented by: DAVID Metoprolol Succinate (Metoprolol Succinate Er 50 Mg Tab.Er.24h) 50 mg PO DAILY [facility]; Protocol Omeprazole (Omeprazole 40 Mg Capsule.Dr) 40 mg PO DAILY@0630 [facility] Last Admin: 07/10/21 05:33 Dose: 40 mg Documented by: WEI Ondansetron HCl (Ondansetron Hcl 4 Mg/2 Ml Vial) 4 mg IVPUSH Q8H PRN PRN Reason: Nausea and Vomiting Pharmacy Consult (Consult Rx Perform Med Rec) 1 each MISCELLANE ONCE PRN PRN Reason: Consult order Sodium Chloride (0.9 % Sodium Chloride Flush 3 Ml Syringe) 3 ml IVFLUSH QSHIFT [facility] Last Admin: 07/10/21 00:26 Dose: Not Given Documented by: DAVID Non-Admin Reason: Previously Administered Tolterodine Tartrate (Tolterodine Tartrate La 4 Mg Cap.Er.24h) 4 mg PO DAILY [facility] Valsartan (Valsartan 160 Mg Tablet) 160 mg PO DAILY [facility] Vitamin D (Cholecalciferol (Vitamin D3) 25 Mcg Tablet) 50 mcg PO BEDTIME [facility] Last Admin: 07/09/21 20:52 Dose: 50 mcg Documented by: DAVID Labs CBC & Chem 7: 07/10/21 05:29 07/10/21 05:29 Labs: Laboratory Results - last 24 hr 07/09/21 07/09/21 07/09/21 10:29 10:29 10:29 MCV 77.2 L MCH 25.4 L MCHC 32.9 RDW 15.5 Plt Count 247 MPV 9.1 L Immature Gran % (Auto) 0.3 Neut % (Auto) 64.6 Lymph % (Auto) 22.1 [place] % (Auto) 9.1 Eos % (Auto) 3.2 Baso % (Auto) 0.7 Lymph # (Auto) 1.5 [place] # (Auto) 0.6 Eos # (Auto) 0.2 Baso # (Auto) 0.1 Abs Immat Gran (auto) 0.02 Absolute Neuts (auto) 4.4 Absolute Nucleated RBC 0.000 Nucleated RBC % (auto) 0.0 PT INR APTT 36.1 Anion Gap 12 Estim Creat Clear Calc 92.2 Estimated GFR > 60 Random Glucose 133 H Calcium 9.4 Stool Occult Blood COVID-19 (DONALD) COVID-19 Clin Com 07/09/21 07/09/21 07/10/21 14:37 16:43 05:29 MCV 78.4 L MCH 25.4 L MCHC 32.4 RDW 15.4 Plt Count 265 MPV 9.9 Immature Gran % (Auto) 0.5 H Neut % (Auto) 58.6 Lymph % (Auto) 26.3 [place] % (Auto) 10.1 Eos % (Auto) 3.6 Baso % (Auto) 0.9 Lymph # (Auto) 2.1 [place] # (Auto) 0.8 Eos # (Auto) 0.3 Baso # (Auto) 0.1 Abs Immat Gran (auto) 0.04 H Absolute Neuts (auto) 4.8 Absolute Nucleated RBC 0.000 Nucleated RBC % (auto) 0.0 PT INR APTT Anion Gap Estim Creat Clear Calc Estimated GFR Random Glucose Calcium Stool Occult Blood POSITIVE COVID-19 (DONALD) Negative COVID-19 Clin Com See Note 07/10/21 07/10/21 05:29 05:29 MCV MCH MCHC RDW Plt Count MPV Immature Gran % (Auto) Neut % (Auto) Lymph % (Auto) [place] % (Auto) Eos % (Auto) Baso % (Auto) Lymph # (Auto) [place] # (Auto) Eos # (Auto) Baso # (Auto) Abs Immat Gran (auto) Absolute Neuts (auto) Absolute Nucleated RBC Nucleated RBC % (auto) PT 14.8 H INR 1.3 H APTT Anion Gap 12 Estim Creat Clear Calc 86.8 Estimated GFR > 60 Random Glucose 87 Calcium 9.0 Stool Occult Blood COVID-19 (DONALD) COVID-19 Clin Com Assessment and Plan (1) Rectal bleed: Status: Acute Plan 70 year old man admitted with GI bleed GI Bleed black stool noted HH remians stable so far? PPI GI consult will likely need EGD/colo Hold Eliquis and asa PAfib Hold eliquis due to GI Bleed continue BB Hypertension Stable BP Continue home medications and monitor for hypotension ESTELLA can bring CPAP from home HLD statin mental health continue home medications DVT prophylaxis with SCD boots due to GI Bleed Attending Dr. Wilson Full code continued hospitalization for treatment of GI Bleeding likely requiring EGD/colonoscopy during this admission Quality Stroke Does the patient have a stroke diagnosis?: No VTE Prior VTE?: No VTE Risk Level:: Medical - moderate - high VTE Device Contraindication: N/A - Device Ordered VTE Drug Contraindication: Treatment Not Indicated
[2021-07-10] MEDS: Tolterodine Tartrate LA 4 MG CAP.ER.24H PO (08:45)
[2021-07-10] MEDS: Valsartan 160 MG TABLET PO (08:45)
[2021-07-10] MEDS: amLODIPine Besylate 10 MG TABLET PO (08:45)
[2021-07-10] MEDS: Isosorbide Mononitrate 30 MG TAB.ER.24H PO (08:45)
[2021-07-10] MEDS: hydroCHLOROthiazide 25 MG TABLET PO (08:45)
[2021-07-10] MEDS: Ascorbic Acid 500 MG TABLET PO (08:45)
[2021-07-10] MEDS: 0.9 % Sodium Chloride Flush 3 ML SYRINGE IVFLUSH ×2 (08:46→15:34)
--- NOTE | 2021-07-10 08:50 | MHC.SHP ---
Pre-Procedural Eval Section A Date of Service: 07/10/21 The patient is an INPATIENT: Yes The History & Physical has been completed within 30 days and I have reviewed it.: Yes Section B Chief Complaint: GI bleed Allergies: Allergies Allergy/AdvReac Type Severity Reaction Status Date / Time ibuprofen [Ibuprofen] Allergy Intermediate HIVES/JOINT Verified 04/12/21 18:46 SWELLING Plan I have reviewed the history and physical and performed a pertinent physical examination on my patient. No changes have occurred unless specified.
[2021-07-10] MEDS: Metoprolol Succinate ER 50 MG TAB.ER.24H PO (08:51)
--- NOTE | 2021-07-10 08:52 | PM.EVENT ---
Event Note Date of Service: 07/10/21 Event Note: GI Consult-Full note dictated Imp: UGI Bleed with reported melena for several days. His last dose of his aspirin and Eliquis was on 07/09 AM. His last EGD in 2019 revealed some gastritis with biopsies negative for H.pylori. Denies any other new GI sx. He does take daily PPI at home. He has had 3 previous colonoscopies as well, most recently as of 2019. He has been stable since admission. He did have a few sips of juice and broth at 8:15 AM today before I made him NPO. He had no solid food. Diff dx: Silent ulcer disease/erosive gastritis. Rec: EGD with MAC with me or Dr. Taveras. Full consent obtained for this, including risks of bleeding and perforation. Continue PPI, F/U Hgb. Thanks
--- NOTE | 2021-07-10 11:08 | MHC.CM.PN ---
IMM 07/10/21, IMM REVIEWED AND PLACED IN CHART, CM MET W/PT WHO IS A&O, PT REPORTS HE LIVES W/ FR[facility] [phone] WHO IS ALSO PT'S HCP, PT REPORTS HE USES A CPAP AND 2L O2 AT [facility], PT DENIES HOME SERVICES HOWEVER WOULD BE AGREEABLE IF RECOMMENDED, CM DOES NOT ANTIC PT WILL NEED SERVICES AT THIS TIME, PT VERIFIES PCP BALDOMERO HERNANDEZ AND HAS RECEIVED Phanfare X3, VACCINE ON FILE, HCP ON FILE. D/C PLAN: HOME NO SERVICES, FAMILY FOR TRANSPORT
--- NOTE | 2021-07-10 12:36 | P.CONAN_ITS ---
HPI - Anesthesia Eval Consult details Narrative: 70 yo male patient for EGD PMFSH Active Problems Active Problems: All Active Problems (Updated 07/09/21 @ 15:13 by James Welsh MD) Rectal bleed (Acute). Started 07/05/21 PVC (premature ventricular contraction) (Acute) Atherosclerotic cardiovascular disease (Acute) Bifascicular block (Acute) Precordial chest pain (Acute) Hypersensitivity pneumonitis (Acute) History of prostate cancer (Acute) Hypertension (Acute) Hyperlipidemia (Acute) Obstructive sleep apnea (Acute). Uses CPAP with 2L O2 Denies dizziness, faintness, SOB Non-obstructive CAD> Denies CP Pulmonary embolism 01/07. On eliquis. Last dose 07/09/21 Past Medical History Medical History Atherosclerotic cardiovascular disease Bifascicular block Essential hypertension History of prostate cancer ILD (interstitial lung disease) Pneumonia Pulmonary embolism PVC (premature ventricular contraction) Family History Family History Mother No problems noted. Father No problems noted. Family history of problems with anesthesia: No Surgical History Surgical History H/O prostatectomy History of Problems with Anesthesia: No Social History Social History Household Members: Spouse Housing: House Do you presently have visiting nurse or other home services: No Unable to assess alcohol history related to: Unknown Alcohol intake: current Alcohol intake frequency: holidays/special occasions only Alcohol type: beer Patient Tobacco Use Status: Never used Tobacco Second Hand Smoke Exposure: No Use of substances other than those prescribed or required for medical reasons: No Currently Displaying Signs/Symptoms of Drug Intoxication Withdrawal: No Have you been hit, kicked, punched, or otherwise hurt by someone within the past year? If so, by whom?: No Do you feel safe in your current relationship?: Yes Is there a partner from a previous relationship who is making you feel unsafe now?: No Are you made to feel afraid or neglected: No Are you DNR?: No Advance Directives: Yes Advance Directives Information Provided: No Advance Directives on File: Yes Advance Directives Date on File: 12/28/20 Do you have thoughts of harming others: None Do you have a plan to hurt others: No Plan Recently lost weight without trying: No Nutrition Risks: No Nutritional Risk Poor oral hygiene: No service: No Current occupational status: retired Meds Allergies Allergy/AdvReac Type Severity Reaction Status Date / Time ibuprofen [Ibuprofen] Allergy Intermediate HIVES/JOINT Verified 04/12/21 18:46 SWELLING Active Medications: Current Medications Acetaminophen (Acetaminophen 325 Mg Tablet) 650 mg PO Q6H PRN PRN Reason: Pain, Mild (Pain Scale 1-3) Amlodipine Besylate (Amlodipine Besylate 10 Mg Tablet) 10 mg PO DAILY [facility]; Protocol Last Admin: 07/10/21 08:45 Dose: 10 mg Documented by: Ascorbic Acid (Ascorbic Acid 500 Mg Tablet) 500 mg PO DAILY [facility] Last Admin: 07/10/21 08:45 Dose: 500 mg Documented by: Atorvastatin Calcium (Atorvastatin Calcium 80 Mg Tablet) 80 mg PO BEDTIME [facility] Last Admin: 07/09/21 20:51 Dose: 80 mg Documented by: Hydrochlorothiazide (Hydrochlorothiazide 25 Mg Tablet) 25 mg PO DAILY [facility]; Protocol Last Admin: 07/10/21 08:45 Dose: 25 mg Documented by: Isosorbide Mononitrate (Isosorbide Mononitrate 30 Mg Tab.Er.24h) 30 mg PO DAILY [facility]; Protocol Last Admin: 07/10/21 08:45 Dose: 30 mg Documented by: Lorazepam (Lorazepam 0.5 Mg Tablet) 0.5 mg PO BID PRN PRN Reason: anxiety Last Admin: 07/09/21 20:51 Dose: 0.5 mg Documented by: Metoprolol Succinate (Metoprolol Succinate Er 50 Mg Tab.Er.24h) 50 mg PO DAILY [facility]; Protocol Last Admin: 07/10/21 08:51 Dose: 50 mg Documented by: Omeprazole (Omeprazole 40 Mg Capsule.Dr) 40 mg PO DAILY@0630 [facility] Last Admin: 07/10/21 05:33 Dose: 40 mg Documented by: Ondansetron HCl (Ondansetron Hcl 4 Mg/2 Ml Vial) 4 mg IVPUSH Q8H PRN PRN Reason: Nausea and Vomiting Pharmacy Consult (Consult Rx Perform Med Rec) 1 each MISCELLANE ONCE PRN PRN Reason: Consult order Sodium Chloride (0.9 % Sodium Chloride Flush 3 Ml Syringe) 3 ml IVFLUSH QSHIFT [facility] Last Admin: 07/10/21 08:46 Dose: 3 ml Documented by: Tolterodine Tartrate (Tolterodine Tartrate La 4 Mg Cap.Er.24h) 4 mg PO DAILY [facility] Last Admin: 07/10/21 08:45 Dose: 4 mg Documented by: Valsartan (Valsartan 160 Mg Tablet) 160 mg PO DAILY [facility] Last Admin: 07/10/21 08:45 Dose: 160 mg Documented by: Vitamin D (Cholecalciferol (Vitamin D3) 25 Mcg Tablet) 50 mcg PO BEDTIME [facility] Last Admin: 07/09/21 20:52 Dose: 50 mcg Documented by: Home Medications Medication Instructions Recorded Confirmed Last Taken Type amlodipine 10 mg tablet 1 tab PO DAILY 12/16/20 07/09/21 07/09/21 History ascorbic acid (vitamin C) 500 mg 500 mg PO DAILY 12/16/20 07/09/21 07/09/21 History tablet (Vitamin C) atorvastatin 80 mg tablet 1 tab PO BEDTIME 12/16/20 07/09/21 07/08/21 History omeprazole 40 mg capsule,delayed 1 cap PO DAILY 12/16/20 07/09/21 07/09/21 History release tolterodine 4 mg capsule,extended 1 cap PO DAILY 12/16/20 07/09/21 07/09/21 History release 24 hr aspirin 81 mg tablet,delayed 81 mg PO DAILY 12/27/20 07/09/21 07/09/21 History release cholecalciferol (vitamin D3) 50 50 mcg PO BEDTIME 12/27/20 07/09/21 07/08/21 History mcg (2,000 unit) tablet (Vitamin D3) apixaban 5 mg tablet (Eliquis) 5 mg PO BID 01/04/21 07/09/21 07/09/21 History lorazepam 0.5 mg tablet 0.5 - 1 tab PO BID PRN 04/13/21 07/09/21 04/12/21 History 1 olmesartan 40 1 tab DAILY 04/13/21 07/09/21 07/09/21 History mg-hydrochlorothiazide 25 mg tablet isosorbide mononitrate 30 mg 1 tab PO QAM 07/09/21 07/09/21 07/09/21 History tablet,extended release 24 hr metoprolol succinate 50 mg 1 tab PO DAILY 07/09/21 07/09/21 07/09/21 History tablet,extended release 24 hr Exam Exam Date and Time: July 10, 2021 1236 Height,Weight and Vital Signs: Height 5 ft 7 in Weight 92.986 kg Last Vital Signs Temp 98.7 F 07/10/21 12:28 Pulse 56 07/10/21 12:28 Resp 18 07/10/21 12:28 BP 153/76 H 07/10/21 12:28 Pulse Ox 96 07/10/21 12:28 Pertinent Lab Results Pertinent Lab Results: Laboratory Tests 07/09/21 07/09/21 07/09/21 10:29 10:29 10:29 WBC 6.8 RBC 5.40 Hgb 13.7 L Hct 41.7 L MCV 77.2 L MCH 25.4 L MCHC 32.9 RDW 15.5 Plt Count 247 MPV 9.1 L Immature Gran % (Auto) 0.3 Neut % (Auto) 64.6 Lymph % (Auto) 22.1 [place] % (Auto) 9.1 Eos % (Auto) 3.2 Baso % (Auto) 0.7 Lymph # (Auto) 1.5 [place] # (Auto) 0.6 Eos # (Auto) 0.2 Baso # (Auto) 0.1 Abs Immat Gran (auto) 0.02 Absolute Neuts (auto) 4.4 Absolute Nucleated RBC 0.000 Nucleated RBC % (auto) 0.0 PT INR APTT 36.1 Sodium 139 Potassium 3.4 Chloride 107 Carbon Dioxide 23 Anion Gap 12 BUN 16 Creatinine 0.81 Estim Creat Clear Calc 92.2 Estimated GFR > 60 Random Glucose 133 H Calcium 9.4 Stool Occult Blood COVID-19 (DONALD) COVID-19 Clin Com 07/09/21 07/09/21 07/09/21 14:37 15:40 16:43 WBC RBC Hgb 13.9 L Hct 42.5 MCV MCH MCHC RDW Plt Count MPV Immature Gran % (Auto) Neut % (Auto) Lymph % (Auto) [place] % (Auto) Eos % (Auto) Baso % (Auto) Lymph # (Auto) [place] # (Auto) Eos # (Auto) Baso # (Auto) Abs Immat Gran (auto) Absolute Neuts (auto) Absolute Nucleated RBC Nucleated RBC % (auto) PT INR APTT Sodium Potassium Chloride Carbon Dioxide Anion Gap BUN Creatinine Estim Creat Clear Calc Estimated GFR Random Glucose Calcium Stool Occult Blood POSITIVE COVID-19 (DONALD) Negative COVID-19 Clin Com See Note 07/10/21 07/10/21 07/10/21 05:29 05:29 05:29 WBC 8.1 RBC 5.15 Hgb 13.1 L Hct 40.4 L MCV 78.4 L MCH 25.4 L MCHC 32.4 RDW 15.4 Plt Count 265 MPV 9.9 Immature Gran % (Auto) 0.5 H Neut % (Auto) 58.6 Lymph % (Auto) 26.3 [place] % (Auto) 10.1 Eos % (Auto) 3.6 Baso % (Auto) 0.9 Lymph # (Auto) 2.1 [place] # (Auto) 0.8 Eos # (Auto) 0.3 Baso # (Auto) 0.1 Abs Immat Gran (auto) 0.04 H Absolute Neuts (auto) 4.8 Absolute Nucleated RBC 0.000 Nucleated RBC % (auto) 0.0 PT 14.8 H INR 1.3 H APTT Sodium 141 Potassium 3.9 Chloride 104 Carbon Dioxide 29 Anion Gap 12 BUN 15 Creatinine 0.86 Estim Creat Clear Calc 86.8 Estimated GFR > 60 Random Glucose 87 Calcium 9.0 Stool Occult Blood COVID-19 (DONALD) COVID-19 Clin Com Lab Results 07/09/21 07/09/21 07/09/21 Range/Units 10:29 10:29 10:29 WBC 6.8 (4.8-10.8) X10*3/uL RBC 5.40 (4.60-5.80) X10*6/uL Hgb 13.7 L (14.0-18.0) g/dl Hct 41.7 L (42.0-52.0) % MCV 77.2 L (80.0-98.0) fL MCH 25.4 L (27.0-33.0) pg MCHC 32.9 (31.0-36.0) g/dl RDW 15.5 (11.0-16.0) % Plt Count 247 (160-400) X10*3/uL MPV 9.1 L (9.4-12.4) fL Immature Gran % (Auto) 0.3 (0.0-0.4) % Neut % (Auto) 64.6 (45-73) % Lymph % (Auto) 22.1 (20-40) % [place] % (Auto) 9.1 (2-11) % Eos % (Auto) 3.2 (0-4) % Baso % (Auto) 0.7 (0-2) % Lymph # (Auto) 1.5 (1.2-4.9) X10*3/uL [place] # (Auto) 0.6 (0.1-1.2) X10*3/uL Eos # (Auto) 0.2 (0.0-0.4) X10*3/uL Baso # (Auto) 0.1 (0.0-0.2) X10*3/uL Abs Immat Gran (auto) 0.02 (0.00-0.03) X10*3/uL Absolute Neuts (auto) 4.4 (2.0-8.3) x10*3/uL Absolute Nucleated RBC 0.000 (0.0-0.012) X10*3/uL Nucleated RBC % (auto) 0.0 (0.0-0.2) /100WBC PT (9.9-13.0) SEC INR (0.9-1.1) APTT 36.1 (24.1-38.0) SEC Sodium 139 (135-145) mmol/L Potassium 3.4 (3.3-5.1) mmol/L Chloride 107 (96-108) mmol/L Carbon Dioxide 23 (22-29) mmol/L Anion Gap 12 (12-20) BUN 16 (9-16) mg/dL Creatinine 0.81 (0.5-1.4) mg/dL Estim Creat Clear Calc 92.2 Estimated GFR > 60 Random Glucose 133 H (60-115) mg/dL Calcium 9.4 (8.4-10.2) mg/dL Stool Occult Blood (NEGATIVE) COVID-19 (DONALD) (Negative) COVID-19 Clin Com 07/09/21 07/09/21 07/09/21 Range/Units 14:37 15:40 16:43 WBC (4.8-10.8) X10*3/uL RBC (4.60-5.80) X10*6/uL Hgb 13.9 L (14.0-18.0) g/dl Hct 42.5 (42.0-52.0) % MCV (80.0-98.0) fL MCH (27.0-33.0) pg MCHC (31.0-36.0) g/dl RDW (11.0-16.0) % Plt Count (160-400) X10*3/uL MPV (9.4-12.4) fL Immature Gran % (Auto) (0.0-0.4) % Neut % (Auto) (45-73) % Lymph % (Auto) (20-40) % [place] % (Auto) (2-11) % Eos % (Auto) (0-4) % Baso % (Auto) (0-2) % Lymph # (Auto) (1.2-4.9) X10*3/uL [place] # (Auto) (0.1-1.2) X10*3/uL Eos # (Auto) (0.0-0.4) X10*3/uL Baso # (Auto) (0.0-0.2) X10*3/uL Abs Immat Gran (auto) (0.00-0.03) X10*3/uL Absolute Neuts (auto) (2.0-8.3) x10*3/uL Absolute Nucleated RBC (0.0-0.012) X10*3/uL Nucleated RBC % (auto) (0.0-0.2) /100WBC PT (9.9-13.0) SEC INR (0.9-1.1) APTT (24.1-38.0) SEC Sodium (135-145) mmol/L Potassium (3.3-5.1) mmol/L Chloride (96-108) mmol/L Carbon Dioxide (22-29) mmol/L Anion Gap (12-20) BUN (9-16) mg/dL Creatinine (0.5-1.4) mg/dL Estim Creat Clear Calc Estimated GFR Random Glucose (60-115) mg/dL Calcium (8.4-10.2) mg/dL Stool Occult Blood POSITIVE (NEGATIVE) COVID-19 (DONALD) Negative (Negative) COVID-19 Clin Com See Note 07/10/21 07/10/21 07/10/21 Range/Units 05:29 05:29 05:29 WBC 8.1 (4.8-10.8) X10*3/uL RBC 5.15 (4.60-5.80) X10*6/uL Hgb 13.1 L (14.0-18.0) g/dl Hct 40.4 L (42.0-52.0) % MCV 78.4 L (80.0-98.0) fL MCH 25.4 L (27.0-33.0) pg MCHC 32.4 (31.0-36.0) g/dl RDW 15.4 (11.0-16.0) % Plt Count 265 (160-400) X10*3/uL MPV 9.9 (9.4-12.4) fL Immature Gran % (Auto) 0.5 H (0.0-0.4) % Neut % (Auto) 58.6 (45-73) % Lymph % (Auto) 26.3 (20-40) % [place] % (Auto) 10.1 (2-11) % Eos % (Auto) 3.6 (0-4) % Baso % (Auto) 0.9 (0-2) % Lymph # (Auto) 2.1 (1.2-4.9) X10*3/uL [place] # (Auto) 0.8 (0.1-1.2) X10*3/uL Eos # (Auto) 0.3 (0.0-0.4) X10*3/uL Baso # (Auto) 0.1 (0.0-0.2) X10*3/uL Abs Immat Gran (auto) 0.04 H (0.00-0.03) X10*3/uL Absolute Neuts (auto) 4.8 (2.0-8.3) x10*3/uL Absolute Nucleated RBC 0.000 (0.0-0.012) X10*3/uL Nucleated RBC % (auto) 0.0 (0.0-0.2) /100WBC PT 14.8 H (9.9-13.0) SEC INR 1.3 H (0.9-1.1) APTT (24.1-38.0) SEC Sodium 141 (135-145) mmol/L Potassium 3.9 (3.3-5.1) mmol/L Chloride 104 (96-108) mmol/L Carbon Dioxide 29 (22-29) mmol/L Anion Gap 12 (12-20) BUN 15 (9-16) mg/dL Creatinine 0.86 (0.5-1.4) mg/dL Estim Creat Clear Calc 86.8 Estimated GFR > 60 Random Glucose 87 (60-115) mg/dL Calcium 9.0 (8.4-10.2) mg/dL Stool Occult Blood (NEGATIVE) COVID-19 (DONALD) (Negative) COVID-19 Clin Com Airway Mallampati Class: III TM Dist: >3cm Neck ROM: Full Heart: RRR, PVCs Lungs: CTAB Assessment and Plan Assessment Anesthesia Assessment: Anesthesia Plan Discussed and Chart Reviewed Final Anesthetic Review Family History of Problems with Anesthesia: No History of Problems with Anesthesia: No NPO: Yes ASA Class: III Final Preanesthetic Review: No Changes in Pt Med Stat, Meds/Allgs Chart Reviewed, Consent Obtained/Reviewed and Anes Risks/Benef Reviewed Patient Risk: Intermediate Procedure Risk: Low Assessment/Block/Sedation in SS: Assess/Block/Sedation-SS Anesthetic Plan Anesthetic Plan: MAC: Disposition: Standard PACU
--- NOTE | 2021-07-10 13:49 | P.BOP_ITS ---
Brief Operative Note Date of Service: 07/10/21 Pre-op diagnosis: anemia, black stool Post-op diagnosis: same (duodenitis) Procedure: EGD Surgeon: Raji Taveras Was an Director Industrial Relations used for this Procedure?: No Estimated blood loss (mL): 5 Pathology: other (antral bxs, bxs gastric polyps) Condition: stable Disposition: PACU
--- NOTE | 2021-07-10 13:50 | PM.EVENT ---
Event Note Date of Service: 07/10/21 Event Note: EGD note dictated mild duodenitis and multiple gastric polyps, bxd no bleeding rec: advance diet hold asa x 2 weeks ppi d/c when stable
[2021-07-10] MEDS: Lactated Ringers 1,000 ML 100 ML IVCONT (15:34)
--- NOTE | 2021-07-10 15:34 | P.PNIM_ITS ---
Subjective Subjective Date of Service: 07/10/21 Review of Systems Follow GI bleed one episode of black stool last night no abd pain, nausea or vomiting Physical Exam Vital Signs: Vital Signs: Last Vital Signs Temp 97.8 F 07/10/21 14:20 Pulse 54 07/10/21 14:20 Resp 18 07/10/21 14:20 BP 116/61 07/10/21 14:20 Pulse Ox 95 07/10/21 14:20 BMI result Body Mass Index 32.1 Appearing in no acute distress, feeling groggy lung sounds are clear to auscultation heart regular rate rhythm, clear S1, S2 positive bowel sounds, abdomen is soft, nontender neuro patient is alert x3, no focal deficits Objective Data Active Medications Acetaminophen (Acetaminophen 325 Mg Tablet) 650 mg PO Q6H PRN PRN Reason: Pain, Mild (Pain Scale 1-3) Amlodipine Besylate (Amlodipine Besylate 10 Mg Tablet) 10 mg PO DAILY [facility]; Protocol Last Admin: 07/10/21 08:45 Dose: 10 mg Documented by: RIMMA Ascorbic Acid (Ascorbic Acid 500 Mg Tablet) 500 mg PO DAILY [facility] Last Admin: 07/10/21 08:45 Dose: 500 mg Documented by: RIMMA Atorvastatin Calcium (Atorvastatin Calcium 80 Mg Tablet) 80 mg PO BEDTIME [facility] Last Admin: 07/09/21 20:51 Dose: 80 mg Documented by: DAVID Hydrochlorothiazide (Hydrochlorothiazide 25 Mg Tablet) 25 mg PO DAILY [facility]; Protocol Last Admin: 07/10/21 08:45 Dose: 25 mg Documented by: RIMMA Lactated Ringer's (Lr) 1,000 mls @ 100 mls/hr IVCONT .Q10H [facility] Isosorbide Mononitrate (Isosorbide Mononitrate 30 Mg Tab.Er.24h) 30 mg PO DAILY [facility]; Protocol Last Admin: 07/10/21 08:45 Dose: 30 mg Documented by: RIMMA Lorazepam (Lorazepam 0.5 Mg Tablet) 0.5 mg PO BID PRN PRN Reason: anxiety Last Admin: 07/09/21 20:51 Dose: 0.5 mg Documented by: DAVID Metoprolol Succinate (Metoprolol Succinate Er 50 Mg Tab.Er.24h) 50 mg PO DAILY [facility]; Protocol Last Admin: 07/10/21 08:51 Dose: 50 mg Documented by: RIMMA Comments: HR recheck prior to admin 62bpm Omeprazole (Omeprazole 40 Mg Capsule.) 40 mg PO DAILY@0630 [facility] Last Admin: 07/10/21 05:33 Dose: 40 mg Documented by: ODRISM Ondansetron HCl (Ondansetron Hcl 4 Mg/2 Ml Vial) 4 mg IVPUSH Q8H PRN PRN Reason: Nausea and Vomiting Ondansetron HCl (Ondansetron Hcl 4 Mg/2 Ml Vial) 4 mg IVPUSH ONCE PRN PRN Reason: Nausea and Vomiting Pharmacy Consult (Consult Rx Perform Med Rec) 1 each MISCELLANE ONCE PRN PRN Reason: Consult order Sodium Chloride (0.9 % Sodium Chloride Flush 3 Ml Syringe) 3 ml IVFLUSH QSHIFT [facility] Last Admin: 07/10/21 08:46 Dose: 3 ml Documented by: RIMMA Tolterodine Tartrate (Tolterodine Tartrate La 4 Mg Cap.Er.24h) 4 mg PO DAILY [facility] Last Admin: 07/10/21 08:45 Dose: 4 mg Documented by: RIMMA Valsartan (Valsartan 160 Mg Tablet) 160 mg PO DAILY [facility] Last Admin: 07/10/21 08:45 Dose: 160 mg Documented by: RIMMA Vitamin D (Cholecalciferol (Vitamin D3) 25 Mcg Tablet) 50 mcg PO BEDTIME [facility] Last Admin: 07/09/21 20:52 Dose: 50 mcg Documented by: DAVID Labs CBC & Chem 7: 07/10/21 05:29 07/10/21 05:29 Labs: Laboratory Results - last 24 hr 07/09/21 07/10/21 07/10/21 16:43 05:29 05:29 MCV 78.4 L MCH 25.4 L MCHC 32.4 RDW 15.4 Plt Count 265 MPV 9.9 Immature Gran % (Auto) 0.5 H Neut % (Auto) 58.6 Lymph % (Auto) 26.3 [place] % (Auto) 10.1 Eos % (Auto) 3.6 Baso % (Auto) 0.9 Lymph # (Auto) 2.1 [place] # (Auto) 0.8 Eos # (Auto) 0.3 Baso # (Auto) 0.1 Abs Immat Gran (auto) 0.04 H Absolute Neuts (auto) 4.8 Absolute Nucleated RBC 0.000 Nucleated RBC % (auto) 0.0 PT INR Anion Gap 12 Estim Creat Clear Calc 86.8 Estimated GFR > 60 Random Glucose 87 Calcium 9.0 COVID-19 (DONALD) Negative COVID-19 Clin Com See Note 07/10/21 05:29 MCV MCH MCHC RDW Plt Count MPV Immature Gran % (Auto) Neut % (Auto) Lymph % (Auto) [place] % (Auto) Eos % (Auto) Baso % (Auto) Lymph # (Auto) [place] # (Auto) Eos # (Auto) Baso # (Auto) Abs Immat Gran (auto) Absolute Neuts (auto) Absolute Nucleated RBC Nucleated RBC % (auto) PT 14.8 H INR 1.3 H Anion Gap Estim Creat Clear Calc Estimated GFR Random Glucose Calcium COVID-19 (DONALD) COVID-19 Clin Com Assessment and Plan (1) Rectal bleed: Status: Acute Plan 70 year old man admitted with GI bleed GI Bleed black stool noted HH remains stable so far? PPI BID for 2 weeks then back to once daily EGD showed duodenitis, no active bleed may continue eliquis and hold asa PAfib may continue eliquis continue BB Hypertension Stable BP Continue home medications and monitor for hypotension ESTELLA CPAP from home HLD statin mental health continue home medications DVT prophylaxis with SCD boots due to GI Bleed Attending Dr. Wilson Full code continued hospitalization for treatment of GI Bleeding s/p EGD, patient very groggy and will be discharged in the morning Quality Stroke Does the patient have a stroke diagnosis?: No VTE Prior VTE?: No VTE Risk Level:: Medical - moderate - high VTE Device Contraindication: N/A - Device Ordered VTE Drug Contraindication: Treatment Not Indicated
--- NOTE | 2021-07-10 15:43 | P.DS_ITS ---
DS: Providers Provider Date of Service: 07/11/21 <Linden Villa MD - Last Filed: 07/11/21 10:41> Date of admission: 07/09/21 15:06 <Sparkle Vasquez NP - Last Filed: 07/14/21 17:45> Primary care physician: Deisi Oakley MD <Sparkle Vasquez NP - Last Filed: 07/14/21 17:45> Consults: 07/09/21 15:07 Consult to Gastroenterology Routine Consulting Provider: Puneet Rose Reason for consultation: gi bleed Has provider been notified: No <Sparkle Vasquez NP - Last Filed: 07/14/21 17:45> DS: Diagnosis Discharge Diagnosis (1) Acute blood loss anemia: Status: Acute <Sparkle Vasquez NP - Last Filed: 07/14/21 17:45> (2) Duodenitis: Status: Acute <Sparkle Vasquez NP - Last Filed: 07/14/21 17:45> (3) Gastric polyp: Status: Acute <Sparkle Vasquez NP - Last Filed: 07/14/21 17:45> DS: Summary Hospital Course Hospital Course: HPI from admission H&P: 70 year old man presenting to the Black stool. He stated that this started about 3 days ago. He noted black stools and red blood in the toilet water. He denied abdominal pain, nausea, vomiting, diarrhea , fever, chills, recent travel. ? He reports that this happened about 10 years ago we had several episodes and was told that this was related to colon polyps.? He denied any dizziness, shortness of breath, chest pain. He has not had any other episodes of bleeding.? Hemoglobin was noted to be 13.9, hematocrit 42.5, stool occult positive, hemodynamically stable. He was given zofran, tylenol. He will be admitted for further management and treatment of GI bleeding. Hospital Course: Patient presented to [facility]. He underwent EGD which showed mild duodenitis and gastric polys (biopsies, results should followed up with PCP) with no active bleeding. He had a mild drop in his h/h and did not require transfusion. He was treated with IV PPI BID and asa/eliquis were held in the hospital. Post-EGD he was transitioned to oral PPI and diet was advanced. GI recs: hold asa x 2 weeks (and to d/w PCP re: its use as patient denied any prior CAD/DE/Stenting). May continue Eliquis. He will have repeat h/h in 1 week. Pt was offered PT eval for possible STR placement, but he opted for to go home. <Sparkle Vasquez NP - Last Filed: 07/14/21 17:45> Time Spent with Patient Time attestation: Total time spent providing and/or coordinating discharge services: <Sparkle Vasquez NP - Last Filed: 07/14/21 17:45> Discharge coordination time: Greater than 30 minutes <Linden Villa MD - Last Filed: 07/11/21 10:41> Quality: Safe Use of Opioids Does Pt have an Active Cancer Diagnosis on the Problem List?: No <Linden Villa MD - Last Filed: 07/11/21 10:41> Quality: Stroke Does the patient have a stroke diagnosis?: No <Linden Villa MD - Last Filed: 07/11/21 10:41> Physical Exam Vital Signs: Vital Signs: Last Vital Signs Temp 97.8 F 07/10/21 14:20 Pulse 54 07/10/21 14:20 Resp 18 07/10/21 14:20 BP 116/61 07/10/21 14:20 Pulse Ox 95 07/10/21 14:20 BMI result Body Mass Index 32.1 <Sparkle Vasquez NP - Last Filed: 07/14/21 17:45> Const: Other: General - no acute distress, appears comfortable Cardiovascular - regular rate and rhythm, S1-S2 Lungs - normal respiratory effort, clear to auscultation bilaterally, no wheezing Abdomen - soft, nontender, no rebound or guarding Extremities - no edema bilaterally Neuro - awake and alert, no focal deficits <Linden Villa MD - Last Filed: 07/11/21 10:41> DS: Data Data Completed and Pending Completed studies during hospitalization [Text1]: Procedures Assistance with Respiratory Ventilation, Less than 24 Consecutive Hours, Continuous Positive Airway Pressure (01/12/21) <Sparkle Vasquez NP - Last Filed: 07/14/21 17:45> Pending studies at discharge: Pending at discharge 07/10/21 13:37 Surgical [PTH] Routine <Sparkle Vasquez NP - Last Filed: 07/14/21 17:45> Labs on day of discharge: Laboratory Results - last 24 hr 07/09/21 07/09/21 07/10/21 15:40 16:43 05:29 WBC 8.1 RBC 5.15 Hgb 13.9 L 13.1 L Hct 42.5 40.4 L MCV 78.4 L MCH 25.4 L MCHC 32.4 RDW 15.4 Plt Count 265 MPV 9.9 Immature Gran % (Auto) 0.5 H Neut % (Auto) 58.6 Lymph % (Auto) 26.3 [place] % (Auto) 10.1 Eos % (Auto) 3.6 Baso % (Auto) 0.9 Lymph # (Auto) 2.1 [place] # (Auto) 0.8 Eos # (Auto) 0.3 Baso # (Auto) 0.1 Abs Immat Gran (auto) 0.04 H Absolute Neuts (auto) 4.8 Absolute Nucleated RBC 0.000 Nucleated RBC % (auto) 0.0 PT INR Sodium Potassium Chloride Carbon Dioxide Anion Gap BUN Creatinine Estim Creat Clear Calc Estimated GFR Random Glucose Calcium COVID-19 (DONALD) Negative COVID-19 Clin Com See Note 07/10/21 07/10/21 05:29 05:29 WBC RBC Hgb Hct MCV MCH MCHC RDW Plt Count MPV Immature Gran % (Auto) Neut % (Auto) Lymph % (Auto) [place] % (Auto) Eos % (Auto) Baso % (Auto) Lymph # (Auto) [place] # (Auto) Eos # (Auto) Baso # (Auto) Abs Immat Gran (auto) Absolute Neuts (auto) Absolute Nucleated RBC Nucleated RBC % (auto) PT 14.8 H INR 1.3 H Sodium 141 Potassium 3.9 Chloride 104 Carbon Dioxide 29 Anion Gap 12 BUN 15 Creatinine 0.86 Estim Creat Clear Calc 86.8 Estimated GFR > 60 Random Glucose 87 Calcium 9.0 COVID-19 (DONALD) COVID-19 Clin Com <Sparkle Vasquez NP - Last Filed: 07/14/21 17:45> Discharge Plan Discharge Patient Disposition: Home, Self-Care <Sparkel Vasquez NP - Last Filed: 07/14/21 17:45> Discharge Diagnosis: Rectal bleed secondary to mild duodenitis and multiple gastric polyps <Sparkle Vasquez NP - Last Filed: 07/14/21 17:45> Rectal bleed secondary to mild duodenitis and multiple gastric polyps <Linden Villa MD - Last Filed: 07/11/21 10:41> Referrals: Raji Taveras [Physician] - None (as needed ) Montrell Oakley MD [Primary Care Provider] - 1 Week <Sparkle Vasquez NP - Last Filed: 07/14/21 17:45> Discharge Medications: Continued atorvastatin 80 mg tablet 1 tab PO BEDTIME 0RF tolterodine 4 mg capsule,extended release 24hr 1 cap PO DAILY 0RF amlodipine 10 mg tablet 1 tab PO DAILY 0RF ascorbic acid (vitamin C) [Vitamin C] 500 mg Tablet 500 mg PO DAILY 0RF Eliquis 5 mg tablet 5 mg PO BID 0RF olmesartan-hydrochlorothiazide 40-25 mg tablet 1 tab DAILY 0RF lorazepam 0.5 mg tablet 0.5 - 1 tab PO BID PRN (Reason: anxiety) 0RF cholecalciferol (vitamin D3) [Vitamin D3] 50 mcg (2,000 unit) Tablet 50 mcg PO BEDTIME 0RF metoprolol succinate 50 mg tablet extended release 24 hr 1 tab PO DAILY 0RF isosorbide mononitrate 30 mg tablet extended release 24 hr 1 tab PO QAM 0RF Changed omeprazole 40 mg capsule,delayed release(DR/EC) 1 cap PO BID Qty: 60 0RF Held aspirin 81 mg Tablet,Delayed Release (Dr/Ec) 81 mg PO DAILY 0RF Hold Instructions: Resume on 08/06/21. <Sparkle Vasquez NP - Last Filed: 07/14/21 17:45> Discharge Orders: Discharge Order (Routine); Ordered 07/11/21 Ordered By: Linden Villa <Sparkle Vasquez NP - Last Filed: 07/14/21 17:45> Diet: advance to usual diet <Sparkle Vasquez NP - Last Filed: 07/14/21 17:45> advance to usual diet <Linden Villa MD - Last Filed: 07/11/21 10:41> Activity on Discharge: As tolerated <Sparkle Vasquez NP - Last Filed: 07/14/21 17:45> As tolerated <Linden Villa MD - Last Filed: 07/11/21 10:41> Stand Alone Forms: Patient Portal Discharge page <Sparkle Vasquez NP - Last Filed: 07/14/21 17:45> Care Plan Goals: no further bleeding episodes <Sparkle Vasquez NP - Last Filed: 07/14/21 17:45> Health Concerns: Rectal bleed secondary to mild duodenitis and multiple gastric polyps <Sparkle Vasquez NP - Last Filed: 07/14/21 17:45> Plan of Treatment: Follow-up with primary care provider as needed Take Prilosec twice a day for 2 weeks then daily Stop taking your aspirin for 2 weeks; you make take your Eliquis; discuss with your PCP if you need to be on aspirin at all. <Sparkle Vasquez NP - Last Filed: 07/14/21 17:45> Assessment: see discharge summary <Sparkle Vasquez NP - Last Filed: 07/14/21 17:45> Discharge Date/Time: 07/11/21 16:00 <Sparkle Vasquez NP - Last Filed: 07/14/21 17:45>
[2021-07-10] MEDS: Atorvastatin Calcium 80 MG TABLET PO (20:50)
[2021-07-10] MEDS: LORazepam 0.5 MG TABLET PO (20:50)
[2021-07-10] MEDS: Cholecalciferol (Vitamin D3) 25 MCG TABLET 50 MCG PO (20:50)
--- NOTE | 2021-07-11 01:25 | OP_ITS ---
SURGEON: Raji Taveras MD INDICATIONS: Anemia and heme-positive stool. PREOPERATIVE DIAGNOSIS: POSTOPERATIVE DIAGNOSIS: PROCEDURE PERFORMED: ESTIMATED BLOOD LOSS: COMPLICATIONS: ANESTHESIA: ASSISTANTS: SPECIMENS: PROCEDURE: Upper endoscopy with biopsy. MEDICATIONS: Monitored anesthesia care. DESCRIPTION OF PROCEDURE: History and physical performed. The risks and benefits of the procedure were explained to the patient. Informed consent was obtained. The patient was placed in a left lateral decubitus position. The Olympus videogastroscope was introduced into the esophagus, stomach, and duodenum. The examination was performed. The scope was removed. He tolerated the procedure well and was returned to the recovery area in stable condition. FINDINGS: 1. Esophagus: The esophagus was normal. There was no esophagitis. 2. Stomach showed no evidence of masses or ulcers. There were several gastric polyps in the body and fundus consistent with fundic gland polyps. Two of these were biopsied. Antral biopsies were obtained to evaluate for H pylori. There was no ulcer and no gastritis. 3. Duodenum: There was duodenitis involving the bulb, but no ulcer. IMPRESSION: Duodenitis and gastric polyps. RECOMMENDATION: 1. Follow up the biopsy results. 2. Hold aspirin for 2 weeks. 3. Continue proton pump inhibitor. MD ALISHA Smalls/SCOTTL / [id number]
[2021-07-11] MEDS: Lactated Ringers 1,000 ML 100 ML IVCONT ×2 (01:42→10:52)
[2021-07-11 04:00] VITALS: BP 123/73; PULSE 54; RESP 17; TEMP 36.6; O2SAT 95
[2021-07-11] MEDS: Omeprazole 40 MG CAPSULE.DR PO (06:35)
[2021-07-11 06:40] LABS: Hematocrit 38.5 % (42.0-52.0); Hemoglobin 12.8 g/dl (14.0-18.0); Mean Corpuscular HGB Conc 33.2 g/dl (31.0-36.0); Mean Corpuscular Hemoglobin 26.1 pg (27.0-33.0); Mean Corpuscular Volume 78.6 fL (80.0-98.0); Mean Platelet Volume 9.8 fL (9.4-12.4); Platelet Count 244 X10*3/uL (160-400); Red Cell Distribution Width 15.6 % (11.0-16.0); White Blood Count 7.5 X10*3/uL (4.8-10.8)
[2021-07-11 06:45] LABS: Anion Gap 11 (12-20); Blood Urea Nitrogen 13 mg/dL (9-16); Calcium 8.9 mg/dL (8.4-10.2); Carbon Dioxide 29 mmol/L (22-29); Chloride 104 mmol/L (96-108); Creatinine Clr Calc Pharmacy 88.9; Estimated Glomerular Filt Rate > 60; Glucose Random 98 mg/dL (60-115); Potassium 3.7 mmol/L (3.3-5.1); Sodium 140 mmol/L (135-145)
[2021-07-11 07:40] VITALS: BP 137/80; PULSE 50; RESP 18; TEMP 36.4; O2SAT 98
[2021-07-11] MEDS: Isosorbide Mononitrate 30 MG TAB.ER.24H PO (08:22)
[2021-07-11] MEDS: amLODIPine Besylate 10 MG TABLET PO (08:22)
[2021-07-11] MEDS: Tolterodine Tartrate LA 4 MG CAP.ER.24H PO (08:22)
[2021-07-11] MEDS: Valsartan 160 MG TABLET PO (08:22)
[2021-07-11] MEDS: Ascorbic Acid 500 MG TABLET PO (08:22)
[2021-07-11] MEDS: hydroCHLOROthiazide 25 MG TABLET PO (08:22)
[2021-07-11 11:16] VITALS: BP 134/69; PULSE 63; RESP 16; TEMP 36.4; O2SAT 95
--- NOTE | 2021-07-11 11:16 | HO.POSTANES ---
Post Anesthesia Evaluation Post Anesthesia Evaluation Vital Signs: Vital Signs Temp Pulse Resp BP Pulse Ox 07/11/21 07:40 97.5 F 50 18 137/80 98 07/11/21 04:00 97.9 F 54 17 123/73 95 07/10/21 23:44 98.3 F 50 17 136/67 94 Anesthesia: Monitored Mental Status: Awake Pain Control: Satisfactory Nausea/Vomiting: None Hydration: Adequate Anesthesia-Related Issues: No Anes. Related Issues
[2021-07-11 13:04] VITALS: O2SAT 95
--- NOTE | 2021-07-12 19:51 | CONS_ITS ---
DATE OF SERVICE: 07/10/2021 REASON FOR CONSULTATION: Melena. HISTORY OF PRESENT ILLNESS: The patient is a 70-year-old male who is on chronic aspirin and Eliquis, and noted the onset of black stool several days prior to admission. His last upper endoscopy in 2019 revealed some gastritis, with biopsies negative for H pylori. He has no history of ulcer disease. He does take a daily PPI at home. Due to the persistence of the black stool, he came to the ER. He also describes a tiny bit of red blood mixed with the black stool in the toilet bowl. He denies any new GI symptoms. He specifically denies any abdominal pain, significant heartburn, dysphagia, nausea, nor vomiting. He has not noticed any hematochezia, otherwise. He denies any jaundice nor weight loss. Of note, he has also had three previous colonoscopies as well, most recently as of 2019. Since being here in the hospital, he has been hemodynamically stable and has had no significant drop in his hemoglobin. He has had no signs of bleeding since admission. He does not use any NSAIDs, tobacco, nor alcohol. MEDICATIONS: At home included amlodipine, aspirin 81 mg, atorvastatin, vitamin D, Eliquis, isosorbide, lorazepam, omeprazole. His medications in the hospital included hydrochlorothiazide, amlodipine, valsartan, omeprazole, metoprolol, isosorbide, vitamin D, Zofran, acetaminophen. PAST MEDICAL HISTORY: Upper endoscopies and colonoscopies as described above. He does have a history of colon polyps. He has a history of hypertension, prostate cancer, interstitial lung disease, and pulmonary embolism. He has had a prostatectomy. SOCIAL HISTORY: He is . He does not smoke nor use any significant amounts of alcohol. FAMILY HISTORY: Noncontributory. REVIEW OF SYSTEMS: CONSTITUTIONAL: He has, otherwise, been feeling well at home with good energy and good appetite. SKIN: No rash. No pruritus. CARDIAC: No chest pain. PULMONARY: No cough. No hemoptysis. GASTROINTESTINAL: As above. PHYSICAL EXAMINATION: GENERAL: The patient is a pleasant, alert, comfortable-appearing male. SKIN: Warm and dry. Nonjaundiced. HEENT: Anicteric sclerae. NECK: Supple. CHEST: Clear. CARDIAC: Normal S1, S2. ABDOMEN: Soft, nondistended, nontender. LABORATORY STUDIES: His hemoglobin on admission was 13.7, compared to 14.4 in March. MCV 77. Platelets 247,000. PT 14.8 with INR 1.3. Normal electrolytes. BUN 15, creatinine 0.9. Stool was heme positive. IMPRESSION: Given the patient's clinical history of his reported black stool on both aspirin and Eliquis, I do suspect this is an upper gastrointestinal source of bleeding. This may reflect silent peptic ulcer disease or erosive gastritis. At this point he appears stable. I would recommend upper endoscopy later today with either myself or Dr. Taveras. Full consent was obtained for this, including risks of bleeding and perforation. I will continue his PPI and monitor his hemoglobin. His aspirin and Eliquis will need to be held for the time being. This has all been discussed in detail with the patient. He is comfortable with this plan. Thank you for the consultation. MD GER Chaudhari/FELIX / [id number] MTDD
== END 2021-07-11 16:00 | disposition home or self-care (01) | DRG 378 ==
LOC: HO.ED 15:35 → HO.EDOVER 16:09 → HO.S3 23:34
PROVIDERS: Internal Medicine; Internal Medicine Gastroenterology; Admitting Provider Nurse Practitioner Acute Care; Emergency Provider Emergency Medicine; PCP Internal Medicine; Visit Provider Family Medicine
PROC: 0DJ08ZZ Inspection of Upper Intestinal Tract, Via Natural or Artificial Opening Endoscopic (ICD-10-PCS; CPT 43235; principal; 2021-07-10 12:50)
DX: K29.81 Duodenitis with bleeding (principal); D62 Acute posthemorrhagic anemia; K31.7 Polyp of stomach and duodenum; I25.10 Atherosclerotic heart disease of native coronary artery without angina pectoris; I48.0 Paroxysmal atrial fibrillation; I10 Essential (primary) hypertension; G47.33 Obstructive sleep apnea (adult) (pediatric); Z20.822 Contact with and (suspected) exposure to COVID-19; Z85.46 Personal history of malignant neoplasm of prostate; Z86.711 Personal history of pulmonary embolism; Z79.01 Long term (current) use of anticoagulants; Z79.82 Long term (current) use of aspirin; Z79.899 Other long term (current) drug therapy
CPT/HCPCS: 36415; 80048; 82272; 85014; 85018; 85025; 85027; 85610; 85730; 87635; 88305; 88342; 99285; J2250

== ENCOUNTER 2023-08-01 17:35 | Emergency (ER) | payer OTHER, MEDICARE, SELFPAY ==
--- NOTE | 2023-08-01 17:37 | ECG_ITS ---
Test Reason : CHSET PAIN Blood Pressure : / mmHG Vent. Rate : 065 BPM Atrial Rate : 065 BPM P-R Int : 166 ms QRS Dur : 154 ms QT Int : 458 ms P-R-T Axes : 022 -56 -15 degrees QTc Int : 476 ms Sinus rhythm with marked sinus arrhythmia with occasional Premature ventricular complexes Right bundle branch block Left anterior fascicular block Bifascicular block Abnormal ECG When compared with ECG of 13-APR-2021 08:31, Premature ventricular complexes are now Present QT has lengthened Referred By: Generic ED Physician Electronically Signed By:VASHTI MEJIAS
[2023-08-01 17:58] VITALS: BP 138/73; PULSE 62; RESP 18; TEMP 37.1; O2SAT 96; BMI 29.9
--- NOTE | 2023-08-01 17:59 | ED_ITS ---
HPI - Chest Pain General Chief Complaint: Chest Pain Stated Complaint: Chest pain Time Seen by Provider: 08/01/23 19:06 Source: patient Mode of arrival: ambulatory Limitations: no limitations History of Present Illness ED Provider: anival VILLALOBOS narrative: Patient is 72 years old with history of hypertension hyperlipidemia sleep apnea using CPAP comes here for off and on episode of chest pain for last 6 weeks associated with slight shortness of breath and bradycardia ranging to 30s patient is on metoprolol for hypertension dose was increased to 75 mg 2 weeks ago which will decrease back to 5 mg now no syncope no dizziness patient had Holter monitoring done this week and had cardiac catheterization done about 10 years ago neg Related Data Home Medications ?Medication ?Instructions ?Recorded ?Confirmed amlodipine 10 mg tablet 1 tab PO DAILY 12/16/20 07/09/21 ascorbic acid (vitamin C) 500 mg 500 mg PO DAILY 12/16/20 07/09/21 tablet (Vitamin C) atorvastatin 80 mg tablet 1 tab PO BEDTIME 12/16/20 07/09/21 tolterodine 4 mg capsule,extended 1 cap PO DAILY 12/16/20 07/09/21 release 24 hr aspirin 81 mg tablet,delayed 81 mg PO DAILY 12/27/20 07/09/21 release cholecalciferol (vitamin D3) 50 50 mcg PO BEDTIME 12/27/20 07/09/21 mcg (2,000 unit) tablet (Vitamin D3) apixaban 5 mg tablet (Eliquis) 5 mg PO BID 01/04/21 07/09/21 lorazepam 0.5 mg tablet 0.5 - 1 tab PO BID PRN anxiety 04/13/21 07/09/21 olmesartan 40 1 tab DAILY 04/13/21 07/09/21 mg-hydrochlorothiazide 25 mg tablet isosorbide mononitrate 30 mg 1 tab PO QAM 07/09/21 07/09/21 tablet,extended release 24 hr metoprolol succinate 50 mg 1 tab PO DAILY 07/09/21 07/09/21 tablet,extended release 24 hr Previous Rx's ?Medication ?Instructions ?Recorded omeprazole 40 mg capsule,delayed 1 cap PO BID #60 caps 07/11/21 release Allergies Allergy/AdvReac Type Severity Reaction Status Date / Time ibuprofen [Ibuprofen] Allergy Intermediate HIVES/JOINT Verified 08/01/23 18:01 SWELLING Review of Systems 2 Review of Systems: Yes all other systems are reviewed and are negative [facility] Past Medical History Medical History History of prostate cancer ILD (interstitial lung disease) Atherosclerotic cardiovascular disease Essential hypertension Bifascicular block PVC (premature ventricular contraction) Pulmonary embolism Pneumonia Surgical History H/O prostatectomy Family History Family History Mother No problems noted. Father No problems noted. Social History Social History Household Members: Spouse Housing: House Do you presently have visiting nurse or other home services: No Unable to assess alcohol history related to: Unknown Alcohol intake: current Alcohol intake frequency: holidays/special occasions only Alcohol type: beer Patient Tobacco Use Status: Never used Tobacco Smoked in Last 30 Days: No Second Hand Smoke Exposure: No Advance Directives: Yes Advance Directives on File: Yes Advance Directives Date on File: 12/28/20 service: No Current occupational status: retired Physical Exam 2 Vital Signs: Vital Signs: Last Vital Signs Temp 98.1 F 08/01/23 20:14 Pulse 59 08/01/23 20:14 Resp 17 08/01/23 20:14 BP 132/62 08/01/23 20:14 Pulse Ox 92 08/01/23 20:14 O2 Del Method Room Air 08/01/23 20:14 BMI result Body Mass Index 29.9 Appearance: Alert. Oriented X3. No acute distress. Eyes: No pallor or icterus ENT: Pharynx normal. Oral Mucosa moist Neck: Normal inspection. Neck supple. CVS: Normal heart rate and rhythm. Pulses normal. Respiratory: No respiratory distress. Equal air entry bilateral, no wheezing/rales/rhonchi Abdomen: Soft and nontender. Bowel sounds are present, Skin: Skin warm and dry. Normal skin color. Normal skin turgor. Extremities: No lower extremity edema. No calf tenderness Neuro: Oriented X 3. Course Course Course Narrative: This is an RME performed by Bk Miranda CNP: Additional HPI, ROS, PE not included below will be deferred to primary provider. Patient is a 72-year-old male who presents to the emergency department for evaluation. He reports for a few weeks he has been experiencing intermittent upper chest pain, described as a bother. Denies pain on exertion, symptoms are felt while at rest, at times may last a few hours before self-resolving. He admits to dyspnea on exertion, but denies shortness of breath associated with his chest pain. He states that he is being following by a intrusion analyst Dr. Aiken, through [facility], has had EKGs that have been unremarkable. He states that according to his smart watch he has been experiencing a low heart rate, reportedly below 40 particularly at night, but lately has noticed this during the day as well. Plan: Labs, EKG Medical Decision Making Medical Decision Making [facility] Narrative: Patient has atypical chest pain for more than 6 hours ago 2 sets cardiac enzymes negative for acute will discharge patient home advised to follow up with intrusion analyst hold the metoprolol if heart rates drops less than 40 Differential Diagnosis Differential Diagnoses: The differential diagnosis associated with the presentation includes ACS/CHF/non-STEMI Admission/Observation Consideration of admission/observation: Escalation of care including admission/observation considered Lab Data [facility] Lab Attestation statement: I reviewed the patient's lab results. 08/01/23 17:55 08/01/23 17:55 Labs: Lab Results 08/01/23 08/01/23 08/01/23 Range/Units 17:55 17:56 19:48 WBC 10.1 (4.8-10.8) X10*3/uL RBC 5.34 (4.60-5.80) X10*6/uL Hgb 14.0 (14.0-18.0) g/dl Hct 41.2 L (42.0-52.0) % MCV 77.2 L (80.0-98.0) fL MCH 26.2 L (27.0-33.0) pg MCHC 34.0 (31.0-36.0) g/dl RDW 15.2 (11.0-16.0) % Plt Count 255 (160-400) X10*3/uL MPV 9.2 L (9.4-12.4) fL Immature Gran % (Auto) 0.3 (0.0-0.4) % Neut % (Auto) 68.4 (45-73) % Lymph % (Auto) 18.4 L (20-40) % Iroquois % (Auto) 9.5 (2-11) % Eos % (Auto) 2.4 (0-4) % Baso % (Auto) 1.0 (0-2) % Lymph # (Auto) 1.9 (1.2-4.9) X10*3/uL Iroquois # (Auto) 1.0 (0.1-1.2) X10*3/uL Eos # (Auto) 0.2 (0.0-0.4) X10*3/uL Baso # (Auto) 0.1 (0.0-0.2) X10*3/uL Abs Immat Gran (auto) 0.03 (0.00-0.03) X10*3/uL Absolute Neuts (auto) 6.9 (2.0-8.3) x10*3/uL Absolute Nucleated RBC 0.000 (0.0-0.012) X10*3/uL Nucleated RBC % (auto) 0.0 (0.0-0.2) /100WBC PT 12.5 (11.1-13.3) SEC INR 1.0 (0.9-1.1) Sodium 142 (135-145) mmol/L Potassium 3.5 (3.3-5.1) mmol/L Chloride 106 (96-108) mmol/L Carbon Dioxide 27 (22-29) mmol/L Anion Gap 13 (12-20) BUN 17 H (9-16) mg/dL Creatinine 0.80 (0.5-1.4) mg/dL Estim Creat Clear Calc 90.6 Estimated GFR > 60 Random Glucose 95 (60-115) mg/dL Calcium 9.6 D (8.4-10.2) mg/dL Total Bilirubin 0.8 (0.0-1.0) mg/dL AST 28 (5-37) U/L ALT 25 (0-40) U/L Alkaline Phosphatase 88 (39-117) U/L Troponin I High Sens 13.4 12.7 (<3.5-35.0) ng/L B-Natriuretic Peptide 64 (<100) pg/mL Total Protein 6.7 (6.5-8.0) g/dL Albumin 4.0 (3.5-5.0) g/dL Independent Interpretation I performed an independent interpretation of an: EKG Interpretation: Sinus bradycardia heart rate 65 beats per minute bifascicular block no acute STT wave changes no acute ischemia Discharge Plan Discharge Clinical Impression: Chest pain, Bradycardia Patient Disposition: Home, Self-Care Instructions: Chest Pain (ED), Bradycardia (ED) Additional Instructions: Continue your medications and follow up with intrusion analyst Hold metoprolol if heart rate drops less than 60 Report to the ER if passing out episode/CVA chest pain Prescriptions: No Action atorvastatin 80 mg tablet 1 tab PO BEDTIME tolterodine 4 mg capsule,extended release 24hr 1 cap PO DAILY amlodipine 10 mg tablet 1 tab PO DAILY ascorbic acid (vitamin C) [Vitamin C] 500 mg Tablet 500 mg PO DAILY Eliquis 5 mg tablet 5 mg PO BID olmesartan-hydrochlorothiazide 40-25 mg tablet 1 tab DAILY lorazepam 0.5 mg tablet 0.5 - 1 tab PO BID PRN (Reason: anxiety) aspirin 81 mg Tablet,Delayed Release (Dr/Ec) 81 mg PO DAILY Hold Instructions: Resume on 08/06/21. cholecalciferol (vitamin D3) [Vitamin D3] 50 mcg (2,000 unit) Tablet 50 mcg PO BEDTIME metoprolol succinate 50 mg tablet extended release 24 hr 1 tab PO DAILY isosorbide mononitrate 30 mg tablet extended release 24 hr 1 tab PO QAM omeprazole 40 mg capsule,delayed release(DR/EC) 1 cap PO BID Qty: 60 0RF Print Language: Turkish
[2023-08-01 18:00] LABS: MANUAL DIFF FLAG NO
[2023-08-01 18:05] LABS: Basophils Absolute Auto 0.1 X10*3/uL (0.0-0.2); Eosinophils Absolute Auto 0.2 X10*3/uL (0.0-0.4); Eosinophils Percent Auto 2.4 % (0-4); Hematocrit 41.2 % (42.0-52.0); Imm Gran Abs Auto 0.03 X10*3/uL (0.00-0.03); Imm Gran Pct Auto 0.3 % (0.0-0.4); Lymphocytes Absolute Auto 1.9 X10*3/uL (1.2-4.9); Lymphocytes Percent Auto 18.4 % (20-40); Mean Corpuscular Hemoglobin 26.2 pg (27.0-33.0); Mean Corpuscular Volume 77.2 fL (80.0-98.0); Mean Platelet Volume 9.2 fL (9.4-12.4); Monocytes Percent Auto 9.5 % (2-11); Neutrophils Absolute Auto 6.9 x10*3/uL (2.0-8.3); Neutrophils Percent Auto 68.4 % (45-73); Platelet Count 255 X10*3/uL (160-400); Red Blood Count 5.34 X10*6/uL (4.60-5.80); Red Cell Distribution Width 15.2 % (11.0-16.0); White Blood Count 10.1 X10*3/uL (4.8-10.8)
[2023-08-01 18:09] VITALS: BP 158/67; PULSE 70; RESP 17; TEMP 36.9; O2SAT 95
[2023-08-01 18:14] LABS: Prothrombin Time 12.5 SEC (11.1-13.3)
[2023-08-01 18:15] LABS: Alanine Aminotransferase 25 U/L (0-40); Alkaline Phosphatase 88 U/L (39-117); Anion Gap 13 (12-20); Aspartate Amino Transferase 28 U/L (5-37); Bilirubin Total 0.8 mg/dL (0.0-1.0); Blood Urea Nitrogen 17 mg/dL (9-16); Calcium 9.6 mg/dL (8.4-10.2); Carbon Dioxide 27 mmol/L (22-29); Chloride 106 mmol/L (96-108); Creatinine Clr Calc Pharmacy 90.6; Estimated Glomerular Filt Rate > 60; Glucose Random 95 mg/dL (60-115); Potassium 3.5 mmol/L (3.3-5.1); Sodium 142 mmol/L (135-145); Total Protein 6.7 g/dL (6.5-8.0)
[2023-08-01 18:21] LABS: B Type Natriuretic Peptide 64 pg/mL (<100)
[2023-08-01 18:22] LABS: Troponin-I High Sensitivity 13.4 ng/L (<3.5-35.0)
--- OUTSIDE RECORDS SUMMARY | 2023-08-01 18:26 | XMS_ITS | Continuity of Care Document ---
Author Organization [facility] Address [address] [place] [address]- Care Team Providers Care Clothing Cutter Name Role Phone Cele KONG, Deisi Primary Care Physici an Encounter [facility] Date(s): 12/20/20 - 01/19/21 [facility] [address] [place] [id number]- [place] Allergies, Adverse Reactions, Alerts Substance Reaction Severity Status ibuprofen hives/whole body swelling/lip swelling Active Immunizations Given and Recorded Vaccine Date Status Refusal Reason SARS-CoV-2 (COVID-19) mRNA BNT-162b2 vac 05/17/20 Recorded SARS-CoV-2 (COVID-19) mRNA BNT-162b2 vac 04/26/20 Recorded influenza virus vaccine, inactivated 11/15/19 Arias rded influenza virus vaccine, inactivated 10/05/18 Arias rded influenza virus vaccine, inactivated 09/29/17 Arias rded influenza virus vaccine, inactivated 10/07/16 Arias rded influenza virus vaccine, inactivated 11/12/15 Arias rded influenza virus vaccine, inactivated 02/09/15 Arias rded pneumococcal 23-valent vaccine 04/06/18 Recorded pneumococcal 13-valent vaccine 03/03/17 Recorded diphtheria/tetanus/pertussis, acel(DTaP) 03/03/17 Recorded zoster vaccine, inactivated 02/18/16 Recorded Medications Albuterol (Eqv-Proventil HFA) 90 mcg/inh inhalation aerosol 2 puffs, Inhalation, Every 6 hours, j44.9, # 1 each, 6 Refills, Maintenance, 12/20/20 16:00:00 EDT,[id number], 170.2, cm, 12/08/20 14:58:00 EDT, Height, 92, kg, 03/22/19 17:48:00 EST, Dry Weight Start Date: 12/20/20 Status: Ordered amLODIPine 10 mg oral tablet See Instructions, TAKE 1 TABLET BY MOUTH DAILY, # 90 tablet, 0 Refills, [id number], 174.5, cm,08/11/20 16:20:00 EDT, Height, 92, kg, 03/22/19 17:48:00 EST, Dry Weight Start Date: 11/08/20 Status: Ordered apixaban 5 mg oral tablet 1 tablet = 5 mg, By Mouth, 2 times a day, # 60 tablet, 2 Refills, Maintenance, 01/10/21 14:26:00 EST, Tablet, Partial fill upon patient request if the prescription is for a schedule II opioid drug. Start Date: 01/10/21 Status: Ordered aspirin 81 mg oral tablet 1 tablet = 81 mg, By Mouth, Daily, # 30 tablet, 3 Refills, Maintenance, 10/11/15 13:50:22, Tablet Start Date: 10/11/15 Stop Date: 02/08/16 Status: Ordered atorvastatin 80 mg oral tablet See Instructions, TAKE 1 TABLET BY MOUTH EVERYDAY AT BEDTIME, # 90 tablet, 1 Refills, [id number], 174.5, cm, 11/30/20 11:05:00 EDT, Height, 92, kg, 03/22/19 17:48:00 EST, Dry Weight Start Date: 12/06/20 Status: Ordered Compression Stockings See Instructions, # 2 each, Maintenance, surgical, calf length 20-30 mm Hg, 08/11/20 16:54:00 EDT, Supply Start Date: 08/11/20 Status: Ordered hydrochlorothiazide-olmesartan 25 mg-40 mg oral tablet See Instructions, TAKE 1 TABLET DAILY, # 90 tablet, 1 Refills, [id number], 90, TAKE 1 TABLET DAILY, 174.5, cm, 11/30/20 11:05:00 EDT, Height, 92, kg, 03/22/19 17:48:00 EST, Dry Weight Start Date: 12/06/20 Status: Ordered incentive spirometer incentive spirometer, See Instructions, # 1 each, Refills 0, Tot. Refills 0, Maintenance, use as directed, 12/25/20 13:37:00 EST, Supply, 170.2, cm, 12/08/20 14:58:00 EDT, Height, 92, kg, 03/22/19 17:48:00 EST, Dry Weight Start Date: 12/25/20 Status: Ordered incentive spirometer incentive spirometer, See Instructions, # 1 each, Refills 0, Tot. Refills 0, Maintenance, use as directed, 01/03/21 16:33:00 EST, Supply, 170.2, cm, 01/03/21 16:31:00 EST, Height, 92, kg, 03/22/19 17:48:00 EST, Dry Weight Start Date: 01/03/21 Status: Ordered LORazepam 0.5 mg oral tablet 0.5 -1 tablet, By Mouth, 2 times a day, PRN as needed for anxiety, # 24 tablet, 0 Refills, Maintenance, 01/19/21 15:27:00 EST, Tablet, [facility] #[id number], Partial fill upon patient request if the prescription is for a schedule II opioid drug., 170.2,... Start Date: 01/19/21 Status: Ordered Metoprolol Succinate ER 25 mg oral tablet, extended release 1 tablet = 25 mg, By Mouth, Daily, # 90 tablet, 3 Refills, Soft Stop, 03/21/20 10:47:00 EST, [facility]/pharm[facility] #[id number], 174, cm, 12/15/19 15:30:00 EDT, Height, 92, kg, 03/22/19 17:48:00 EST, Dry Weight Start Date: 03/21/20 Stop Date: 03/16/21 Status: Ordered PriLOSEC OTC 20 mg oral delayed release tablet 2 tablet = 40 mg, By Mouth, Daily, 0 Refills, Maintenance, 01/07/18 10:36:08 EST Start Date: 01/07/18 Status: Ordered tolterodine 1 mg oral tablet 1 tablet = 1 mg, By Mouth, Daily, 0 Refills, Maintenance, 02/04/19 14:15:00 EST Start Date: 02/04/19 Status: Ordered Vitamin C By Mouth, Daily, 0 Refills, Maintenance, 05/31/20 14:26:00 EDT, Partial fill upon patient request if the prescription is for a schedule II opioid drug. Start Date: 05/31/20 Status: Ordered Vitamin D3 5000 intl units oral tablet 1 tablet = 5,000 International_Units, By Mouth, Daily, # 100 tablet, 0 Refills, Maintenance, 05/31/20 14:26:00 EDT, Tablet, Partial fill upon patient request if the prescription is for a schedule II opioid drug. Start Date: 05/31/20 Status: Ordered Problem List Condition Effective Dates Status Health Status Inform ant Benign essential hypertension(Confirmed) Active Bifascicular block(Confirmed) Active Renal cyst(Confirmed) Active Exposure to lead(Confirmed) Active Chronic GERD(Confirmed) Active History of prostate cancer(Confirmed) Active Hyperlipidemia(Confirmed) Active Multiple pulmonary nodules(Confirmed) Active Obese class I(Confirmed) Active Silicosis(Confirmed) Active Polyp of colon(Confirmed) Active Pulmonary emboli(Confirmed) Active Pulmonary embolism(Confirmed) Active Sarcoidosis(Confirmed) Active Social History Social History Type Response Smoking Status Never smoker entered on: 10/10/15 Sex
--- OUTSIDE RECORDS SUMMARY | 2023-08-01 18:26 | XMS_ITS | Continuity of Care Document ---
Author Organization [facility] Address [address] [place] [address] [address], [address] [place] [address]- Care Team Providers Care Chief Growth Officer Name Role Phone Cele KONG, Deisi Primary Care Physici an Encounter [facility] Date(s): 05/01/22 - 05/08/22 [facility] [address] [place] [address] Drive, [address] [place] [address]- Attending Physician: Joseph KONG, Puneet Huitron Referring Physician: Eze Wren Allergies, Adverse Reactions, Alerts Substance Reaction Severity Status ibuprofen hives/whole body swelling/lip swelling Active Immunizations Given and Recorded Vaccine Date Status Refusal Reason influenza virus vaccine, inactivated 12/07/21 Arias rded influenza virus vaccine, inactivated 12/04/20 Arias rded influenza virus vaccine, inactivated 11/15/19 Arias rded influenza virus vaccine, inactivated 10/05/18 Arias rded influenza virus vaccine, inactivated 09/29/17 Arias rded influenza virus vaccine, inactivated 10/07/16 Arias rded influenza virus vaccine, inactivated 11/12/15 Arias rded influenza virus vaccine, inactivated 02/09/15 Arias rded [id number] 12y+ bivalent booster vax 10/30/21 Recorded SARS-CoV-2 (COVID-19) mRNA BNT-162b2 vac 05/25/21 Recorded SARS-CoV-2 (COVID-19) mRNA BNT-162b2 vac 11/22/20 Recorded SARS-CoV-2 (COVID-19) mRNA BNT-162b2 vac 05/17/20 Recorded SARS-CoV-2 (COVID-19) mRNA BNT-162b2 vac 04/26/20 Recorded pneumococcal 23-valent vaccine 04/06/18 Recorded pneumococcal 13-valent vaccine 03/03/17 Recorded diphtheria/tetanus/pertussis, acel(DTaP) 03/03/17 Recorded zoster vaccine, inactivated 02/18/16 Recorded Medications Albuterol (Eqv-Proventil HFA) 90 mcg/inh inhalation aerosol 2 puffs, Inhalation, Every 6 hours, j44.9, # 1 each, 6 Refills, Maintenance, 12/20/20 16:00:00 EDT,[facility]/pharmacy #[id number], 170.2, cm, 12/08/20 14:58:00 EDT, Height, 92, kg, 03/22/19 17:48:00 EST, Dry Weight Start Date: 12/20/20 Status: Ordered amLODIPine 10 mg oral tablet See Instructions, TAKE 1 TABLET BY MOUTH DAILY, # 90 tablet, 1 Refills, 04/27/22 9:06:00 EST, [facility] #[id number], 170, cm, 04/27/22 8:57:00 EST, Height Start Date: 04/27/22 Status: Ordered Amoxicillin By Mouth, Maintenance, 05/01/22 10:30:00 EDT Start Date: 05/01/22 Status: Ordered aspirin 81 mg oral tablet 1 tablet = 81 mg, By Mouth, Daily, # 30 tablet, 3 Refills, Maintenance, 10/11/15 13:50:22, Tablet Start Date: 10/11/15 Stop Date: 02/08/16 Status: Ordered atorvastatin 80 mg oral tablet 1 tablet, By Mouth, Daily at bedtime, # 90 tablet, 1 Refills, 02/19/22 10:16:00 EST, [facility]/pharm[facility] #[id number], 170, cm, 02/16/22 11:05:00 EST, Height Start Date: 02/19/22 Status: Ordered hydrochlorothiazide-olmesartan 25 mg-40 mg oral tablet 1 tablet, By Mouth, Daily, # 90 tablet, 1 Refills, Maintenance, 04/29/22 11:43:00 EDT, [id number], 90, TAKE 1 TABLET DAILY, 170, cm, 04/27/22 8:57:00 EST, Height Start Date: 04/29/22 Status: Ordered isosorbide mononitrate 30 mg oral tablet, extended release 30 mg, 1, tablet, By Mouth, Daily in AM, # 90 tablet, Refills 2, Tot. Refills 2, Maintenance, 11/01/21 10:28:00 EDT, Route to Pharmacy Electronically, [facility]/pharmacy #[id number], Partial fill upon patient request if the prescription is for a schedule II opioi... Start Date: 11/01/21 Stop Date: 07/29/22 Status: Ordered LORazepam 0.5 mg oral tablet 0.5 -1 tablet, By Mouth, 2 times a day, PRN as needed for anxiety, # 24 tablet, 0 Refills, Maintenance, 01/19/21 15:27:00 EST, Tablet, [facility]/pharmacy #[id number], Partial fill upon patient request if the prescription is for a schedule II opioid drug., 170.2,... Start Date: 01/19/21 Status: Ordered Metoprolol Succinate ER 50 mg oral tablet, extended release See Instructions, TAKE 1 TABLET BY MOUTH EVERY DAY, # 90 tablet, 1 Refills, Maintenance, 12/20/21 11:29:00 EDT, [id number], 170, cm, 11/19/21 15:27:00 EDT, Height Start Date: 12/20/21 Status: Ordered omeprazole 40 mg oral enteric coated capsule 1 capsule, By Mouth, Daily, 90., # 90 capsule, 2 Refills, Maintenance, 11/16/21 17:58:00 EDT, [id number], 170, cm, 11/16/21 11:29:00 EDT, Height Start Date: 11/16/21 Status: Ordered tolterodine 4 mg oral capsule, extended release 1 capsule = 4 mg, By Mouth, Daily, # 90 capsule, 0 Refills, Maintenance, 04/30/21 9:58:00 EDT, [facility]aps[facility], Partial fill upon patient request if the prescription is for a schedule II opioid drug. Start Date: 04/30/21 Status: Ordered Vitamin C By Mouth, Daily, [...] Date: 05/31/20 Status: Ordered Problem List Condition Confirmation Course Effective Dates Status H ealth Status Informant Anxiety disorder Confirmed Active Benign essential hypertension Confirmed Active Bifascicular block Confirmed Active Cervical radiculopathy at C8 Confirmed Active Coronary artery disease Confirmed Active Renal cyst Confirmed Active Exposure to lead Confirmed Active Chronic GERD Confirmed Active History of prostate cancer Confirmed Active History of malignant neoplasm of prostate Confirmed 02/28/22 Active Hyperlipidemia Confirmed Active Interstitial lung disease Confirmed 02/28/21 Active custodial current use of anticoagulant 1 Confirmed Active Multiple pulmonary nodules Confirmed Active Obese class I Confirmed Active Paroxysmal atrial fibrillation 2 Confirmed Active Silicosis Confirmed Active Polyp of colon Confirmed Active Sarcoidosis Confirmed Active 1Per 01/17/2021 Cardiology note: reviewed the findings with the patient and his at length. Considering presence of pulmonary embolism and PAF, I recommend lifelong anticoagulation SEEMA 2From 01/17/2021 Cardiology note: reviewed the findings with the patient and his at length. Considering presence of pulmonary embolism and PAF, I recommend lifelong anticoagulation . SEEMA Vital Signs Most recent to oldest [Reference Range]: 1 Height 170 cm (05/01/22 10:27 AM) Weight 92.5 kg (05/01/22 10:27 AM) Body Mass Index [18.5-24.99 kg/m2] 32.01 kg/m2 *>HHI* (05/01/22 10:27 AM) Social History Social History Type Response Smoking Status Never smoker entered on: 10/10/15 Sex Patient Care team information Care Team Personnel Name: Kaila Farrell RN Position: [facility] SN RN Member Role: Primary Care Nurse Name: Deisi Oakley MD Position: [facility] Primary Care Physician Member Role: PCP Address: Address: [address] [place] [id number]- Name: Ruth Rivera Position: [facility] Outreach Member Role: [employer] Consulting Physician Name: Estela Bruce RN Position: [facility] Onco RN Member Role: Primary Care Nurse Care Team Related Persons Name: FRANK MORAN Address: [address] [address]
--- OUTSIDE RECORDS SUMMARY | 2023-08-01 18:26 | XMS_ITS | Continuity of Care Document ---
Author Organization [facility] Address [address] [place] [address] Rachelle polo, [address] [place] [address]- Care Team Providers Care Bread Stacker Name Role Phone Cele KONG, Deisi Primary Care Physici an Encounter [facility] Date(s): 05/01/22 - 05/31/22 [facility] [address] [place] [address] Drive, [address] [place] [address]- Attending Physician: Basim Saldana Admitting Physician: AdmBasim walters Referring Physician: AdmtrBasim Allergies, Adverse Reactions, Alerts Substance Reaction Severity [...] influenza virus vaccine, inactivated 02/09/15 Arias rded [id number] 12y+ bivalent booster vax 10/30/21 Recorded SARS-CoV-2 [...] 1 each, 6 Refills, Maintenance, 12/20/20 16:00:00 EDT,[facility]/pharmacy #[id number], 170.2, cm, 12/08/20 14:58:00 EDT, Height, 92, kg, 03/22/19 17:48:00 EST, Dry Weight Start Date: 12/20/20 Status: Ordered amLODIPine 10 mg oral tablet See Instructions, TAKE 1 TABLET BY MOUTH DAILY, # 90 tablet, 1 Refills, 04/27/22 9:06:00 EST, [facility]/pharmacy #2339, 170, cm, 04/27/22 8:57:00 EST, Height [...] 90 tablet, 1 Refills, 02/19/22 10:16:00 EST, [facility]/pharmacy #2339, 170, cm, 02/16/22 11:05:00 EST, Height Start Date: 02/19/22 Status: Ordered hydrochlorothiazide-olmesartan 25 mg-40 mg oral tablet 1 tablet, By Mouth, Daily, # 90 tablet, 1 Refills, Maintenance, 04/29/22 11:43:00 EDT, [facility], 90, TAKE 1 TABLET DAILY, 170, cm, 04/27/22 8:57:00 EST, Height Start Date: 04/29/22 Status: Ordered isosorbide mononitrate 30 mg oral tablet, extended release 30 mg, 1, tablet, By Mouth, Daily in AM, # 90 tablet, Refills 2, Tot. Refills 2, Maintenance, 11/01/21 10:28:00 EDT, Route to Pharmacy Electronically, [facility]/pharmacy #[id number], Partial fill upon patient request if the prescription is for a schedule II opioi... Start Date: 11/01/21 Stop Date: 07/29/22 Status: Ordered LORazepam 0.5 mg oral tablet 0.5 -1 tablet, By Mouth, 2 times a day, PRN as needed for anxiety, # 24 tablet, 0 Refills, Maintenance, 01/19/21 15:27:00 EST, Tablet, [facility]/pharmacy #[id number], Partial fill upon patient request if the prescription is for a schedule II opioid drug., 170.2,... Start Date: 01/19/21 Status: Ordered Metoprolol Succinate ER 50 mg oral tablet, extended release 1 tablet, By Mouth, Daily, # 90 tablet, 1 Refills, Maintenance, 05/29/22 9:32:00 EDT, [facility], 170, cm, 05/01/22 10:27:00 EDT, Height Start Date: 05/29/22 Status: Ordered omeprazole 40 mg oral enteric coated capsule 1 capsule, By Mouth, Daily, 90., # 90 capsule, 2 Refills, Maintenance, 11/16/21 17:58:00 EDT, [facility], 170, cm, 11/16/21 11:29:00 EDT, Height Start [...] Active Interstitial lung disease Confirmed 02/28/21 Active assisted current use of anticoagulant 1 Confirmed Active [...] PAF, I recommend lifelong anticoagulation . SEEMA Social History Social History Type Response Smoking Status Never smoker entered on: 10/10/15 Sex Note * Event Display: IR Special Procedures, Non- Authored Date: * Event Display: MRI Spine, Non- Authored Date: Patient Care team information Care Team Personnel Name: Kaila Farrell RN Position: [facility] SN RN Member Role: Primary Care Nurse Name: Deisi Oakley MD Position: [facility] Primary Care Physician Member Role: PCP Address: Address: [address] [place] [id number]- Name: Ruth Rivera Position: [facility] Outreach Member Role: Lifetime Consulting Physician Name: Estela Bruce RN Position: [facility] Onco RN Member Role: Primary Care Nurse Care Team Related Persons Name: THONYFRANK HALL Address: home [address] [place] [id number]
--- OUTSIDE RECORDS SUMMARY | 2023-08-01 18:26 | XMS_ITS | Patient Health Record ---
Author Organization [facility] Address [address] [place] [address] Care Team Providers Care Appeals Analyst Name Role Phone Cele KONG, Deisi Primary Care Provide r Unavailable Raji Taveras Jr Unavailable [phone] ALLERGIES Allergen (clinical drug ingredient) Drug/Non Drug Allergy documented on EMR Reaction Allergy Type Onset Date Status ibuprofen Ibuprofen Unknown Drug Allergy Active REASON FOR REFERRAL No Information MEDICATIONS Medication SIG (Take, Route, Frequency, Duration) Notes Start Date End Date Status Tolterodine Tartrate ER 4 MG TAKE 1 CAPSULE BY MOUTH EVERY DAY Oral for 90 Active Vitamin C Active Vitamin D Active Tylenol Active Atorvastatin Calcium 80 MG 1 tablet Oral ly Once a day Active Albuterol Sulfate HFA 108 (90 Base) MCG/ACT INHALE 2 PUFFS EVERY 6 HOURS Inhalation for 25 Active Metoprolol Succinate ER 25 MG 1 tablet Orally Once a day Active amLODIPine Besylate 10 MG 1 tablet Orall y Once a day Active Aspirin 81 MG 1 tablet Orally Once a day Active Omeprazole 40 MG TAKE 1 CAPSULE EVERY DAY for 90 Active prednisoLONE 5 MG 1 tablet in the morn ing with food or milk Orally Once a day for 30 day(s) Active Isosorbide Mononitrate ER 30 MG TAKE 1 TABLET BY MOUTH EVERY DAY IN AM FOR 90 DAY Oral for 90 Active Benicar HCT 40-25 MG 1 tablet Orally Onc e a day Active Olmesartan Medoxomil-HCTZ 40-25 MG TAKE 1 TABLET BY MOUTH EVERY DAY Oral for 90 Active IMMUNIZATIONS Vaccine Route Administration Date Status Comme nts Influenza Unknown 10/18/2018 Administered Influenza Unknown 12/01/2019 Administered Influenza Unknown 12/05/2020 Administered Influenza Unknown 11/06/2021 Administered SOCIAL HISTORY Sex Assigned At : Social History Observation Description Sex Assigned At Unknown PROBLEMS Problem Type ICD Code Onset Dates Problem Status W/U Status Risk SNOMED Code Notes Problem Colon cancer screening (Z12.11) Active confirmed 689083105 Problem half-way (current) use of aspirin (Z79.82) Active confirmed 134445375609146 Problem Duodenitis (K29.80) Active confirmed 72 630817 Problem Gastroesophageal reflux disease without esophagitis (K21.9) Active confirmed 289275619 VITAL SIGNS Temperature 98.9 degrees Fahrenheit 11/13/2022 Blood pressure diastolic 00 mm Hg 11/13/2022 Height 68 in 11/13/2022 Blood pressure systolic 000 mm Hg 11/13/2022 Weight 199 lb 8 oz lbs 11/13/2022 BMI 30.33 kg/m2 11/13/2022 Encounters Encounter Location Date Provider Diagnosis [facility] [address] [place] [address] 11/13/2022 Raji Taveras Jr Gastroesophageal reflux disease without esophagitis K21.9 and Colon cancer screening Z12.11 [facility] [address] [place] [address] 11/13/2022 Raji Taveras Jr ASSESSMENTS Encounter Date Diagnosis Assessment Notes Treatment Notes Treatment Clinical Notes 11/13/2022 Colon cancer screening (ICD-10 - Z12.11) 11/13/2022 Gastroesophageal reflux disease without esophagitis (ICD-10 - K21.9) Gastroesophageal reflux disease material was printed PLAN OF TREATMENT Future Test Test Name Order Date COLONOSCOPY 12/29/2013 UPPER GI ENDOSCOPY 12/27/2015 COLONOSCOPY 01/06/2019 UPPER GI ENDOSCOPY 05/06/2019 Insurance Providers Payer Name Payer Address Payer Phone Subscriber Number Group Number Insured Name Patient Relationship to Insured Coverage Start Date Coverage End Date [facility] [address] [facility] [phone] [id number] HERNANDO OMRAN Self - patient is the insured MEDICAL (GENERAL) HISTORY Medical History History ICD Code colonoscopy 03/26/19, tubular adenoma, fol low up 5 years. Internal hemorrhoids Hypertension Elevated cholesterol Kidney Stones prostate cancer gastroesophageal reflux dise ase, EGD 06/30/19, no esophagitis or Breaux''s esophagus. ESTELLA/CPAP GI bleeding 07/08, EGD showed duodenitis and fundic gland polyps 569.3 Surgical History Surgery Date(Month/Year) Right foot surgery Right inguinal herniorrhaphy prostatectomy due to prostate cancer prostate biopsy
--- OUTSIDE RECORDS SUMMARY | 2023-08-01 18:26 | XMS_ITS | Continuity of Care Document ---
Author Organization [facility] Address [address] [place] [address]- Care Team Providers Care Scroll Saw Operator Name Role Phone Cele KONG, Deisi Primary Care Physici an [facility]counter [facility] Date(s): 06/01/20 - 07/01/20 [facility] [address] [place] [address]- Allergies, Adverse Reactions, Alerts Substance Reaction Severity Status ibuprofen hives/whole body swelling/lip swelling Active Immunizations Given and Recorded Vaccine Date Status Refusal Reason pneumococcal 23-valent vaccine 04/06/18 Recorded pneumococcal 13-valent vaccine 03/03/17 Recorded diphtheria/tetanus/pertussis, acel(DTaP) 03/03/17 Recorded zoster vaccine, inactivated 02/18/16 Recorded Medications Albuterol (Eqv-Proventil HFA) 90 mcg/inh inhalation aerosol 2 puffs, Inhalation, Every 6 hours, # 6.7 Unknown, 0 Refills, Maintenance, 06/20/20 12:54:00 EDT, [facility], 174.5, cm, 05/31/20 14:23:00 EDT, Height, 92, kg, 03/22/19 17:48:00 EST, Dry Weight Start Date: 06/20/20 Status: Ordered amLODIPine 10 mg oral tablet 10 mg, 1, tablet, By Mouth, Daily, # 30 tablet, Refills 2, Tot. Refills 2, Soft Stop, 05/18/20 11:29:00 EDT, Route to Pharmacy Electronically, [facility]/pharmacy #[id number], 174.5, cm, 04/27/20 10:11:00 EST, Height, 92, kg, 03/22/19 17:48:00 EST, Dry Weight Start Date: 05/18/20 Status: Ordered aspirin 81 mg oral tablet 1 tablet = 81 mg, By Mouth, Daily, # 30 tablet, 3 Refills, Maintenance, 10/11/15 13:50:22, Tablet Start Date: 10/11/15 Stop Date: 02/08/16 Status: Ordered atorvastatin 80 mg oral tablet 1 tablet, By Mouth, Daily at bedtime, # 90 tablet, 1 Refills, Maintenance, 06/26/20 7:56:00 EDT, [facility], 174.5, cm, 05/31/20 14:23:00 EDT, Height, 92, kg, 03/22/19 17:48:00 EST, Dry Weight Start Date: 06/26/20 Status: Ordered hydrochlorothiazide-olmesartan 25 mg-40 mg oral tablet 1 tablet, By Mouth, Daily, # 90 tablet, 1 Refills, Maintenance, 05/19/20 13:29:00 EDT, [facility], 1 tablet By Mouth Daily, 174.5, cm, 04/27/20 10:11:00 EST, Height, 92, kg, 03/22/19 17:48:00EST, Dry Weight Start Date: 05/19/20 Status: Ordered Metoprolol Succinate ER 25 mg oral tablet, extended release 1 tablet = 25 mg, By Mouth, Daily, # 90 tablet, 3 Refills, Soft Stop, 03/21/20 10:47:00 EST, [facility], 174, cm, 12/15/19 15:30:00 EDT, Height, 92, kg, 03/22/19 17:48:00 EST, Dry Weight Start Date: 03/21/20 Stop Date: 03/16/21 Status: Ordered PriLOSEC OTC 20 mg oral delayed release tablet 2 tablet = 40 mg, By Mouth, Daily, 0 Refills, Maintenance, 01/07/18 10:36:08 EST Start Date: 01/07/18 Status: Ordered Tessalon Perles 100 mg oral capsule 1 capsule = 100 mg, By Mouth, 3 times a day, for 7 days, # 21 capsule, 0 Refills, Acute 07/03/20 15:52:00 EDT, 06/26/20 15:52:00 EDT, Capsule, [facility], Partial fill upon patient request ifthe prescription is for a schedule II opioid drug.,... Start Date: 06/26/20 Stop Date: 07/03/20 Status: Ordered tolterodine 1 mg oral tablet [...] Benign essential hypertension(Confirmed) Active Bifascicular block(Confirmed) Active Coronary artery disease(Confirmed) Active Renal cyst(Confirmed) Active Exposure to lead(Confirmed) Active Chronic GERD(Confirmed) Active History of prostate cancer(Confirmed) Active Hyperlipidemia(Confirmed) Active Multiple pulmonary nodules(Confirmed) Active Polyp of colon(Confirmed) Active Social History Social History Type Response Smoking Status Never smoker entered on: 10/10/15 Sex
--- OUTSIDE RECORDS SUMMARY | 2023-08-01 18:26 | XMS_ITS | Continuity of Care Document ---
Author Organization [facility] ter Address [address] [place] [address]- Care Team Providers Care Manager Process Name Role Phone Cele KONG, Deisi Primary Care Physici an Encounter [facility] Date(s): 12/08/20 - 12/08/[address] [address]- Discharge Disposition: A-D/C Home Attending Physician: Ramirez Rainey MD Admitting Physician: Ramirez Rainey MD Referring Physician: Ramirez Rainey MD Allergies, Adverse Reactions, Alerts Substance Reaction Severity [...] Unknown, 0 Refills, Maintenance, 06/20/20 12:54:00 EDT, [facility], 174.5, cm, 05/31/20 14:23:00 EDT, Height, 92, kg, 03/22/19 17:48:00 EST, Dry Weight Start Date: 06/20/20 Status: Ordered amLODIPine 10 mg oral tablet See Instructions, TAKE 1 TABLET BY MOUTH DAILY, # 90 tablet, 0 Refills, [facility], 174.5, cm,08/11/20 16:20:00 EDT, Height, 92, kg, 03/22/19 17:48:00 EST, Dry Weight Start Date: 11/08/20 Status: Ordered aspirin 81 mg oral tablet 1 tablet = 81 mg, By Mouth, Daily, # 30 tablet, 3 Refills, Maintenance, 10/11/15 13:50:22, Tablet Start Date: 10/11/15 Stop Date: 02/08/16 Status: Ordered atorvastatin 80 mg oral tablet See Instructions, TAKE 1 TABLET BY MOUTH EVERYDAY AT BEDTIME, # 90 tablet, 1 Refills, [facility], 174.5, cm, 11/30/20 11:05:00 EDT, Height, 92, kg, 03/22/19 17:48:00 EST, Dry Weight Start Date: 12/06/20 Status: Ordered Compression Stockings See Instructions, # 2 each, Maintenance, surgical, calf length 20-30 mm Hg, 08/11/20 16:54:00 EDT, Supply Start Date: 08/11/20 Status: Ordered hydrochlorothiazide-olmesartan 25 mg-40 mg oral tablet See Instructions, TAKE 1 TABLET DAILY, # 90 tablet, 1 Refills, [facility], 90, TAKE 1 TABLET DAILY, 174.5, cm, 11/30/20 11:05:00 EDT, Height, 92, kg, 03/22/19 17:48:00 EST, Dry Weight Start Date: 12/06/20 Status: Ordered Metoprolol Succinate ER 25 mg oral tablet, extended release 1 tablet = 25 mg, By Mouth, Daily, # 90 tablet, 3 Refills, Soft Stop, 03/21/20 10:47:00 EST, [facility]/pharmacy #2339, 174, cm, 12/15/19 15:30:00 EDT, Height, [...] pulmonary nodules(Confirmed) Active Polyp of colon(Confirmed) Active Sarcoidosis(Confirmed) Active Results Orders for Microbiology Reports Name Date Lower Resp Tract Culture w/ Gram Smear 1 Microbiology Reports TEST:Lower Respiratory Tract Culture STATUS:Unauthenticated BODY SITE: SOURCE:BRONCH COLLECTED DATE/TIME:12/08/20 5:39 PM Lower Respiratory Tract Culture SPECIMEN DESCRIPTION : BRONCHIAL ALVEOLAR LAVAGE LUNG RT MID LOBE SPECIAL REQUESTS : NONE GRAM STAIN : 3+ WHITE BLOOD CELLS NO ORGANISMS SEEN REPORT STATUS : PRELIMINARY REPORT Radiology Reports * Exam Date Time Procedure Performing Provider Status 12/08/20 6:44 PM Chest Portable Heaven Persaud; Auth (Verified) Notes: (Chest Portable) Reason For Exam: Other: RESULT: Chest Portable AP portable chest, INDICATION: Reason: Other:; Clinical Question(s): Pneumothorax; post bronchsocpy with transbronchial biopsy of right upper lobe and bronchoalveolar lavage of RML COMPARISON: 03/22/2019 FINDINGS: LINES AND TUBES: None LUNGS AND PLEURA AND MEDIASTINUM: There is no pneumothorax or pleural effusion. Heart size is borderline. No focal consolidation. The right perihilar lung markings are mildly increased. IMPRESSION: No pneumothorax. WSN: [id number] Ordering Physician: Ramirez Rainey Dictated By: Janna Pittman MD Dictated Date/Time: 12/08/20 7:11 pm Reviewed By: Janna Pittman MD Signed By: Janna Pittman MD Signed Date/Time: 12/08/20 7:11 pm Transcribed By: JALYN Transcribed Date/Time: 12/08/20 7:10 pm * Exam Date Time Procedure Performing Provider Status 12/08/20 6:19 PM Fluoroscopy < 1 Hour Heaven Persaud; Auth (Verified) Notes: (Fluoroscopy < 1 Hour) Reason For Exam: Bronchoscopy RESULT: Fluoroscopy < 1 Hour Fluoroscopy < 1 Hour Reason: Bronchoscopy FINDINGS: Intraoperative fluoroscopy was performed and a total of 2 spot films of the right chest were obtained during the procedure. Bronchoscope is seen extending into the right upper lobe bronchus. Please refer to operative report for further details. Fluoroscopy time 1 minute and 4 seconds. IMPRESSION: Intraoperative fluoroscopic guidance. WSN: [id number] Ordering Physician: Ramirez Rainey Dictated By: Vitaliy Walker MD Dictated Date/Time: 12/08/20 6:24 pm Reviewed By: Vitaliy Walker MD Signed By: Vitaliy Walker MD Signed Date/Time: 12/08/20 6:24 pm Transcribed By: JALYN Transcribed Date/Time: 12/08/20 6:23 pm Vital Signs Most recent to oldest [Reference Range]: 1 2 3 Height 170.2 cm (12/08/20 2:58 PM) Weight 90.3 kg (12/08/20 2:58 PM) Oxygen Saturation [94-100 %] 95 % (12/08/20 6:58 PM) 99 % (12/08/20 6:41 PM) 98 % (12/08/20 6:34 PM) Pulse Rate [55-90 bpm] 69 bpm (12/08/20 2:58 PM) Body Mass Index [18.5-24.99] 31.17 *>HHI* (12/08/20 2:58 PM) Blood Pressure [90-138/55-84 mm Hg] 125/64mm Hg (12/08/20 6:58 PM) 117/62mm Hg (12/08/20 6:41 PM) 113/59mm Hg (12/08/20 6:34 PM) Respiratory Rate [16-30 br/min] 17 br/min (12/08/20 6:58 PM) 17 br/min (12/08/20 6:41 PM) 16 br/min (12/08/20 6:34 PM) Temperature [96.8-100.4 DegF] 97.0 DegF (12/08/20 6:34 PM) 97.7 DegF (12/08/20 2:58 PM) Liters per Minute 2 L/min (12/08/20 6:41 PM) 4 L/min (12/08/20 6:34 PM) 4 L/min (12/08/20 6:20 PM) Mode of Delivery (Oxygen) Room air (12/08/20 6:58 PM) Nasal cannula (12/08/20 6:41 PM) Nasal cannula (12/08/20 6:34 PM) Blood pressure sites Arm, left (12/08/20 6:58 PM) Arm, left (12/08/20 6:41 PM) Arm, left (12/08/20 6:34 PM) Temperature Route Temporal (12/08/20 6:34 PM) Temporal (12/08/20 2:58 PM) Weight Obtained Via Patient/family state d (12/08/20 2:58 PM) Social History Social History Type Response Smoking Status Never smoker entered on: 10/10/15 Sex
--- OUTSIDE RECORDS SUMMARY | 2023-08-01 18:26 | XMS_ITS | Continuity of Care Document ---
Author Organization [facility] Address [address] [place] [address]- Care Team Providers Care Senior Director Marketing Name Role Phone Cele KONG, Deisi Primary Care Physici an Encounter [id number] Date(s): 03/18/19 - 03/28/19 [facility] [address] [place] [address]- [facility] Attending Physician: Basim Saldana Admitting Physician: AdmBasim walters Referring Physician: AdmtrBasim Allergies, Adverse Reactions, Alerts Substance Reaction Severity Status ibuprofen hives/whole body swelling/lip swelling Active Immunizations Given and Recorded Vaccine Date Status Refusal Reason pneumococcal 23-valent vaccine 04/06/18 Recorded pneumococcal 13-valent vaccine 03/03/17 Recorded diphtheria/tetanus/pertussis, acel(DTaP) 03/03/17 Recorded zoster vaccine, inactivated 02/18/16 Recorded Medications amLODIPine 10 mg oral tablet See Instructions, # 90 tablet, Refills 3 Tot. Refills 3, TAKE 1 TABLET DAILY., [facility]/pharmacy #[id number] Start Date: 09/18/18 Status: Ordered aspirin 81 mg oral tablet 1 tablet = 81 mg, By Mouth, Daily, # 30 tablet, 3 Refills, Maintenance, 10/11/15 13:50:22, Tablet Start Date: 10/11/15 Stop Date: 02/08/16 Status: Ordered atorvastatin 80 mg oral tablet 1 tablet, By Mouth, Daily at bedtime, # 90 tablet, 3 Refills, Maintenance, 03/27/19 10:47:00 EST, [facility]/pharmacy #2339, 174, cm, 03/27/19 10:31:00 EST, Height, 92, kg, 03/22/19 17:48:00 EST, Dry Weight Start Date: 03/27/19 Stop Date: 03/21/20 Status: Ordered Benicar HCT 25 mg-40 mg oral tablet 1 tablet, By Mouth, Daily, # 30 tablet, 1 Refills, Maintenance, 10/11/15 14:02:58, Tablet, 1 tabletBy Mouth Daily,x30 days Start Date: 10/11/15 Stop Date: 12/10/15 Status: Ordered Carafate 1 gm oral tablet 1 Gm, 1, tablet, By Mouth, 4 times a day, # 120 tablet, Refills 0, Tot. Refills 0, Maintenance, 03/23/19 11:19:00 EST, Route to Pharmacy Electronically, [facility]/pharmacy #2339, 174, cm, 03/23/19 11:06:00EST, Height, 92, kg, 03/22/19 17:48:00 EST, Dry Weight Start Date: 03/23/19 Status: Ordered Metoprolol Succinate ER 25 mg oral tablet, extended release 1 tablet = 25 mg, By Mouth, Daily, # 90 tablet, 3 Refills, Soft Stop, 03/27/19 10:47:00 EST, [facility]/pharmacy #2339, 174, cm, 03/27/19 10:31:00 EST, Height, 92, kg, 03/22/19 17:48:00 EST, Dry Weight Start Date: 03/27/19 Stop Date: 03/21/20 Status: Ordered PriLOSEC OTC 20 mg oral delayed release tablet 2 tablet = 40 mg, By Mouth, Daily, 0 Refills, Maintenance, 01/07/18 10:36:08 EST Start Date: 01/07/18 Status: Ordered ProAir HFA 90 mcg/inh inhalation aerosol with adapter 1, puffs, Inhalation, Every 4 hours, PRN, # 8.5 Gm, Refills 0, Tot. Refills 0, Maintenance, 03/19/19 9:30:00 EST, Aerosol, Route to Pharmacy Electronically, [id number], [facility]/pharmacy #[id number], 175, cm, 03/19/19 9:21:00 EST, Heigh... Start Date: 03/19/19 Status: Ordered tolterodine 1 mg oral tablet 1 tablet = 1 mg, By Mouth, Daily, 0 Refills, Maintenance, 02/04/19 14:15:00 EST Start Date: 02/04/19 Status: Ordered Problem List Condition Effective Dates Status Health Status Inform ant Benign essential hypertension(Confirmed) Active Coronary artery disease(Confirmed) Active Coronary atherosclerosis(Confirmed) Active Renal cyst(Confirmed) Active Exposure to lead(Confirmed) Active Chronic GERD(Confirmed) Active History of prostate cancer(Confirmed) Active Hyperlipidemia(Confirmed) Active Multiple pulmonary nodules(Confirmed) Active Polyp of colon(Confirmed) Active Social History Social History Type Response Smoking Status Never smoker entered on: 10/10/15 Sex
--- OUTSIDE RECORDS SUMMARY | 2023-08-01 18:26 | XMS_ITS | Continuity of Care Document ---
Author Organization [facility] ter Address [address] [place] [address]- Care Team Providers Care Medical Receptionist Medical Assistant Name Role Phone Cele KONG, Deisi Primary Care Physici an Encounter [facility] Date(s): 09/25/22 - 10/25/[address] [address]- Allergies, Adverse Reactions, Alerts Substance Reaction Severity [...] influenza virus vaccine, inactivated 02/09/15 Arias rded [id number] 12y+ bivalent booster vax 10/30/21 Recorded SARS-CoV-2 [...] Every 6 hours, j44.9, # 1 each, 11 Refills, Maintenance, 09/25/22 17:29:00 EDT, [facility]/pharmacy #[id number], 170, cm, 08/28/22 15:45:00 EDT, Height Start Date: 09/25/22 Status: Ordered amLODIPine 10 mg oral tablet 1 tablet, By Mouth, Daily, # 90 tablet, 1 Refills, Maintenance, 10/22/22 10:16:00 EDT, [facility], 170, cm, 08/28/22 15:45:00 EDT, Height Start Date: 10/22/22 Status: Ordered Amoxicillin By Mouth, Maintenance, 05/01/22 10:30:00 EDT Start Date: 05/01/22 Status: Ordered aspirin 81 mg oral tablet 1 tablet = 81 mg, By Mouth, Daily, # 30 tablet, 3 Refills, Maintenance, 10/11/15 13:50:22, Tablet Start Date: 10/11/15 Stop Date: 02/08/16 Status: Ordered atorvastatin 80 mg oral tablet 1 tablet, By Mouth, Daily at bedtime, # 90 tablet, 1 Refills, Maintenance, 08/16/22 6:12:00 EDT, [facility], 170, cm, 05/01/22 10:27:00 EDT, Height Start Date: 08/16/22 Status: Ordered hydrochlorothiazide-olmesartan 25 mg-40 mg oral tablet 1 tablet, By Mouth, Daily, # 90 tablet, 1 Refills, Maintenance, 10/22/22 10:16:00 EDT, [facility], 90, TAKE 1 TABLET BY MOUTH EVERY DAY, 170, cm, 08/28/22 15:45:00 EDT, Height Start Date: 10/22/22 Status: Ordered isosorbide mononitrate 30 mg oral tablet, extended release 1 tablet, By Mouth, Daily in AM, # 90 tablet, 1 Refills, Maintenance, 07/24/22 21:24:00 EDT, [facility], 170, cm, 05/01/22 10:27:00 EDT, Height Start Date: 07/24/22 Stop Date: 10/22/22 Status: Ordered LORazepam 0.5 mg oral tablet 0.5 -1 tablet, By Mouth, 2 times a day, PRN as needed for anxiety, # 24 tablet, 0 Refills, Maintenance, 01/19/21 15:27:00 EST, Tablet, [facility]/pharmacy #2339, Partial fill upon patient request if the prescription is for a schedule II opioid drug., 170.2,... Start Date: 01/19/21 Status: Ordered Metoprolol Succinate ER 50 mg oral tablet, extended release 1 tablet, By Mouth, Daily, # 90 tablet, 1 Refills, Maintenance, 05/29/22 9:32:00 EDT, [facility], 170, cm, 05/01/22 10:27:00 EDT, Height Start Date: 05/29/22 Status: Ordered omeprazole 40 mg oral enteric coated capsule 1 capsule, By Mouth, Daily, 90., # 90 capsule, 0 Refills, Maintenance, 08/10/22 18:01:00 EDT, [facility]/pharmacy #2339, 170, cm, 05/01/22 10:27:00 EDT, Height Start Date: 08/10/22 Status: Ordered tolterodine 4 mg oral capsule, [...] Active Interstitial lung disease Confirmed 02/28/21 Active snf current use of anticoagulant 1 Confirmed Active [...] Team Personnel Name: Kaila Farrell RN Position: [facility] SN RN Member Role: Primary Care Nurse Name: Deisi Oakley MD Position: [facility] Hospital Medicine Member Role: PCP Address: Address: [address] [place] [id number] Name: Ruth Rivera Position: [facility] Outreach Member Role: Lifetime Consulting Physician Name: Estela Bruce RN Position: [facility] Onco RN Member Role: Primary Care Nurse Care Team Related Persons Name: FRANK MORAN Address: [address] [address]
--- OUTSIDE RECORDS SUMMARY | 2023-08-01 18:26 | XMS_ITS | Continuity of Care Document ---
Author Organization [facility] Address [address] [place] [address] [address] [place] [address]- Care Team Providers Care Enrichment Specialist Name Role Phone Cele KONG, Deisi Primary Care Physici an Encounter [facility] Date(s): 03/12/19 - 05/14/19 [facility] [address] [place] [address]- [facility] Attending Physician: Liam Dumont MD Referring Physician: Deisi Oakley MD Allergies, Adverse Reactions, Alerts Substance Reaction Severity Status ibuprofen hives/whole body swelling/lip swelling Active Immunizations Given and Recorded Vaccine Date Status Refusal Reason pneumococcal 23-valent vaccine 04/06/18 Recorded pneumococcal 13-valent vaccine 03/03/17 Recorded diphtheria/tetanus/pertussis, acel(DTaP) 03/03/17 Recorded zoster vaccine, inactivated 02/18/16 Recorded Medications albuterol CFC free 90 mcg/inh inhalation aerosol See Instructions, INHALE 1 PUFF EVERY 4 HOURS NEEDED FOR WHEEZING, # 8.5 Unknown, Refills 4, Maintenance, Instructions Replace Required Details, Route to Pharmacy Electronically, [id number], [facility], 174, cm, 03/27... Start Date: 04/06/19 Status: Ordered amLODIPine 10 mg oral tablet See Instructions, # 90 tablet, Refills 3 Tot. Refills 3, TAKE 1 TABLET DAILY., [facility]/pharmacy #[id number] Start Date: 09/18/18 Status: Ordered aspirin 81 mg oral tablet 1 tablet = 81 mg, By Mouth, Daily, # 30 tablet, 3 Refills, Maintenance, 10/11/15 13:50:22, Tablet Start Date: 10/11/15 Stop Date: 02/08/16 Status: Ordered atorvastatin 80 mg oral tablet 1 tablet, By Mouth, Daily at bedtime, # 90 tablet, 3 Refills, Maintenance, 03/27/19 10:47:00 EST, [facility]/pharmacy #2339, 174, cm, 03/27/19 10:31:00 EST, Height, [...] 03/23/19 11:19:00 EST, Route to Pharmacy Electronically, [facility]/pharmacy #2339, 174, cm, 03/23/19 11:06:00EST, Height, 92, kg, 03/22/19 17:48:00 EST, Dry Weight Start Date: 03/23/19 Status: Ordered Metoprolol Succinate ER 25 mg oral tablet, extended release 1 tablet = 25 mg, By Mouth, Daily, # 90 tablet, 3 Refills, Soft Stop, 03/27/19 10:47:00 EST, [facility]/pharmacy #2339, 174, cm, 03/27/19 10:31:00 EST, Height, [...] essential hypertension(Confirmed) Active Coronary artery disease(Confirmed) Active Renal cyst(Confirmed) Active Exposure to lead(Confirmed) Active Chronic GERD(Confirmed) Active History of prostate cancer(Confirmed) Active Hyperlipidemia(Confirmed) Active Multiple pulmonary nodules(Confirmed) Active Polyp of colon(Confirmed) Active Social History Social History Type Response Smoking Status Never smoker entered on: 10/10/15 Sex
--- OUTSIDE RECORDS SUMMARY | 2023-08-01 18:26 | XMS_ITS | Continuity of Care Document ---
Author Organization [facility] Address [address] [place] [address]- Care Team Providers Care Internet Marketing Consultant Name Role Phone Cele KONG, Deisi Primary Care Physici an Encounter [facility] Date(s): 01/31/22 - 03/02/[address] [address]- Attending Physician: Basim Saldana Admitting Physician: AdmtrBasim Referring Physician: Admtr, Ar8 Allergies, Adverse Reactions, Alerts Substance Reaction Severity [...] influenza virus vaccine, inactivated 02/09/15 Arias rded [id number] 12y+ bivalent booster vax 10/30/21 Recorded SARS-CoV-2 [...] 1 each, 6 Refills, Maintenance, 12/20/20 16:00:00 EDT,[facility]/pharmacy #[id number], 170.2, cm, 12/08/20 14:58:00 EDT, Height, 92, kg, 03/22/19 17:48:00 EST, Dry Weight Start Date: 12/20/20 Status: Ordered amLODIPine 10 mg oral tablet See Instructions, TAKE 1 TABLET BY MOUTH DAILY, # 90 tablet, 1 Refills, 11/01/21 10:28:00 EDT, [facility]/pharmacy #2339, 170, cm, 11/01/21 10:12:00 EDT, Height Start Date: 11/01/21 Status: Ordered aspirin 81 mg oral tablet 1 tablet = 81 mg, By Mouth, Daily, # 30 tablet, 3 Refills, Maintenance, 10/11/15 13:50:22, Tablet Start Date: 10/11/15 Stop Date: 02/08/16 Status: Ordered atorvastatin 80 mg oral tablet 1 tablet, By Mouth, Daily at bedtime, # 90 tablet, 1 Refills, 02/19/22 10:16:00 EST, [facility]/pharmacy #2339, 170, cm, 02/16/22 11:05:00 EST, Height Start Date: 02/19/22 Status: Ordered Compression Stockings See Instructions, # 2 each, Maintenance, surgical, calf length 20-30 mm Hg, 08/11/20 16:54:00 EDT, Supply Start Date: 08/11/20 Status: Ordered gabapentin 100 mg oral capsule 100 mg, 1, capsule, By Mouth, 3 times a day, # 90 capsule, Refills 3, Tot. Refills 3, Maintenance, 12/29/21 11:56:00 EST, Route to Pharmacy Electronically, [facility]/pharmacy #[id number], Partial fill upon patient request if the prescription is for a schedule II... Start Date: 12/29/21 Status: Ordered hydrochlorothiazide-olmesartan 25 mg-40 mg oral tablet 1 tablet, By Mouth, Daily, # 90 tablet, 1 Refills, Maintenance, 11/05/21 9:19:00 EDT, [facility], 90, TAKE 1 TABLET DAILY, 170, cm, 11/01/21 10:12:00 EDT, Height Start Date: 11/05/21 Status: Ordered isosorbide mononitrate 30 mg oral tablet, extended release 30 mg, 1, tablet, By Mouth, Daily in AM, # 90 tablet, Refills 2, Tot. Refills 2, Maintenance, 11/01/21 10:28:00 EDT, Route to Pharmacy Electronically, [facility]/pharmacy #[id number], Partial fill upon patient request if the prescription is for a schedule II opioi... Start Date: 11/01/21 Stop Date: 07/29/22 Status: Ordered LORazepam 0.5 mg oral tablet 0.5 -1 tablet, By Mouth, 2 times a day, PRN as needed for anxiety, # 24 tablet, 0 Refills, Maintenance, 01/19/21 15:27:00 EST, Tablet, [facility]/pharmacy #2339, Partial fill upon patient request if the prescription is for a schedule II opioid drug., 170.2,... Start Date: 01/19/21 Status: Ordered Metoprolol Succinate ER 50 mg oral tablet, extended release See Instructions, TAKE 1 TABLET BY MOUTH EVERY DAY, # 90 tablet, 1 Refills, Maintenance, 12/20/21 11:29:00 EDT, [facility] 83875, 170, cm, 11/19/21 15:27:00 EDT, Height Start Date: 12/20/21 Status: Ordered omeprazole 40 mg oral enteric coated capsule 1 capsule, By Mouth, Daily, 90., # 90 capsule, 2 Refills, Maintenance, 11/16/21 17:58:00 EDT, [facility] 8[facility]47, 170, cm, 11/16/21 11:29:00 EDT, Height Start [...] Active History of prostate cancer Confirmed Active Hyperlipidemia Confirmed Active Interstitial lung disease Confirmed 02/28/21 Active manager intermediate current use of anticoagulant 1 Confirmed Active Multiple pulmonary nodules Confirmed Active Obese class I Confirmed Active Paroxysmal atrial fibrillation 2 Confirmed Active Silicosis Confirmed Active Polyp of colon Confirmed Active Pulmonary embolism Confirmed Active Sarcoidosis Confirmed Active 1Per 01/17/2021 [...] Team Personnel Name: Kaila Farrell RN Position: [facility] RN Member Role: Primary Care Nurse Name: Deisi Oakley MD Position: [facility] Primary Care Physician Member Role: PCP Address: Address: [address] [place] [id number]- Name: Ruth Rivera Position: S Outreach Member Role: Lifetime Consulting Physician Name: Estela Bruce RN Position: [facility] RN Member Role: Primary Care Nurse Care Team Related Persons Name: FRANK MORAN Address: home [address] [place] [id number]
--- OUTSIDE RECORDS SUMMARY | 2023-08-01 18:26 | XMS_ITS | Continuity of Care Document ---
Author Organization [facility] Address [address] [place] [address] [address] [place] [address]- Care Team Providers Care Primer Supervisor Name Role Phone Cele KONG, Deisi Primary Care Physici an Encounter [facility] Date(s): 04/14/19 - 04/24/19 [facility] Surgical [address] [place] [address]- [facility] Attending Physician: Admromeo, Basim Admitting Physician: AdmtrBasim Referring Physician: Admtr, Ar8 [...] Replace Required Details, Route to Pharmacy Electronically, [id number], [facility], 174, cm, 03/27... Start Date: 04/06/19 Status: Ordered amLODIPine 10 mg oral tablet See Instructions, # 90 tablet, Refills 3 Tot. Refills 3, TAKE 1 TABLET DAILY., [facility]/pharmacy #[id number] Start Date: 09/18/18 Status: Ordered aspirin 81 mg oral tablet 1 tablet = 81 mg, By Mouth, Daily, # 30 tablet, 3 Refills, Maintenance, 10/11/15 13:50:22, Tablet Start Date: 10/11/15 Stop Date: 02/08/16 Status: Ordered atorvastatin 80 mg oral tablet 1 tablet, By Mouth, Daily at bedtime, # 90 tablet, 3 Refills, Maintenance, 03/27/19 10:47:00 EST, [facility]/pharmacy #2339, 174, cm, 03/27/19 10:31:00 EST, Height, [...] 03/23/19 11:19:00 EST, Route to Pharmacy Electronically, [facility]/pharmacy #[id number], 174, cm, 03/23/19 11:06:00EST, Height, 92, kg, 03/22/19 17:48:00 EST, Dry Weight Start Date: 03/23/19 Status: Ordered Metoprolol Succinate ER 25 mg oral tablet, extended release 1 tablet = 25 mg, By Mouth, Daily, # 90 tablet, 3 Refills, Soft Stop, 03/27/19 10:47:00 EST, [facility]/pharmacy #2339, 174, cm, 03/27/19 10:31:00 EST, Height, [...]
--- OUTSIDE RECORDS SUMMARY | 2023-08-01 18:26 | XMS_ITS | Continuity of Care Document ---
Author Organization [facility] Address [address] [place] [address] [address], [address] [place] [address]- Care Team Providers Care Assistant Toddler Teacher Name Role Phone Cele KONG, Deisi Primary Care Physici an Encounter [facility] Date(s): 04/17/22 - 05/17/[address], [address] [place] [address]- Allergies, Adverse Reactions, Alerts Substance Reaction Severity [...] influenza virus vaccine, inactivated 02/09/15 Arias rded [id number] 12y+ bivalent booster vax 10/30/21 Recorded SARS-CoV-2 [...] 1 each, 6 Refills, Maintenance, 12/20/20 16:00:00 EDT,[facility]/pharmacy #2339, 170.2, cm, 12/08/20 14:58:00 EDT, Height, 92, kg, 03/22/19 17:48:00 EST, Dry Weight Start Date: 12/20/20 Status: Ordered amLODIPine 10 mg oral tablet See Instructions, TAKE 1 TABLET BY MOUTH DAILY, # 90 tablet, 1 Refills, 04/27/22 9:06:00 EST, [facility]/pharmacy #2339, 170, cm, 04/27/22 8:57:00 EST, Height [...] 90 tablet, 1 Refills, 02/19/22 10:16:00 EST, [facility]/pharmacy #2339, 170, cm, 02/16/22 11:05:00 EST, Height Start Date: 02/19/22 Status: Ordered hydrochlorothiazide-olmesartan 25 mg-40 mg oral tablet 1 tablet, By Mouth, Daily, # 90 tablet, 1 Refills, Maintenance, 04/29/22 11:43:00 EDT, [facility], 90, TAKE 1 TABLET DAILY, 170, cm, 04/27/22 8:57:00 EST, Height Start Date: 04/29/22 Status: Ordered isosorbide mononitrate 30 mg oral tablet, extended release 30 mg, 1, tablet, By Mouth, Daily in AM, # 90 tablet, Refills 2, Tot. Refills 2, Maintenance, 11/01/21 10:28:00 EDT, Route to Pharmacy Electronically, [facility]/pharmacy #[id number], Partial fill upon patient request if the prescription is for a schedule II opioi... Start Date: 11/01/21 Stop Date: 07/29/22 Status: Ordered LORazepam 0.5 mg oral tablet 0.5 -1 tablet, By Mouth, 2 times a day, PRN as needed for anxiety, # 24 tablet, 0 Refills, Maintenance, 01/19/21 15:27:00 EST, Tablet, [facility]/pharmacy #2339, Partial fill upon patient request if the prescription is for a schedule II opioid drug., 170.2,... Start Date: 01/19/21 Status: Ordered Metoprolol Succinate ER 50 mg oral tablet, extended release See Instructions, TAKE 1 TABLET BY MOUTH EVERY DAY, # 90 tablet, 1 Refills, Maintenance, 12/20/21 11:29:00 EDT, [facility], 170, cm, 11/19/21 15:27:00 EDT, Height Start Date: 12/20/21 Status: Ordered omeprazole 40 mg oral enteric coated capsule 1 capsule, By Mouth, Daily, 90., # 90 capsule, 2 Refills, Maintenance, 11/16/21 17:58:00 EDT, [facility], 170, cm, 11/16/21 11:29:00 EDT, Height Start [...] Active Interstitial lung disease Confirmed 02/28/21 Active long term current use of anticoagulant 1 Confirmed Active [...] Team Personnel Name: Kaila Farrell RN Position: [facility] SN RN Member Role: Primary Care Nurse Name: Deisi Oakley MD Position: [facility] Primary Care Physician Member Role: PCP Address: Address: [address] [place] [id number]- Name: Ruth Rivera Position: [facility] Outreach Member Role: Lifetime Consulting Physician Name: Estela Bruce RN Position: [facility] Onco RN Member Role: Primary Care Nurse Care Team Related Persons Name: FRANK MORAN Address: home [address] [place] [id number]
[2023-08-01 20:14] VITALS: BP 132/62; PULSE 59; RESP 17; TEMP 36.7; O2SAT 92
[2023-08-01 20:14] LABS: Troponin-I High Sensitivity 12.7 ng/L (<3.5-35.0)
[2023-08-01 21:34] VITALS: BP 132/62; PULSE 59; RESP 17; TEMP 36.7; O2SAT 92
== END 2023-08-01 21:35 | disposition home or self-care (01) ==
PROVIDERS: Nurse Practitioner Family; Emergency Provider Internal Medicine; PCP Internal Medicine
DX: R07.89 Other chest pain (principal); R00.1 Bradycardia, unspecified; R06.02 Shortness of breath; Z79.899 Other long term (current) drug therapy
CPT/HCPCS: 36415; 80053; 83880; 84484; 85025; 85610; 93005; 99283; 99284

== ENCOUNTER → 2023-08-01 17:37 | Outpatient (BNV) | payer OTHER, MEDICARE, SELFPAY | PROVIDERS: Emergency Provider Internal Medicine; PCP Internal Medicine; Visit Provider Internal Medicine | DX: R94.31 Abnormal electrocardiogram [ECG] [EKG] (principal) | CPT/HCPCS: 93010 ==

== ENCOUNTER 2023-09-25 10:38 | Outpatient (AMB) | payer MEDICARE, SELFPAY ==
--- OUTSIDE RECORDS SUMMARY | 2023-09-25 10:41 | XMS_ITS ---
Author Organization [facility] Address [address] [place] [address] Care Team Providers Care Pugger Helper Name Role Phone Cele KONG, [facility] Primary Care Provide r Unavailable Nitin Perez, Raji Rogers REASON FOR VISIT ov recall Encounters Encounter Location Date Provider Diagnosis [facility] [address] [facility] [address] [place] [address] 11/13/2022 Raji Taveras Jr PLAN OF TREATMENT Next Appt Details Provider Name:Raji villatoro Jr, 12/15/2023 01:55:00 PM, [address] [place] [address], [address], [place], [address],
--- OUTSIDE RECORDS SUMMARY | 2023-09-25 10:41 | XMS_ITS | Patient Health Record ---
Author Organization [facility] Address [address] [place] [address] Care Team Providers Care Elementary School Counselor Name Role Phone Cele KONG, Deisi Primary Care Provide r Unavailable Raji Taveras Jr Unavailable ALLERGIES Allergen (clinical drug ingredient) Drug/Non Drug [...] Problem Colon cancer screening (Z12.11) Active confirmed 802005907 Problem intermediate (current) use of aspirin (Z79.82) Active confirmed [id number] Problem Duodenitis (K29.80) Active confirmed 72 970145 Problem Gastroesophageal reflux disease without esophagitis (K21.9) Active confirmed [id number] VITAL SIGNS Temperature 98.9 degrees Fahrenheit 11/13/2022 Blood pressure diastolic 00 mm Hg 11/13/2022 Height 68 in 11/13/2022 Blood pressure systolic 000 mm Hg 11/13/2022 Weight 199 lb 8 oz lbs 11/13/2022 BMI 30.33 kg/m2 11/13/2022 Encounters Encounter Location Date Provider Diagnosis [facility] [address] [place] [address] 11/13/2022 Raji Taveras Jr Gastroesophageal reflux disease without esophagitis K21.9 and Colon cancer screening Z12.11 [facility] [address] [place] [address] 11/13/2022 Raji Taveras Jr ASSESSMENTS Encounter Date Diagnosis Assessment Notes Treatment Notes Treatment Clinical Notes 11/13/2022 Colon cancer screening (ICD-10 - Z12.11) 11/13/2022 Gastroesophageal reflux disease without esophagitis (ICD-10 - K21.9) Gastroesophageal reflux disease material was printed PLAN OF TREATMENT Future Test Test Name Order Date COLONOSCOPY 12/29/2013 UPPER GI ENDOSCOPY 12/27/2015 COLONOSCOPY 01/06/2019 UPPER GI ENDOSCOPY 05/06/2019 Next Appt Details Provider Name:Raji villatoro Jr, 12/15/2023 01:55:00 PM, [address], [address], [place], [address], Insurance Providers Payer Name Payer Address Payer Phone Subscriber Number Group Number Insured Name Patient Relationship to Insured Coverage Start Date Coverage End Date [facility] [address] [place] [phone] [id number] HERNANDO MORAN Self - patient is the insured MEDICAL [...]
--- OUTSIDE RECORDS SUMMARY | 2023-09-25 10:41 | XMS_ITS ---
Author Organization [facility] Address [address] [place] [address] Care Team Providers Care Senior Research Consultant Name Role Phone Cele KONG, Deisi Primary Care Provide r Unavailable Raji Taveras Jr Unavailable ALLERGIES Allergen (clinical drug ingredient) Drug/Non Drug Allergy documented on EMR Reaction Allergy Type Onset Date Status ibuprofen Ibuprofen Unknown Drug Allergy Active REASON FOR VISIT Patient presents today for gerd MEDICATIONS Medication SIG (Take, Route, Frequency, Duration) Notes Start Date End Date Status Tylenol Active Albuterol Sulfate HFA 108 (90 Base) MCG/ACT INHALE 2 PUFFS EVERY 6 HOURS Inhalation for 25 Active Omeprazole 40 MG TAKE 1 CAPSULE EVERY DAY for 90 Active Isosorbide Mononitrate ER 30 MG TAKE 1 TABLET BY MOUTH EVERY DAY IN AM FOR 90 DAY Oral for 90 Active Olmesartan Medoxomil-HCTZ 40-25 MG TAKE 1 TABLET BY MOUTH EVERY DAY Oral for 90 Active Tolterodine Tartrate ER 4 MG TAKE 1 CAPSULE BY MOUTH EVERY DAY Oral for 90 Active Vitamin C Active Vitamin D Active amLODIPine Besylate 10 MG 1 tablet Orall y Once a day Active Aspirin 81 MG 1 tablet Orally Once a day Active Atorvastatin Calcium 80 MG 1 tablet Oral ly Once a day Active Metoprolol Succinate ER 25 MG 1 tablet Orally Once a day Active prednisoLONE 5 MG 1 tablet in the morn ing with food or milk Orally Once a day for 30 day(s) Active Benicar HCT 40-25 MG 1 tablet Orally Onc e a day Active VITAL SIGNS BMI 30.33 kg/m2 11/13/2022 Blood pressure systolic 000 mm Hg 11/14/19 23 Blood pressure diastolic 00 mm Hg 023 Height 68 in 11/13/2022 Temperature 98.9 degrees Fahrenheit 11/14/19 23 Weight 199 lb 8 oz lbs 11/13/2022 Encounters Encounter Location Date Provider Diagnosis [facility] [address] [facility] [facility] [address] [place] [address] 11/13/2022 Raji Taveras Jr Gastroesophageal reflux disease without esophagitis K21.9 and Colon cancer screening Z12.11 ASSESSMENTS Encounter Date Diagnosis Assessment Notes Treatment Notes Treatment Clinical Notes 11/13/2022 Gastroesophageal reflux disease without esophagitis (ICD-10 - K21.9) Gastroesophageal reflux disease material was printed 11/13/2022 Colon cancer screening (ICD-10 - Z12.11) PLAN OF TREATMENT Treatment Notes Assessment Notes Gastroesophageal reflux dise ase without esophagitis Gastroesophageal reflux disease material was printed Next Appt Details Follow Up: 1 Year, Reason: Provider Name:Raji villatoro Jr, 12/15/2023 01:55:00 PM, [address] [place] [address], [address], [place], [address],
[2023-09-25 11:42] VITALS: BP 128/76; PULSE 63; TEMP 36.6; O2SAT 97
--- NOTE | 2023-09-25 11:42 | AM.OFFWIN_ITS ---
Intake Vital Signs 09/25/23 11:42 Height 5 ft 8 in BMI Reason not done Patient refused/unable BP 128/76 Blood Pressure Location Lt brachial Position Sitting Pulse 63 Pulse Source Pulse Oximeter Temp 97.9 F Temp Source Oral Pulse Oximetry (%) 97 Oxygen Delivery Method Room Air Intake Visit Reasons: [employer] LT leg injury/pain Intake Note: pt c/o LT leg pain. Old injury. Pain occasionally Patient Tobacco Use Status: Never used Tobacco Allergies ibuprofen [Ibuprofen] Allergy (Intermediate, Verified 09/25/23 11:48) HIVES/JOINT SWELLING Do you need a note to return to daycare/school/sports/work: No HPI HPI Comments History of Present Illness Details Patient is a 73-year-old male complaining of left-sided lower leg pain and swelling for the last few days. He states he has an old injury to his left knee that dates back 50 years and every now and then his leg will give him some trouble. He states it is worse when he tries to ambulate and is using a crutch to ambulate. He does admit to a personal history blood clots with a PE in the last few years, he states he was on a blood thinner for 1 year but is no longer taking the blood thinner. [facility] Medical History History of prostate cancer ILD (interstitial lung disease) Atherosclerotic cardiovascular disease Essential hypertension Bifascicular block PVC (premature ventricular contraction) Pulmonary embolism Pneumonia Surgical History H/O prostatectomy Family History Mother No problems noted. Father No problems noted. Social History Household Members: Spouse Housing: House Do you presently have visiting nurse or other home services: No Unable to assess alcohol history related to: Unknown Alcohol intake: current Alcohol intake frequency: holidays/special occasions only Alcohol type: beer Patient Tobacco Use Status: Never used Tobacco Second Hand Smoke Exposure: No Advance Directives Date on File: 12/28/20 service: No Current occupational status: retired Review of Systems Const All systems reviewed & are unremarkable except as noted in HPI and below Physical Exam Vital Signs: Last Vital Signs Temp 97.9 F 09/25/23 11:42 Pulse 63 09/25/23 11:42 BP 128/76 09/25/23 11:42 Pulse Ox 97 09/25/23 11:42 Oxygen Delivery Method Room Air 09/25/23 11:42 Extrem Left lower extremity: hip/thigh Details: normal to inspection; no tenderness, no swelling, no abrasions, no lacerations and no ecchymosis, knee Details: tenderness (posterior) Location: of the lateral joint line, swelling, normal ROM and knee ligament exam normal; no abrasions, no lacerations and no ecchymosis and lower leg Details: localized swelling Location: of the proximal lower leg Assessment & Plan Assessment & Plan (1) Pain and swelling of left lower extremity: Code(s): M79.605 - Pain in left leg; M79.89 - Other specified soft tissue disorders Plan: As patient has a history of the PE, we will get lower extremity ultrasound to rule out DVT. According to his medical records, they did do a ultrasound at the time of the PE and patient had no DVT bilaterally. Ultrasound does not show DVT or Thao's cyst but it does show a small effusion in the knee. This is likely the source of his discomfort, recommended he follow up with his PCP or orthopedic doctor once we have a final read from radiologist to see if it is large enough to drain, Finesse wrapped prior to him leaving. (2) Personal history of pulmonary embolism: Code(s): Z86.711 - Personal history of pulmonary embolism Plan: See above Plan See above Orders: Orders US venous duplex LE LT Today M79.605 - Pain in left leg, M79.89 - Other specified soft tissue disorders, Z86.711 - Personal history of pulmonary embolism Coding Level of Care Code New Pt Level 4 (63812) Diagnoses Pain and swelling of left lower extremity M79.605; M79.89 Personal history of pulmonary embolism Z86.711
== END 2023-09-25 13:25 | disposition home or self-care (01) ==
PROVIDERS: PCP Internal Medicine; Visit Provider Physician Assistant
DX: M79.605 Pain in left leg (principal); M79.89 Other specified soft tissue disorders; Z86.711 Personal history of pulmonary embolism
CPT/HCPCS: 99204

== ENCOUNTER 2023-09-25 12:38 | Outpatient (REF) | payer MEDICARE, SELFPAY ==
--- NOTE | ~2023-09-25 | US_ITS ---
EXAMINATION: US VENOUS ULTRASOUND WITH DOPPLER LOWER EXTREMITY, LEFT CLINICAL INFORMATION: Left lower extremity pain COMPARISON: Bilateral lower extremity ultrasound 01/04/2021 TECHNIQUE: Ultrasound of the deep veins is performed from the hip to the calf with compression sonography and color and pulse Doppler assessment. Spectral analysis with color-flow imaging is performed. FINDINGS: There is normal venous compression and respiratory variation and augmented flow. The visualized common femoral vein, superficial femoral vein, profunda femoral vein, popliteal vein, and the trifurcation region shows no evidence of deep venous thrombosis. There is no significant popliteal fossa cyst. A small knee joint effusion is present. If the patient's symptoms persist, followup ultrasound in 5 days 7 days might be of value to exclude proximal propagation from a non-visualized calf vein. US/US venous duplex LE LT IMPRESSION: No DVT demonstrated in the left lower extremity. There is a small left knee joint effusion.
== END 2023-09-25 12:39 | disposition home or self-care (01) ==
LOC: HO.HMGCX 12:38
PROVIDERS: Visit Provider Physician Assistant
DX: M79.605 Pain in left leg (principal); M79.89 Other specified soft tissue disorders; Z86.711 Personal history of pulmonary embolism
CPT/HCPCS: 93971

== ENCOUNTER 2023-12-28 14:20 | Emergency (ER) | payer MEDICARE, SELFPAY ==
--- NOTE | ~2023-12-28 | XR_ITS ---
STUDY: Left foot and ankle INDICATION: Pain and swelling COMPARISON: None TECHNIQUE: 2 view left foot, 4 view left ankle FINDINGS: Left foot: Advanced degenerative changes identified at the first MTP with sclerosis, spurring, and near obliteration of the joint space. 2.3 cm calcified focus identified at the lateral aspect of the first metatarsal head/neck region. No fracture or dislocation. Vascular calcifications. Left ankle: Mild diffuse soft tissue prominence about the ankle, laterally greater than medially. No fracture or dislocation. Alignment is maintained. Mortise is intact. XR/XR ankle LT 2V IMPRESSION: 1. No acute bony pathology left foot and ankle. 2. Advanced first MTP degenerative changes. 3. 2.3 cm calcified focus lateral to the first metatarsal head/neck region, question calcified gouty tophus. Electronically signed by: Ml Hester MD 12/28/2023 04:16 PM [facility]
--- NOTE | ~2023-12-28 | US_ITS ---
EXAMINATION: US TRIPLEX LOWER EXTREMITY, LEFT CLINICAL INFORMATION: Pain, swelling, rule out DVT COMPARISON: Left lower extremity duplex on 09/25/2023 TECHNIQUE: Color-flow triplex imaging with spectral analysis and compression Doppler were performed on the left lower extremity. FINDINGS: Respiratory variation, normal compression and augmented flow are noted throughout the left lower extremity. The visualized common femoral vein, superficial femoral vein, profunda femoral vein, popliteal vein and midcalf peroneal and posterior tibial venous segments show no evidence of deep venous thrombosis. There is no Thao's cyst. US/US venous duplex LE IMPRESSION: No evidence of deep venous thrombosis involving the left lower extremity. Electronically signed by: Enedelia Carrasquillo MD 12/28/2023 03:41 PM [facility]
--- NOTE | ~2023-12-28 | XR_ITS ---
STUDY: Left foot and ankle INDICATION: Pain and swelling COMPARISON: None TECHNIQUE: 2 view left foot, 4 view left ankle FINDINGS: Left foot: Advanced degenerative changes identified at the first MTP with sclerosis, spurring, and near obliteration of the joint space. 2.3 cm calcified focus identified at the lateral aspect of the first metatarsal head/neck region. No fracture or dislocation. Vascular calcifications. Left ankle: Mild diffuse soft tissue prominence about the ankle, laterally greater than medially. No fracture or dislocation. Alignment is maintained. Mortise is intact. XR/XR foot LT 2V IMPRESSION: 1. No acute bony pathology left foot and ankle. 2. Advanced first MTP degenerative changes. 3. 2.3 cm calcified focus lateral to the first metatarsal head/neck region, question calcified gouty tophus. Electronically signed by: Ml Hester MD 12/28/2023 04:16 PM [facility]
[2023-12-28 14:29] VITALS: BP 143/59; PULSE 65; RESP 18; TEMP 36.5; O2SAT 98; BMI 30.5
--- NOTE | 2023-12-28 14:30 | ED_ITS ---
HPI - General Adult General Chief complaint: Extremity Injury, Lower Stated complaint: localized edema-sent from urgent care Time Seen by Provider: 12/28/23 15:08 Source: patient Mode of arrival: ambulatory Limitations: no limitations History of Present Illness ED Provider: Monica Ren APRN HPI narrative: 73 yo male with history of HTN, HLD, PE not anticoagulated here with complaints of 2 weeks of left ankle pain which radiates to the posterior calf with no known injury or trauma. Patient reports associated swelling. No redness, warmth, fevers, chills. Wakes with stiffness and pain which improves throughout the day with movement of the joint. NO previous injuries/surgeries to ankle. Did have a fracture of his left knee years ago which was treated with immobilization and no surgery. Went to and referred in to the ER as they cannot perform US to r/o DVT Related Data Home Medications ?Medication ?Instructions ?Recorded ?Confirmed amlodipine 10 mg tablet 1 tab PO DAILY 12/16/20 07/09/21 ascorbic acid (vitamin C) 500 mg 500 mg PO DAILY 12/16/20 07/09/21 tablet (Vitamin C) atorvastatin 80 mg tablet 1 tab PO BEDTIME 12/16/20 07/09/21 tolterodine 4 mg capsule,extended 1 cap PO DAILY 12/16/20 07/09/21 release 24 hr aspirin 81 mg tablet,delayed 81 mg PO DAILY 12/27/20 07/09/21 release cholecalciferol (vitamin D3) 50 50 mcg PO BEDTIME 12/27/20 07/09/21 mcg (2,000 unit) tablet (Vitamin D3) olmesartan 40 1 tab DAILY 04/13/21 07/09/21 mg-hydrochlorothiazide 25 mg tablet isosorbide mononitrate 30 mg 1 tab PO QAM 07/09/21 07/09/21 tablet,extended release 24 hr Previous Rx's ?Medication ?Instructions ?Recorded omeprazole 40 mg capsule,delayed 1 cap PO BID #60 caps 07/11/21 release oxycodone 5 mg tablet 5 mg PO Q6H PRN pain #12 tabs 12/28/23 prednisone 20 mg tablet 60 mg (3 x 20 mg) PO DAILY #12 tabs 12/28/23 Allergies Allergy/AdvReac Type Severity Reaction Status Date / Time ibuprofen [Ibuprofen] Allergy Intermediate HIVES/JOINT Verified 12/28/23 14:31 SWELLING Review of Systems 2 Review of Systems: Yes all other systems are reviewed and are negative Constitutional: Constitutional: Reports no additional constitutional complaints, Denies body ache(s), Denies chills, Denies fever(s), Denies headache(s) and Denies weakness Eyes: Eyes: Reports no additional eye complaints and Denies change in vision ENT: Reports system reviewed and no additional complaints, except as documented, Denies dizziness, Denies headache(s), Denies nasal congestion, Denies nasal discharge and Denies neck pain Cardiovascular: Cardiovascular: Reports no additional cardiovascular complaints, Denies chest pain, Denies leg edema and Denies dyspnea Respiratory: Respiratory: Reports no additional respiratory complaints, Denies cough and Denies dyspnea Gastrointestinal: Gastrointestinal: Reports no additional gastrointestinal complaints, Denies abdominal pain, Denies diarrhea, Denies nausea and Denies vomiting Genitourinary: Genitourinary: Denies urinary incontinence Musculoskeletal: Musculoskeletal: Reports no additional musculoskeletal complaints, Denies back pain, Reports arthralgias, Reports joint swelling, Denies limited range of motion, Denies neck pain, Denies numbness, Reports radiating pain into limb and Denies tingling Integumentary/Breasts: Skin/Breast: Reports system reviewed and no additional complaints, except as docu and Denies rash Neurologic: Reports system reviewed and no additional complaints, except as documented, Denies Abnormal speech present, Denies dizziness, Denies headache(s), Denies numbness, Denies tingling and Denies weakness PMFSH Past Medical History Attestation statement: The following information was validated with the patient. Source: old records reviewed and nursing notes reviewed Medical History History of prostate cancer ILD (interstitial lung disease) Atherosclerotic cardiovascular disease Essential hypertension Bifascicular block PVC (premature ventricular contraction) Pulmonary embolism Pneumonia Surgical History H/O prostatectomy Family History Family History Mother No problems noted. Father No problems noted. Social History Social History Household Members: Spouse Housing: House Do you presently have visiting nurse or other home services: No Unable to assess alcohol history related to: Unknown Alcohol intake: current Alcohol intake frequency: holidays/special occasions only Alcohol type: beer Patient Tobacco Use Status: Never used Tobacco Second Hand Smoke Exposure: No Advance Directives: Yes Advance Directives on File: Yes Advance Directives Date on File: 12/28/20 service: No Current occupational status: retired Physical Exam ED Vital Signs: Vital Signs - 24 hr 12/28/23 14:29 Temperature 97.7 F Pulse Rate 65 Respiratory Rate 18 Blood Pressure 143/59 H Pulse Oximetry 98 Oxygen Delivery Method Room Air BMI result Body Mass Index 30.5 Const General: cooperative, healthy appearing, comfortable and no acute distress Orientation/consciousness: patient oriented x3 Limitations: no limitations HENMT Head: Yes normal to inspection Ears: hearing grossly normal bilaterally General nose exam: Normal external nose present Face and sinus: Yes normal facial exam Mouth: Normal oral and palatal mucosa present Throat: Yes posterior oropharynx normal Eyes General: appearance normal, both eyes and all related structures Pupils: Equal, round and reactive pupils present Neck Neck: Yes normal visual inspection Chest Chest palpation & inspection: normal inspection of the chest Resp Effort & Inspection: normal respiratory effort Auscultation: clear to auscultation bilaterally Cardio Rate: regular rate Rhythm: regular rhythm Peripheral pulses: Peripheral pulses 2+ throughout GI Inspection: Yes normal to inspection Palpation (GI): Soft to palpation and nontender Auscultation: normal bowel sounds Back/Spine/Pelvis Thoracic/Lumbar Spine: thoracic and lumbar spine normal to inspection Skin General skin exam: no rashes or lesions noted Neuro General: patient oriented x3, no focal motor deficits and normal sensation to monofilament Cranial nerves: Yes Equal, round and reactive pupils present Cognition (Neuro): normal cognition Speech: No Abnormal speech present Gait exam (Neuro): Normal gait present Motor exam (neuro): 5/5 motor strength present throughout Extrem Other: Swelling/pain to left ankle/dorsal foot. NO swelling to calf. There is some tenderness on palpation to the posterior calf. FROM of the left knee, left ankle and foot. 2+ DP/PT pulses. Normal sensation. Course Course Course Narrative: RME performed by Vidhi Holland PA-C. Patient is a 73 year old assigned male at presenting to the emergency department with left lower leg pain. Detailed physical exam and review of systems are deferred to the primary school principal. Imaging ordered. Patient placed back in the waiting room pending room availability and results. Reevaluation(s) Reevaluation #1: Ultrasound negative for DVT. X-rays show findings consistent seen in gout. Patient has mildly elevated inflammatory markers and mildly elevated uric acid. Likely experiencing gouty flare. Patient be discharged home with prednisone course as he has an NSAID allergy and oxycodone for pain as needed. Recommend follow up outpatient with primary care. Reviewed worrisome signs and symptoms of when to return to the emergency room. Comfortable plan for discharge home. Medical Decision Making Medical Decision Making MDM Narrative: 73 yo male with history of HTN, HLD, PE not anticoagulated here with complaints of 2 weeks of left ankle pain which radiates to the posterior calf with no known injury or trauma. Patient reports associated swelling. No redness, warmth, fevers, chills. Wakes with stiffness and pain which improves throughout the day with movement of the joint. NO previous injuries/surgeries to ankle. Did have a fracture of his left knee years ago which was treated with immobilization and no surgery. Went to and referred in to the ER as they cannot perform US to r/o DVT Swelling/pain to left ankle/dorsal foot. NO swelling to calf. There is some tenderness on palpation to the posterior calf. FROM of the left knee, left ankle and foot. 2+ DP/PT pulses. Normal sensation. Will obtain labs, US, x-ray Differential Diagnosis Differential Diagnoses: The differential diagnosis associated with the presentation includes DVT, arthritis, gout Low suspicion for septic joint, cellulitis, compartment syndrome, vascular occlusion Admission/Observation Consideration of admission/observation: Escalation of care including admission/observation considered Low suspicion for septic joint, cellulitis, compartment syndrome, vascular occlusion requiring advanced imaging, urgent consultation and or admission Lab Data [facility] Lab Attestation statement: I reviewed the patient's lab results. 12/28/23 15:46 12/28/23 15:46 Labs: Lab Results 12/28/23 Range/Units 15:46 WBC 10.2 (4.8-10.8) X10*3/uL RBC 5.52 (4.60-5.80) X10*6/uL Hgb 14.3 (14.0-18.0) g/dl Hct 42.1 (42.0-52.0) % MCV 76.3 L (80.0-98.0) fL MCH 25.9 L (27.0-33.0) pg MCHC 34.0 (31.0-36.0) g/dl RDW 15.2 (11.0-16.0) % Plt Count 262 (160-400) X10*3/uL MPV 9.1 L (9.4-12.4) fL Immature Gran % (Auto) 0.5 H (0.0-0.4) % Neut % (Auto) 67.9 (45-73) % Lymph % (Auto) 17.7 L (20-40) % [place] % (Auto) 10.5 (2-11) % Eos % (Auto) 2.8 (0-4) % Baso % (Auto) 0.6 (0-2) % Lymph # (Auto) 1.8 (1.2-4.9) X10*3/uL [place] # (Auto) 1.1 (0.1-1.2) X10*3/uL Eos # (Auto) 0.3 (0.0-0.4) X10*3/uL Baso # (Auto) 0.1 (0.0-0.2) X10*3/uL Abs Immat Gran (auto) 0.05 H (0.00-0.03) X10*3/uL Absolute Neuts (auto) 6.9 (2.0-8.3) x10*3/uL Absolute Nucleated RBC 0.000 (0.0-0.012) X10*3/uL Nucleated RBC % (auto) 0.0 (0.0-0.2) /100WBC Sodium 141 (135-145) mmol/L Potassium 4.0 (3.3-5.1) mmol/L Chloride 102 (96-108) mmol/L Carbon Dioxide 28 (22-29) mmol/L Anion Gap 15 (12-20) BUN 10 (9-16) mg/dL Creatinine 0.88 (0.5-1.4) mg/dL Estim Creat Clear Calc 79.3 Estimated GFR > 60 Random Glucose 99 (60-115) mg/dL Uric Acid 7.5 H (3.4-7.0) mg/dL Calcium 9.9 (8.4-10.2) mg/dL Magnesium 2.0 (1.6-2.6) mg/dL Total Bilirubin 1.0 (0.0-1.0) mg/dL AST 30 (5-37) U/L ALT 20 (0-40) U/L Alkaline Phosphatase 95 (39-117) U/L Total Creatine Kinase 146 (38-174) U/L C-Reactive Protein 3.45 H (< or = 0.50) mg/dL B-Natriuretic Peptide 46 (<100) pg/mL Total Protein 7.0 (6.5-8.0) g/dL Albumin 4.0 (3.5-5.0) g/dL Independent Interpretation I performed an independent interpretation of an: Plain X-Ray and Ultrasound Interpretation: I independently viewed the x-ray and the ultrasound agree with the radiology report Radiology Impression Discussion of test interpretation with radiology: I have reviewed the radiologist's reading. Radiologist Impression: [place] [id number] XRay Report Signed Patient: Jesús Feliciano MR#: [id number] : 1950 Acct:[id number] Age/Sex: 73 / M ADM Date: 12/28/23 Loc: HO.ED Attending Dr: Ordering Physician: Monica Reilly NP Date of Service: 12/28/23 Procedure(s): XR foot LT 2V Accession Number(s): [id number] cc: Montrell Oakley MD; Monica Reilly NP~ STUDY: Left foot and ankle INDICATION: Pain and swelling COMPARISON: None TECHNIQUE: 2 view left foot, 4 view left ankle FINDINGS: Left foot: Advanced degenerative changes identified at the first MTP with sclerosis, spurring, and near obliteration of the joint space. 2.3 cm calcified focus identified at the lateral aspect of the first metatarsal head/neck region. No fracture or dislocation. Vascular calcifications. Left ankle: Mild diffuse soft tissue prominence about the ankle, laterally greater than medially. No fracture or dislocation. Alignment is maintained. Mortise is intact. XR/XR foot LT 2V IMPRESSION: 1. No acute bony pathology left foot and ankle. 2. Advanced first MTP degenerative changes. 3. 2.3 cm calcified focus lateral to the first metatarsal head/neck region, question calcified gouty tophus. Electronically signed by: Ml Hester MD 12/28/2023 04:16 PM [facility] [address] [address] Signed Patient: Jesús Feliciano MR#: [id number] : 1950 Acct:[id number] Age/Sex: 73 / M ADM Date: 12/28/23 Loc: HO.ED Attending Dr: Ordering Physician: Vidhi Holland Date of Service: 12/28/23 Procedure(s): US venous duplex LE LT Accession Number(s): [id number] cc: Vidhi Holland; Montrell Oakley MD~ EXAMINATION: US TRIPLEX LOWER EXTREMITY, LEFT CLINICAL INFORMATION: Pain, swelling, rule out DVT COMPARISON: Left lower extremity duplex on 09/25/2023 TECHNIQUE: Color-flow triplex imaging with spectral analysis and compression Doppler were performed on the left lower extremity. FINDINGS: Respiratory variation, normal compression and augmented flow are noted throughout the left lower extremity. The visualized common femoral vein, superficial femoral vein, profunda femoral vein, popliteal vein and midcalf peroneal and posterior tibial venous segments show no evidence of deep venous thrombosis. There is no Thao's cyst. US/US venous duplex LE LT IMPRESSION: No evidence of deep venous thrombosis involving the left lower extremity. Tests considered The following testing was considered but not selected: see discussion above Prescription Management I considered prescription management with: Antibiotic Discharge Plan Discharge Clinical Impression: Gout attack Patient Disposition: Home, Self-Care Instructions: Low Purine Diet (ED), Gout (ED) Additional Instructions: Your ultrasound shows no signs of a blood clot Your labs show mildly elevated inflammatory markers and an elevated uric acid level. Your x-ray show changes consistent with gout We gave you your 1st dose of prednisone here in the emergency room as well as a dose of oxycodone. Your next dose of prednisone is tomorrow. You may take oxycodone every 6 hours as needed for pain Elevate the extremity Apply heat or ice for comfort as needed Follow-up with your primary care doctor for re-evaluation Prescriptions: New prednisone 20 mg tablet 60 mg PO DAILY Qty: 12 0RF oxycodone 5 mg tablet 5 mg PO Q6H PRN (Reason: pain) Qty: 12 0RF Rx Instructions: Partial Fill upon patient request. No Action atorvastatin 80 mg tablet 1 tab PO BEDTIME tolterodine 4 mg capsule,extended release 24hr 1 cap PO DAILY amlodipine 10 mg tablet 1 tab PO DAILY ascorbic acid (vitamin C) [Vitamin C] 500 mg Tablet 500 mg PO DAILY olmesartan-hydrochlorothiazide 40-25 mg tablet 1 tab DAILY aspirin 81 mg Tablet,Delayed Release (Dr/Ec) 81 mg PO DAILY cholecalciferol (vitamin D3) [Vitamin D3] 50 mcg (2,000 unit) Tablet 50 mcg PO BEDTIME isosorbide mononitrate 30 mg tablet extended release 24 hr 1 tab PO QAM omeprazole 40 mg capsule,delayed release(DR/EC) 1 cap PO BID Qty: 60 0RF Referrals: Montrell Oakley MD [Primary Care Provider] - 1 week Print Language: Setswana
[2023-12-28 15:51] LABS: MANUAL DIFF FLAG NO
[2023-12-28 15:57] LABS: Basophils Absolute Auto 0.1 X10*3/uL (0.0-0.2); Basophils Percent Auto 0.6 % (0-2); Eosinophils Absolute Auto 0.3 X10*3/uL (0.0-0.4); Eosinophils Percent Auto 2.8 % (0-4); Hematocrit 42.1 % (42.0-52.0); Hemoglobin 14.3 g/dl (14.0-18.0); Imm Gran Abs Auto 0.05 X10*3/uL (0.00-0.03); Imm Gran Pct Auto 0.5 % (0.0-0.4); Lymphocytes Absolute Auto 1.8 X10*3/uL (1.2-4.9); Lymphocytes Percent Auto 17.7 % (20-40); Mean Corpuscular Hemoglobin 25.9 pg (27.0-33.0); Mean Corpuscular Volume 76.3 fL (80.0-98.0); Mean Platelet Volume 9.1 fL (9.4-12.4); Monocytes Absolute Auto 1.1 X10*3/uL (0.1-1.2); Monocytes Percent Auto 10.5 % (2-11); Neutrophils Absolute Auto 6.9 x10*3/uL (2.0-8.3); Neutrophils Percent Auto 67.9 % (45-73); Platelet Count 262 X10*3/uL (160-400); Red Blood Count 5.52 X10*6/uL (4.60-5.80); Red Cell Distribution Width 15.2 % (11.0-16.0); White Blood Count 10.2 X10*3/uL (4.8-10.8)
[2023-12-28 16:07] LABS: C Reactive Protein 3.45 mg/dL (< or = 0.50); Uric Acid 7.5 mg/dL (3.4-7.0)
[2023-12-28 16:08] LABS: Alanine Aminotransferase 20 U/L (0-40); Alkaline Phosphatase 95 U/L (39-117); Anion Gap 15 (12-20); Aspartate Amino Transferase 30 U/L (5-37); Blood Urea Nitrogen 10 mg/dL (9-16); Calcium 9.9 mg/dL (8.4-10.2); Carbon Dioxide 28 mmol/L (22-29); Chloride 102 mmol/L (96-108); Creatinine Clr Calc Pharmacy 79.3; Estimated Glomerular Filt Rate > 60; Glucose Random 99 mg/dL (60-115); Sodium 141 mmol/L (135-145)
[2023-12-28 16:13] LABS: B Type Natriuretic Peptide 46 pg/mL (<100)
[2023-12-28 16:38] LABS: Erythrocyte Sedimentation Rate 7 MM/HR (0-15)
[2023-12-28] MEDS: predniSONE 20 MG TABLET 60 MG PO (16:58)
[2023-12-28] MEDS: oxyCODONE HCl Immed Release 5 MG TABLET PO (16:58)
[2023-12-28 16:59] VITALS: BP 137/53; PULSE 74; RESP 18; TEMP 36.9; O2SAT 97
== END 2023-12-28 17:02 | disposition home or self-care (01) ==
PROVIDERS: Nurse Practitioner Family; Physician Assistant Medical; Emergency Provider Emergency Medicine; PCP Internal Medicine
DX: R60.0 Localized edema (principal); R06.02 Shortness of breath; M10.072 Idiopathic gout, left ankle and foot; I10 Essential (primary) hypertension; Z79.899 Other long term (current) drug therapy; Z86.711 Personal history of pulmonary embolism
CPT/HCPCS: 36415; 73600; 73620; 80053; 82550; 83735; 83880; 84550; 85025; 85652; 86140; 93971; 99283

== ENCOUNTER 2024-03-05 07:52 | Day surgery (SDC) | payer MEDICARE, SELFPAY ==
--- OUTSIDE RECORDS SUMMARY | 2024-02-26 12:58 | XMS_ITS | Continuity of Care Document ---
Author Name [facility] Organization [facility] Care Team Providers Care Port Purser Name Role Phone [facility] Unavailable Unavailable Problems Combined list of problems from Department of Defense and Veterans Affairs facilities. It does not include entries that were removed or entered in error. Problem Status Onset Date Problem Type Date of Resolution Comments Source Benign essential hypertension Active Condition [place] Bifascicular block Active Condition [facility] Colonoscopy Screening Active Condition Aug 14, 2022 Entered By: CARMINE RIDER Comment: 07/11/2022 [facility]: 7mm polyp in the descending colon, 8mm polyp at the splenic flexure. 2 6 to 8 mm polyps in ascending colon. [place] Coronary artery disease Active Condition [place] Coron[facility] atherosclerosis [facility] Degenerative arthritis Active Condition Aug 03, 2020 Entered By: MARIUSZ JOE Comment: Left Knee [facility] Gastroesophageal reflux disease Active Condition [facility] History of exposure to lead Active Condition [place] History of malignant neoplasm of prostate Active Condition [place] Hyperlipidemia Active Condition [facility] Long-term current use of anticoagulant Active Condition [facility] Multiple pulmonary nodules Active Condition [place] NON [facility] Providers Active Condition Aug 03, 2020 Entered By: MARIUSZ JOE Comment: PCP - Dr. Deisi Lim 2020 Entered By: CARMINE RIDER Comment: Pulmonary- Dr. Gaston 2020 Entered By: CARMINE RIDER Comment: Gastroentrologi st- Dr. Taveras [facility] Obesity Active Condition [facility] Overactive bladder Active Condition [facility] Pulmonary embolism Active Condition [facility] Sarcoidosis Active Condition [facility] Simple cyst of kidney Active Condition [place] Diagnosis: ICD-10-CM H90.3 Sensorineural hearing loss, bilateral Active Diagnosis [facility] Diagnosis: ICD-10-CM Z23 Encounter for immunization Active Diagnosis [facility] Diagnosis: ICD-10-CM I10 Essential (primary) hypertension Active Diagnosis [place] Diagnosis: ICD-10-CM Z46.1 Encounter for fitting and adjustment of hearing aid Active Diagnosis [facility] Medications Combined list of outpatient medications from Department of Defense and Veterans Affairs facilities.Medications provided include 1) outpatient medications from the last 15 months, and 2) patient-reported medications. Medication Details Route Status Patient Instructions Prescription Expires Prescription Number Last Dispense Date Ordering Provider Order Date Order Qty Source AMLODIPINE BESYLATE 10MG TAB TAKE ONE TABLET BY MOUTH ONCE DAILY ORAL ACTIVE EARL JOE SA 2020 [facility] ASCORBIC ACID 500MG TAB TAKE ONE TABLET BY MOUTH ONCE DAILY ORAL ACTIVE EARL JOE SA 2020 [facility] ASPIRIN 81MG TAB,CHEWABL E CHEW ONE TABLET BY MOUTH ONCE DAILY ORAL ACTIVE EARL JOE SA 2020 [facility] ATORVASTATI N CA 80MG TAB TAKE ONE TABLET BY MOUTH AT BEDTIME ORAL ACTIVE EARL JOE SA 2020 [facility] CHOLECALCIF CHALINO 50MCG (2,000UNIT) TAB TAKE ONE TABLET BY MOUTH ONCE DAILY ORAL ACTIVE EARL JOE SA 2020 [facility] HYDROCHLORO THIAZIDE 25MG TAB TAKE ONE TABLET BY MOUTH ONCE DAILY ORAL ACTIVE EARL JOE SA 2020 [facility] ISOSORBIDE MONONITRATE 30MG TAB,SA TAKE ONE TABLET BY MOUTH ONCE DAILY ORAL ACTIVE EARL JOE SA 2021 [facility] LORAZEPAM 0.5MG TAB TAKE ONE TABLET BY MOUTH TWICE DAILY NEEDED ORAL ACTIVE EARL JOE SA 2021 [facility] OLMESARTAN MEDOXOMIL 20MG TAB TAKE TWO TABLETS BY MOUTH ONCE DAILY ORAL ACTIVE TATYANAEARL SA 2020 [facility] OMEPRAZOLE 20MG CAP,EC TAKE 2 CAPSULES BY MOUTH TWICE DAILY ORAL ACTIVE EARL JOE SA 2021 [facility] [place] [facility] TOLTERODINE TARTRATE 2MG TAB TAKE TWO TABLETS BY MOUTH ONCE DAILY ORAL ACTIVE EARL JOE SA 2023 [facility] Allergies, Adverse Reactions, Alerts Combined list of allergies from Department of Defense and Veterans Affairs facilities. It does not include entries that were removed or entered in error. Substance Category Reaction Severity Reaction type Status Date Reported Comments Source IBUPROFEN Propensity to adverse reactions to drug (finding) Urticaria , Eruption active [facility] Immunizations Combined list of available immunizations from the Department of Defense and Veterans Affairs facilities. Immunization Series Date Given Administered By Site Reaction Lot Number CVX Code Drug Ct Scan Technician Status Comments Source INFLUENZA, HIGH-DOSE, TRIVALENT, PF 2023 MARII JAMESON Anastasia LEFT DELTO ID [id number] 135 complet ed [facility] COVID-19 (PFIZER), MRNA, LNP-S, PF, 30 MCG/0.3 ML DOSE 2 2020 208 complet ed [facility] COVID-19 (PFIZER), MRNA, LNP-S, PF, 30 MCG/0.3 ML DOSE 1 2020 208 complet ed [facility] INFLUENZA, UNSPECIFIED FORMULATION 2019 88 complet ed [facility] [place] Vital Signs Combined list of inpatient and outpatient Vital Signs from Department of Defense and Veterans Affairs, ranging from 12 months to all on record, depending upon the facility. Vital Sign Value Date Comments Source SYSTOLIC BLOOD PRESSURE 162 08/29/19 24 09:07:14 [facility] [place] [facility] DIASTOLIC BLOOD PRESSURE 73 024 09:07:14 [facility] PULSE OXIMETRY 95 08/29/2023 09:07:14 [facility] WEIGHT 196.6 08/29/2023 09:07:14 [facility] BMI 30kg/m2 08/29/2023 09:07:14 [facility] PAIN 0 08/29/2023 09:07:14 [facility] HEIGHT 68 08/29/2023 09:07:14 [facility] TEMPERATURE 97.9 08/29/2023 09:07:14 [facility] PULSE 81 08/29/2023 09:07:14 [facility] RESPIRATION 16 08/29/2023 09:07:14 [facility] Encounters Combined list of: 1) Encounters from Department of Veterans Affairs facilities going back up to thelast 18 months. 2) Encounters from the Department of Defense facilities going back up to 280 months. Location Location Details Encounter Type Encounter Number Reason For Visit Attending Provider ADM Date DC Date Status Disposition Source [facility] Outpatient Encounter [id number] 08/14 [facility] OFFICE O/P EST LOW 20-29 MIN [id number] Diagnos is: ICD-10- CM I10 Essenti al (primar y) hyperte nsion<b r/> MIN JOE 08/14 [place] [facility] HEARING AID EXAM BOTH EARS [id number] Diagnos is: ICD-10- CM H90.3 Sensori neural hearing loss, bilater al
Alfreda OLEARY 10/23 [facility] HEARING AID FITTING/CH ECKING [id number] Diagnos is: ICD-10- CM Z46.1 Encount er for fitting and adjustm ent of hearing aid<br/ > Alfreda OLEARY 11/19 [facility] HEARING AID REPAIR/MOD IFYING [id number] Diagnos is: ICD-10- CM Z46.1 Encount er for fitting and adjustm ent of hearing aid<br/ > LYNDON HARRISON TIFFANIE REDDY 01/30 [facility] HEARING SERVICE [id number] Diagnos is: ICD-10- CM Z46.1 Encount er for fitting and adjustm ent of hearing aid<br/ > ESTELLA KRAUSE Shadi 02/24 [facility] Outpatient Encounter [id number] 04/17 [facility] Outpatient Encounter [id number] 07/31 [facility] Outpatient Encounter [id number] 08/28 [facility] OFFICE O/P EST LOW 20 MIN [id number] Diagnos is: ICD-10- CM I10 Essenti al (primar y) hyperte nsion<b r/> MIN JOE 08/28 [place] [facility] Outpatient Encounter [id number] 09/07 [facility] [place]UNIZAT[place] ADMIN [id number] Diagnos is: ICD-10- CM Z23 Encount er for immuniz ation<b r/> DEAN RODRIGUEZ 10/30 [facility] HEARING AID FITTING/CH ECKING [id number] Diagnos is: ICD-10- CM H90.3 Sensori neural hearing loss, bilater al
Alfreda OLEARY E 11/23 [facility] Social History Combined list of available smoking, tobacco, and other social history from Department of Defense and Veterans Affairs facilities. Social History Type Response Date Comment [facility] e Tobacco smoking status [facility]-TOBACCO NEVER USED 08/29/19 [place] History of tobacco use OR-TOBACCO NEVER USED 08/14/2022 [place] History of tobacco use OR-TOBACCO NEVER USED 08/15/2021 [place] History of tobacco use OR-TOBACCO NEVER USED 08/16/2020 [place] Advance Directives List of completed, amended, or rescinded Advance Directives on record at Department of Veterans Affairs facilities. An actual copy of the Directive is not included. Date Advance Directive Provider Source 08/16/2020 ADVANCE DIRECTIVE IRENE AC
--- OUTSIDE RECORDS SUMMARY | 2024-02-26 12:58 | XMS_ITS | Encounter Summary ---
Author Name [facility] [facility] [place] Address [address] [place] [address] Care Team Providers Care Child Therapist Name Role Phone MARIUSZ JOE Primary Care Provider Unavailshin e Insurance Providers: All historical and current Section Date Range: From patient's date of to the date document was created. This section includes the names of all active insurance providers for the patient. Insurance Provider Type of Coverage Plan Name Start of Policy Coverage End of Policy Coverage Group Number Member ID Insurance Provider's Telephone Number Policy Askew's Name Patient's Relationship to Policy Askew [facility] ([facility]) MEDICARE ADVANTAGE [facility] ([facility]) Feb 17, 2017 [id number] HERNANDO MORAN PATIENT MEDICARE (WNR) MEDICARE (M) PART A Aug 18, 2015 PART A [id number] HERNANDO MORAN PATIENT Selected Encounter This section includes the information on record at [place] for the Encounter. Date/Time Encounter Type Encounter Description Reason Pro vider Source Aug 29, 2023 12:00 AM Outpatient Encounter EVENT (HISTORICAL) IHE Encounter Template Text not used by [place] Plan of Treatment: Future Appointments (+ 6 months) and Future Tests (+/- 45 days) The Plan of Treatment section includes future care activities for the patient from all VA treatmentfacilities. This section includes future appointments and future orders which are active, pending or scheduled. Future Appointments This section includes appointments that were scheduled to occur 6 months from the date of the Encounter, up to a maximum of 20 appointments. The data comes from all [place] treatment facilities. Appointment Date/Time Appointment Type Appointme nt Facility Name Nov 24, 2023 11:00 AM [facility] Vital Signs: All taken on the encounter date This section contains inpatient and outpatient Vital Signs collected on the date of the Encounter. Date/Time Temperature Pulse Blood Pressure Respiratory Rate SP02 Pain Height Weight Body Mass Index Source Aug 29, 2023 09:07 AM 148/78 [facility] Aug 29, 2023 09:07 AM 97.9 81 162/73 16 95 0 68 196.6 30 [facility] Advance Directives: All historical and current Section Date Range: From patient's date of to the date document was created. This section includes ALL of a patient's completed or amended [place] Advance and Rescinded Directives. The entries below indicate that a directive exists for the patient, but an actual copy is not included with this document. The data comes from all [place] facilities. Date Advance Directives Provider Source Aug 16, 2020 ADVANCE DIRECTIVE IRENE AC
--- OUTSIDE RECORDS SUMMARY | 2024-02-26 12:58 | XMS_ITS | Encounter Summary ---
Author Name [facility] [place] [facility] [place] Address [address] [place] [address] Care Team Providers Care Project Eng Name Role Phone MARIUSZ JOE Primary Care [...] Name Patient's Relationship to Policy Askew [facility] ([facility]) MEDICARE ADVANTAGE [facility] ([facility]) Feb 17, 2017 [id number] HERNANDO MORAN PATIENT MEDICARE (WNR) MEDICARE (M) PART A Aug 18, 2015 PART A [id number] HERNANDO MORAN PATIENT Selected Encounter This section includes the information on record at [place] for the Encounter. Date/Time Encounter Type Encounter Description Reason Pro vider Source Apr 18, 2023 12:00 AM Outpatient Encounter EVENT (HISTORICAL) IHE Encounter Template Text not used by [facility] Plan of Treatment: Future Appointments (+ 6 [...] 20 appointments. The data comes from all [place] treatment facilities. Appointment Date/Time Appointment Type Appointme nt Facility Name Aug 29, 2023 09:00 AM [place]ATORY - [place]ICINE [place] [facility] Advance Directives: All historical and current Section Date Range: From patient's date of to the date document was created. This section includes ALL of a patient's completed or amended [place] Advance and Rescinded Directives. The entries below indicate that a directive exists for the patient, but an actual copy is not included with this document. The data comes from all [place] facilities. Date Advance Directives Provider Source Aug 16, 2020 ADVANCE DIRECTIVE IRENE AC
--- OUTSIDE RECORDS SUMMARY | 2024-02-26 12:58 | XMS_ITS ---
Author Organization [facility] Address [address] [place] [id number] Care Team Providers Care Assistant Spa Manager Name Role Phone Cele KONG, [facility] Primary Care Provide r Unavailable Nitin Perez, Raji Rogers REASON FOR VISIT ov recall Encounters Encounter Location Date Provider Diagnosis [facility] [address] [place] [phone] 11/13/2022 Raji Taveras Jr PLAN OF TREATMENT Next Appt Details Provider Name:Raji villatoro Jr, 03/05/2024 09:00:00 AM, [address] [place] [address] , [place], [place], [phone],
--- OUTSIDE RECORDS SUMMARY | 2024-02-26 12:58 | XMS_ITS | Encounter Summary ---
Author Name [facility] Organization [facility] [place] Address [address] [place] [id number] Care Team Providers Care Claims Representative Name Role Phone MARIUSZ JOE Primary Care Provider Unavailshin ivey Insurance Providers: All historical and current Section [...] Name Patient's Relationship to Policy Askew [facility] ([facility] MEDICARE ADVANTAGE [facility] ([place]) Feb 17, 2017 [id number] HERNANDO MORAN PATIENT MEDICARE (WNR) MEDICARE (M) PART A Aug 18, 2015 PART A [id number] HERNANDO MORAN PATIENT Selected Encounter This section includes the information on record at [place] for the Encounter. Date/Time Encounter Type Encounter Description Reason Pro vider Source IHE Encounter Template Text not used by [facility] Advance Directives: All historical and current Section Date Range: From patient's date of to the date document was created. This section includes ALL of a patient's completed or amended [place] Advance and Rescinded Directives. The entries below indicate that a directive exists for the patient, but an actual copy is not included with this document. The data comes from all [place] facilities. Date Advance Directives Provider Source Aug 16, 2020 ADVANCE DIRECTIVE IRENE AC
--- OUTSIDE RECORDS SUMMARY | 2024-02-26 12:58 | XMS_ITS | Encounter Summary ---
Author Name [facility] [place] [facility] [place] [facility] [facility] [place] Address [address] [place] [address] Care Team Providers Care Engineer Operations And Maintenance Name Role Phone MARIUSZ JOE Primary Care Provider Unavailabl e Insurance Providers: All historical and current [...] Name Patient's Relationship to Policy Askew [facility] ([facility]) MEDICARE ADVANTAGE [facility] ([facility]) Feb 17, 2017 [id number] HERNANDO MORAN PATIENT MEDICARE (WNR) MEDICARE (M) PART A Aug 18, 2015 PART A [id number] HERNANDO MORAN PATIENT Selected Encounter This section includes the information on record at [place] for the Encounter. Date/Time Encounter Type Encounter Description Reason Provider Source Aug 29, 2023 09:00 AM OFFICE O/P EST LOW 20 MIN PRIMARY CARE/MEDICINE ICD-10-CM I10 Essential (primary) hypertension MARIUSZ JOE Encounter Template Text not used by [facility] Assessments - Encounter Diagnoses This section includes the primary and secondary diagnoses documented for the Encounter. Date/Time Primary/Secondary Diagnosis Diagnosis Name Provider Source Aug 29, 2023 09:19 AM PRIMARY Essential (primary) hypertension MARIUSZ JOE ANNE Aug 29, 2023 09:19 AM SECONDARY Obesity, unspecified MARIUSZ JOE ANNE Plan of Treatment: Future Appointments (+ 6 months) and Future Tests (+/- 45 days) The Plan of Treatment section includes future care activities for the patient from all [place] treatmentfacilities. This section includes future appointments and future orders which are active, pending or scheduled. Future Appointments This section includes appointments that were scheduled to occur 6 months from the date of the Encounter, up to a maximum of 20 appointments. The data comes from all [place] treatment facilities. Appointment Date/Time Appointment Type Appointme nt Facility Name Nov 24, 2023 11:00 AM AMBULATORY - [facility]ICIN [facility] Social History: Smoking Status (Most current) and Tobacco Use (All prior to encounter date) This section includes the most current, and the historical, smoking and tobacco- related health factors from the [facility] facility where the Encounter took place. Current Smoking Status This section includes the most current smoking, or tobacco-related health factor, from the [place] facility where the Encounter took place. Date/Time Current Smoking Status Comment Facil ity Aug 29, 2023 09:00 AM VA-TOBACCO NEVER USED [place] Tobacco Use History This section includes a history of the smoking, or tobacco-related health factors, that were collected on or before the date of the Encounter. The data comes from the [place] facility where the Encounter took place. Date/Time Smoking Status/Tobacco Use Comment F acility Aug 14, 2022 10:00 AM [place]-TO[place]CO NEVER USED [place] Aug 15, 2021 10:30 AM VA-TOBACCO NEVER USED [place] Aug 16, 2020 11:00 AM [place]-TOBACCO NEVER USED [place] Advance Directives: All historical and current Section Date Range: From patient's date of to the date document was created. This section includes ALL of a patient's completed or amended [place] Advance and Rescinded Directives. The entries below indicate that a directive exists for the patient, but an actual copy is not included with this document. The data comes from all [place] facilities. Date Advance Directives Provider Source Aug 16, 2020 ADVANCE DIRECTIVE IRENE AC Encounter Notes: All associated encounter notes This section contains the clinical notes associated to the Encounter. Date/Time Encounter Note(s) Provider Source Aug 29, 2023 09:08 AM PREVENTIVE MEDICIN E NURSING NOTE: LOCAL TITLE: CLINICAL REMINDERS/NURSING STANDARD TITLE: PREVENTIVE MEDICINE NURSING NOTE DATE OF NOTE: AUG 29, 2023@09:08 ENTRY DATE: AUG 29, 2023@09:08:08 AUTHOR: CARMINE RIDER COSIGNER: URGENCY: STATUS: COMPLETED Advance Directive Screen MH AD: Patient has an Advance Directive on file at this [facility]. No updates are needed at this time. The patient received education about Advance Directives and written notification of his/her rights. Suicide Screen: C-SSRS Screening [place] Suicide Severity Rating Scale (C-SSRS) screener 1. Over the past month, have you wished you were or wished you could go to sleep and not wake up? No 2. Over the past month, have you had any actual thoughts of killing yourself? No 3. Over the past month, have you been thinking about how you might do this? Response not required due to responses to other questions. 4. Over the past month, have you had these thoughts and had some intention of acting on them? Response not required due to responses to other questions. 5. Over the past month, have you started to work out or worked out the details of how to kill yourself? Response not required due to responses to other questions. 6. If yes, at any time in the past month did you intend to carry out this plan? Response not required due to responses to other questions. 7. In your lifetime, have you ever done anything, started to do anything, or prepared to do anything to end your life (for example, collected pills, obtained a gun, gave away valuables, went to the roof but didn't jump)? No 8. If YES, was this within the past 3 months? Response not required due to responses to other questions. Homelessness/Food Insecurity Screen: In the past 2 months, have you been living in stable housing that you own, rent, or stay in as part of a household? Yes - Living in stable housing. Are you worried or concerned that in the next 2 months you may NOT have stable housing that you own, rent, or stay in as part of a household? No - Not worried about housing near future The reports the following: Within the past 12 months, you worried whether your food would run out before you got money to buy more. Never true Within the past 12 months, the food you bought just didn't last and you didn't have money to get more. Never true Depression Screening: Perform PHQ-2 A PHQ-2 screen was performed. The score was 0 which is a negative screen for depression. Over the past two weeks, how often have you been bothered by the following problems? 1. Little interest or pleasure in doing things Not at all 2. Feeling down, depressed, or hopeless Not at all Pneumococcal Conjugate Vaccine (PCV15/PCV20): Refuses PCV vaccine Immunization: PNEUMOCOCCAL CONJUGATE, UNSPECIFIED FORMULATION Refusal Reason: PATIENT DECISION Patient refuses all immunization(s) in the PneumoPCV group Date Documented: 08/29/23 09:09 Tobacco Use Screening: The patient has never used tobacco. Influenza Immunization: No influenza vaccination was received during the recent influenza season. Alcohol Use Screen (AUDIT-C): Alcohol Screen: SCREEN FOR ALCOHOL (AUDIT-C) An alcohol screening test (AUDIT-C) was negative (score=4). 1. How often did you have a drink containing alcohol in the past year? Consider a drink to be a 12 ounce can or bottle of regular beer, 8 ounces of malt liquor, a 5 ounce glass of table wine, or a 1.5 ounce shot of liquor (like scotch, gin, or vodka). Four or more times a week 2. How many drinks containing alcohol did you have on a typical day when you were drinking in the past year? One or two drinks 3. How often did you have six or more drinks on one occasion in the past year? Never COVID-19 Immunization: Referred to another clinic for immunization (desired vaccine unavailable at this location) Tdap Immunization: The patient declines to receive the recommended dose of Tdap vaccine. Immunization: TDAP Refusal Reason: PATIENT DECISION Patient refuses all immunization(s) in the TDAP group Date Documented: 08/29/23 09:10 Herpes Zoster (Shingles) Vaccine: The patient declines to receive the recommended dose of zoster (shingles) vaccine. Immunization: ZOSTER RECOMBINANT Refusal Reason: PATIENT DECISION Patient refuses all immunization(s) in the ZOSTER group Date Documented: 08/29/23 09:10 Sexual Orientation: The patient thinks of their sexual orientation as: Straight or Heterosexual RHS Screen: RHS Screen Session Format: Face to Face Environmental Check Upon inquiry, the individual reports that the environment is safe to proceed. Informed Consent to Screen and Document The individual consents to proceed with screening. The individual consents to documentation of responses. PRIMARY SCREEN: In the past 12 months, how often did a current or former intimate partner (e.g., boyfriend, girlfriend, , , sexual partner): 1. Scream or curse at you Never 2. Insult or talk down to you Never 3. Threaten you with harm Never 4. Physically hurt you Never 5. Force or pressure you to have sexual contact against your will, or when you were unable to say no Never ?? The HITS tool (items 1-4 above) is [place] copyright protected by Dony Cedeno MD, and the user has full rights to use it throughout the [place] system. PRIMARY SCREEN RESULT: The Primary Screen is NEGATIVE. The individual answered never to all forms of IPV above (i.e., answered never to all 5 items) The individual accepts education and/or resources: No EDUCATION: The individual indicated readiness to learn. Education offered during this session as noted above. The individual indicated understanding by asking relevant questions and making appropriate comments. No barriers to learning were observed or identified. Eye Care At-Risk Screen : Patient identified to be at risk for the following eye condition(s): MACULAR DEGENERATION: Macular Degeneration Risk Factors Information: Reminder Term: VA-AMD RISK FACTORS Hospitalization Diagnosis 07/11/2021@16:00 I25.10 (ICD-10-CM) Atherosclerotic Heart Disease of [place] Coronary Artery without Angina Pectoris; data node: M ICD4; (Fee) Action: No Referral Ordered: Eye exam completed elsewhere by an Machine Splitter or Traffic Engineer Exam Information: Date: April, ? Exact date is unknown Findings/Comment waiting for results /liz/ CARMINE RIDER LPN PACMary 10 Signed: 08/29/2023 09:12 CARMINE RIDER [place] Aug 29, 2023 06:25 AM PHYSICIAN NOTE: LOCAL TITLE: MD NOTE STANDARD TITLE: PHYSICIAN NOTE DATE OF NOTE: AUG 29, 2023@06:25 ENTRY DATE: AUG 29, 2023@06:25:19 AUTHOR: MARIUSZ JOE COSIGNER: URGENCY: STATUS: COMPLETED HISTORY OF PRESENT ILLNESS: HERNANDO MORAN, is a 72 yo MALE [place], who presents at the [facility] for his annual visit. He maintains a nonVA PCP: Dr. Deisi Oakley. He utilizes audiology services at the [place]. NonVA Providers: PCP: DR Oakley Urology: Dr Hernández Gastroenterolgy: Dr Taveras Pulmonary: Dr Goode Bag Washer: Dr Aiken Active problems - Computerized Problem List is the source for the followin. Long-term current use of anticoagulant 2. Pulmonary embolism 3. Obesity 4. Overactive bladder 5. Benign essential hypertension 6. Bifascicular block 7. Gastroesophageal reflux disease 8. Coronary artery disease 9. History of exposure to lead 10. History of malignant neoplasm of prostate 11. Hyperlipidemia 12. Multiple pulmonary nodules 13. Colonoscopy Screening 14. Simple cyst of kidney 15. Sarcoidosis 16. Coronary atherosclerosis 17. Degenerative arthritis 18. NON VA Providers Active and Recently Outpatient Medications (including Supplies): Active Non-VA Medications Status ======= 1) Non-VA AMLODIPINE BESYLATE 10MG TAB 10MG BY MOUTH ACTIVE ONCE DAILY 2) Non-VA ASCORBIC ACID 500MG TAB 500MG BY MOUTH ONCE ACTIVE DAILY 3) Non-VA ASPIRIN 81MG CHEW TAB 81MG BY MOUTH ONCE DAILY ACTIVE 4) Non-VA ATORVASTATIN CALCIUM 80MG TAB 80MG BY MOUTH AT ACTIVE BEDTIME 5) Non-VA CHOLECALCIF 50MCG (D3-2,000UNIT) TAB 50MCG BY ACTIVE MOUTH ONCE DAILY 6) Non-VA HYDROCHLOROTHIAZIDE 25MG TAB 25MG BY MOUTH ACTIVE ONCE DAILY 7) Non-VA ISOSORBIDE MONONITRATE 30MG SA TAB 30MG BY ACTIVE MOUTH ONCE DAILY 8) Non-VA LORAZEPAM 0.5MG TAB 0.5MG BY MOUTH TWICE DAILY ACTIVE NEEDED 9) Non-VA OLMESARTAN MEDOXOMIL 20MG TAB 40MG BY MOUTH ACTIVE ONCE DAILY 10) Non-VA OMEPRAZOLE 20MG EC CAP 40MG BY MOUTH TWICE ACTIVE DAILY 11) Non-VA TOLTERODINE TARTRATE 2MG TAB 4MG BY MOUTH ONCE ACTIVE DAILY ALLERGIES: ========= IBUPROFEN HISTORY: PERIOD OF SERVICE - [facility] FROM Nov TO Oct COMBAT SERVICE INDICATED: No VITAL SIGNS: Blood Pressure 148/78 (08/29/2023 09:07) Pulse 81 (08/29/2023 09:07) Respiration 16 (08/29/2023 09:07) Pulse Oximetry 95% (08/29/2023 09:07) Temperature 97.9 F [36.6 C] (08/29/2023 09:07) Pain 0 (08/29/2023 09:07) Height 68 in [172.7 cm] (08/29/2023 09:07) Weight 196.6 lb [89.18 kg] (08/29/2023 09:07) BMI BMI: 30.0 REVIEW OF SYSTEMS: CARDIOVASCULAR: No chest pain RESPIRATORY: No SOB, no wheezing GASTROINTESTINAL: No abd pain, no N/V/D GENITOURINARY: No dysuria, no hematuria MUSCULOSKELETAL: No joint pain, no joint swelling NEUROLOGIC: No H/A, no numbness, no weakness, no tingling EXAMINATION: GENERAL: WD/WN , pleasant & in NAD HEENT: Moist mucosa NECK: Supple HEART: RRR, S1-S2, no murmurs LUNGS: CTA B/L ABDOMEN: Soft, NT/ND EXTREMITIES: FROM x 4, no edema NEUROLOGIC: AAO x3 PSYCHIATRIC: Good eye contact, affect normal ASSESSMENT/PLAN: 1. Exertional CP: on isosorbide mononitrate 30mg/day 2. Pulmonary Embolism: dxed 12/27/2020 - no longer on apixaban 3. Hypertension: well controlled on amlodipine 10mg/day, and Benicar/HCTZ 40mg/25mg daily 4. Hyperlipidemia: on atorvastatin 80mg QHS 5. Hx Prostate CA: s/p prostatectomy in 2013, managed by Dr Hernández 6. Pulmonary Nodules: stable/unchanged over the years per vet, followed by Dr Goode 7. GERD: on omeprazole 40mg BID 8. OAB: spastic , condition present since prostatectomy in 2013, wears Depends daily, on tolterodine 4mg/day (Detrol) 9. Obesity: BMI ~30, counseled on weight loss 10. Anxiety D/O: on lorazepam 0.5mg BID prn FOLLOW UP 1 year - Annual - vet to bring PCP labs ========= No barriers; Patient understands and agrees to current treatment plan. If pt has any questions, concerns, or changes in current health status he/she will call or come in to the [facility]. HTN Assess for Elevated BP>=140/90: The patient's blood pressure is usually adequately controlled. No medication changes are indicated at this time. Medication Reconciliation: Outpatient: Has the patient been taking medications as documented in the EMLR? YES: The patient has been taking medications as documented in the EMLR. Essential Medication List for Review used to complete this medication reconciliation. INCLUDED IN THIS LIST: Alphabetical list of active outpatient prescriptions dispensed from this [place] (local) and dispensed from another [place] or [facility] facility (remote) as well as inpatient orders (local, pending and active), local clinic medications, locally documented non-VA medications, and local prescriptions that have or been discontinued in the past 90 days. - All changes in medications, including all non-VA/Herbal/OTC medications were entered into CPRS. - If there were any medications the patient should no longer take, they were discontinued. - The patient/caregiver was instructed to update this list, discard old lists, and take this list to the next appointment, whether with a VA or non-VA provider. JLV Link Data on this list may not be complete. Please check JLV. Allergies/ADRs (Tool #5) FACILITY ALLERGY/ADR -------- No Remote Allergy/ADR Data available for this patient [facility] IBUPROFEN Med Recon NoGlossary (Tool #1) INCLUDED IN THIS LIST: Alphabetical list of active outpatient prescriptions dispensed from this [place] (local) and dispensed from another [place] or [facility] facility (remote) as well as inpatient orders (local pending and active), local clinic medications, locally documented non-VA medications, and local prescriptions that have or been discontinued in the past 90 days. Non-VA Meds Last Documented On: Aug 29, 2023 NOTE The display of VA prescriptions dispensed from another [place] or [facility] facility (remote) is limited to active outpatient prescription entries matched to National Drug File at the originating site and may not include some items such as investigational drugs, compounds, etc. NOT INCLUDED IN THIS LIST: Medications self-entered by the patient into personal health records (i.e. markedup) are NOT included in this list. Non-VA medications documented outside this [place], remote inpatient orders (regardless of status) and remote clinic medications are NOT included in this list. The patient and provider must always discuss medications the patient is taking, regardless of where the medication was dispensed or obtained. ------ Non-VA AMLODIPINE BESYLATE 10MG TAB TAKE ONE TABLET BY MOUTH ONCE DAILY Medication prescribed by Non-VA provider. Non-VA ASCORBIC ACID 500MG TAB TAKE ONE TABLET BY MOUTH ONCE DAILY Medication prescribed by Non-VA provider. Non-VA ASPIRIN 81MG CHEW TAB CHEW ONE TABLET BY MOUTH ONCE DAILY Medication prescribed by Non-VA provider. Non-VA ATORVASTATIN CALCIUM 80MG TAB TAKE ONE TABLET BY MOUTH AT BEDTIME Medication prescribed by Non-VA provider. Non-VA CHOLECALCIF 50MCG (D3-2,000UNIT) TAB TAKE ONE TABLET BY MOUTH ONCE DAILY Medication prescribed by Non-VA provider. Non-VA HYDROCHLOROTHIAZIDE 25MG TAB TAKE ONE TABLET BY MOUTH ONCE DAILY Medication prescribed by Non-VA provider. Non-VA ISOSORBIDE MONONITRATE 30MG SA TAB TAKE ONE TABLET BY MOUTH ONCE DAILY Medication prescribed by Non-VA provider. Non-VA LORAZEPAM 0.5MG TAB TAKE ONE TABLET BY MOUTH TWICE DAILY NEEDED Medication prescribed by Non-VA provider. Non-VA OLMESARTAN MEDOXOMIL 20MG TAB TAKE TWO TABLETS BY MOUTH ONCE DAILY Medication prescribed by Non-VA provider. Non-VA OMEPRAZOLE 20MG EC CAP TAKE 2 CAPSULES BY MOUTH TWICE DAILY Medication prescribed by Non-VA provider. Non-VA TOLTERODINE TARTRATE 2MG TAB TAKE TWO TABLETS BY MOUTH ONCE DAILY Medication prescribed by Non-VA provider. ------ SUPPLIES ------ Lipid Screening: Patient was educated about cardiac risk factors related to cholesterol control, which includes, all elements of the Lipid Panel including HDL, LDL and Triglycerides. The declined testing at this time. HIV Screening: Patient has been offered HIV testing and has declined. I have explained that HIV testing is recommended for all adults, even if all risk factors are absent. The patient was educated on the risk of delayed screening. Hepatitis C Testing: Patient declines HCV lab test. Avg Risk Colorectal Cancer Screen: AVERAGE RISK colorectal cancer screening is due based on information available to this clinical reminder Patient has arranged or is choosing to arrange this care independent of and without assistance from this [facility]. /liz/ MARIUSZ JOE MD Primary Care Physician Signed: 08/29/2023 09:33 MARIUSZ JOE
--- OUTSIDE RECORDS SUMMARY | 2024-02-26 12:58 | XMS_ITS | Patient Health Record ---
Author Organization [facility] Address [address] [place] [phone] Care Team Providers Care Restoration Ecologist Name Role Phone Cele KONG, Deisi Primary Care Provide r Unavailable Raji Taveras Jr Unavailable ALLERGIES Allergen (clinical drug ingredient) Drug/Non Drug Allergy documented on EMR Reaction Allergy Type Onset Date Status ibuprofen Ibuprofen Unknown Drug Allergy Active REASON FOR REFERRAL No Information MEDICATIONS Medication SIG (Take, Route, Frequency, Duration) Notes Start Date End Date Status Vitamin C Active Tolterodine Tartrate ER 4 MG TAKE 1 CAPSULE BY MOUTH EVERY DAY Oral for 90 Active Aspirin 81 MG 1 tablet Orally Once a day Active amLODIPine Besylate 10 MG 1 tablet Orall y Once a day Active MiraLax (colon prep) 17 GM/SCOOP mixed with Gatorade or Crystal Light Orally begin at 5:00 p.m. the day before the procedure for 1 day 12/15/2023 Active Metoprolol Succinate ER 25 MG 1 tablet Orally Once a day Active Atorvastatin Calcium 80 MG 1 tablet Oral ly Once a day Active Albuterol Sulfate HFA 108 (90 Base) MCG/ACT INHALE 2 PUFFS EVERY 6 HOURS Inhalation for 25 Active Benicar HCT 40-25 MG 1 tablet Orally Onc e a day Active Olmesartan Medoxomil-HCTZ 40-25 MG TAKE 1 TABLET BY MOUTH EVERY DAY Oral for 90 Active Isosorbide Mononitrate ER 30 MG TAKE 1 TABLET BY MOUTH EVERY DAY IN AM FOR 90 DAY Oral for 90 Active Omeprazole 40 MG TAKE 1 CAPSULE EVERY DAY for 90 Active Tylenol Active Vitamin D Active IMMUNIZATIONS Vaccine Route Administration Date Status Comme nts Influenza Unknown 10/18/2018 Administered Influenza Unknown 12/01/2019 Administered Influenza Unknown 12/05/2020 Administered Influenza Unknown 11/06/2021 Administered Influenza Unknown 11/18/2023 Administered SOCIAL HISTORY Sex Assigned At : Social History Observation Description Sex Assigned At Unknown PROBLEMS Problem Type ICD Code Onset Dates Problem Status W/U Status Risk SNOMED Code Notes Problem Colon cancer screening (Z12.11) Active confirmed 583213498 Problem intermediate manager (current) use of aspirin (Z79.82) Active confirmed 141729879431008 Problem Duodenitis (K29.80) Active confirmed 72 511273 Problem Gastroesophageal reflux disease without esophagitis (K21.9) Active confirmed 246030940 VITAL SIGNS Temperature 98.0 degrees Fahrenheit 12/15/2023 Blood pressure diastolic 00 mm Hg 12/15/2023 Height 68 in 12/15/2023 Blood pressure systolic 000 mm Hg 12/15/2023 Weight 198 lb 2 oz lbs 12/15/2023 BMI 30.12 kg/m2 12/15/2023 Encounters Encounter Location Date Provider Diagnosis [facility] [address] [place] [phone] 12/15/2023 Raji Taveras Jr Gastroesophageal reflux disease without esophagitis K21.9 and Colon cancer screening Z12.11 [facility] [address] [place] [phone] 02/24/2024 Raji Taveras Jr ASSESSMENTS Encounter Date Diagnosis Assessment Notes Treatment Notes Treatment Clinical Notes 12/15/2023 Colon cancer screening (ICD-10 - Z12.11) Gastroesophageal reflux disease material was printed 12/15/2023 Gastroesophageal reflux disease without esophagitis (ICD-10 - K21.9) PLAN OF TREATMENT Future Test Test Name Order Date COLONOSCOPY 12/29/2013 UPPER GI ENDOSCOPY 12/27/2015 COLONOSCOPY 01/06/2019 UPPER GI ENDOSCOPY 05/06/2019 COLONOSCOPY 12/15/2023 Next Appt Details Provider Name:Raji villatoro Jr, 03/05/2024 09:00:00 AM, [address] [place] [address] , [place], [place], [phone], Insurance Providers Payer Name Payer Address Payer Phone Subscriber Number Group Number Insured Name Patient Relationship to Insured Coverage Start Date Coverage End Date [employer] [address] [employer] S[employer] [facility] [place] [id number] [id number] HERNANDO MORAN Self - patient is the [...]
--- OUTSIDE RECORDS SUMMARY | 2024-02-26 12:58 | XMS_ITS ---
Author Organization [facility] Address [address] [place] [id number] Care Team Providers Care Duplication Specialist Name Role Phone Cele KONG, Deisi Primary Care Provide r Unavailable Raji Taveras Jr Unavailable ALLERGIES Allergen (clinical drug ingredient) Drug/Non Drug Allergy documented on EMR Reaction Allergy Type Onset Date Status ibuprofen Ibuprofen Unknown Drug Allergy Active REASON FOR VISIT Patient presents today for gerd MEDICATIONS Medication SIG (Take, Route, Frequency, Duration) Notes Start Date End Date Status MiraLax (colon prep) 17 GM/SCOOP mixed with Gatorade or Crystal Light Orally begin at 5:00 p.m. the day before the procedure for 1 day 12/15/2023 Active Atorvastatin Calcium 80 MG 1 tablet Oral ly Once a day Active Albuterol Sulfate HFA 108 (90 Base) MCG/ACT INHALE 2 PUFFS EVERY 6 HOURS Inhalation for 25 Active Benicar HCT 40-25 MG 1 tablet Orally Onc e a day Active Olmesartan Medoxomil-HCTZ 40-25 MG TAKE 1 TABLET BY MOUTH EVERY DAY Oral for 90 Active Vitamin C Active Isosorbide Mononitrate ER 30 MG TAKE 1 TABLET BY MOUTH EVERY DAY IN AM FOR 90 DAY Oral for 90 Active Omeprazole 40 MG TAKE 1 CAPSULE EVERY DAY for 90 Active Tylenol Active Vitamin D Active Tolterodine Tartrate ER 4 MG TAKE 1 CAPSULE BY MOUTH EVERY DAY Oral for 90 Active Aspirin 81 MG 1 tablet Orally Once a day Active amLODIPine Besylate 10 MG 1 tablet Orall y Once a day Active Metoprolol Succinate ER 25 MG 1 tablet Orally Once a day Active VITAL SIGNS BMI 30.12 kg/m2 12/15/2023 Blood pressure systolic 000 mm Hg 12/15/19 24 Blood pressure diastolic 00 mm Hg 024 Height 68 in 12/15/2023 Temperature 98.0 degrees Fahrenheit 12/15/19 Weight 198 lb 2 oz lbs 12/15/2023 Encounters Encounter Location Date Provider Diagnosis [facility] [address] [place] [address] 12/15/2023 Raji Taveras Jr Gastroesophageal reflux disease without esophagitis K21.9 and Colon cancer screening Z12.11 ASSESSMENTS Encounter Date Diagnosis Assessment Notes Treatment Notes Treatment Clinical Notes 12/15/2023 Gastroesophageal reflux disease without esophagitis (ICD-10 - K21.9) 12/15/2023 Colon cancer screening (ICD-10 - Z12.11) Gastroesophageal reflux disease material was printed PLAN OF TREATMENT Medication Medication Name Sig Start Date Stop Date Notes MiraLax (colon prep) 17 GM/SCOOP mixed with Gatorade or Crystal Light Orally begin at 5:00 p.m. the day before the procedure for 1 day 12/15/2023 Treatment Notes Assessment Notes Colon cancer screening Gastroesophageal reflux disease material was printed Future Test Test Name Order Date COLONOSCOPY 12/15/2023 Next Appt Details Follow Up: 1 Year, Reason: Provider Name:Raji villatoro Jr, 03/05/2024 09:00:00 AM, [address] [place] [address] , [place], [place], [phone],
--- OUTSIDE RECORDS SUMMARY | 2024-02-26 12:59 | XMS_ITS | Encounter Summary ---
Author Name [facility] [place] [facility] [place] Address [address] [place] [address] Care Team Providers Care Tamper Operator Name Role Phone MARIUSZ JOE Primary Care [...] Name Patient's Relationship to Policy Askew [facility] ([facility]) MEDICARE ADVANTAGE [facility] ([facility]) Feb 17, 2017 [id number] [phone] HERNANDO MORAN PATIENT MEDICARE (WNR) MEDICARE (M) PART A Aug 18, 2015 PART A [id number] HERNANDO MORAN PATIENT Selected Encounter This section includes the information on record at [place] for the Encounter. Date/Time Encounter Type Encounter Description Reason Pro vider Source Aug 01, 2023 12:00 AM Outpatient Encounter EVENT (HISTORICAL) IHE Encounter Template Text not used by [place] Plan of Treatment: Future Appointments (+ 6 [...] 20 appointments. The data comes from all [place] treatment facilities. Appointment Date/Time Appointment Type Appointme nt Facility Name Aug 29, 2023 09:00 AM AMBULATORY - MEDICINE [facility] Nov 24, 2023 11:00 AM AMBULATORY - REHAB MEDICIN E [facility] Advance Directives: All historical and current Section Date Range: From patient's date of to the date document was created. This section includes ALL of a patient's completed or amended [place] Advance and Rescinded Directives. The entries below indicate that a directive exists for the patient, but an actual copy is not included with this document. The data comes from all [place] facilities. Date Advance Directives Provider Source Aug 16, 2020 ADVANCE DIRECTIVE IRENE AC Encounter Notes: All associated encounter notes This section contains the clinical notes associated to the Encounter. Date/Time Encounter Note(s) Provider Source Aug 01, 2023 12:00 AM NONVA NOTE: LOCAL TITLE: NON-VA HOSPITALIZATIONS/ER STANDARD TITLE: NONVA NOTE DATE OF NOTE: AUG 01, 2023 ENTRY DATE: SEP 22, 2023@13:10:55 AUTHOR: MAHNAZ DAVIS EXP COSIGNER: URGENCY: STATUS: COMPLETED VistA Imaging - Scanned Document SCANNED DOCUMENT SIGNATURE NOT REQUIRED Electronically Filed: 09/22/2023 by: MAHNAZ CABRERA [facility]
--- OUTSIDE RECORDS SUMMARY | 2024-02-26 12:59 | XMS_ITS | Encounter Summary ---
Author Name [facility] [place] [facility] [place] Address [address] [place] [address] Care Team Providers Care Roll Wrapper Name Role Phone MARIUSZ JOE Primary Care [...] Name Patient's Relationship to Policy Askew [facility] ([facility]) MEDICARE ADVANTAGE [facility] ([facility]) Feb 17, 2017 [id number] HERNANDO MORAN PATIENT MEDICARE (WNR) MEDICARE (M) PART A Aug 18, 2015 PART A [id number] HERNANDO MORAN PATIENT Selected Encounter This section includes the information on record at [place] for the Encounter. Date/Time Encounter Type Encounter Description Reason Pro vider Source Sep 08, 2023 04:55 PM Outpatient Encounter COMMUNITY CARE CONSULT IHE Encounter Template Text not used by [...] 20 appointments. The data comes from all [place] treatment facilities. Appointment Date/Time Appointment Type Appointme nt Facility Name Nov 24, 2023 11:00 AM [facility] Advance Directives: All historical and current Section Date Range: From patient's date of to the date document was created. This section includes ALL of a patient's completed or amended [place] Advance and Rescinded Directives. The entries below indicate that a directive exists for the patient, but an actual copy is not included with this document. The data comes from all [place] facilities. Date Advance Directives Provider Source Aug 16, 2020 ADVANCE DIRECTIVE IRENE AC Encounter Notes: All associated encounter notes This section contains the clinical notes associated to the Encounter. Date/Time Encounter Note(s) Provider Source Sep 09, 2023 08:01 AM ADDENDUM: LOCAL TITLE: Addendum STANDARD TITLE: ADDENDUM DATE OF NOTE: SEP 09, 2023@08:01:12 ENTRY DATE: SEP 09, 2023@08:01:13 AUTHOR: GUDELIA YAN EXP COSIGNER: URGENCY: STATUS: COMPLETED Will forward to please PACT [facility] to obtain medical records. /liz/ GUDELIA YAN RN REGISTERED NURSE Signed: 09/09/2023 08:01 Receipt Acknowledged By: 09/09/2023 09:25 /chet ATKINS ADVANCED GRINDER TENDER --- Original Document --- 09/08/23 [facility] SELF PRESENTING CARE COORD PLAN NOTE: Emergency Notification Intake Date Presenting to the Facility: Jul Method of Contact: Notified from [facility] worklist Notification ID: [id number] [facility] Referral #: [id number] [facility] Name: Hospital: [facility] Address: City: [place] State: [place] Zip Code: Phone : Community Facility Point of Contact: Name: Rebecca Phone: Chief complaint: CHEST PAIN Primary Diagnosis: Disposition Discharged Date of discharge: Jul Discharge to Comment: ER Only /chet BORGES Signed: 09/08/2023 16:59 Receipt Acknowledged By: * AWAITING SIGNATURE * CARMINE KAM 09/09/2023 08:01 /liz/ GUDELIA YAN RN REGISTERED NURSE 09/08/2023 22:39 /liz/ MARIUSZ JOE MD Primary Care Physician * AWAITING SIGNATURE * LUCRETIA WELLS * AWAITING SIGNATURE * MARIUSZ CARBAJAL * AWAITING SIGNATURE * LATISHA ESPINOZA 09/09/2023 ADDENDUM STATUS: COMPLETED FOAM CASTER FAXED REQUEST FOR NOTES TO [facility] /liz/ LUCRETIA ATKINS ADVANCED GRINDER TENDER Signed: 09/09/2023 09:25 GUDELIA YAN [place] Sep 08, 2023 04:55 PM NONVA NOTE: LOCAL TITLE: COMMUNITY CARE-CONNIE SELF PRESENTING CARE COORD PLAN STANDARD TITLE: NONVA NOTE DATE OF NOTE: SEP 08, 2023@16:55 ENTRY DATE: SEP 08, 2023@16:55:29 AUTHOR: DWAYNE LEDESMA EXP COSIGNER: URGENCY: STATUS: COMPLETED COMMUNITY CARE-CONNIE SELF PRESENTING CARE COORD PLAN NOTE Has ADDENDA Emergency Notification Intake Date Presenting to the Facility: Jul Method of Contact: Notified from [facility] worklist Notification ID: [id number] [facility] Referral #: [id number] [facility] Address: City: [place] State: [place] Zip Code: Phone : Community Facility Point of Contact: Name: Rebecca Phone: Chief complaint: CHEST PAIN Primary Diagnosis: Disposition Discharged Date of discharge: Jul Discharge to Comment: ER Only /liz/ DWAYNE BORGES Signed: 09/08/2023 16:59 Receipt Acknowledged By: 09/09/2023 08:01 /liz/ GUDELIA YAN RN REGISTERED NURSE 09/08/2023 22:39 /es/ MARIUSZ JOE MD Primary Care Physician 09/09/2023 13:16 /liz/ Lucretia CONKLIN,RN,[facility] TRANSFER/TRAVELING COORDINATOR 09/09/2023 ADDENDUM STATUS: COMPLETED Will forward to please PACT [facility] to obtain medical records. /liz/ GUDELIA YAN RN REGISTERED NURSE Signed: 09/09/2023 08:01 Receipt Acknowledged By: 09/09/2023 09:25 /liz/ LUCRETIA ATKINS ADVANCED GRINDER TENDER 09/09/2023 ADDENDUM STATUS: COMPLETED FOAM CASTER FAXED REQUEST FOR NOTES TO [facility] /liz/ LUCRETIA ATKINS ADVANCED GRINDER TENDER Signed: 09/09/2023 09:25 DWAYNE LEDESMA [place]
--- OUTSIDE RECORDS SUMMARY | 2024-02-26 13:00 | XMS_ITS | Encounter Summary ---
Author Name [facility] [place] [place] Organization [facility] [place] Address [address] [place] [address] Care Team Providers Care Medical Assistant Secretary Name Role Phone MARIUSZ JOE Primary Care [...] Name Patient's Relationship to Policy Askew [facility]) MEDICARE ADVANTAGE [facility] ([facility]) Feb 17, 2017 [id number] [phone] HERNANDO MORAN PATIENT MEDICARE (WNR) MEDICARE (M) PART A Aug 18, 2015 PART A [id number] HERNANDO MORAN PATIENT Selected Encounter This section includes the information on record at [place] for the Encounter. Date/Time Encounter Type Encounter [...] this document. The data comes from all [place] facilities. Date Advance Directives Provider Source Aug 16, 2020 ADVANCE DIRECTIVE IRENE AC
--- OUTSIDE RECORDS SUMMARY | 2024-02-26 13:00 | XMS_ITS | Encounter Summary ---
Author Name [facility] [place] [facility] [place] Address [address] [place] [address] Care Team Providers Care Power Grader Operator Name Role Phone MARIUSZ JOE Primary [...] Name Patient's Relationship to Policy Askew [facility] ([facility]) MEDICARE ADVANTAGE [facility] ([facility]) Feb 17, 2017 [id number] HERNANDO MORAN PATIENT MEDICARE ([facility]) MEDICARE (M) PART A Aug 18, 2015 PART A [id number] [id number] HERNANDO MORAN PATIENT Selected Encounter This section includes the information on record at [place] for the Encounter. Date/Time Encounter Type Encounter Description Reason Provider Source Nov 24, 2023 11:00 AM HEARING AID FITTING/CHECKIN G AUDIOLOGY ICD-10-CM H90.3 Sensorineural hearing loss, bilateral CAMINITI,LONNY E IHE Encounter Template Text not used by [place] Assessments - Encounter Diagnoses This section includes the primary and secondary diagnoses documented for the Encounter. Date/Time Primary/Secondary Diagnosis Diagnosis Name Provider Source Nov 24, 2023 11:14 AM PRIMARY Sensorineural hearing loss, bilateral LONNY OLEARY [place] [facility] Advance Directives: All historical and current Section Date Range: From patient's date of to the date document was created. This section includes ALL of a patient's completed or amended [place] Advance and Rescinded Directives. The entries below indicate that a directive exists for the patient, but an actual copy is not included with this document. The data comes from all [place] facilities. Date Advance Directives Provider Source Aug 16, 2020 ADVANCE DIRECTIVE IRENE AC KRUNAL Encounter Notes: All associated encounter notes This section contains the clinical notes associated to the Encounter. Date/Time Encounter Note(s) Provider Source Nov 24, 2023 09:46 AM AUDIOLOGY E & M NO TE: [facility] TITLE: AUDIOLOGY CLINIC STANDARD TITLE: AUDIOLOGY E & M NOTE DATE OF NOTE: NOV 24, 2023@09:46 ENTRY DATE: NOV 24, 2023@09:46:03 AUTHOR: LONNY OLEARY EXP COSIGNER: URGENCY: STATUS: COMPLETED was seen 11-24-23 for a hearing re-evaluation. Hearing was last evaluated in 2022. He currently uses binaural Phonak RICs, issued in 2022. He notes they are sometimes too loud for his 's voice/it sounds shrieky. He was issued a set of Phonak RICs in 2020 also. He reports no otologic changes, denying tinnitus and vertigo. Results are as follow: Otoscopy is WNL for both ears. Pure tone audiometric testing with headphones revealed normal hearing from 250-1000 Hz, sloping to a moderate sensorineural hearing loss bilaterally. Word recognition scores were excellent with 96% correct for each ear for recorded speech presented at 70 dB HL (masked). Normal tympanograms were obtained bilaterally. Results obtained today are considered stable in comparison to those from 2022. Hearing aids were connected to [email or web address] and gain for the highest frequencies was rolled off. [place] was counseled on today's test results. Given stable hearing, current hearing aids are considered appropriate to meet his hearing needs. Hearing re- evaluation is recommended in two to three years, sooner should be note any hearing changes. He will contact Audiology as needed for hearing aid follow up. /liz/ Jose BOLANOS, [facility] MGR Signed: 11/24/2023 11:32 LONNY OLEARY [facility]
--- OUTSIDE RECORDS SUMMARY | 2024-02-26 13:00 | XMS_ITS ---
Author Name [facility] [place] Organization [place] Address [address] [place] [address] Care Team Providers Care Strategic Communications Specialist Name Role Phone MARIUSZ JOE Primary Care [...] Patient's Relationship to Policy Askew [facility] MEDICARE ADVANTAGE [facility] ([facility]) Feb 17, 2017 [id number] HERNANDO MORAN PATIENT MEDICARE (R) MEDICARE (M) PART A Aug 18, 2015 PART A [id number] [phone] HERNANDO MORAN PATIENT Selected Encounter This section includes the information on record at [place] for the Encounter. Date/Time Encounter Type Encounter Description Reason Provider Source Oct 31, 2023 10:20 AM IMMUNIZATION ADMIN PRIMARY CARE/MEDICINE ICD-10-CM Z23 Encounter for immunization KAILEE RODRIGUEZ [place] Encounter Template Text not used by [place] Assessments - Encounter Diagnoses This section includes the primary and secondary diagnoses documented for the Encounter. Date/Time Primary/Secondary Diagnosis Diagnosis Name Provider Source Oct 31, 2023 10:21 AM PRIMARY Encounter for immunization KAILEE RODRIGUEZ [facility] Plan of Treatment: Future Appointments (+ 6 months) and Future Tests (+/- 45 days) The Plan of Treatment section includes future care activities for the patient from all [place] treatmentfaecu healthities. This section includes future appointments and future orders which are active, pending or scheduled. Future Appointments This section includes appointments that were scheduled to occur 6 months from the date of the Encounter, up to a maximum of 20 appointments. The data comes from all [place] treatment facilities. Appointment Date/Time Appointment Type Appointme nt Facility Name Nov 24, 2023 11:00 AM AMBULATORY - REHAB MEDICIN E [facility] Immunizations: All administered on the encounter date This section contains immunizations associated to the Encounter. Immunization Series Date Issued Reaction Comments INFLUENZA, HIGH-DOSE, TRIVALENT, PF Oct 30 Advance Directives: All historical and current Section Date Range: From patient's date of to the date document was created. This section includes ALL of a patient's completed or amended [place] Advance and Rescinded Directives. The entries below indicate that a directive exists for the patient, but an actual copy is not included with this document. The data comes from all [place] facilities. Date Advance Directives Provider Source Aug 16, 2020 ADVANCE DIRECTIVE IRENE AC Encounter Notes: All associated encounter notes This section contains the clinical notes associated to the Encounter. Date/Time Encounter Note(s) Provider Source Oct 31, 2023 10:20 AM PREVENTIVE MEDICIN E NURSING NOTE: LOCAL TITLE: CLINICAL REMINDERS/NURSING STANDARD TITLE: PREVENTIVE MEDICINE NURSING NOTE DATE OF NOTE: OCT 31, 2023@10:20 ENTRY DATE: OCT 31, 2023@10:20:23 AUTHOR: KAILEE RODRIGUEZ EXP COSIGNER: URGENCY: STATUS: COMPLETED Influenza Immunization: Influenza, High-Dose, Trivalent, Preservative Free (Fluzone-Syringe) Administered: INFLUENZA, HIGH-DOSE, TRIVALENT, PF Date Administered: Oct 31, 2023 10:20 Kelly Machine Operator: SANOFI PASTEUR Lot: [id number] Exp Date: Aug 16, 2024 NDC: [id number] Admin Route/Site: INTRAMUSCULAR/LEFT DELTOID Dosage: 0.5mL Vaccine Information Statement(s): INFLUENZA(FLU) VACC(INACTIVATED OR RECOMBINANT)VIS Sep 22, 2020 ([place]ET[place]ESE) Order By: Policy Administered By: Loreto Avalos The Influenza Vaccine Information Statement (VIS) was reviewed with the patient/caregiver which lists the benefits and risks of the vaccine and the risks of not receiving the Influenza vaccine. The patient/caregiver denied any prior severe reaction to this vaccine or its components or a severe allergic reaction, such as anaphylaxis, to any vaccine or any injectable therapy. The patient/caregiver gave verbal consent to receive the vaccine. /liz/ KAILEE CONKLIN, RN WATER AND FIRE TECHNICIAN NURSE RIGHT OF WAY APPRAISER W9 PTSD RRTP Signed: 10/31/2023 10:22 KAILEE RODRIGUEZ [facility]
[2024-03-03 13:02] VITALS: BMI 30.1
--- NOTE | 2024-03-04 12:18 | P.CONAN_ITS ---
Documented by User: Mally Hills NP 03/04/24 12:21 HPI - Anesthesia Eval Consult details Narrative: 73yo M for Colonoscopy Cardiac optimized per [facility] cardiology [facility] Active Problems Active Problems: All Active Problems Personal history of pulmonary embolism (Acute) Pain and swelling of left lower extremity (Acute) Gastric polyp (Acute) Duodenitis (Acute) Acute blood loss anemia (Acute) Precordial chest pain (Acute) Hypersensitivity pneumonitis (Acute) History of prostate cancer (Acute) Hypertension (Acute) Hyperlipidemia (Acute) Obstructive sleep apnea (Acute) PVC (premature ventricular contraction) (Acute) Atherosclerotic cardiovascular disease (Acute) Bifascicular block (Acute) Past Medical History Medical History GI bleed Sleep apnea Breaux's esophagus GERD (gastroesophageal reflux disease) Kidney stones Elevated cholesterol Tubular adenoma History of prostate cancer ILD (interstitial lung disease) Atherosclerotic cardiovascular disease Essential hypertension Bifascicular block PVC (premature ventricular contraction) Pulmonary embolism Pneumonia Family History Family History Mother No problems noted. Father No problems noted. Family history of problems with anesthesia: No Surgical History Surgical History Hx of right inguinal hernia repair Hx of foot surgery History of esophagogastroduodenoscopy (EGD) H/O colonoscopy H/O prostatectomy History of Problems with Anesthesia: No Social History Social History Household Members: Spouse Housing: House Are you a primary acute care occupational therapist to a significant other at home: No Do you presently have visiting nurse or other home services: No Unable to assess alcohol history related to: Unknown Alcohol intake: current Alcohol intake frequency: a few times a week Alcohol type: beer Patient Tobacco Use Status: Never used Tobacco Second Hand Smoke Exposure: No Use of substances other than those prescribed or required for medical reasons: No Are you DNR?: No Advance Directives: No Advance Directives Information Provided: Yes Advance Directives Date on File: 12/28/20 Recently lost weight without trying: No Nutrition Risks: No Nutritional Risk Poor oral hygiene: No service: No Current occupational status: retired Meds Allergies Allergy/AdvReac Type Severity Reaction Status Date / Time ibuprofen [Ibuprofen] Allergy Intermediate HIVES/JOINT Verified 03/05/24 08:07 SWELLING Home Medications ?Medication ?Instructions ?Recorded ?Confirmed ?Last Taken ?Type amlodipine 10 mg tablet 1 tab PO DAILY 12/16/20 03/03/24 03/05/24 History ascorbic acid (vitamin C) 500 mg 500 mg PO DAILY 12/16/20 03/03/24 03/05/24 History tablet (Vitamin C) atorvastatin 80 mg tablet 1 tab PO BEDTIME 12/16/20 03/03/24 03/05/24 History tolterodine 4 mg capsule,extended 1 cap PO DAILY 12/16/20 03/03/24 03/05/24 History release 24 hr aspirin 81 mg tablet,delayed 81 mg PO DAILY 12/27/20 03/03/24 02/28/24 History release cholecalciferol (vitamin D3) 50 50 mcg PO BEDTIME 12/27/20 03/03/24 03/05/24 History mcg (2,000 unit) tablet (Vitamin D3) olmesartan 40 1 tab DAILY 04/13/21 03/03/24 07/09/21 History mg-hydrochlorothiazide 25 mg tablet isosorbide mononitrate 30 mg 1 tab PO QAM 07/09/21 03/03/24 03/05/24 History tablet,extended release 24 hr acetaminophen 325 mg tablet 650 mg PO QID PRN Pain 03/03/24 03/03/24 Unknown History albuterol sulfate 90 mcg/actuation 2 puff inhalation Q6-8H PRN 03/03/24 03/03/24 Unknown History aerosol inhaler Shortness Of Breath Or Wheezing metoprolol succinate 25 mg 25 mg PO DAILY 03/03/24 03/03/24 03/05/24 History tablet,extended release 24 hr omeprazole 40 mg capsule,delayed 1 cap PO DAILY 03/03/24 03/03/24 Unknown History release Exam Height,Weight and Vital Signs: Height 5 ft 8 in Weight 89.811 kg Pertinent Lab Results Pertinent Lab Results: Laboratory Tests 12/28/23 15:46 WBC 10.2 Hgb 14.3 Hct 42.1 Plt Count 262 Sodium 141 Potassium 4.0 Chloride 102 Carbon Dioxide 28 BUN 10 Creatinine 0.88 Narrative Narrative: EKG 07/2023 Vent. Rate : 065 BPM Atrial Rate : 065 BPM P-R Int : 166 ms QRS Dur : 154 ms QT Int : 458 ms P-R-T Axes : 022 -56 -15 degrees QTc Int : 476 ms Sinus rhythm with marked sinus arrhythmia with occasional Premature ventricular complexes Right bundle branch block Left anterior fascicular block Bifascicular block Abnormal ECG When compared with ECG of 13-APR-2021 08:31, Premature ventricular complexes are now Present QT has lengthened Stress test 08/2023 negative per cardiac clearance note Assessment and Plan Assessment Anesthesia Assessment: Chart Reviewed Final Anesthetic Review Family History of Problems with Anesthesia: No History of Problems with Anesthesia: No Documented by User: Yoli Hogan MD 03/05/24 09:30 [facility] Past Medical History Medical History GI bleed Sleep apnea Breaux's esophagus GERD (gastroesophageal reflux disease) Kidney stones Elevated cholesterol Tubular adenoma History of prostate cancer ILD (interstitial lung disease) Atherosclerotic cardiovascular disease Essential hypertension Bifascicular block PVC (premature ventricular contraction) Pulmonary embolism Pneumonia Family History Family History Mother No problems noted. Father No problems noted. Surgical History Surgical History Hx of right inguinal hernia repair Hx of foot surgery History of esophagogastroduodenoscopy (EGD) H/O colonoscopy H/O prostatectomy Social History Social History Household Members: Spouse Housing: House Are you a primary acute care occupational therapist to a significant other at home: No Do you presently have visiting nurse or other home services: No Unable to assess alcohol history related to: Unknown Alcohol intake: current Alcohol intake frequency: a few times a week Alcohol type: beer Patient Tobacco Use Status: Never used Tobacco Second Hand Smoke Exposure: No Use of substances other than those prescribed or required for medical reasons: No Are you DNR?: No Advance Directives: No Advance Directives Information Provided: Yes Advance Directives Date on File: 12/28/20 Recently lost weight without trying: No Nutrition Risks: No Nutritional Risk Poor oral hygiene: No service: No Current occupational status: retired Meds Allergies Allergy/AdvReac Type Severity Reaction Status Date / Time ibuprofen [Ibuprofen] Allergy Intermediate HIVES/JOINT Verified 03/05/24 08:07 SWELLING Home Medications ?Medication ?Instructions ?Recorded ?Confirmed ?Last Taken ?Type amlodipine 10 mg tablet 1 tab PO DAILY 12/16/20 03/03/24 03/05/24 History ascorbic acid (vitamin C) 500 mg 500 mg PO DAILY 12/16/20 03/03/24 03/05/24 History tablet (Vitamin C) atorvastatin 80 mg tablet 1 tab PO BEDTIME 12/16/20 03/03/24 03/05/24 History tolterodine 4 mg capsule,extended 1 cap PO DAILY 12/16/20 03/03/24 03/05/24 History release 24 hr aspirin 81 mg tablet,delayed 81 mg PO DAILY 12/27/20 03/03/24 02/28/24 History release cholecalciferol (vitamin D3) 50 50 mcg PO BEDTIME 12/27/20 03/03/24 03/05/24 History mcg (2,000 unit) tablet (Vitamin D3) olmesartan 40 1 tab DAILY 04/13/21 03/03/24 07/09/21 History mg-hydrochlorothiazide 25 mg tablet isosorbide mononitrate 30 mg 1 tab PO QAM 07/09/21 03/03/24 03/05/24 History tablet,extended release 24 hr acetaminophen 325 mg tablet 650 mg PO QID PRN Pain 03/03/24 03/03/24 Unknown History albuterol sulfate 90 mcg/actuation 2 puff inhalation Q6-8H PRN 03/03/24 03/03/24 Unknown History aerosol inhaler Shortness Of Breath Or Wheezing metoprolol succinate 25 mg 25 mg PO DAILY 03/03/24 03/03/24 03/05/24 History tablet,extended release 24 hr omeprazole 40 mg capsule,delayed 1 cap PO DAILY 03/03/24 03/03/24 Unknown History release Exam Airway Mallampati Class: II TM Dist: >3cm Neck ROM: Limited Heart: RRR Lungs: CTA Assessment and Plan Assessment Anesthesia Assessment: Anesthesia Plan Discussed Final Anesthetic Review NPO: Yes ASA Class: III Final Preanesthetic Review: No Changes in Pt Med Stat, Meds/Allgs Chart Reviewed, Consent Obtained/Reviewed and Anes Risks/Benef Reviewed Patient Risk: Intermediate Anesthetic Plan Anesthetic Plan: MAC: Disposition: Standard PACU
--- OUTSIDE RECORDS SUMMARY | 2024-03-05 07:56 | XMS_ITS | Data Portability ---
Author Organization [facility] Address [address] [place] [address] [place] [address] Care Team Providers Care Internal Control Specialist Name Role Phone ZOHRADIEGO COBOS Primary Care Provider Assessment Encounter Date Assessment Date Assessment LastModified by Organization Details LastModified Time 12/27/2020 12/27/2020 Proper Personal Protective Equipment (PPE), including gloves, eye protection and masks were donned and doffed appropriately and all equipment cleaned using approved technique with germicidal disposable wipes prior to and after care of this patient according to [facility]'s infection prevention protocols. Overview/History : 70 yo male with recent hospital admit for PNA is seen for weakness and jittery feelings. Exam: -PVCs on exam confirmed with EKG -lung exam wnl -nontoxic appearing NAD -bradycardia inthe high 30s to mid 40s consistently -getting winded walking across room -no hx of bradycardia DDx considered, but not limited to: -bradycardia 2nd to Beta blockade -bradycardia 2nd to cardiac pathology Work up/Results: -EK HR with RBBB and PVCs -Chem 8 H+H wnl BUN/Cr wnl Na/K wnl Plan/Discussion: -given weakness recent admit for cardiopulm illness bradycardia and chest discomfort, pt and agreeable to transfer to [place] ED For cardiac monitoring, and workup for bradycardia In order to obtain further information and compare any laboratory results/values, I have accessed . This information was pertinent in my medical decision making today. Time On Scene with Patient: 01:09:58 - Referred - Point of Care: Emergency Department [email or web address] Not available 12/27/2020 18:33:02 Plan of Treatment Reminders Order Date Submit Date Provider Last Modified By Organization Details Last Modified Time Details Appointments None recorded. Lab BMP + ionized calcium, serum or plasma [address] [facility], [place], [address], 18:19:46 Referral None recorded. Procedures None recorded. Surgeries None recorded. Imaging None recorded. Medication Orders None recorded. Patient TargetsNo targets recorded. Patient Instructions Encounter Date Encounter Id Patient Instructions Last Modified By Organization Details Last Modified Time 12/27/2020 [id number] [facility] yo [facility]. We cannot always find the exact cause of your symptoms during your initial visit. Please follow up with your primary care provider or specialist to be rechecked or seek medical attention if your symptoms do not go away or get worse. If you develop any new or worsening symptoms and need after hours care, please go to nearest ER and/or call 911. If you have additional concerns or develop a change in your condition between 8am-10pm, please call [facility] at [phone] to help navigate your care. [email or web address] Not available 12/27/2020 17:24:37 Reason for Referral None Reported. Results Created Date Observation Date Name Description Value Unit Range Abnormal Flag Note LastModifiedBy Organization Detail LastModifiedTime 12/28/1912/27/2020 BMP + IONIZ ED CALCI UM, SERUM OR PLASM A glu 172 mg/dL 70-105 Not Available [facility] [address] [place], [address], 12/27/2020 18:19:46 12/28/1912/27/2020 BMP + IONIZ ED CALCI UM, SERUM OR PLASM A BUN 23 mg/dL 8-26 Not Available [facility] [address] [place], [address], 12/27/2020 18:19:46 12/28/1912/27/2020 BMP + IONIZ ED CALCI UM, SERUM OR PLASM A crea 0.7 mg/dL 0.6-1. 3 Not Available [facility] [address] [place], [address], 12/27/2020 18:19:46 12/28/19 21 12/27/2020 BMP + IONIZ ED CALCI UM, SERUM OR PLASM A Na 141 mmol/ L 138-14 6 Not Available [address], [address], 12/27/2020 18:19:46 12/28/19 21 12/27/2020 BMP + IONIZ ED CALCI UM, SERUM OR PLASM A K 3.5 mmol/ L 3.5-4. 9 Not Available [address], [address], 12/27/2020 18:19:46 12/28/19 21 12/27/2020 BMP + IONIZ ED CALCI UM, SERUM OR PLASM A cL 103 mmol/ L 98-109 Not Available [address], [address], 12/27/2020 18:19:46 12/28/19 21 12/27/2020 BMP + IONIZ ED CALCI UM, SERUM OR PLASM A TCO2 24 mmol/ L 24-29 Not Available [address], [address], 12/27/2020 18:19:46 12/28/19 21 12/27/2020 BMP + IONIZ ED CALCI UM, SERUM OR PLASM A angap 19 mmol/ L 10-20 Not Available [address], [address], 12/27/2020 18:19:46 12/28/19 21 12/27/2020 BMP + IONIZ ED CALCI UM, SERUM OR PLASM A ica 1.15 mmol/ L 1.12-1 .32 Not Available [address], [address], 12/27/2020 18:19:46 12/28/19 21 12/27/2020 BMP + IONIZ ED CALCI UM, SERUM OR PLASM A HCT 47 %pcv 38-51 Not Available [facility] [address] [place], [address], 12/27/2020 18:19:46 12/28/19 21 12/27/2020 BMP + IONIZ ED CALCI UM, SERUM OR PLASM A Hb 16.0 g/dL 12-17 Not Available [facility] [address] [place], [address], 12/27/2020 18:19:46 12/28/1912/27/2020 elect bret hines am No observ ation record ed. [email or web address] Not Available 12/27 17:57:19 Result Notes None recorded. Procedures Surgical History Date Name Laterality Status Provider Name and Address Organization Details Recorded Time 12/28/19 ECG Interpretation - completed JERMAIN Pike [address] [place], [address], [place] [facility] 12/27/2020 18:01:55 Imaging Results Imaging Date Name Status LastModified by Organization Details LastModified Time 12/27/2020 electrocardiogram completed [email or web address] Informa tion not available 12/27/2020 17:57:19 Procedure Notes None recorded. Medical Equipment None Reported. Medications Name Sig Start Date Stop Date Status Note LastModified by Organization Details LastModified Time atorvastatin 80 mg tablet active Not Available Not Available Not Available prednisone 10 mg tablet active Not Available Not Available No t Available tolterodine ER 4 mg capsule,extend ed release 24 hr active Not Available Not Available Not Available prednisone 20 mg tablet active Not Available Not Available No t Available omeprazole 40 mg capsule,delaye d release active Not Available Not Available No t Available lorazepam 0.5 mg tablet active Not Available Not Available No t Available amlodipine 10 mg tablet active Not Available Not Available No t Available benzonatate 100 mg capsule active Not Available Not Availab le Not Available cephalexin 500 mg capsule active Not Available Not Available N ot Available metoprolol succinate ER 25 mg tablet,extende d release 24 hr active Not Available Not Available Not Available albuterol sulfate HFA 90 mcg/actuation aerosol inhaler active Not Available Not Available Not Available imipramine 25 mg tablet active Not Available Not Available No t Available amoxicillin 875 mg-potassium clavulanate 125 mg tablet active Not Available Not Availabl e Not Available olmesartan 40 mg-hydrochloro thiazide 25 mg tablet active Not Available Not Available Not Available Eliquis 5 mg tablet active Not Available Not Available Not Available COVID-19 test specimen collection TEST DIRECTED active Not Available Not Available No t Available Vitals Date Recorded Oxygen saturation Oxygen saturation in Arterial blood by Pulse oximetry Body temperature Respiratory rate Heart rate Systolic blood pressure Diastolic blood pressure Provider Name and Address Organization Details Last Updated DateTime 95 % 95 % 97.3 [degF] 20 /min 73 /min 122 mm[Hg] 60 mm[Hg] Not Available [facility] 17:29:06 Date Recorded Heart rate Systolic blood pressure Diastolic blood pressure Provider Name and Address Organization Details Last Updated DateTime 12/27/2020 60 /min 120 mm[Hg] 80 mm[Hg] Not Available [facility] 12/27/2020 17:35:33 Social History None recorded. Functional Status None recorded. Mental Status None recorded. Family History Relationship Description Onset Age of this Age Resolved Age Notes LastModified by Organization Details LastModified Time Father No current problems or disability Not available 12/18 17:24:25 Mother No current problems or disability [email or web address] Not available 12/18 17:24:25 Medical History No medical history recorded. Past Encounters Encounter ID Performer Location Encounter Start Date Encounter Closed Date Diagnosis/Indication Diagnosis SNOMED-CT Code Diagnosis ICD10 Code Diagnosis Note [id number] JERMAIN Pike [facility] [address] [place] [address] 12/27/2020 17:23:09 12/27/2020 18:35:34 Weakness present [id number] M62.81 Health Concerns Section Related Observation LastModified by Organization Detai ls LastModified Time None Recorded Concern Status LastModified by Organization Details LastModified Time None Recorded Advance Directives Directive None Recorded Payers Encounter Date Sequence Insurance Name Policy Number Policy Askew Covered Member ID Askew Member ID Guarantor Name 12/27/2020 1 [employer] - MEDICARE ADVANTAGE PLAN (MEDICARE REPLACEMENT HMO) [id number] Jesús Feliciano [id number] Jesús Feliciano Notes Date Note Type Note Provider Name and Address Organization Details Recorded Time 12/27/2020 text/html 70 yo male new t o provider and to dcd [facility] with PNA on Dec 19was on iv abx multiple broad spectrum after dc, placed on po Augmentin - completed yesterdaystill taking prednisone - currently 30mg QD on taperphone visit with PCP yesterdaypulm followup on the currently the patient reports weakness and jitteryhas an albuterol inh but hasnt used yetno T2DMno fevers chillsno palpitationsno cough anymore, was bad prior to hospital admitno dizziness with standingno SOB(+)BM soft but not liquid - no diarrhea(+)VOID(+)po intake intact(+)CHEST DISCOMFORT SUBSTERNAL 3/10BP 122/60 sitting 120/80 standingHR sitting 40s, standing 60s, EKG 60ssitting 40s on recheck 41-46sitting 37 on 2nd recheck JERMAIN Pike [address], [place], [address], [place] [facility] 12/27/2020 18:33:07
--- OUTSIDE RECORDS SUMMARY | 2024-03-05 07:56 | XMS_ITS | Continuity of Care Document ---
Author Name [facility] Organization [facility] Care Team Providers Care Vertical Roll Operator Name Role Phone [facility] Unavailable Unavailable Problems Combined list of problems from Department of Defense and Veterans Affairs facilities. It does not include entries that were removed or entered in error. Problem Status Onset Date Problem Type Date of Resolution Comments Source Benign essential hypertension Active Condition [place] Bifascicular block Active Condition [facility] Colonoscopy Screening Active Condition Aug 14, 2022 Entered By: CARMINE RIDER Comment: 07/11/2022 [facility]: 7mm polyp in the descending colon, 8mm polyp at the splenic flexure. 2 6 to 8 mm polyps in ascending colon. [place] Coronary artery disease Active Condition [place] Coronary atherosclerosis [facility] Degenerative arthritis Active Condition Aug 03, 2020 Entered By: MARIUSZ JOE Comment: Left Knee [facility] Gastroesophageal reflux disease Active Condition [facility] History of exposure to lead Active Condition [place] History of malignant neoplasm of prostate Active Condition [place] Hyperlipidemia Active Condition [facility] Long-term current use of anticoagulant Active Condition [facility] Multiple pulmonary nodules Active Condition [place] NON [facility] Prov[facility] Active Condition Aug 03, 2020 Entered By: MARIUSZ JOE Comment: PCP - Dr. Deisi Lim 2020 Entered By: CARMINE RIDER Comment: Pulmonary- Dr. Gaston 2020 Entered By: CARMINE RIDER Comment: Gastroentrologi st- Dr. Taveras [facility] Obesity Active Condition [facility] Overactive bladder Active Condition [facility] Pulmonary embolism Active Condition [facility] Sarcoidosis Active Condition [facility] Simple cyst of kidney Active Condition [place] Diagnosis: ICD-10-CM H90.3 Sensorineural hearing loss, bilateral Active Diagnosis [facility] [place] [facility] Diagnosis: ICD-10-CM Z23 Encounter for immunization Active Diagnosis [facility] [place] [facility] Diagnosis: ICD-10-CM I10 Essential (primary) hypertension Active Diagnosis [place] Diagnosis: ICD-10-CM Z46.1 Encounter for fitting and adjustment of hearing aid Active Diagnosis [facility] Medications Combined list of outpatient medications from [...] DAILY ORAL ACTIVE EARL JOE SA 2020 [facility] ASCORBIC ACID 500MG TAB TAKE ONE TABLET BY MOUTH ONCE DAILY ORAL ACTIVE EARL JOE SA 2020 [facility] ASPIRIN 81MG TAB,CHEWABL E CHEW ONE TABLET BY MOUTH ONCE DAILY ORAL ACTIVE EARL JOE SA 2020 [facility] ATORVASTATI N CA 80MG TAB TAKE ONE TABLET BY MOUTH AT BEDTIME ORAL ACTIVE EARL JOE SA 2020 [facility] CHOLECALCIF CHALINO 50MCG (2,000UNIT) TAB TAKE ONE TABLET BY MOUTH ONCE DAILY ORAL ACTIVE EARL JOE SA 2020 [facility] [place] HYDROCHLORO THIAZIDE 25MG TAB TAKE ONE TABLET BY MOUTH ONCE DAILY ORAL ACTIVE EARL JOE SA 2020 [facility] [place] ISOSORBIDE MONONITRATE 30MG TAB,SA TAKE ONE TABLET BY MOUTH ONCE DAILY ORAL ACTIVE EARL JOE SA 2021 [facility] LORAZEPAM 0.5MG TAB TAKE ONE TABLET BY MOUTH TWICE DAILY NEEDED ORAL ACTIVE EARL JOE SA 2021 [facility] OLMESARTAN MEDOXOMIL 20MG TAB TAKE TWO TABLETS BY MOUTH ONCE DAILY ORAL ACTIVE TATYANAEARL SA 2020 [facility] [place] OMEPRAZOLE 20MG CAP,EC TAKE 2 CAPSULES BY MOUTH TWICE DAILY ORAL ACTIVE EARL JOE SA 2021 [facility] [place] [facility] TOLTERODINE TARTRATE 2MG TAB TAKE TWO TABLETS BY MOUTH ONCE DAILY ORAL ACTIVE EARL JOE SA 2023 [facility] Allergies, Adverse Reactions, Alerts Combined list of allergies from Department of Defense and Veterans Affairs facilities. It does not include entries that were removed or entered in error. Substance Category Reaction Severity Reaction type Status Date Reported Comments Source IBUPROFEN Propensity to adverse reactions to drug (finding) Urticaria , Eruption active [facility] [place] [facility] Immunizations Combined list of available immunizations from the Department of Defense and Veterans Affairs facilities. Immunization Series Date Given Administered By Site Reaction Lot Number CVX Code Drug [employer] Manager Status Comments Source INFLUENZA, HIGH-DOSE, TRIVALENT, PF 2023 MARII JAMESON Anastasia LEFT DELTO ID [id number] 135 complet ed [facility] COVID-19 (PFIZER), MRNA, LNP-S, PF, 30 MCG/0.3 ML DOSE 2 2020 208 complet ed [facility] COVID-19 (PFIZER), MRNA, LNP-S, PF, 30 MCG/0.3 ML DOSE 1 2020 208 complet ed [facility] [place] [facility] INFLUENZA, UNSPECIFIED FORMULATION 2019 88 complet ed [facility] [place] [facility] Vital Signs Combined list of inpatient and outpatient Vital Signs from Department of Defense and Veterans Affairs, ranging from 12 months to all on record, depending upon the facility. Vital Sign Value Date Comments Source SYSTOLIC BLOOD PRESSURE 162 08/29/19 24 09:07:14 [facility] [place] [facility] DIASTOLIC BLOOD PRESSURE [id number] 09:07:14 [facility] [place] [facility] PULSE OXIMETRY 95 08/29/2023 09:07:14 [facility] Out[facility] En[facility] [id number] 08/14 [facility] OFFICE O/P EST LOW 20-29 MIN [id number] Diagnos is: ICD-10- CM I10 Essenti al (primar y) hyperte nsion<b r/> MIN JOE 08/14 [place] [facility] HEARING AID EXAM BOTH EARS [id number] Diagnos is: ICD-10- CM H90.3 Sensori neural hearing loss, bilater al
Alfreda OLEARY 10/23 [facility] HEARING AID FITTING/CH ECKING [id number] Diagnos is: ICD-10- CM Z46.1 Encount er for fitting and adjustm ent of hearing aid<br/ > Alfreda OLEARY 11/19 [facility] HEARING AID REPAIR/MOD IFYING [id number] Diagnos is: ICD-10- CM Z46.1 Encount er for fitting and adjustm ent of hearing aid<br/ > LYNDON HARRISON TIFFANIE REDDY 01/30 [facility] HEARING SERVICE [id number] Diagnos is: ICD-10- CM Z46.1 Encount er for fitting and adjustm ent of hearing aid<br/ > ESTELLA KRAUSE Shadi 02/24 [facility] Out[facility] Encounter [id number] 04/17 [facility] Out[facility] Encounter [id number] 07/31 [facility] Out[facility] Encounter [id number] 08/28 [facility] OFFICE O/P EST LOW 20 MIN [id number] Diagnos is: ICD-10- CM I10 Essenti al (primar y) hyperte nsion<b r/> MIN JOE 08/28 [place] [facility] Out[facility] Encounter [id number] 09/07 [facility] [place]MMUNIZAT[place] ADMIN [id number] Diagnos is: ICD-10- CM Z23 Encount er for immuniz ation<b r/> DEAN RODRIGUEZ 10/30 [facility] HEARING AID FITTING/CH ECKING [id number] Diagnos is: ICD-10- CM H90.3 Sensori neural hearing loss, bilater al
Alfreda OLEARY E 11/23 [facility] Social History Combined list of available smoking, tobacco, and other social history from Department of Defense and Veterans Affairs facilities. Social History Type Response Date Comment [facility] e Tobacco smoking status [facility]-TOBACCO NEVER USED 08/29/19 [place] History of tobacco use [facility]-TOBACCO NEVER USED 08/14/2022 [place] History of tobacco use [facility]-TOBACCO NEVER USED 08/15/2021 [place] History of tobacco use [facility]-TOBACCO NEVER USED 08/16/2020 [place] Advance Directives List of completed, amended, or rescinded Advance Directives on record at Department of Veterans Affairs facilities. An actual copy of the Directive is not included. Date Advance Directive Provider Source 08/16/2020 [facility]VANCE DIRECTIVE IRENE AC
[2024-03-05 08:18] VITALS: BMI 28.3
[2024-03-05] MEDS: Lactated Ringers 1,000 ML 100 ML IVCONT (08:35)
[2024-03-05 08:36] VITALS: BP 144/69; PULSE 69; RESP 14; TEMP 36.9; O2SAT 95
--- NOTE | 2024-03-05 08:48 | P.HPSUR_ITS ---
Pre-Procedural Eval Section A - 24 Hr Update-Section A only Date of Service: 03/05/24 Section B - Complete if H&P > 30 days Chief Complaint: Encounter for screening for malignant neoplasm of Details of Present Illness: see H&P no changes Relevant Family History (Specify if Yes): No Relevant Social History: None Present Medications: see Short Stay Collaborative assessment Medical History: No relevant PMH History of Previous Operations: Relevant previous surgery/procedure and date(s) Allergies: Allergies Allergy/AdvReac Type Severity Reaction Status Date / Time ibuprofen [Ibuprofen] Allergy Intermediate HIVES/JOINT Verified 03/05/24 08:07 SWELLING Review of Systems Sugical H&P ROS: Negative: Constitution, Cardiovascular, Respiratory, Neurological, Psychiatric, Hem-Onc, Allergic/Immunologic, Gastrointestinal, Genitourinary, Musculoskeletal, Integumentary, Endocrine and Eyes/Ears/Nose/Throat Exam Surgical H&P Exam: Normal: HEENT, Normal: Heart, Normal: Lungs, Normal: Extr emities, Normal: Abdomen, Normal: Skin and Normal: Neurological Plan Diagnosis/Plan: Unchanged I have reviewed the history and physical and performed a pertinent physical examination on my patient. No changes have occurred unless specified. Time Spent With Patient Time: Total time managing care of this patient today ____ minutes.
[2024-03-05 09:35] VITALS: BP 82/47; PULSE 52; RESP 18; TEMP 36.1; O2SAT 97
[2024-03-05 09:50] VITALS: BP 106/59; PULSE 51; RESP 18; TEMP 36.8; O2SAT 97
--- NOTE | 2024-03-05 09:50 | OP_ITS ---
DATE OF SERVICE: 03/05/2024 SURGEON: Raji Taveras MD INDICATIONS: Colon cancer screening and prior history of adenomatous colon polyps. PREOPERATIVE DIAGNOSIS: POSTOPERATIVE DIAGNOSIS: PROCEDURE PERFORMED: Colonoscopy to the terminal ileum. ESTIMATED BLOOD LOSS: COMPLICATIONS: ANESTHESIA: Monitored anesthesia care. ASSISTANTS: SPECIMENS: DESCRIPTION OF PROCEDURE: A history and physical were performed. The risks and benefits of the procedure were explained to the patient. Informed consent was obtained. The patient was placed in the left lateral decubitus position. A digital rectal exam was performed and was found to be normal. The Olympus pediatric video colonoscope was introduced into the rectum and advanced to the cecum. The cecum was identified by transillumination, palpation, and identification of ileocecal valve. Examination was performed. The scope was removed. He tolerated the procedure well and was returned to recovery area in stable condition. FINDINGS: The terminal ileum was examined and appeared normal. The visualized colonic mucosa was normal. The quality of the prep was good. No polyps were identified. Retroflexed examination showed moderately large internal hemorrhoids. IMPRESSION: Normal colonoscopy. RECOMMENDATIONS: 1. Follow up as needed. 2. Repeat colonoscopy could be considered in 7 to 10 years. This is optional based on age. MD ALISHA Smalls/SCOTTL / [phone]
--- NOTE | 2024-03-05 11:08 | PM.OP ---
Brief Operative Note Date of Service: 03/05/24 Pre-op diagnosis: screening Post-op diagnosis: same Procedure: colonoscopy Surgeon: Raji Taveras MD Anesthesia: MAC Was an Electrotyper used for this Procedure?: No Estimated blood loss (mL): 0 Pathology: none sent Condition: stable Disposition: PACU
== END 2024-03-05 10:27 | disposition home or self-care (01) ==
PROVIDERS: PCP Internal Medicine; Visit Provider Internal Medicine Gastroenterology
PROC: 0DJD8ZZ Inspection of Lower Intestinal Tract, Via Natural or Artificial Opening Endoscopic (ICD-10-PCS; CPT 45378; principal; 2024-03-05 09:00)
DX: Z12.11 Encounter for screening for malignant neoplasm of colon (principal); Z86.0101 Personal history of adenomatous and serrated colon polyps; K64.8 Other hemorrhoids; K21.9 Gastro-esophageal reflux disease without esophagitis; I10 Essential (primary) hypertension; E78.00 Pure hypercholesterolemia, unspecified; N20.0 Calculus of kidney; Z85.46 Personal history of malignant neoplasm of prostate; Z90.79 Acquired absence of other genital organ(s); G47.33 Obstructive sleep apnea (adult) (pediatric); Z99.89 Dependence on other enabling machines and devices; Z79.899 Other long term (current) drug therapy; Z98.890 Other specified postprocedural states; Z88.6 Allergy status to analgesic agent; Z79.82 Long term (current) use of aspirin
CPT/HCPCS: G0105; J2003; J2704

== ENCOUNTER 2024-08-20 08:33 | Emergency (ER) | payer MEDICARE, SELFPAY ==
--- NOTE | 2024-08-20 | ECG_ITS ---
Test Reason : CHEST PAIN Blood Pressure : */* mmHG Vent. Rate : 63 BPM Atrial Rate : 63 BPM P-R Int : 188 ms QRS Dur : 156 ms QT Int : 448 ms P-R-T Axes : 28 -58 -6 degrees QTcB Int : 458 ms Normal sinus rhythm Left axis deviation Right bundle branch block Abnormal ECG When compared with ECG of 01-Aug-2023 17:38, Premature ventricular complexes are no longer Present Referred By: Generic ED Physician Electronically Signed By: THAO BOOTH MD
--- NOTE | ~2024-08-20 | CT_ITS ---
CLINICAL HISTORY: L chest pain r o PE --- Additional Notes or Special Instructions: VTE hx CT angiography of the chest with IV contrast. 3D/MIP post processing reconstructions were performed. COMPARISON: None provided. FINDINGS: There are no intraluminal filling defects to suggest pulmonary embolism. No evidence of right heart strain. Visualized thyroid is unremarkable. No supraclavicular or axillary lymphadenopathy. Ascending aorta and main pulmonary artery are normal in caliber. No pericardial effusion. Coronary artery calcifications present within the LAD and circumflex and RCA. Normal esophagus. Multiple calcified mediastinal and hilar lymph nodes. No pleural effusion. Hazy ground-glass opacities and mild subpleural bronchiectasis within the posterior lower lobes bilaterally. No definite honeycombing. Trachea and central airways are clear. No significant bronchial wall thickening. No bronchiectasis. Multiple small bilateral small pulmonary nodules measuring 2-4 mm. For example right upper lobe 3 mm pulmonary nodule (series 6, image 39) left upper lobe 4 mm pulmonary nodule (series 6, image 24). Hypoattenuating lesion present within the right hepatic lobe measuring 0.7 cm, too small to further characterize. Cholelithiasis. No stigmata of cholecystitis. Flowing marginal osteophytes present throughout the thoracic spine. No acute fracture or suspicious bone lesion. IMPRESSION: 1. No evidence of pulmonary embolism. 2. Likely mild basilar predominant pulmonary fibrosis. 3. Multiple small bilateral 2-4 mm pulmonary nodules. Recommend comparison with prior imaging if available. If none available, consider follow-up imaging in 12 months if patient has risk factors for malignancy. 4. Evidence of prior granulomatous disease. 5. Coronary artery atherosclerosis. This document has been electronically signed by: Andrews Swann MD on 08/20/2024 14:12:10
--- NOTE | ~2024-08-20 | XR_ITS ---
CLINICAL HISTORY: cp 2 views chest Comparison: None Findings: Cardiac and mediastinal contours are normal. There is interstitial prominence with scattered peribronchial thickening. No focal consolidation. No effusion. No pneumothorax. No acute osseous finding. Impression: There is interstitial prominence with scattered peribronchial thickening. No focal consolidation. This document has been electronically signed by: Juan Benitez MD on 08/20/2024 09:44:34
[2024-08-20 08:47] VITALS: BP 149/69; PULSE 63; RESP 22; TEMP 36.6; O2SAT 97; BMI 31.9
[2024-08-20 09:07] LABS: MANUAL DIFF FLAG NO
[2024-08-20 09:11] LABS: Hematocrit 41.0 % (42.0-52.0); Hemoglobin 14.0 g/dl (14.0-18.0); Imm Gran Abs Auto 0.03 X10*3/uL (0.00-0.03); Imm Gran Pct Auto 0.4 % (0.0-0.4); Lymphocytes Absolute Auto 1.7 X10*3/uL (1.2-4.9); Mean Corpuscular HGB Conc 34.1 g/dl (31.0-36.0); Mean Corpuscular Hemoglobin 26.2 pg (27.0-33.0); Mean Corpuscular Volume 76.6 fL (80.0-98.0); NRBC Abs Auto 0.000 X10*3/uL (0.0-0.012); NRBC Pct Auto 0.0 /100WBC (0.0-0.2); Platelet Count 250 X10*3/uL (160-400); Red Blood Count 5.35 X10*6/uL (4.60-5.80); White Blood Count 7.3 X10*3/uL (4.8-10.8)
[2024-08-20 09:21] LABS: Alanine Aminotransferase 31 U/L (0-40); Albumin Level 4.1 g/dL (3.5-5.0); Alkaline Phosphatase 82 U/L (39-117); Anion Gap 14 (12-20); Aspartate Amino Transferase 35 U/L (5-37); Blood Urea Nitrogen 14 mg/dL (9-16); Calcium 9.3 mg/dL (8.4-10.2); Carbon Dioxide 26 mmol/L (22-29); Chloride 107 mmol/L (96-108); Creatinine Clr Calc Pharmacy 89.1; Estimated Glomerular Filt Rate > 60; Potassium 3.5 mmol/L (3.3-5.1); Sodium 143 mmol/L (135-145); Total Protein 6.4 g/dL (6.5-8.0)
[2024-08-20 09:27] LABS: B Type Natriuretic Peptide 49 pg/mL (<100)
[2024-08-20 09:28] LABS: Troponin-I High Sensitivity 10.5 ng/L (<3.5-35.0)
[2024-08-20 09:37] VITALS: PULSE 56
[2024-08-20 10:28] VITALS: BP 152/67; PULSE 58; RESP 20; TEMP 36.3; O2SAT 95
--- NOTE | 2024-08-20 10:57 | ED.CHESTPAIN ---
HPI - Chest Pain General Chief Complaint: Chest Pain Stated Complaint: CP since yesterday Time Seen by Provider: 08/20/24 10:03 Source: patient Mode of arrival: ambulatory Limitations: no limitations History of Present Illness ED Provider: JENNA CORRALES PA-C HPI narrative: 73 year old male with pmhx of HTN, HLD, ACD, ESTELLA, PVC, GERD, ILD, provoked pulmonary embolism s/p bronchoscopy w/ PNA requiring hospitalization, no longer on AC, that presents to the Emergency Department today with chest pain that began yesterday afternoon. He reports he did some manual work the day before the pain started. His pain is located on mid-chest and slightly left of his sternum. Pain is slightly reproducible on palpation. It is described as a tight sensation and slight burning, 3/10 now, 4/10 at its worse. Not exacerbated with positional changes, breathing, but worsens a bit when laying supine. Does not radiate to L neck, jaw or shoulder. Trialed tums last night with no relief of symptoms. Similar pain happened before, but did not last as long as this time. He takes all his meds, including his omeprazole for GERD regularly. Has known LBBB, no pacemaker or ICD in place. In 2019 had a bronchoscopy w/ biopsy of lung lesions, no concerning findings. Hospitalized for PNA 1 week after bronchoscopy. Following discharge for PNA, he returned to the ER with chest pain and diagnosed with PE, placed on AC for 1 year. This has since been discontinued. Admits to multiple recent flights over the last few weeks. The longest being 1.5 hours. Denies tobacco use. Drinks alcohol socially. Denies fever, chills, sore throat, shortness of breath, palpitations, wheezing, increased lower extremity swelling, cough, hemoptysis. Related Data Home Medications ?Medication ?Instructions ?Recorded ?Confirmed ascorbic acid (vitamin C) 500 mg 500 mg PO DAILY 12/16/20 09/08/24 tablet (Vitamin C) aspirin 81 mg tablet,delayed 81 mg PO DAILY 12/27/20 09/08/24 release Held on 07/11/21. Instructions: Resume on 08/06/21. cholecalciferol (vitamin D3) 50 50 mcg PO BEDTIME 12/27/20 09/08/24 mcg (2,000 unit) tablet (Vitamin D3) acetaminophen 325 mg tablet 650 mg PO QID PRN Pain 01/15/25 07/23/25 albuterol sulfate 90 mcg/actuation 2 puff inhalation Q6-8H PRN 03/03/24 09/08/24 aerosol inhaler Shortness Of Breath Or Wheezing metoprolol succinate 25 mg 25 mg PO DAILY 03/03/24 09/08/24 tablet,extended release 24 hr amlodipine 10 mg tablet 10 mg PO DAILY 09/08/24 09/08/24 atorvastatin 80 mg tablet 80 mg PO BEDTIME 09/08/24 09/08/24 isosorbide mononitrate 30 mg 30 mg PO QAM 09/08/24 09/08/24 tablet,extended release 24 hr olmesartan 40 1 tab PO DAILY 09/08/24 09/08/24 mg-hydrochlorothiazide 25 mg tablet omeprazole 40 mg capsule,delayed 40 mg PO DAILY 09/08/24 09/08/24 release tolterodine 4 mg capsule,extended 4 mg PO DAILY 09/08/24 09/08/24 release 24 hr Allergies Allergy/AdvReac Type Severity Reaction Status Date / Time ibuprofen (Ibuprofen) Allergy Intermediate HIVES/JOINT Verified 08/20/24 08:48 SWELLING Review of Systems Review of Systems: Constitutional: No fever, chills, fatigue, night sweats, weight changes ENT/Mouth: No ear pain, hearing loss, nasal congestion, sinus pain, rhinorrhea, sore throat Eyes: No eye pain, swelling, redness, vision changes, discharge Cardio: No palpitations, MERRITT, orthopnea, peripheral edema, +chest pain Pulm: No SOB, cough, sputum, wheezing, dyspnea, hemoptysis GI: No nausea, vomiting, hematemesis, abdominal pain, diarrhea, constipation, hematochezia, melena : No irregular bleeding, dysuria, frequency, urgency, hesitancy, hematuria, flank pain, urinary flow changes, urinary incontinence or retention MSK: No back pain, neck pain, joint pain, myalgias Skin: No lesions, rashes Neuro: No weakness, numbness, paresthesias, LOC, dizziness, headache Psych: No anxiety/panic, depression, SI/HI, AH/VH All other systems reviewed and are negative. [facility] Past Medical History Attestation statement: The following information was validated with the patient. Source: old records reviewed and nursing notes reviewed Medical History GI bleed Sleep apnea Breaux's esophagus GERD (gastroesophageal reflux disease) Kidney stones Elevated cholesterol Tubular adenoma History of prostate cancer ILD (interstitial lung disease) Atherosclerotic cardiovascular disease Essential hypertension Bifascicular block PVC (premature ventricular contraction) Pulmonary embolism Pneumonia Surgical History Hx of right inguinal hernia repair Hx of foot surgery History of esophagogastroduodenoscopy (EGD) H/O colonoscopy H/O prostatectomy Family History Family History Mother No problems noted. Father No problems noted. Social History Social History Household Members: Spouse Housing: House Are you a primary healthcare liaison to a significant other at home: No Do you presently have visiting nurse or other home services: No Unable to assess alcohol history related to: Unknown Alcohol intake: current Alcohol intake frequency: a few times a week Alcohol type: beer Patient Tobacco Use Status: Never used Tobacco Second Hand Smoke Exposure: No Advance Directives Date on File: 12/28/20 service: No Current occupational status: retired Physical Exam Vital Signs: Vital Signs: Last Vital Signs Temp 98.2 F 08/20/24 16:04 Pulse 59 08/20/24 16:04 Resp 16 08/20/24 16:04 BP 131/62 08/20/24 16:04 Pulse Ox 93 08/20/24 16:04 O2 Del Method Room Air 08/20/24 16:04 BMI result Body Mass Index 31.9 on arrival, hypertensive and mildly tachypneic to 22 General: Well appearing, in no acute distress. Skin: Warm, dry, intact. No rashes or lesions. Head: Normocephalic, atraumatic. EENT: Hearing is intact b/l. Conjunctiva clear. Sclera is anicteric. PERRLA. EOM intact. Moist mucous membranes.? Neck: Supple without LAD Cardiac: Chest wall symmetric. RRR. No JVD. Lungs: Normal respiratory effort without accessory muscle use. CTA bilaterally. No rales, rhonchi, or wheezes.? Back: No midline spinous or paraspinal tenderness. No step off deformity. Ext: Upper and lower extremities atraumatic, without tenderness, deformity, swelling or erythema. no calf tenderness. no pitting edema to LE. Neuro: AOx3. Normal speech. Strength 5/5 intact throughout. No saddle anesthesia. Sensation intact to light touch. NV intact distally. Ambulating with steady gait. Course Course Course Narrative: CBC without leukocytosis or left shift. H&H stable. Chemistry without acute electrolyte abnormality requiring intervention. No NJ. Liver function WNL. Initial troponin WNL at 10.5. BNP WNL at 49. Unlikely CHF. Chest x-ray showing interstitial prominence with scattered peribronchial thickening, no focal consolidation or infiltrate. CT angio chest without evidence of PE. There is mild basilar pulmonary fibrosis, multiple small bilateral 2-4 mm pulmonary nodules, evidence of prior granulomatous disease and coronary artery atherosclerosis. all findings evident on prior imaging and stable when compared to priors. > he is hemodynamically stable. Patient treated with GI cocktail with improvement in symptoms. Question some component of GERD. There is no clear etiology for patient's discomfort however it is reassuring that symptoms have resolved. Advised outpatient follow up. Patient has remained stable throughout ED visit today. Discussed worrisome signs and symptoms and when to return to the ED. All questions answered at this time. Patient is agreeable with disposition and stable for discharge. Medications Administered Discontinued Medications Generic Name Dose Route Start Last Admin Trade Name Freq PRN Reason Stop Dose Admin Acetaminophen 975 mg 08/20/24 11:57 08/20/24 12:48 Acetaminophen 325 Mg Tablet PO 08/20/24 11:58 975 mg ONCE ONE Administration Al Hydroxide/Mg Hydroxide 30 ml 08/20/24 14:21 08/20/24 14:27 Magnesium Hydrox/Alum Hydrox 30 Ml Oral.Susp PO 08/20/24 14:22 30 ml ONCE ONE Administration Belladonna Alkaloids/Phenobarbital 10 ml 08/20/24 14:21 08/20/24 14:27 Phenobarb/Hyoscy/Atropine/Scop 10 Ml Elixir PO 08/20/24 14:22 10 ml ONCE ONE Administration Ondansetron HCl 4 mg 08/20/24 14:21 08/20/24 14:33 Ondansetron Odt 4 Mg Tab.Rapdis TRANSLINGU 08/20/24 14:22 Not Given ONCE ONE Medical Decision Making Medical Decision Making [facility] Narrative: 73 year old male with pmhx of HTN, HLD, ACD, ESTELLA, PVC, GERD, ILD, provoked pulmonary embolism s/p bronchoscopy w/ PNA requiring hospitalization, no longer on AC, that presents to the Emergency Department today with chest pain that began yesterday afternoon. Symptoms suggestive of noncardiac chest pain.? History without high risk features (not substernal, no exertional component, not relieved with rest).? Exam without evidence of volume overload. EKG without signs of active ischemia. Given the timing of pain to ED presentation, plan to send delta troponin to evaluate for NSTEMI. Differential diagnosis also includes anemia, electrolyte abnormality, costochondritis, msk pain, pneumonia, pleurisy, GERD, gastritis, esophagitis, acute PE (PERC 2) Presentation not consistent with pneumothorax, thoracic aortic dissection, cardiac effusion or tamponade, myocarditis, pericarditis. Plan for labs, ekg, cxr, dimer, pain control, re-evaluation. Differential Diagnosis Differential Diagnoses: The differential diagnosis associated with the presentation includes as above. Admission/Observation not indicated Lab Data [facility] Lab Attestation statement: I reviewed the patient's lab results. as above. 08/20/24 08:59 08/20/24 08:59 Labs: Lab Results 08/20/24 08/20/24 08/20/24 Range/Units 08:59 11:31 14:33 WBC 7.3 (4.8-10.8) X10*3/uL RBC 5.35 (4.60-5.80) X10*6/uL Hgb 14.0 (14.0-18.0) g/dl Hct 41.0 L (42.0-52.0) % MCV 76.6 L (80.0-98.0) fL MCH 26.2 L (27.0-33.0) pg MCHC 34.1 (31.0-36.0) g/dl RDW 15.5 (11.0-16.0) % Plt Count 250 (160-400) X10*3/uL MPV 8.6 L (9.4-12.4) fL Immature Gran % (Auto) 0.4 (0.0-0.4) % Neut % (Auto) 60.6 (45-73) % Lymph % (Auto) 23.5 (20-40) % Bibb % (Auto) 9.7 (2-11) % Eos % (Auto) 4.8 H (0-4) % Baso % (Auto) 1.0 (0-2) % Lymph # (Auto) 1.7 (1.2-4.9) X10*3/uL Bibb # (Auto) 0.7 (0.1-1.2) X10*3/uL Eos # (Auto) 0.4 (0.0-0.4) X10*3/uL Baso # (Auto) 0.1 (0.0-0.2) X10*3/uL Abs Immat Gran (auto) 0.03 (0.00-0.03) X10*3/uL Absolute Neuts (auto) 4.5 (2.0-8.3) x10*3/uL Absolute Nucleated RBC 0.000 (0.0-0.012) X10*3/uL Nucleated RBC % (auto) 0.0 (0.0-0.2) /100WBC D-Dimer High Sensitivty 361 NG/ML Sodium 143 (135-145) mmol/L Potassium 3.5 (3.3-5.1) mmol/L Chloride 107 (96-108) mmol/L Carbon Dioxide 26 (22-29) mmol/L Anion Gap 14 (12-20) BUN 14 (9-16) mg/dL Creatinine 0.80 (0.5-1.4) mg/dL Estim Creat Clear Calc 89.1 Estimated GFR > 60 Random Glucose 107 (60-115) mg/dL Calcium 9.3 D (8.4-10.2) mg/dL Magnesium 1.9 (1.6-2.6) mg/dL Total Bilirubin 0.9 (0.0-1.0) mg/dL AST 35 (5-37) U/L ALT 31 (0-40) U/L Alkaline Phosphatase 82 (39-117) U/L Troponin I High Sens 10.5 10.1 (<3.5-35.0) ng/L B-Natriuretic Peptide 49 (<100) pg/mL Total Protein 6.4 L (6.5-8.0) g/dL Albumin 4.1 (3.5-5.0) g/dL Independent Interpretation I performed an independent interpretation of an: EKG, Plain X-Ray and CT Scan Interpretation: ekg showing normal sinus rhythm, rate of 63 beats per minute, known right bundle-branch block, no acute ischemic changes or ST elevations Chest x-ray showing peribronchial thickening, no focal infiltrate or consolidation CTA chest without PE Radiology Impression Discussion of test interpretation with radiology: I have reviewed the radiologist's reading. Radiologist Impression: Date of Service: 08/20/24 Procedure(s): CT angio chest PE protocol Accession Number(s): [id number] cc: Montrell Oakley MD; Jenna Corrales~ Report Number: [id number]: Total DLP = 312.00 mGy-cm CLINICAL HISTORY: L chest pain r o PE --- Additional Notes or Special Instructions: VTE hx CT angiography of the chest with IV contrast. 3D/MIP post processing reconstructions were performed. COMPARISON: None provided. FINDINGS: There are no intraluminal filling defects to suggest pulmonary embolism. No evidence of right heart strain. Visualized thyroid is unremarkable. No supraclavicular or axillary lymphadenopathy. Ascending aorta and main pulmonary artery are normal in caliber. No pericardial effusion. Coronary artery calcifications present within the LAD and circumflex and RCA. Normal esophagus. Multiple calcified mediastinal and hilar lymph nodes. No pleural effusion. Hazy ground-glass opacities and mild subpleural bronchiectasis within the posterior lower lobes bilaterally. No definite honeycombing. Trachea and central airways are clear. No significant bronchial wall thickening. No bronchiectasis. Multiple small bilateral small pulmonary nodules measuring 2-4 mm. For example right upper lobe 3 mm pulmonary nodule (series 6, image 39) left upper lobe 4 mm pulmonary nodule (series 6, image 24). Hypoattenuating lesion present within the right hepatic lobe measuring 0.7 cm, too small to further characterize. Cholelithiasis. No stigmata of cholecystitis. Flowing marginal osteophytes present throughout the thoracic spine. No acute fracture or suspicious bone lesion. IMPRESSION: 1. No evidence of pulmonary embolism. 2. Likely mild basilar predominant pulmonary fibrosis. 3. Multiple small bilateral 2-4 mm pulmonary nodules. Recommend comparison with prior imaging if available. If none available, consider follow-up imaging in 12 months if patient has risk factors for malignancy. 4. Evidence of prior granulomatous disease. 5. Coronary artery atherosclerosis. This document has been electronically signed by: Andrews Swann MD on 08/20/2024 14:12:10 Date of Service: 08/20/24 Procedure(s): XR chest 2V Accession Number(s): [id number] cc: Generic ED Physician; Montrell Oakley MD~ CLINICAL HISTORY: cp 2 views chest Comparison: None Findings: Cardiac and mediastinal contours are normal. There is interstitial prominence with scattered peribronchial thickening. No focal consolidation. No effusion. No pneumothorax. No acute osseous finding. Impression: There is interstitial prominence with scattered peribronchial thickening. No focal consolidation. This document has been electronically signed by: Juan Benitez MD on 08/20/2024 09:44:34 External Record Review External record reviewed: Inpatient record Prescription Management I considered prescription management with: Pain Medication Chronic Conditions Patient?s care impacted by: Hypertension Social Determinants Patient?s care significantly limited by Social Determinants of Health including: Other Social Determinant of Health Critical Care Time Critical Care Time Critical Care Time: No Discharge Plan Discharge Clinical Impression: Atypical chest pain Patient Disposition: Home, Self-Care Instructions: Noncardiac Chest Pain (ED) Additional Instructions: You were evaluated in the Emergency Department today for chest pain. Your evaluation has shown no signs of medical conditions requiring emergent intervention at this time. Your blood work today is reassuring. We checked your cardiac enzyme to times and it is normal. Your chest x-ray and CT angio of your chest shows findings consistent with chronic lung disease, stable when compared to prior imaging. No evidence of pneumonia or acute airspace disease. There is no evidence of blood clots in your lungs. It also shows multiple pulmonary nodules, similar to prior scans. I recommend repeat imaging in 12 months to monitor these. 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 If you do not have one, a referral has been provided. Please call them to make an appointment, they will not call you. Return to the Emergency Department if you experience worsening or uncontrolled chest pain, shortness of breath, lightheadedness, feeling faint, nausea, vomiting, or any other concerning symptoms. Prescriptions: No Action ascorbic acid (vitamin C) [Vitamin C] 500 mg Tablet 500 mg PO DAILY amlodipine 10 mg tablet 10 mg PO DAILY atorvastatin 80 mg tablet 80 mg PO BEDTIME tolterodine 4 mg capsule,extended release 24hr 4 mg PO DAILY olmesartan-hydrochlorothiazide 40-25 mg tablet 1 tab PO DAILY aspirin 81 mg Tablet,Delayed Release (Dr/Ec) 81 mg PO DAILY cholecalciferol (vitamin D3) [Vitamin D3] 50 mcg (2,000 unit) Tablet 50 mcg PO BEDTIME isosorbide mononitrate 30 mg tablet extended release 24 hr 30 mg PO QAM acetaminophen 325 mg Tablet 650 mg PO QID PRN (Reason: Pain) metoprolol succinate 25 mg Tablet Extended Release 24 Hr 25 mg PO DAILY albuterol sulfate 90 mcg/actuation HFA aerosol inhaler 2 puff inhalation Q6-8H PRN (Reason: Shortness Of Breath Or Wheezing) omeprazole 40 mg capsule,delayed release(DR/EC) 40 mg PO DAILY Referrals: [facility] [Provider Group] Montrell Oakley MD [Primary Care Provider, Internal Medicine] Interventions: ED Discharge Assessment Last Done: 08/20/24 16:04 Discharge Date/Time: 08/20/24 16:04 Print Language: Pashto
[2024-08-20 11:13] LABS: Magnesium 1.9 mg/dL (1.6-2.6)
[2024-08-20 11:45] LABS: D Dimer High Sensitivity 361 NG/ML
[2024-08-20 12:33] VITALS: BP 137/68; PULSE 56; RESP 14; TEMP 36.4; O2SAT 94
[2024-08-20 14:24] VITALS: BP 128/62; PULSE 53; RESP 16; TEMP 36.2; O2SAT 95
[2024-08-20] MEDS: PHENobarb/Hyoscy/Atropine/Scop 10 ML ELIXIR PO (14:27)
[2024-08-20] MEDS: Magnesium Hydrox/Alum Hydrox 30 ML ORAL.SUSP PO (14:27)
[2024-08-20 14:57] LABS: Troponin-I High Sensitivity 10.1 ng/L (<3.5-35.0)
[2024-08-20 16:04] VITALS: BP 131/62; PULSE 59; RESP 16; TEMP 36.8; O2SAT 93
== END 2024-08-20 16:04 | disposition home or self-care (01) ==
PROVIDERS: Physician Assistant Medical; Emergency Provider Emergency Medicine Emergency Medical Services; PCP Internal Medicine
DX: R07.89 Other chest pain (principal); R06.02 Shortness of breath; I45.10 Unspecified right bundle-branch block; R94.31 Abnormal electrocardiogram [ECG] [EKG]; Z79.899 Other long term (current) drug therapy
CPT/HCPCS: 36415; 71046; 71275; 80053; 83735; 83880; 84484; 85025; 85379; 93005; 99283; 99285

== ENCOUNTER → 2024-08-20 08:37 | Outpatient (BNV) | payer MEDICARE, SELFPAY | PROVIDERS: Emergency Provider Emergency Medicine Emergency Medical Services; PCP Internal Medicine; Visit Provider Internal Medicine Cardiovascular Disease | DX: I45.10 Unspecified right bundle-branch block (principal) | CPT/HCPCS: 93010 ==

== ENCOUNTER → 2024-08-20 08:49 | Outpatient (BNV) | payer MEDICARE, SELFPAY | PROVIDERS: PCP Internal Medicine; Visit Provider Radiology Vascular & Interventional Radiology | DX: I25.10 Atherosclerotic heart disease of native coronary artery without angina pectoris (principal); R91.8 Other nonspecific abnormal finding of lung field; J98.09 Other diseases of bronchus, not elsewhere classified | CPT/HCPCS: 71046; 71275 ==

== ENCOUNTER 2024-09-08 09:54 | Outpatient (AMB) | payer MEDICARE, SELFPAY ==
--- OUTSIDE RECORDS SUMMARY | 2024-03-05 05:00 | XMS_ITS ---
Author Organization [facility] Address [address] [place] [address] Care Team Providers Care Pharmacy Services Representative Name Role Phone Cele KONG, [facility] Primary Care Provide r Ken Taveras Jr, Raji Rogers REASON FOR VISIT screening Encounters Encounter Location Date Provider Diagnosis [facility] [address] [place] [phone] 03/05/2024 Raji Taveras Jr Colon cancer screening Z12.11 and Personal history of colonic polyps Z86.0100 Assessments Encounter Date Diagnosis (ICD Code) Assessment Notes Treatment Notes Treatment Clinical Notes Section Notes 03/05/2024 Colon cancer screening (ICD-10 - Z12.11) 03/05/2024 Personal history of colonic polyps (ICD-10 - Z86.0100) Plan Of Treatment Next Appt Details Provider Name:Raji villatoro Jr, 09/09/2024 02:55:00 PM, [address], [address], [place], [address], Progress Notes * HERNANDO MORAN ADOB:[birth year] (74 yo M)Acc No.[id number]:03/05/2024 COLON WITH MAC Patient: Mary SUNNYHERNANDO FELDMAN Provider: Nelia Taveras MD :1950 A ge:73 Y S ex:Male Date:03/05/2024 Address:[address], [id number] Pcp:Deisi Oakley MD Subjective: * Chief Complaints: * 1 . Screening. * Medical History: Objective: * Vitals: Assessment: * Assessment: 1. C olon cancer screening - Z12.11 (Primary) 2 . P ersonal history of colonic polyps - Z86.0100 Plan: * Treatment: * Procedure Codes: 4 5378 DIAGNOSTIC COLONOSCOPY, 0529F INTRVL 3+YRS PTS CLNSCP DOCD * * The named appointment provid er may or may not be the originator of this progress note, and it is not deemed complete until electronically signed by the appointment provider. Sign off status: Pending * Provider: Nelia Taveras MD Date: 0 03/05/2024 Generated for Rae payne/Alexandra/Mehrdaditting on: 0 09/08/2024 10:39 AM EDT
--- OUTSIDE RECORDS SUMMARY | 2024-08-27 05:00 | XMS_ITS | Continuity of Care Document ---
Author Name [facility] Organization [facility] Care Team Providers Care Acid Pumper Name Role Phone [facility] Unavailable Unavailable Problems Combined list of problems from Department of Defense and Veterans Affairs facilities. It does not include entries that were removed or entered in error. Problem Status Onset Date Problem Type Date of Resolution Comments Source Benign essential hypertension Active Condition [place] Bifascicular block Active Condition [facility] Colonoscopy Screening Active Condition Aug 14, 2022 Entered By: CARMINE RIDER Comment: 07/11/2022 [facility]: 7mm polyp in the descending colon, 8mm polyp at the splenic flexure. 2 6 to 8 mm polyps in ascending colon. [place] Coronary artery disease Active Condition [place] Coronary atherosclerosis [facility] Degenerative arthritis Active Condition Aug 03, 2020 Entered By: MARIUSZ JOE Comment: Left Knee [facility] Gastroesophageal reflux disease Active Condition [facility] History of exposure to lead Active Condition [place] History of malignant neoplasm of prostate Active Condition [place] Hyperlipidemia Active Condition [facility] Long-term current use of anticoagulant Active Condition [facility] Multiple pulmonary nodules Active Condition [place] NON [facility] Providers Active Condition Aug 03, 2020 Entered By: MARIUSZ JOE Comment: PCP - Dr. Deisi Lim 2020 Entered By: CARMINE RIDER Comment: Pulmonary- Dr. Gaston 2020 Entered By: CARMINE RIDER Comment: Gastroentrologi st- Dr. Taveras [facility] Obesity Active Condition [facility] Overactive bladder Active Condition [facility] Pulmonary embolism Active Condition [facility] Sarcoidosis Active Condition [facility] Simple cyst of kidney Active Condition [place] Diagnosis: ICD-10-CM I10 Essential (primary) hypertension Active Diagnosis [place] Diagnosis: ICD-10-CM H90.3 Sensorineural hearing loss, bilateral Active Diagnosis [facility] Diagnosis: ICD-10-CM Z23 Encounter for immunization Active Diagnosis [facility] Medications Combined list of outpatient medications from Department of Defense and Veterans Affairs facilities.Medications provided include 1) outpatient medications from the last 15 months, and 2) patient-reported medications. Medication Details Route Status Patient Instructions Prescription Expires Prescription Number Last Dispense Date Ordering Provider Order Date Order Qty Source ALBUTEROL 90MCG/ACTUA T (CFC-F) INHL,ORAL,8 .5GM DOSE COUNTER INHALE 1 TO 2 PUFFS BY MOUTH PRN RESPIR ATORY (INHAL ATION) ACTIVE EARL JOE SA 2024 [facility] AMLODIPINE BESYLATE 10MG TAB TAKE ONE TABLET BY MOUTH ONCE DAILY ORAL ACTIVE EARL JOE SA 2020 [facility] ASCORBIC ACID 500MG TAB TAKE ONE TABLET BY MOUTH ONCE DAILY ORAL ACTIVE EARL JOE SA 2020 [facility] ASPIRIN 81MG TAB,CHEWABL E CHEW ONE TABLET BY MOUTH ONCE DAILY ORAL ACTIVE EARL JOE SA 2020 [facility] ATORVASTATI N CA 80MG TAB TAKE ONE TABLET BY MOUTH AT BEDTIME ORAL ACTIVE EARL JOE SA 2020 [facility] CHOLECALCIF CHALINO 50MCG (2,000UNIT) TAB TAKE ONE TABLET BY MOUTH ONCE DAILY ORAL ACTIVE EARL JOE SA 2020 [facility] HYDROCHLORO THIAZIDE 25MG TAB TAKE ONE TABLET BY MOUTH ONCE DAILY ORAL ACTIVE EARL JOE SA 2020 [facility] ISOSORBIDE MONONITRATE 30MG TAB,SA TAKE ONE TABLET BY MOUTH ONCE DAILY ORAL ACTIVE EARL JOE SA ROGE 2021 [facility] METOPROLOL SUCCINATE 25MG TAB,SA TAKE ONE TABLET BY MOUTH ONCE DAILY ORAL ACTIVE TATYANA,EARL GUAN 2024 [facility] OLMESARTAN MEDOXOMIL 20MG TAB TAKE TWO TABLETS BY MOUTH ONCE DAILY ORAL ACTIVE TATYANAEARL GUAN 2024 [facility] OMEPRAZOLE 20MG CAP,EC TAKE 2 CAPSULES BY MOUTH TWICE DAILY ORAL ACTIVE TATYANAEARL SA 2021 [facility] TOLTERODINE TARTRATE 4MG CAP,SA TAKE 1 CAPSULE BY MOUTH ONCE DAILY ORAL ACTIVE TATYANAEARL SA 2024 [facility] Allergies, Adverse Reactions, Alerts Combined list of allergies from Department of Defense and Veterans Affairs facilities. It does not include entries that were removed or entered in error. Substance Category Reaction Severity Reaction type Status Date Reported Comments Source IBUPROFEN Propensity to adverse reactions to drug (finding) Urticaria , Eruption active [facility] Immunizations Combined list of available immunizations from the Department of Defense and Veterans Affairs facilities. Immunization Series Date Given Administered By Site Reaction Lot Number CVX Code Drug Integrated Logistics Programs Director Status Comments Source INFLUENZA, HIGH-DOSE, TRIVALENT, PF 2023 MARII JAMESON LEFT DELTO ID [id number] 135 complet ed [facility]MINIST[facility] AT [facility], [facility] COVID-19 (PFIZER), MRNA, LNP-S, PF, 30 MCG/0.3 ML DOSE 2 2020 208 complet ed [facility] COVID-19 (PFIZER), MRNA, LNP-S, PF, 30 MCG/0.3 ML DOSE 1 2020 208 complet ed [facility] INFLUENZA, UNSPECIFIED FORMULATION 2019 88 complet ed [facility] Vital Signs Combined list of inpatient and outpatient Vital Signs from Department of Defense and Veterans Affairs, ranging from 12 months to all on record, depending upon the facility. Vital Sign Value Date Comments Source SYSTOLIC BLOOD PRESSURE 169 08/28/19 25 08:38:42 [facility] [place] [facility] DIASTOLIC BLOOD PRESSURE 71 025 08:38:42 [facility] PULSE OXIMETRY 95 % 08/27/2024 08:38:42 [facility] WEIGHT 196.4 08/27/2024 08:38:42 [facility] BMI 30 kg/m2 08/27/2024 08:38:42 [facility] PAIN 0 08/27/2024 08:38:42 [facility] HEIGHT 68 08/27/2024 08:38:42 [facility] TEMPERATURE 98.1 08/27/2024 08:38:42 [facility] PULSE 67 08/27/2024 08:38:42 [facility] RESPIRATION 16 08/27/2024 08:38:42 [facility] Encounters Combined list of: 1) Encounters from Department of Veterans Affairs facilities going backup to the last 18 months, not all VA inpatient encounters are included; 2) Encounters from the Department of [place] facilities going backup to 280 months. Location Location Details Encounter Type Encounter Number Reason For Visit Attending Provider ADM Date DC Date Status Disposition Source [facility] Outpatient Encounter [id number] 04/17 [facility] Out[facility] Encounter [id number] 07/31 [facility] Outpatient Encounter [id number] 08/28 [facility] [place] O/P EST LOW 20 MIN [id number] Diagnos is: ICD-10- CM I10 Essenti al (primar y) hyperte nsion MIN JOE ROGE 08/28 [place] [facility] Outpatient Encounter [id number] 09/07 [facility] IMMUNIZAT[place] ADMIN [id number] Diagnos is: ICD-10- CM Z23 Encount er for immuniz DEAN Leigh KNE 10/30 [facility] HEARING AID FITTING/CH ECKING [id number] Diagnos is: ICD-10- CM H90.3 Sensori neural hearing loss, bilater al Alfreda OLEARY YAKOV E 11/23 [facility] Outpatient Encounter [id number] 06/17 [facility] [place] OFFICE O/P EST LOW 20 MIN [id number] Diagnos is: ICD-10- CM I10 Essenti al (primar y) hyperte nsion MIN JOE ROGE 08/27 [facility] Social History Combined list of available smoking, tobacco, and other social history from Department of Defense and Veterans Affairs facilities. Social History Type Response Date Comment [facility] e Tobacco smoking status [facility] VA-TOBACCO NEVER USED 08/29/19 [place] History of tobacco use PR-TOBACCO NEVER USED 08/14/2022 [place] History of tobacco use PR-TOBACCO NEVER USED 08/15/2021 [place] History of tobacco use PR-TOBACCO NEVER USED 08/16/2020 [place] Advance Directives List of completed, amended, or rescinded Advance Directives on record at Department of Veterans Affairs facilities. An actual copy of the Directive is not included. Date Advance Directive Provider Source 08/16/2020 ADVANCE DIRECTIVE IRENE AC
[2024-09-08 09:56] VITALS: BP 138/70; PULSE 76; BMI 29.7
--- NOTE | 2024-09-08 09:56 | MHC.OFFVIS ---
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 Instructions: Resume on 08/06/21. atorvastatin 80 mg PO BEDTIME cholecalciferol (vitamin D3) (Vitamin D3) 50 mcg PO BEDTIME isosorbide mononitrate ER 30 mg PO QAM metoprolol succinate ER 25 mg PO DAILY olmesartan-hydrochlorothiazide 40-25 mg 1 tab PO DAILY omeprazole 40 mg PO DAILY tolterodine ER 4 mg PO DAILY HPI Comments Details: Jesús is here for cardiac consultation. Currently seen at [facility] but he would like to switch to us. He has a history of nonobstructive coronary disease per cardiac catheterization 2016. He also has asymptomatic PVCs, hypertension, chronic atypical chest pains. He states he gets chest pains off and on. Most recently he was in the ER few weeks back to get this checked out. However, it seems that after that visit he actually had shingles in the left chest and hence that might be either actual reason for the chest pain. Any case, it seems that the PCP had ordered a stress test and he wants to pursue that as already arranged. Otherwise, nothing clearly exertional. [facility] Medical History GI bleed Sleep apnea Breaux's esophagus GERD (gastroesophageal reflux disease) Kidney stones Elevated cholesterol Tubular adenoma History of prostate cancer ILD (interstitial lung disease) Atherosclerotic cardiovascular disease Essential hypertension Bifascicular block PVC (premature ventricular contraction) Pulmonary embolism Pneumonia Surgical History Hx of right inguinal hernia repair Hx of foot surgery History of esophagogastroduodenoscopy (EGD) H/O colonoscopy H/O prostatectomy Family History Mother No problems noted. Father No problems noted. Social History Household Members: Spouse Housing: House Are you a primary critical care nurse practitioner to a significant other at home: No Do you presently have visiting nurse or other home services: No Unable to assess alcohol history related to: Unknown Alcohol intake: current Alcohol intake frequency: a few times a week Alcohol type: beer Patient Tobacco Use Status: Never used Tobacco Second Hand Smoke Exposure: No Advance Directives Date on File: 12/28/20 service: No Current occupational status: retired Review of Systems Const Denies weakness ENT Denies dizziness Card Reports chest pain, Denies chest pain with activity, Denies syncope, Denies rapid heart rate, Denies pedal edema, Denies edema, Denies leg edema, Denies lightheadedness, Denies palpitations, Denies dyspnea, Denies dyspnea on exertion and Denies orthopnea Resp Denies cough, Denies dyspnea and Denies dyspnea on exertion GI Denies hematochezia and Denies change in stool character Musc Denies abnormal gait, Denies muscle cramps, Denies muscle weakness, Denies numbness, Denies radiating pain into limb and Denies tingling Neuro Denies abnormal gait, Denies dizziness, Denies syncope, Denies numbness, Denies tingling and Denies weakness Endo Denies palpitations Physical Exam Vital Signs: Last Vital Signs Pulse 76 09/08/24 09:56 BP 138/70 09/08/24 09:56 BMI result Body Mass Index 29.7 Const General: comfortable and no acute distress Orientation/consciousness: patient oriented x3 HEENT Other: Unremarkable Head: Yes normal to inspection Neck Neck: Yes normal visual inspection Chest Chest palpation & inspection: normal inspection of the chest Resp Auscultation: clear to auscultation bilaterally Cardio Palpation: normal PMI Heart sounds: S1 normal heart sound present, S2 normal heart sound present, no gallops, no murmurs and no rubs GI Palpation (GI): Soft to palpation Back/Spine/Pelvis Other: unremarkable Skin General skin exam: no rashes or lesions noted Neuro General: patient oriented x3 Extrem General: Yes normal to inspection Psych Mental Status: mental status grossly normal Assessment & Plan Assessment & Plan (1) Atherosclerotic cardiovascular disease: Code(s): I25.10 - Atherosclerotic heart disease of [place] coronary artery without angina pectoris Category: Medical Plan: Per [facility] notes, nonobstructive CAD per cardiac catheterization 2015. Myocardial perfusion imaging study from August 2023 showed no ischemia or infarction. Remains on aspirin and statins. He already has a another stress test due through his PCP and we can review that once completed. (2) Bifascicular block: Code(s): I45.2 - Bifascicular block Category: Medical Plan: Chronic bifascicular block on the EKG. Can be followed for progressive conduction system disease. (3) PVC (premature ventricular contraction): Code(s): I49.3 - Ventricular premature depolarization Category: Medical Plan: Per notes, he is asymptomatic PVCs. May need a follow-up Holter to assess burden as there is nothing mentioned in the recent notes from [facility]. (4) Hypertension: Code(s): I10 - Essential (primary) hypertension Category: Medical Plan: Stable on current meds. Coding Level of Care Code New Pt Level 4 (43126) Complex EM visit Add On G2211 Diagnoses Atherosclerotic cardiovascular disease I25.10 Bifascicular block I45.2 PVC (premature ventricular contraction) I49.3 Hypertension I10
--- OUTSIDE RECORDS SUMMARY | 2024-09-08 10:39 | XMS_ITS | Clinical Summary ---
Author Organization [facility] Address [address] [place] [address] Care Team Providers Care Biztalk Software Developer Name Role Phone Deisi Oakley MD Primary Care Provide r Allergies Active Allergy Reactions Criticality Noted Date Comments Ibuprofen 02/28/2021 Medications Medication Sig Dispensed Refills Start Date End Date Status albuterol 108 (90 Base) MCG/ACT inhaler 0 12/20/2020 Active amLODIPine (NORVASC) tablet 10 mg 0 01/31/2021 Active Eliquis 5 MG TABS tablet 0 12/31/2020 Active atorvastatin (LIPITOR) tablet 80 mg 0 12/06/2020 Active dexamethasone (DECADRON) 6 MG tablet 0 01/26/2021 Active LORazepam (ATIVAN) 0.5 MG tablet 0 01/19/2021 Active olmesartan-hydrochlorothiazide (BENICAR HCT) 40-25 MG per tablet 0 12/06/2020 Active omeprazole (PriLOSEC) 40 MG capsule 0 02/20/2021 Active tolterodine (DETROL LA) 4 MG 24 hr capsule 0 01/27/2021 Active Active Problems Problem Noted Date Diagnosed Date H/O prostate cancer 02/28/2022 Acute pulmonary embolism without acute cor pulmo nale 02/28/2021 ILD (interstitial lung disease) 02/28/2021 Family History Medical History Relation Name Comments Cancer Mother Cancer Sister Relation Name Status Comments Mother Sister Social History Tobacco Use Types Packs/Day Years Used Date Smoking Tobacco: Never Smokeless Tobacco: Never Alcohol Use Standard Drinks/Week Comments Not Currently 0 (1 standard drink = 0.6 oz pur e alcohol) Sex and Gender Information Value Date Recorded Sex Assigned at Not on file Gender Identity Not on file Sexual Orientation Not on file Job Start Date Occupation Industry Not on file Not on file Not on file Last Filed Vital Signs Vital Sign Reading Time Taken Comments Blood Pressure 140/52 02/28/2022 10:45 AM EST Pulse 61 02/28/2022 10:45 AM EST Temperature 37.2 C (98.9 F) 02/28/2022 10:45 AM EST Respiratory Rate - - Oxygen Saturation 98% 02/28/2022 10: 45 AM EST Inhaled Oxygen Concentration - - Weight 94.3 kg (207 lb 12.8 oz) 023 10:45 AM EST Height 172.7 cm (5' 8 ) 02/28/2022 10:4 5 AM EST Body Mass Index 31.6 02/28/2022 10:45 AM EST Plan of Treatment Health Maintenance Due Date Last Done Comments Hepatitis C Screening 1950 Depression Screening 1962 BMI Counseling 1968 Preventative Health Evaluation 1968 DTap / Tdap / Td (1 - Tdap) 1969 Colon Cancer Screening (Colonoscopy) 08/31/1995 Shingrix-Zoster Vaccine (1 of 2) 2000 RSV Adult > 60+ Yrs or (1 - Risk 60-74 years 1-dose series) 2010 Fall Risk Assessment 08/31/2015 COVID-19 Vaccine ( season) 2023 05/17/2020, 04/26/2020 Influenza Vaccine (#1) 2024 , 12/01/2019, 11/15/2019, Additional history exists Pneumococcal Vaccine Completed 04/06/2018, 03/03/19 18 Hepatitis B Vaccines Aged Out No long er eligible based on patient's age to complete this topic RSV Ped < 20 months Aged Out No longe r eligible based on patient's age to complete this topic Care Teams Biztalk Software Developer Relationship Specialty Start Date End Date Deisi Oakley MD [address] [facility] [place] [address] PCP - General Internal Medicine 01/18/21
--- OUTSIDE RECORDS SUMMARY | 2024-09-08 10:39 | XMS_ITS | Clinical Summary ---
Author Organization [facility] [place] [address] Phone Care Team Providers Care Olive Grower Name Role Phone Deisi Oakley MD Primary Care Provide r Allergies Active Allergy Reactions Criticality Noted Date Comments Ibuprofen Anaphylaxis High 03/22/2024 Medications albuterol HFA (PROAIR HFA ; PROVENTIL HFA ; VENTOLIN HFA) 90 mcg/actuation inhaler Inhale 2 puffs by mouth every 4 (four) hours if needed. 12/20/2020 Active amLODIPine (NORVASC) 10 mg tablet Take 1 tablet (10 mg total) by mouth 1 (one) time each day. 01/31/2021 Active atorvastatin (LIPITOR) 80 mg tablet Take 1 tablet (80 mg total) by mouth at bedtime. 12/06/2020 Active olmesartan-hydr oCHLOROthiazide (BENICAR HCT) 40-25 mg per tablet Take 1 tablet by mouth 1 (one) time each day. 12/06/2020 Active omeprazole (PriLOSEC) [address] capsule Take 1 capsule (40 mg total) by mouth 1 (one) time each day. 02/20/2021 Active tolterodine LA (DETROL LA) 4 mg 24 hr capsule Take 1 capsule (4 mg total) by mouth 1 (one) time each day. 01/27/2021 Active isosorbide dinitrate (ISORDIL) 30 mg tablet Take 1 tablet (30 mg total) by mouth 1 (one) time each day. Active metoprolol succinate (TOPROL-XL) 50 mg 24 hr tablet Take 1 tablet (50 mg total) by mouth 1 (one) time each day. Do not crush or chew. Active cholecalciferol (VITAMIN D-3) 50 mcg (2,000 unit) tablet Take 1 tablet (2,000 Units total) by mouth 1 (one) time each day. Active Active Problems No known active problems Surgical History Surgery Date Site/Laterality Comments PROSTATE SURGERY PROCEDURE:PROSTATE SURGERY OTHER SURGICAL HISTORY PROCEDURE:PULMONARY EMBOLISM BLADDER SURGERY 1, NETTING SUSPESION,2 PLACMENT OF ARTIFICIAL SPHINTER, REMOVAL OF SPHINCTERR CYST REMOVAL Right TESTICLE HERNIA REPAIR DENTAL IMPLANT 5 IMPLANTS BRONCHOSCOPY Medical History Medical History Date Comments Hypertension DX:Hypertension GERD (gastroesophageal reflux disease) DX:GERD (gastroesophageal reflux disease) CAD (coronary artery disease) DX :CAD (coronary artery disease) Prostate CA ([facility]/HCC V24, CMS/[facility] V28) DX:Prostate CA ([facility]) Hyperlipidemia DX:Hyperlipidemi a Pulmonary nodules DX:Pulmonary n odules Polyp of colon DX:Polyp of colo n Renal cyst DX:Renal cyst Irregular heart beat afib, bbb l eft Chronic bronchitis (CMS/HCC V24, CMS/HCC V28) Shortness of breath HL (hearing loss) hearing aides Pulmonary embolism (CMS/HCC V24, CMS/HCC V28) Neuromuscular disorder (CMS/ HCC V24, CMS/HCC V28) r , 4 fingers neuropathy Arthritis OA Joint pain Spastic bladder INCONTINENT Sleep apnea Family History Medical History Relation Name Comments Cancer Mother Cancer Sister Relation Name Status Comments Mother Sister Social History Tobacco Use Types Packs/Day Years Used Date Smoking Tobacco: Never Smokeless Tobacco: Never Alcohol Use Standard Drinks/Week Comments Not Currently 0 (1 standard drink = 0.6 oz pur e alcohol) Sex and Gender Information Value Date Recorded Sex Assigned at Male 04/20/2024 3:05 PM EST Legal Sex Male 8:23 AM EST Gender Identity Male 04/20/2024 3:05 PM EST Sexual Orientation Straight 04/20/2024 3: 05 PM EST Obstetrics History Last Filed Vital Signs Vital Sign Reading Time Taken Comments Blood Pressure 113/55 04/21/2024 11:00 AM EST Pulse 49 04/21/2024 11:00 AM EST Temperature 36.4 C (97.5 F) 04/21/2024 10:30 AM EST Respiratory Rate 14 04/21/2024 10:30 AM EST Oxygen Saturation 94% 04/21/2024 11:00 AM EST Inhaled Oxygen Concentration - - Weight 87.1 kg (192 lb) 03/22/2024 11:00 AM EST Height 170.2 cm (5' 7 ) 03/22/2024 11:00 AM EST Body Mass Index 30.07 03/22/2024 11:00 AM EST Plan of Treatment Health Maintenance Due Date Last Done Comments DTaP,Tdap,and Td Vaccines (1 - Tdap) 1969 Pneumococcal Vaccine: 50+ Ye ars (1 of 1 - PCV) 2000 Zoster Vaccines (1 of 2) 2000 RSV Immunization Adult Patie nts (1 - Risk 60-74 years 1-dose series) 2010 Cholesterol Screening (Lipid Panel) 01/26/2022 Colorectal Cancer Screening: Colonoscopy 01/26/2022 Hepatitis C Screening 01/26/2022 Medicare Annual Wellness Visit 01/26/2022 Social Influencers of Health Screening 01/26/2022 COVID-19 Vaccine ( - 2023-2 5 season) 2023 Depression Screening 02/18/2024 Influenza Vaccine (#1) 2024 Falls Risk Assessment 04/21/2025 04/21/2024 HIB Vaccines Aged Out No longer eligi ble based on patient's age to complete this topic HPV Vaccines Aged Out No longer eligi ble based on patient's age to complete this topic Hepatitis A Vaccines Aged Out No long er eligible based on patient's age to complete this topic Hepatitis B Vaccines Aged Out No long er eligible based on patient's age to complete this topic IPV Vaccines Aged Out No longer eligi ble based on patient's age to complete this topic MMR Vaccines Aged Out No longer eligi ble based on patient's age to complete this topic Meningococcal ACWY Vaccine Aged Out N o longer eligible based on patient's age to complete this topic Meningococcal B Vaccine Aged Out No l onger eligible based on patient's age to complete this topic RSV Immunization Patients Un freedom 20 months Aged Out No longer eligible b ased on patient's age to complete this topic Varicella Vaccines Aged Out No longer eligible based on patient's age to complete this topic Medical Devices Implanted Type Area Shipping Clerk/Admin Device Identifier Shelf Expiration Date Model / Serial / Lot Toe Imp Prmus W/Grommets [id number] - Sna - [id number] Implanted:Qty: 1 on 04/21/2024 by Renny Hamilton DPM at [facility] Joints Left: First Toe [employer]MAN AND NEPHEW- EXTREMITY ORTHO (FRMR [employer]) 06/17/2028 [id number] / NA / [id number] Insurance [employer]VANTAGE Care Teams Olive Grower Relationship Specialty Start Date End Date Deisi Oakley MD [address] [place], [place] [phone] Dia [place] PCP - General Internal Medicine 04/28/18
--- OUTSIDE RECORDS SUMMARY | 2024-09-08 10:39 | XMS_ITS | Data Portability ---
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 Overview/History : 70 yo [...] discomfort, pt and agreeable to transfer to [place] [facility] For cardiac monitoring, and workup for [...] BMP + ionized calcium, serum or plasma [facility]IM[facility], [address], [place], [address], 18:19:46 Referral None recorded. Procedures None recorded. Surgeries None recorded. Imaging None recorded. Medication Orders None recorded. Patient TargetsNo targets recorded. Patient Instructions Encounter Date Encounter Id Patient Instructions Last Modified By Organization Details Last Modified Time 12/27/2020 [id number] [facility] you [facility] yo ur [facility]. We cannot always find the exact [...] in your condition between 8am-10pm, please call [facility] at [phone] to help navigate your care. [email or web address] Not available 12/27/2020 17:24:37 Reason for Referral None Reported. Results Created Date Observation Date Name Description Value Unit Range Abnormal Flag Note LastModifiedBy Organization Detail LastModifiedTime 12/28/1912/27/2020 BMP + IONIZ ED CALCI UM, SERUM OR PLASM A glu 172 mg/dL 70-105 Not Available [facility] [address] [place], [address], 12/27/2020 18:19:46 12/28/19 21 12/27/2020 BMP + IONIZ ED CALCI UM, SERUM OR PLASM A BUN 23 mg/dL 8-26 Not Available [facility] [address] [place], [address], 12/27/2020 18:19:46 12/28/19 21 12/27/2020 BMP + IONIZ ED CALCI UM, SERUM OR PLASM A crea 0.7 mg/dL 0.6-1. 3 Not Available [facility] [address] [place], [address], 12/27/2020 18:19:46 12/28/19 21 12/27/2020 BMP + IONIZ ED CALCI UM, SERUM OR PLASM A Na 141 mmol/ L 138-14 6 Not Available [address], [address], 12/27/2020 18:19:46 12/28/19 21 12/27/2020 BMP + IONIZ ED CALCI UM, SERUM OR PLASM A K 3.5 mmol/ L 3.5-4. 9 Not Available [address], [address], 12/27/2020 18:19:46 12/28/19 21 12/27/2020 BMP + IONIZ ED CALCI UM, SERUM OR PLASM A cL 103 mmol/ L 98-109 Not Available [address], [address], 12/27/2020 18:19:46 12/28/19 21 12/27/2020 BMP + IONIZ ED CALCI UM, SERUM OR PLASM A TCO2 24 mmol/ L 24-29 Not Available [address], [address], 12/27/2020 18:19:46 12/28/19 21 12/27/2020 BMP + IONIZ ED CALCI UM, SERUM OR PLASM A angap 19 mmol/ L 10-20 Not Available [address], [address], 12/27/2020 18:19:46 12/28/1912/27/2020 BMP + IONIZ ED CALCI UM, SERUM OR PLASM A ica 1.15 mmol/ L 1.12-1 .32 Not Available [address], [address], 12/27/2020 18:19:46 11/10/20 21 12/27/2020 BMP + IONIZ ED CALCI UM, SERUM OR PLASM A HCT 47 %pcv 38-51 Not Available [facility] [address] [place], [address], 12/27/2020 18:19:46 12/28/19 21 12/27/2020 BMP + IONIZ ED CALCI UM, SERUM OR PLASM A Hb 16.0 g/dL 12-17 Not Available [facility] [address] [place], [address], 12/27/2020 18:19:46 12/28/1912/27/2020 elect bret hines am No observ ation record ed. [email or web address] Not Available 12/27 17:57:19 Result Notes None recorded. Procedures Surgical History Date Name Laterality Status Provider Name and Address Organization Details Recorded Time 12/28/19 ECG Interpretation - completed JERMAIN Pike [facility] [place], [address], [place] [facility] 12/27/2020 18:01:55 Imaging Results None recorded. Procedure Notes None recorded. Medical Equipment None [...] oximetry Body temperature Respiratory rate Heart rate Heart rate Systolic And Diastolic Systolic And Diastolic Provider Name and Address Organization Details Last Updated DateTime 95 % 95 % 97.3 [degF] 20 /min 73 /min 60 /min 122/60 mm[Hg] 120/80 mm[Hg] Not Available [facility] 17:35:33 Social History None recorded. Functional Status None recorded. Mental Status None recorded. Family History Relationship Description Onset Age of this Age Resolved Age Notes LastModified by Organization Details LastModified Time Father No current problems or disability [email or web address] Not available 12/18 17:24:25 Mother No current problems or disability [email or web address] Not available 12/18 17:24:25 Medical History No medical history recorded. Past Encounters Encounter ID Performer Location Encounter Start Date Encounter Closed Date Diagnosis/Indication Diagnosis SNOMED-CT Code Diagnosis ICD10 Code Diagnosis Note [id number] JERMAIN Pike [facility] [address] [place] [address] 12/27/2020 17:23:09 12/27/2020 18:35:34 Weakness present 311453077 M62.81 Health Concerns Section Related Observation LastModified by Organization Detai ls LastModified Time None Recorded Concern Status LastModified by Organization Details LastModified Time None Recorded Advance Directives Directive None Recorded Payers Insurance Date Sequence Insurance Name Policy Number Policy Askew Covered Member ID Askew Member ID Guarantor Name 12/27/2020 1 [employer] MED[employer] ADVANTAGE PLAN (MEDICARE REPLACEMENT HMO) [id number] Jesús Tomestic [id number] Jesús Tomestic 12/27/2020 1 [employer] MED[employer] ADVANTAGE PLAN (MEDICARE REPLACEMENT HMO) [id number] Jesús Tomestic [id number] Jesús Tomestic 12/27/2020 1 *SELF PAY* Jesús Tomestic [id number] Jesús Feliciano Notes Date Note Type Note Provider Name and Address Organization Details Recorded Time 12/27/2020 text/html 70 yo 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
== END 2024-09-08 10:19 | disposition home or self-care (01) ==
LOC: HO.HCS 09:55
PROVIDERS: PCP Internal Medicine; Visit Provider Internal Medicine
DX: I11.9 Hypertensive heart disease without heart failure (principal); I25.10 Atherosclerotic heart disease of native coronary artery without angina pectoris; I45.2 Bifascicular block; I49.3 Ventricular premature depolarization
CPT/HCPCS: 99214; G2211

== ENCOUNTER → 2024-09-08 09:54 | Outpatient (BNVA) | payer MEDICARE, SELFPAY | PROVIDERS: PCP Internal Medicine; Visit Provider Internal Medicine | DX: I25.10 Atherosclerotic heart disease of native coronary artery without angina pectoris (principal); I45.2 Bifascicular block; I49.3 Ventricular premature depolarization; I10 Essential (primary) hypertension | CPT/HCPCS: 99212 ==